=== PATIENT | female | born 1935 | race Caucasian/White ===

== ENCOUNTER 2016-12-10 19:32 | Inpatient (IN) | payer MEDICARE, MEDICAID ==
[~2016-12-10] VITALS: Ht 162.6 cm; Wt 85.1 kg
[~2016-12-10 19:32] MED LIST: ADVAIR 250/5028 PUFF IN; ALBUTEROL-1 PUFF/14. IN; ALLOPURINOL300 M1 PO; ALLOPURINOL300 MG PO; AMOXIL500 MG PO; ASPIRIN 81MG TA81 MG PO; CEFTIN500 MG PO; GABAPENTIN100 M1 PO; HYDROCORT 1% OI30 GM TP; IBUPROFEN200 MG PO; KEFLEX 500MG.500 MG PO; LASIX20 MG PO; LEVAQUIN250 MG PO; LISINOPRIL40 MG PO; LOPRESSOR 50 MG50 MG PO; LORATADINE 10MG10 M1 PO; MAG-OX 400400 MG PO; MAG-OX 400MG T400 MG PO; MAGNESIUM OXID400 M1 PO; METOPROLOL SUCC50 M1 PO; MIRALAX17 GM/PACK PO; MONTELUKAST SOD10 MG PO; MULTI VITAMINS1 TA1 PO; MULTIVITAMIN1 TA2 PO; NORVASC 5MG. TAB5 MG PO; OMEPRAZOLE D/R20 MG PO; ONDANSETRON H2 MG/ML IJ; OXYBUTYNIN CHLO10 MG PO; PLAVIX75 MG PO; PRAVACHOL 40MG40 MG PO; PRAVASTATIN 40M40 MG PO; PREDNISONE 20MG20 MG PO; PRILOSEC20 M1 PO; PROMETHAZINE HC25 M1 PO; PROVENTIL0.09 MG/AC IH; SENNA LAXATIVE8.6 MG PO; SERTRALINE 50MG50 MG PO; SINGULAIR10 MG PO; TESSALON PERLE100 M1 PO; VENTOLIN H0.09 MG/AC IH; ZOFRAN ODT4 MG PO; ZOFRAN ODT8 MG PO
[2016-12-10 19:55] VITALS: BP 127/52
[2016-12-10 20:36] LABS: LYMPH # 4.3 K/mm3 (0.7-4.5); LYMPH % 50.2 % (10-50.0)
[2016-12-10 20:45] LABS: HEMOGLOBIN 15.1 g/dL (12.2-16.2)
--- NOTE | 2016-12-10 20:45 | Emergency Room Report ---
History of Present Illness Time Seen by [id number] Presenting Problem in Triage Pt arrived:Walked Presenting Problem:C/O COUGH AND WHEEZING. BROWN SPUTUM. Onset of symptoms date/time:/ or onset unknown for:MEDICAL HX UNKNOWN Treatment Prior to Arrival: [employer]PER[employer] Provided by: Sepsis Risk Assessment: Temp: 98 B/P: 148/60 MAP: 77 Pulse: 60 Resp: 24 Recent fever? Y Clinical Suspician of Infection? Y Mental Status: 1 - Regular (Normal Baseline) Sepsis Risk:Severe Sepsis Risk Have you (or family members/close friends) recently traveled outside the [place]? N If Yes, where/when: Have you had exposure to infectious disease within the past month? N TB? Other? Specify: Comment The patient complains of wheezing in her chest for 24 hours. She feels short of breath. She has a cough producing yellow sputum. She says her forehead feels hot , but she has not taken her temperature. She denies chest pain or vomiting. She apparently has a diagnosis of chronic obstructive pulmonary disease. She says she has oxygen at home, but does not use it. She has an inhaler and last used it this morning. She has never been a smoker. ALLERGIES Coded Allergies: No Known Allergies (05/25/15) Home Medications Active Scripts Amlodipine Besylate (Norvasc) 5 MG PO DAILY #30 TAB Prov: 07/05/16 CEPHALEXIN (Keflex 500MG Capsule) 500 MG PO Q12H #14 CAP Prov: 07/05/16 Reported Medications Oxybutynin Chloride (Oxybutynin Chloride ER) 10 MG PO DAILY #30 TAB Sertraline Hcl (Sertraline 50MG) 50 MG PO DAILY #30 TAB Montelukast Sodium 10 MG PO QHS #30 TAB Furosemide (Lasix) 40 MG PO DAILY CEPHALEXIN (Keflex 500MG Capsule) 500 MG PO Q6HP PRN ANTIBIOTICS #40 CAPSULE Aspirin (Aspirin EC) 81 MG PO DAILY Sennosides (Senna) 8.6 MG PO DAILYP PRN CONSTIPATION MULTIVITAMIN (Daily Brigida) 1 TAB PO DAILY Gabapentin (Gabapentin 100MG) 100 MG PO QHS PRAVASTATIN SODIUM (Pravastatin Sodium) 40 MG PO QHS Lisinopril (Lisinopril 40MG) 40 MG PO DAILY OMEPRAZOLE MAGNESIUM (Prilosec 20MG) 20 MG PO DAILY Loratadine (Loratadine 10MG Tablet) 10 MG PO DAILY FLUTICASONE/SALMETEROL (Advair 250-50 Diskus) 1 PUFF IN BID Metoprolol Tartrate (Lopressor) 50 MG PO BID #60 Magnesium Oxide 400 MG PO DAILY #30 History Medical History General CAD? No Angina: No UT: No Hypertension? Yes Hyperlipidemia? No CHF? No DVT? No PE? No COPD? Yes Asthma? No Anemia? No GERD? No Gastric ulcers? No GI Bleed? No Hernia? No Thyroid Problems? No Hypothyroidism? No CVA? Yes Seizures? No Diabetes? No Insulin Dependent: No Insulin Pump: No Home FSBS? No Renal Insuffiency? No End Stage Renal Disease? No UTI? Yes Stones? No BPH? No GB Disease: No Nephritic Syndrome? No Asplenia? No Hepatitis? No Sickle Cell Disease? No Arthritis? No Migraines? No Cataracts? Yes Glaucoma? No MRSA? No HIV? No TB? No Anxiety? No Depression? No Cancer? Yes Site: NECK.GROIN AND CHEST More? No Immunization Hx DT/Tetanus Unknown Flu 2016-17FSN Pneumonia Received In Past Surgical Hx Previous Surgery?Y Hemorrhoid CYSTS FROM BREASTS Family History Family Hx Diabetes Yes CAD Yes Hypertension Yes Hyperlipidemia Yes Cancer Yes TB No Social History Smoking Hx Smoker: Never Smoker Tobacco: No Alcohol Alcohol: No Review of Systems All Other Systems Reviewed and Negative Constitutional see HPI Respiratory cough, shortness of breath, wheezing Cardiovascular denies chest pain Gastrointestinal denies abdominal pain, denies diarrhea, denies vomiting Physical Exam Vital Signs Vital Signs Date Time Temp Pulse Resp B/P Pulse O2 O2 Flow FiO2 Ox Delivery Rate 12/106 67 24 116/93 93 2 12/10 2100 98.0 64 24 137/57 92 2 12/11 2015 85 12/10 2015 60 24 148/60 95 2 12/10 1955 98.0 59 24 127/52 87 General Appearance normal appearance, WD/WN Eye Exam - bilateral eye normal exam, bilateral eye PERRL, bilateral eye EOMI Ear, Nose, Throat hearing grossly normal, normal ENT inspection Neck normal inspection, non-tender, supple, full range of motion Respiratory Status Yes: trachea midline, chest symmetrical, non productive cough. No: respiratory distress (tachypnea). Lung Sounds bilateral: rales (bases bilaterally), wheezing. 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 No Results/Orders Laboratory Tests 12/10/162029: Urine Color YELLOW, Urine Appearance CLEAR, Urine pH 6.5, Ur Specific [place] 1.015, Urine Protein TRACE H, Urine Ketones NEGATIVE, Urine Blood NEGATIVE, Urine Nitrate POSITIVE H, Urine Bilirubin NEGATIVE, Urine Urobilinogen 4.0, Ur Leukocyte Esterase NEGATIVE, Urine RBC OCC, Urine WBC 5-10, Ur Squamous Epith Cells 5-10, Urine Bacteria 4+, Hyaline Casts OCC, Urine Glucose NEGATIVE 12/10/162014: Lactic Acid 1.2 12/10/162014: Sodium 141, Potassium 3.5, Chloride 100, Carbon Dioxide 36 H, BUN 11, Creatinine 0.8, Estimated Creat Clear 76, Estimated GFR (MDRD) 69, Glucose 102, Calcium 9.9, Total Bilirubin 0.5, AST 33, ALT 29, Alkaline Phosphatase 123 H, Creatine Kinase 55, CK-MB (CK-2) Rel Index 1.8, CK and CKMB Interp 1.0, Troponin I < 0.02, Total Protein 7.1, Albumin 3.8, Globulin 3.3 H, Albumin/Globulin Ratio 1.2, WBC 8.6, RBC 5.19, Hgb 15.1, Hct 46.2, MCV 89.1, RDW 14.6, Plt Count 222, MPV 7.9, Gran % 42.8, Gran # 3.7, Total Counted 100, Lymphocytes % 50.2 H, Monocytes % 5.2, Eosinophils % 1.2, Basophils % 0.6, Neutrophils 42, Lymphocytes (Manual) 54 H, Lymphocytes # 4.3, Monocytes (Manual) 3, Monocytes # 0.5, Eosinophils # 0.1, Eosinophils # (Manual) 1, Basophils # 0.1, Platelet Estimate NORMAL, Hypochromasia 1+, Anisocytosis 1+, Acanthocytes (Spur) 1+, PUBS MCHC 32.8, MCH 29.2 Current Medication Orders Sig/Benji Start time Last Medication Dose Route Stop Time Status Admin Albuterol/Ipratropium 0 .STK-MED ONE 12/10 2209 DC INH Levofloxacin/Dextrose 150 ML .STK-MED ONE 12/10 2208 DC IV Methylprednisolone 0 .STK-MED ONE 12/10 2208 DC Sodium Succinate .ROUTE Albuterol/Ipratropium 3 ML ONCE ONE 12/10 2099 DC 12/10 INH 12/10 2100 220 Levofloxacin/Dextrose 150 ML ONCE ONE 12/10 2099 DCr 12/10 IV 12/10 2229 2210 Methylprednisolone 125 MG ONCE ONE 12/10 2099 DC 12/10 Sodium Succinate IV 12/10 2100 2211 Sodium Chloride 10 ML PRN PRN 12/10 2014 AC IV 12/11 2001 Orders Procedure Date/time Status RT Aerosol Treatment, Provide 12/11 2211 Active Decision to admit 12/11 2211 Active Decision to admit 12/10 2208 Active CULTURE, SPUTUM 12/10 2099 Active RT REQUEST DUONEB 12/10 2053 Active ELECTROCARDIOGRAM REQUEST 12/10 2045 Active CULTURE, URINE 12/10 2029 Active DIFFERENTIAL-WBC 12/10 2014 Complete CHEST-PORTABLE 12/10 2001 Active IV SALINE LOCK 12/10 2001 Active OXYGEN PER NURSE 12/10 2001 Active CULTURE, BLOOD 12/10 2001 Active URINALYSIS/COMPLETE 12/10 2001 Complete LACTIC ACID 12/10 2001 Complete CBC WITH AUTO DIFF 12/10 2001 Complete CARDIAC ENZYMES 12/10 2001 Complete CHEM 12 PROFILE 12/10 2001 Complete XRAY/CT/US XRAY/CT/US XRAY chest Comment X-ray interpreted by Mandeep Bryan M.D.: haziness RIGHT base, questionable airspace disease versus overlying soft tissue Progress - 10:15 PM: I have discussed the case with Dr. Acosta who agrees to admit the patient to the hospital. We discussed the patient's clinical information, including history, exam, laboratory and radiology results and ED course. Per hospital procedure, I will write temporary bridge inpatient orders on the patient. Specific orders requested by the admitting physician: Antibiotics, steroids, nebulizer treatments Departure Departure Disposition Still a Patient Clinical Impression Primary Impression: Chronic obstructive pulmonary disease with (acute) exacerbation Secondary Impressions: Acute bronchitis Qualifiers: Bronchitis organism: unspecified organism Qualified Code: J20.9 - Acute bronchitis, unspecified Hypoxia Condition STABLE Referrals MATTHIAS MOFFETT APRN (Family) ED Critical Care Critical Care No at 0150
[2016-12-10 20:52] LABS: URINE BILIRUBIN - DIPSTICK NEGATIVE (NEG); URINE BLOOD NEGATIVE (NEG)
[2016-12-10 21:10] LABS: BUN 11 mg/dL (7-18)
[2016-12-10 21:11] LABS: GFR (ESTIMATED) 69 ML/MIN (59-)
[2016-12-10 23:19] VITALS: BP 144/61
[2016-12-10 23:19] LABS: NEUTROPHILS 42 % (42-76)
[2016-12-10 23:43] VITALS: BP 144/61
[2016-12-11] MEDS ORDERED: ASPIRIN ADULT L81 M3 PO (00:46)
[2016-12-11] MEDS ORDERED: SENNA8.6 M1 PO (00:50)
[2016-12-11] MEDS ORDERED: DAILY VITE PO (00:52)
[2016-12-11 04:22] VITALS: BP 154/63
--- NOTE | 2016-12-11 07:08 | HISTORY AND PHYSICAL REPORT ---
Demographics: Admit date: 12/10/16 Chief complaint: Shortness of breath PRIMARY DIAGNOSIS: EXACERBATION- COPD, HYPOXIA, ACUTE BRONCHITIS Allergies: Coded Allergies: No Known Allergies (05/25/15) History of present illness: History of present illness: 81-year-old female with history of chronic obstructive pulmonary disease who reports a 2-7 day history of increasing shortness of breath with cough that produces brown sputum. Patient has underlying chronic obstructive pulmonary disease and takes Anoro. She is not oxygen dependent. She endorses subjective fevers and chills as well. Patient presented to the emergency department where she had mild hypoxia with room air sats in the mid to high 80s. Patient had wheezing and chest x-ray suspicious for early infiltrate. Patient was admitted for treatment of chronic obstructive pulmonary disease exacerbation and possible pneumonia. Past medical history: Family HX Family Hx Insignificant No Diabetes Yes CAD Yes Hypertension Yes Hyperlipidemia Yes Cancer Yes TB No Immunization HX DT/Tetanus Unknown Flu 2015-FSN Pneumonia Received In Past TB Test in last year No General CAD? No Angina: No DC: No Hypertension? Yes Hyperlipidemia? No CHF? No DVT? No PE? No COPD? Yes Asthma? No Anemia? No GERD? No Gastric ulcers? No GI Bleed? No Hernia? No Thyroid Problems? No Hypothyroidism? No CVA? Yes Seizures? No Diabetes? No Insulin Dependent: No Insulin Pump: No Home FSBS? No Renal Insuffiency? No UTI? Yes Stones? No BPH? No GB Disease: No Nephritic Syndrome? No Asplenia? No Hepatitis? No Sickle Cell Disease? No Arthritis? No Migraines? No Cataracts? Yes Glaucoma? No MRSA? No HIV? No TB? No Anxiety? No Depression? No Cancer? Yes Site: NECK.GROIN AND CHEST More? No Past Surgical HX Previous Surgery?Y Hemorrhoid CYSTS FROM BREASTS Current home meds: Active Scripts Amlodipine Besylate (Norvasc) 5 MG PO DAILY #30 TAB Prov: 07/05/16 CEPHALEXIN (Keflex 500MG Capsule) 500 MG PO Q12H #14 CAP Prov: 07/05/16 Reported Medications Oxybutynin Chloride (Oxybutynin Chloride ER) 10 MG PO DAILY #30 TAB Sertraline Hcl (Sertraline 50MG) 50 MG PO DAILY #30 TAB Montelukast Sodium 10 MG PO QHS #30 TAB Furosemide (Lasix) 40 MG PO DAILY CEPHALEXIN (Keflex 500MG Capsule) 500 MG PO Q6HP PRN ANTIBIOTICS #40 CAPSULE Aspirin (Aspirin EC) 81 MG PO DAILY Sennosides (Senna) 8.6 MG PO DAILYP PRN CONSTIPATION MULTIVITAMIN (Daily Brigida) 1 TAB PO DAILY Gabapentin (Gabapentin 100MG) 100 MG PO QHS PRAVASTATIN SODIUM (Pravastatin Sodium) 40 MG PO QHS Lisinopril (Lisinopril 40MG) 40 MG PO DAILY OMEPRAZOLE MAGNESIUM (Prilosec 20MG) 20 MG PO DAILY Loratadine (Loratadine 10MG Tablet) 10 MG PO DAILY FLUTICASONE/SALMETEROL (Advair 250-50 Diskus) 1 PUFF IN BID Metoprolol Tartrate (Lopressor) 50 MG PO BID #60 Magnesium Oxide 400 MG PO DAILY #30 Social Hx: Smoking HX Tobacco No Are you/the child exposed to second-hand smoke: No Alcohol Alcohol: No Hx of Drug Use Drug Use? No Review of systems: Constitutional see HPI. Respiratory see HPI. Cardiovascular no symptoms reported Gastrointestinal/Abdominal no symptoms reported Genitourinary no symptoms reported. Musculoskeletal no symptoms reported. Neurological Yes: no symptoms reported. Exam: Lab data for last 24 hours: Laboratory Tests 12/10/16 2030: Urine Color YELLOW, Urine Appearance CLEAR, Urine pH 6.5, Ur Specific [place] 1.015, Urine Protein TRACE H, Urine Ketones NEGATIVE, Urine Blood NEGATIVE, Urine Nitrate POSITIVE H, Urine Bilirubin NEGATIVE, Urine Urobilinogen 4.0, Ur Leukocyte Esterase NEGATIVE, Urine RBC OCC, Urine WBC 5-10, Ur Squamous Epith Cells 5-10, Urine Bacteria 4+, Hyaline Casts OCC, Urine Glucose NEGATIVE 12/10/162014: Lactic Acid 1.2 12/10/162014: Sodium 141, Potassium 3.5, Chloride 100, Carbon Dioxide 36 H, BUN 11, Creatinine 0.8, Estimated Creat Clear 76, Estimated GFR (MDRD) 69, Glucose 102, Calcium 9.9, Total Bilirubin 0.5, AST 33, ALT 29, Alkaline Phosphatase 123 H, Creatine Kinase 55, CK-MB (CK-2) Rel Index 1.8, CK and CKMB Interp 1.0, Troponin I < 0.02, Total Protein 7.1, Albumin 3.8, Globulin 3.3 H, Albumin/Globulin Ratio 1.2, WBC 8.6, RBC 5.19, Hgb 15.1, Hct 46.2, MCV 89.1, RDW 14.6, Plt Count 222, MPV 7.9, Gran % 42.8, Gran # 3.7, Total Counted 100, Lymphocytes % 50.2 H, Monocytes % 5.2, Eosinophils % 1.2, Basophils % 0.6, Neutrophils 42, Lymphocytes (Manual) 54 H, Lymphocytes # 4.3, Monocytes (Manual) 3, Monocytes # 0.5, Eosinophils # 0.1, Eosinophils # (Manual) 1, Basophils # 0.1, Platelet Estimate NORMAL, Hypochromasia 1+, Anisocytosis 1+, Acanthocytes (Spur) 1+, PUBS MCHC 32.8, MCH 29.2 Microbiology 12/10 2099 SPUTUM: Sputum Culture - ORD 12/10 2099 SPUTUM: Gram Stain - ORD 12/10 2029 URINE CC: Urine Culture - RECD 12/10 2014 BLOOD: Anaerobic Blood Culture - RECD 12/10 2014 BLOOD: Aerobic Blood Culture - RECD 12/10 2014 BLOOD: Anaerobic Blood Culture - RECD 12/10 2014 BLOOD: Aerobic Blood Culture - RECD Admission vital signs: 1ST Vital Signs Result Date Time Pulse Ox 87 12/10 1954 B/P 127/52 12/10 1954 Temp 98.0 12/10 1954 Pulse 59 12/10 1954 Resp 24 12/10 1954 O2 Flow Rate 2 12/10 2014 O2 Delivery OXYGEN 12/10 2319 Exam General appearance: normal appearance, alert, awake Eyes: normal exam, anicteric ENT: normal exam, mucous membranes moist Cardiovascular: normal exam Respiratory: no respiratory distress, on oxygen, wheezing (throughout) ABD: normal exam, non-distended, normal bowel sounds Extremities: normal exam Plan: Problem List 1. COPD with acute exacerbation Plan: Patient has been admitted and placed on Solu-Medrol 60 mg every 8 hours and duo nebs. Patient does not have her home medications Anoro. I have encouraged patient to get out of bed today and sit in the chair. She continues to have oxygen requirement with O2 sat of 87 percent on room air last night. Continue patient's home medicines. at 0708
--- NOTE | 2016-12-11 07:30 | PHARMACY CLINIC NOTE ---
Patient Demographics Patient Demographics Admission date: 12/10/16 Date: 12/11/16 Time: 0730 Allergies Coded Allergies: No Known Allergies (05/25/15) HEIGHT- FT: 5 IN: 4.00 K.078 VTE General Information Labs: Laboratory Tests 12/10 2014 Hematology Hgb (12.2 - 16.2 g/dL) 15.1 Hct (37.0 - 47.0 %) 46.2 Plt Count (142 - 424 K/mm3) 222 Disclaimer The following section includes nursing documentation that has been pulled in for pharmacy review. Patient's VTE score: 3 Patient's VTE Risk: LOW RISK Clinical trial participant? No VTE prophylaxis [id number] VTE prophylaxis ordered? Yes Type of prophylaxis/treatment: LOLITA at 0730
--- NOTE | 2016-12-11 07:50 | RADIOLOGY REPORT PS360 ---
CHEST-PORTABLE COMPARISON: Portable upright chest 07/03/2016 HISTORY: Coughing and wheezing TECHNIQUE: Portable upright chest FINDINGS: Lung durbin are well expanded and appear clear of infiltrate. There is mild cardio megaly with no evidence of failure. Costophrenic angles are clear. IMPRESSION: Mild cardio megaly, no acute chest pathology noted
[2016-12-11 07:55] VITALS: BP 132/53
[2016-12-11 09:11] VITALS: BP 132/53
[2016-12-11 16:17] VITALS: BP 135/57
[2016-12-11 19:22] VITALS: BP 148/53
[2016-12-11 21:20] VITALS: BP 148/53
[2016-12-12 04:28] VITALS: BP 158/64
--- NOTE | 2016-12-12 06:56 | ACUTE CARE PROGRESS NOTE (QUA) ---
Progress Notes Subjective Date 12/12/16 Time 0655 Note Patient feels like there has been some improvement in her breathing. Her urine culture is back and is positive for Klebsiella pneumonia. Chest x-ray has been interpreted as no infiltrate. She is awake and alert. Patient has improved aeration but continues to have expiratory wheezes. Heart has regular rate and rhythm. Abdomen is soft. Patient is improving in regards to her chronic obstructive pulmonary disease exacerbation. She will get out of bed to chair more today. Objective Findings Last VS-Temp:97.5 B/P:158/64 Pulse:68 Resp:20 SaO2:97 OXYGEN Last weight lbs:187 oz:9 K.078 Method:Bed Scales Assessment/Plan Problem List 1. COPD with acute exacerbation Patient condition Improving Plan: continue current care This inpt stay is expected to cross 2 MNs from start of care Yes at 0656
[2016-12-12 08:00] VITALS: BP 153/62
[2016-12-12 09:00] VITALS: BP 153/62
[2016-12-12 16:17] VITALS: BP 150/66
[2016-12-12 19:12] VITALS: BP 151/72
[2016-12-12 20:55] VITALS: BP 151/72
[2016-12-13 03:38] VITALS: BP 157/74
--- NOTE | 2016-12-13 06:52 | ACUTE CARE PROGRESS NOTE (QUA) ---
Progress Notes Subjective Date 12/13/16 Time 0649 Note Patient reports feeling better with improvement in her shortness of breath. She admits she is not back to baseline. She is resting comfortably. She awakens easily. She is oriented 3. Lungs have faint wheezes that clear with repetitive deep breathing. Heart has regular rate and rhythm. Patient is improving from her chronic obstructive pulmonary disease exacerbation and is off supplemental oxygen. She will be discharged home. Patient will be discharged on antibiotics for her urinary tract infection due to Klebsiella Objective Findings Last VS-Temp:97.4 B/P:157/74 Pulse:67 Resp:20 SaO2:93 ROOM AIR Last weight lbs:187 oz:9 K.078 Method:Bed Scales Assessment/Plan Problem List 1. COPD with acute exacerbation 2. Urinary tract infection 3. Klebsiella pneumonia Patient condition Improving Plan: initiate discharge plan This inpt stay is expected to cross 2 MNs from start of care Yes
--- NOTE | 2016-12-13 06:55 | Discharge Summary ---
Demographics Admit date: 12/10/16 Discharge date: 12/13/16 Discharge diagnoses Problem List 1. COPD with acute exacerbation 2. Urinary tract infection 3. Klebsiella pneumonia History of present illness History of present illness 81-year-old female with history of chronic obstructive pulmonary disease who reports a 2-7 day history of increasing shortness of breath with cough that produces brown sputum. Patient has underlying chronic obstructive pulmonary disease and takes Anoro. She is not oxygen dependent. She endorses subjective fevers and chills as well. Patient presented to the emergency department where she had mild hypoxia with room air sats in the mid to high 80s. Patient had wheezing and chest x-ray suspicious for early infiltrate. Patient was admitted for treatment of chronic obstructive pulmonary disease exacerbation and possible pneumonia. Patient was admitted and placed on Solu-Medrol 60 mg every 8 hours, DuoNeb nebs, Levaquin. Chest x-ray was officially interpreted as no infiltrate. Patient required supplemental oxygen for the first 48 hours of hospitalization but was able to be weaned and on the day of discharge her O2 sats were 94 percent on room air. Lung exam improved during hospitalization from diffuse expiratory wheezes to faint end expiratory wheezes that cleared with deep breathing. Patient will be discharged on steroids and will resume use of her home inhalers. Patient had a urinary tract infection on admission and culture grew Klebsiella pneumonia. Patient be discharged home on ciprofloxacin to treat her Klebsiella pneumonia infection. Medications Medications: Discharge meds are as noted. Follow up Follow up in office in: 4 DAYS with: MATTHIAS MOFFETT APRN at 0610
[2016-12-13] MEDS ORDERED: VENTOLIN H0.09 MG/Ac IH (06:56)
[2016-12-13] MEDS ORDERED: CIPRO 250MG TA250 MG PO (06:57)
[2016-12-13 08:01] VITALS: BP 159/61
[2016-12-13 12:37] VITALS: BP 159/61
--- OUTSIDE RECORDS SUMMARY | 2016-12-13 18:02 | External Medical Summary Rpt ---
Author Author , JESSICA LOPEZ Address Unknown Phone [email or web address] Care Team Providers Care Cycle Consultant Name Role Phone NO REBEKAH, NO REBEKAH Unavailable Unavailable AHMED ADN, AHMED ADN Unavailable Unavailable AHMED ADN, AHMED ADN Unavailable Unavailable ILYA LES, ILYA Unavailable Unavailable LES ATKINS COL, ATKINS Unavailable Unavailable COL ATKINS COL, ATKINS Unavailable Unavailable COL BESSON, BESSON Unavailable Unavailable BESSON ROLO, BESSON Unavailable Unavailable ROLO BESSON ROLO, BESSON Unavailable Unavailable ROLO BESSON, MARY A, Unavailable Unavailable BESSON, MARY A [facility] Unavailable Unavailable IMAGING L, [facility] IMAGING L MONIQUE, MONIQUE Unavailable Unavailable MONIQUE ALL, MONIQUE ALL Unavailable Unavailable [facility] Unavailable [facility], [facility] PHYSICIAN Unavailable Unavailable PRACTICE L, [facility] RICCI PHI, RICCI Unavailable Unavailable PHI RICCI PHI, RICCI Unavailable Unavailable PHI RENNER-MIGUE WALT, Unavailable Unavailable [facility]EN[facility]MIG[facility] WALT C GEOVANNI STEVENS MD Unavailable Unavailable [facility], C GEOVANNI STEVENS MD PSC [facility], Unavailable Unavailable [facility], Unavailable Unavailable [facility] Unavailable Unavailable COMPANY, [facility], Unavailable Unavailable [facility] & Unavailable Unavailable DUBILIER, [facility] DEVIN BLACK, BELTRAN Unavailable Unavailable WAYNE VIKI VERNONE Unavailable Unavailable BETH CAMPOS, BELTRAN Unavailable Unavailable MARIAA SALES, Unavailable Unavailable MARIAA BELTRAN [facility], Unavailable Unavailable [facility] Unavailable Unavailable [facility], [facility] Unavailable Unavailable LAB, [facility] MENDOSA FAMILIA, MENDOSA FAMILIA Unavailable Unavailable ISABELA PAT, ISABELA PAT Unavailable Unavailable DENI BRADLEY, Unavailable Unavailable DENI BRADLEY DENI, ROBERTO CARLOS, Unavailable Unavailable DENI, ROBERTO CARLOS STACY II THO, STACY II Unavailable Unavailable [facility] Unavailable Unavailable [facility] Unavailable Unavailable [facility], [facility] RANDA HEN, RANDA Unavailable Unavailable HEN DEEPALI RONN, Unavailable Unavailable DEEPALI RONN DEEPALI RONN, Unavailable Unavailable DEEPALI RONN GOLD SET, GOLD SET Unavailable Unavailable FRYMAN, FRYMAN Unavailable Unavailable HAGENSCHNEIDER CLAYTON, Unavailable Unavailable HAGENSCHNEIDER CLAYTON HAGENSCHNEIDER, Unavailable Unavailable SAMIR K, DARIO, SAMIR K [facility] Unavailable Unavailable INC, [facility] Unavailable [facility]available HOSPITAL P, [facility] CLIFTON ANNIE, CLIFTON Unavailable Unavailable ANNIE CLIFTON ANNIE, CLIFTON Unavailable Unavailable ANNIE ETIENNE, AYANA S, Unavailable Unavailable ETIENNE, AYANA S GYPSY, GYPSY CORRIGAN, Unavailable Unavailable DORIAN GIMENEZ, Unavailable Unavailable DORIAN RAHMAN [facility], Unavailable Unavailable [facility] YOUSIF DODD Unavailable Unavailable BETINA, BETINA Unavailable Unavailable BETINA EULOGIO, BETINA Unavailable Unavailable [facility] Unavailable Unavailable CLINIC, [facility] Unavailable Unavailable IMAGING [facility], [facility] YG CRY, YG Unavailable Unavailable [facility] Unavailable Un[facility], [facility] Unavailable Unavailable [facility], [facility] Unavailable Unavailable [facility], [facility] FED, [facility] FED Unavailable Unavailable [facility], [facility] Unavailable Unavailable ETHEL JR DWI, ETHEL Unavailable Unavailable JR DWI [facility] Unavailable Unavailable INTERNAL MED, [facility] VENKAT GRAY Unavailable Unavailable FLAQUITA AMADO, Unavailable Unavailable FLAQUITA ROBLEDO LUKINS BRADLEY, LUKINS Unavailable Unavailable BRADLEY LUKINS BRADLEY, LUKINS Unavailable Unavailable BRADLEY [facility] Unavailable Unavailable ASSOCIAT, [facility] DARYN CEBALLOS, Unavailable Unavailable DARYN CEBALLOS JR, WILLIAM Unavailable Unavailable MENDEZ Boucher JR, WILLIAM F MERHAR GAR, MERHAR Unavailable Unavailable GAR MERHAR GAR, MERHAR Unavailable Unavailable G[facility] [place] Un[facility] Un[facility], [facility], [facility] Unavailable Unavailable [facility] Unavailable Unavailable [facility], [facility], Unavailable Unavailable [facility] Unavailable Unavailable HEALTH, [facility] Unavailable Unavailable URGENT TREAT, [facility] & Unavailable Unavailable HOME HE, [facility] Unavailable Unavailable [facility], [facility] ELISEO TIRADO, Unavailable Unavailable ELISEO MENDOSA MD Unavailable Unavailable CONSULTING SRV, FAMILIA MENDOSA MD CONSULTING SRV [facility], Unavailable Unavailable PLL[facility], [facility] Unavailable Unavailable LAB, [facility] Unavailable Unavailable LAB, [facility]Y [facility]Y LAB PENDLETON, DEISY, PENDLETON, Unavailable Unavailable DEISY TAMIE ISABEL, TAMIE Unavailable Unavailable ISABEL HILDA GÓMEZ, Unavailable Unavailable [facility] Unavailable Unavailable [facility] Unavailable Un[facility] Unavailable [facility]available [facility], Unavailable Unavailable [facility] MARIAA OLIVA JR, Unavailable Unavailable MARIAA OLIVA JR [facility] Unavailable Unavailable HOSPITALS, [facility], Unavailable Unavailable [facility] Unavailable Unavailable AGENCY, [facility] Un[facility] Unavailable [facility] [place], [facility] ABDALLA, MAGALIE MAT Unavailable Unavailable Purpose Continuity of Care Document - 05-27-2007 through 2016 Problems Code Diagnosis DOS Provider Status J449 CHRONIC 09-02-2016 [facility] OBSTRUCTIVE HOME PULMONARY MEDICAL DISEASE UNS EQUIPME I10 ESSENTIAL 07-12-2016 [facility]YS[facility] HYPERTENSIO GROUP N J441 CHRONIC 07-12-2016 [facility] OBSTRUCTIVE PHYSICIANS PULMONARY GROUP DZ W/EXACERBAT ION R062 WHEEZING 07-12-2016 [facility] E876 HYPOKALEMIA 07-05-2016 [facility] I509 HEART 07-05-2016 [facility] FAILURE PHYSICIANS UNSPECIFIED GROUP J189 PNEUMONIA 07-05-2016 [facility] UNSPECIFIED PHYSICIANS ORGANISM GROUP E785 HYPERLIPIDE 07-04-2016 [facility] CECILIA PHYSICIANS UNSPECIFIED GROUP I5031 ACUTE 07-03-2016 [facility] FAILURE R05 COUGH 07-03-2016 [facility] R0602 SHORTNESS 07-03-2016 [place] [facility] R918 OTHER 07-03-2016 [place] NONSPECIFIC MEDICAL ABNORMAL IMAGING ASS FINDING OF LUNG FIELD Z8249 FAMILY HX 07-03-2016 [facility] ISCHEMIC PHYSICIANS HRT DZ OTH GROUP DZ CIRC SYSTEM Z8673 PERSONAL HX 07-03-2016 [facility] CEREB INC INFARCT NO RESID DEFICIT Z8709 PERSONAL 07-03-2016 [facility] OT PHYSICIANS, DISEASES PLLC RESPIRATORY SYSTEM C8510 UNSPECIFIED 06-20-2016 [facility] UNSPECIFIED SITE D479 NEOPLASM 06-20-2016 [facility] L[facility]HO[facility] HP FOUNDATION & REL TISSUE UNS V94808 LYMPHOCYTOS 06-20-2016 [facility]TOMATIC [facility] I57600 EPIPHORA 04-11-2016 [facility] DUE TO COUNTY EXCESS URGENT LACRIMATION TREAT LT LACR GLAND J208 ACUTE 04-11-2016 COUNT INCLUDES THE [facility] BRONCHITIS [facility] DUE TO URGENT OTHER SPEC TREAT ORGANISMS L84 CORNS AND 03-25-2016 COUNT INCLUDES THE [facility] CALLOSITIES COUNTY URGENT TREAT Q845 ENLARGED 03-25-2016 COUNT INCLUDES THE [facility] AND [facility] HYPERTROPHI URGENT C NAILS TREAT J168 PNEUMONIA 03-11-2016 [facility] DUE TO COUNTY OTHER SPEC URGENT INFECTIOUS TREAT ORGANISMS C16377 CELLULITIS 03-11-2016 COUNT INCLUDES THE [facility] OF LEFT [facility] LOWER LIMB URGENT TREAT M7989 OTHER 03-11-2016 COUNT INCLUDES THE [facility] SPECIFIED [facility] SOFT TISSUE URGENT DISORDERS TREAT N3946 MIXED 03-11-2016 COUNT INCLUDES THE [facility] INCONTINENC [facility] E URGENT TREAT R112 NAUSEA WITH 03-11-2016 COUNT INCLUDES THE [facility] VOMITING [facility] UNSPECIFIED URGENT TREAT R5081 FEVER 03-11-2016 COUNT INCLUDES THE [facility] PRESENTING COUNTY W/COND URGENT CLASSIFIED TREAT ELSEWHERE H6501 ACUTE 02-02-2016 COUNT INCLUDES THE [facility] SEROUS [facility] OTITIS URGENT MEDIA RIGHT TREAT EAR J301 ALLERGIC 02-02-2016 COUNT INCLUDES THE [facility] RHINITIS [facility] DUE TO URGENT POLLEN TREAT [id number] ABRASION 02-02-2016 COUNT INCLUDES THE [facility] LEFT LOWER [facility] LEG INITIAL URGENT ENCOUNTER TREAT C8588 OTH TYPES 12-14-2015 [facility] NODES MX SITES R42 DIZZINESS 07-06-2015 FAMILIA MENDOSA AND MD [facility] CONSULTING SRV E878 OTHER D/O 07-05-2015 [facility] AND FLUID BALANCE NEC H903 SENSORINEUR 06-28-2015 [facility] LOSS PRACTICE L BILATERAL C8300 SMALL CELL 06-15-2015 [facility] UNSPECIFIED SITE E780 PURE 05-07-2015 [facility] HYPERCHOLES [facility] TEROLEMIA [facility]OSPITAL 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 [facility] 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 Z7902 FPC 05-07-2015 [facility] CURR USE [facility] ANTITHROMBO HOSPITAL TICS/ANTIPL ATELETS Z7982 FPC 05-07-2015 [facility] CURRENT USE [facility] B45184 OTHER LONG 05-07-2015 [facility] DRUG THERAPY Z809 FAMILY 05-07-2015 [facility] HISTORY OF [facility] MALIGNANT HOSPITAL NEOPLASM UNSPECIFIED R531 WEAKNESS 04-29-2015 [facility] R5381 OTHER 04-29-2015 [facility] R5383 OTHER 04-29-2015 [facility] J209 ACUTE 04-23-2015 [facility] UNSPECIFIED HOSPITAL P J440 COPD WITH 04-23-2015 [facility] P RESPIRATORY INFECTION R079 CHEST PAIN 04-23-2015 [place] [facility] 30911 CHRONIC 12-02-2014 [facility] LYMPHO[facility] HEALTH LEUKEMIA AGENCY W/O ACHIEVED REMISSION 55327 HTN CKD UNS 12-02-2014 [facility] W/CKD HEALTH STAGE I AGENCY THRU STAGE IV/UNS 92695 UNSPECIFIED 12-02-2014 [facility] VENOUS HEALTH INSUFFICIEN AGENCY CY 496 CHRONIC 12-02-2014 [facility] AIRWAY HEALTH OBSTRUCTION AGENCY NEC 5859 CHRONIC 12-02-2014 [facility] KIDNEY HEALTH DISEASE AGENCY UNSPECIFIED 88321 UNSPECIFIED 12-02-2014 [facility] URINARY HEALTH INCONTINENC AGENCY E 481 PNEUMOCOCCA 09-15-2014 [facility] Velazquez PNEUMONIA [facility] URGENT TREAT 56715 FEVER 09-15-2014 [facility] URGENT TREAT 45912 OTHER VOICE 09-15-2014 [facility] RESONANCE URGENT DISORDERS TREAT 7862 COUGH 09-15-2014 [facility] URGENT TREAT 2724 OTHER AND 08-27-2014 [facility] UNSPECIFIED [place] [facility] HYPERLIPIDE CECILIA 4011 ESSENTIAL 08-27-2014 [facility] HYPERTENSIO [place] N, BENIGN HOLDINGS 7823 EDEMA 08-27-2014 [facility] [place] [facility] 83884 SHORTNESS 06-29-2014 [place] [facility] 29806 CHEST PAIN 06-29-2014 [place] UNSPECIFIED [facility]ICAL IMAGING ASS V1261 PERSONAL 06-29-2014 [place] HISTORY MEDICAL PNEUMONIA IMAGING ASS RECURRENT 6829 CELLULITIS 05-19-2014 [facility] AND ABSCESS [place] OF HOLDINGS UNSPECIFIED SITE 5589 OTH&UNSPEC 04-26-2014 [facility] NONINFECTIO [place] US HOLDINGS GASTROENTER ITIS&COLITI S 82214 OTH MALIG 04-05-2014 [facility] UNS SITE INC XTRANOD&SUSANNA ID ORGN 4019 UNSPECIFIED 04-05-2014 [facility] ESSENTIAL [facility] HYPERTENSIO INC N 486 PNEUMONIA, 04-05-2014 [facility] ORGANISM PHYSICIANS UNSPECIFIED GROUP 35211 OBSTRUCTIVE 04-05-2014 [facility] CHRONIC PHYSICIANS BRONCHITIS GROUP WITH EXACERBATIO N 68111 OTHER 04-05-2014 [place] DISEASES OF MEDICAL LUNG NOT IMAGING ASS ELSEWHERE CLASSIFIED V5869 LONG-TERM 04-05-2014 [facility] (CURRENT) [facility] USE OF INC OTHER MEDICATIONS 7804 DIZZINESS 03-12-2014 [facility] AND [facility] GIDDINESS INC V1090 PERSONAL 03-12-2014 [facility] HISTORY [facility] UNSPECIFIED INC MALIGNANT NEOPLASM 4660 ACUTE 03-06-2014 [facility] BRONCHITIS [facility] INC 2749 GOUT, 02-22-2014 [facility] UNSPECIFIED PHYSICIANS GROUP 4149 UNSPECIFIED 02-22-2014 [facility] CHRONIC PHYSICIANS ISCHEMIC GROUP HEART DISEASE 4779 ALLERGIC 02-22-2014 [facility] RHINITIS PHYSICIANS CAUSE GROUP UNSPECIFIED 17033 ESOPHAGEAL 02-22-2014 [facility] REFLUX PHYSICIANS GROUP 50980 WHEEZING 02-22-2014 [facility] PHYSICIANS GROUP V0481 NEED 02-22-2014 [facility] PROPHYLACTI PHYSICIANS C GROUP VACCINATION &INOCULATIO N FLU 1101 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 [facility] OSIS OF NAIL 4439 UNSPECIFIED 01-05-2014 [facility] PERIPHERAL VASCULAR DISEASE 7038 OTHER 01-05-2014 [facility] SPECIFIED DISEASE OF NAIL 7295 PAIN IN 01-05-2014 [facility] SOFT TISSUES OF LIMB 62765 OTHER 11-25-2013 [facility] TISSUES 20559 DIAB W/O 11-10-2013 NURSES MENTION REGISTRY COMP TYPE HOME II/UNS TYPE HLTHTCA UNCNTRL 24826 HYPOXEMIA 10-06-2013 [facility] V5863 LONG-TERM 10-06-2013 [facility] T/ANTITHROM BOTIC V5866 LONG-TERM 10-06-2013 [facility] OF COMM[facility]ITY [facility] 0088 INTESTINAL 09-04-2013 [facility], INFECTION [facility] DUE TO [facility] OTHER HOS ORGANISM NEC 67916 COR 09-04-2013 [facility], ATHEROSLERO [facility] INTERPRETER UNSPEC [place] [facility] TYPE VESSEL HOS CHEFORNAK/SANDY T 4293 CARDIOMEGAL 09-04-2013 [facility], Y [facility] [place] [facility] 92942 DIVERTICULO 09-04-2013 [facility], SIS OF [facility]ICAL INTERPRE[facility] COLON [facility] [facility] 5939 UNSPECIFIED 09-04-2013 [facility], DISORDER [facility]ISH MEDICAL INTERPRETER OF KIDNEY [place] [facility] AND URETER HOS V103 PERSONAL 09-04-2013 [facility], HISTORY OF [facility]ICAL INTERPRETER MALIGNANT [place] [facility] NEOPLASM OF HOS BREAST V1079 PERSONAL HX 09-04-2013 [facility], OTH [facility]ISH MEDICAL INTERPRETER LYMPHATIC&H [facility] [facility] EMATOPOIETI HOS C NEOPLASM 7020 ACTINIC 07-15-2013 [facility] KERATOSIS 03772 OTHER 07-15-2013 [facility] SEBORRHEIC KERATOSIS V5883 ENCOUNTER 06-16-2013 [facility], FOR [facility] MEDICAL INTERPRETER THERAPEUTIC [place] [facility] DRUG [facility]OS MONITORING 7873 FLATULENCE 06-09-2013 [facility], ERUCTATION SPANISH MEDICAL INTERPRETER AND GAS [facility] [facility] PAIN HOS V1083 PERSONAL 06-09-2013 [facility], HISTORY SP[facility]ISH MEDICAL INTERPRETER OTHER [place] [facility] MALIGNANT HOS NEOPLASM SKIN V4589 OTHER 06-09-2013 [facility], POSTSURGICA [facility]ISH MEDICAL INTERPRETER L STATUS [place] [facility] OTHER HOS 07403 NODULAR 05-27-2013 [facility] RONN LYMPH NODES MULTIPLE SITES 4510 PHLEBITIS&T 03-03-2013 [facility] HROMBOPHLEB SUP VESSELS LOWER EXTREM 4548 VARICOSE 03-03-2013 [facility] VEINS LOWER EXTREMITIES W/OTH COMPS 4371 OTH 09-03-2012 [facility] GENERALIZED ISCHEMIC CEREBROVASC ULAR DISEASE 88666 DISORDER OF 09-03-2012 [facility] BR[facility] BONE AND CARTILAGE UNSPECIFIED 9100 FCE 09-03-2012 [facility] NO HOSPITAL EYE ABRAS/FRIC BURN W/O INF 9596 INJURY 09-03-2012 MER[facility]AR GAR OTHER AND UNSPECIFIED HIP AND THIGH 9597 INJURY 09-03-2012 [facility] G[facility] OTHER&UNSPE CIFIED KNEE LEG ANKLE&FOOT E8889 UNSPECIFIED 09-03-2012 [facility] G[facility] FALL V1060 PERSONAL 09-03-2012 [facility] HISTORY OF HOSPITAL UNSPECIFIED LEUKEMIA V1229 PERSONAL HX 09-03-2012 [facility] ENDOCRN METABOLIC IMMUNITY D/O V5861 LONG-TERM 09-03-2012 [facility] (CURRENT) USE OF ANTICOAGULA NTS V714 OBSERVATION 09-03-2012 [facility] PR[facility] FOLLOWING OTHER ACCIDENT 035 ERYSIPELAS 08-21-2012 [facility], [facility] [place] [facility] 17791 LEUKOCYTOSI 08-21-2012 [facility], S SPANISH MEDICAL INTERPRETER UNSPECIFIED [place] [facility] 77280 CALCU 08-21-2012 [facility] GALLBLADD W/O MENTION CHOLECYST/O BST 57583 UNSPECIFIED 08-21-2012 [facility] RESPIRATORY ABNORMALITY 7892 SPLENOMEGAL 08-21-2012 [facility] Y 2411 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 [facility] MULTINODULA R GOITER 2462 CYST OF 08-04-2012 [facility] THYROID 7964 OTHER 08-04-2012 [facility], ABNORMAL SP[facility]ISH MEDICAL INTERPRETER CLINICAL [place] [facility] FINDING HOS 20817 UNS 07-22-2012 [facility] LEUKEMIA W/O ACHIEVED REMISSION 4871 INFLUENZA 07-22-2012 [place] WITH OTHER HOSPITAL RESPIRATORY MANIFESTATI ONS 5119 UNSPECIFIED 07-22-2012 [facility] PLEURAL EFFUSION 5180 PULMONARY 07-22-2012 [facility] COLLAPSE V1254 PERSONAL HX 07-22-2012 [facility] W/O RESIDUAL DEFICITS 2763 ALKALOSIS 07-21-2012 [facility] [place] [facility] 09378 DEHYDRATION 07-21-2012 [facility], [facility] MEDICAL INTERPRE[facility] [facility] 4580 ORTHOSTATIC 07-21-2012 [facility], SPANISH MEDICAL INTERPRETER HYPOTENSION [place] [facility] 95892 OTHER 07-21-2012 [facility], MALAISE AND SPANISH MEDICAL INTERPRETER FATIGUE [facility] 2768 HYPOPOTASSE 07-19-2012 [facility], CECILIA SP[facility]ISH MEDICAL INTERPRETER [place] [facility] 4239 UNSPECIFIED 07-19-2012 [facility] DISEASE OF PERICARDIUM 7856 ENLARGEMENT 07-19-2012 [facility] OF LYMPH NODES 2130 BENIGN 06-26-2012 [facility], NEOPLASM OF [facility] BONES OF [place] SKULL AND HOS FACE 3319 UNSPECIFIED 06-26-2012 DEVIN CAMPOS CEREBRAL DEGENERATIO N 74383 PAIN IN 06-26-2012 [facility], JOINT, SPANISH MEDICAL INTERPRETER LOWER LEG [facility] 7802 SYNCOPE AND 05-23-2012 [facility], COLLAPSE [facility] [place] [facility] 57888 NAUSEA 05-23-2012 [facility], ALONE [facility] [place] [facility] 43709 ABDOMINAL 05-23-2012 [facility], PAIN, LEFT SPANISH MEDICAL INTERPRETER LOWER [place] [facility] QUADRANT HOS 7847 EPISTAXIS 05-13-2012 [facility], [facility] MEDICAL INTERPRE[facility] [place] [facility] 6929 CONTACT 05-12-2012 [facility], DERMATITIS& SPANISH MEDICAL INTERPRETER OTHER [place] [facility] ECZEMA DUE HOS UNSPEC CAUSE 4279 UNSPECIFIED 04-22-2012 [facility] CARDIAC DYSRHYTHMIA 58477 PAINFUL 04-22-2012 [facility] RESPIRATION 58859 OTH-UNS MAL 03-02-2012 [facility] LYMPHOID-HI [facility] TISS-UNS-EX TRANODAL 2870 ALLERGIC 03-02-2012 COUNT INCLUDES THE [facility] PURPURA [facility] 6989 UNSPECIFIED 03-02-2012 COUNT INCLUDES THE [facility] PRURITIC [facility] DISORDER [facility] 96674 GOUTY 01-16-2012 [facility], ARTHROPATHY [facility]ISH MEDICAL INTERPRETER [place] [facility] UNSPECIFIED HOS 77645 UNSPECIFIED 01-16-2012 [facility], SPANISH MEDICAL INTERPRETER ARTHROPATHY [facility] [facility] SITE HOS UNSPECIFIED 63213 TACHYPNEA 01-16-2012 [facility], [facility] [place] [facility] 12108 OSTEOARTHRO 12-17-2011 [facility], S UNSPEC SPANISH MEDICAL INTERPRETER WHETHER [place] GEN/LOC HOS UNSPEC SITE 4619 ACUTE 11-04-2011 [facility] SINUSITIS, HEALTH UNSPECIFIED CLINIC 51008 ACUTE 11-04-2011 [facility] LARYNGITIS, [facility] WITHOUT CLINIC MENTION OF OBSTRUCTIO 47193 DYSPHONIA 11-04-2011 [facility] HEALTH CLINIC 3829 UNSPECIFIED 10-10-2011 [facility] OTITIS HEALTH MEDIA CLINIC 66763 NONSPECIFIC 10-10-2011 [facility] ABNORMAL [facility] AUDITORY CLINIC FUNCTION STUDIES 4556 UNSPEC 09-17-2011 [facility] HEMORRHOIDS HEALTH WITHOUT CLINIC M[place]ION COMPLICATIO N 68466 CHRONIC 09-17-2011 [facility] VENOUS [facility] HYPERTENSIO CLINIC N WITHOUT COMPS 5693 HEMORRHAGE 09-17-2011 [facility] OF [facility] HEALTH AND ANUS CLINIC 6980 PRURITUS 09-17-2011 [facility] ANI HEALTH CLINIC 85977 UNSPECIFIED 08-23-2011 [facility] ARTHROPATHY MULTIPLE SITES 08001 UNSPECIFIED 07-22-2011 [facility] LYMPHOID [facility] LEUKEMIA IN CLINIC RELAPSE 7821 RASH AND 07-22-2011 [facility] OTHER HEALTH NONSPECIFIC CLINIC SKIN ERUPTION 2722 MIXED 06-04-2011 COUNT INCLUDES THE [facility] HYPERLIPIDE [facility] 22254 UNSPECIFIED 06-04-2011 [facility] CONSTIPATIFORMERLY [facility] 81681 PAIN IN 06-04-2011 [facility] FOOT HEALTH 10143 CALCANEAL 04-29-2011 [facility] 33720 LYMPHOCYTOS 04-16-2011 [facility] SYMPTOMATIC 4571 OTHER 04-10-2011 [facility] NONINFECTIO US LYMPHEDEMA 01971 SLEEP 12-20-2010 [facility] 93053 GEN 10-25-2010 [facility] INVOLVING MULTIPLE SITES 11268 INSOMNIA 10-25-2010 [facility] UNSPECIFIED HEALTH CLINIC 99903 PAIN IN [facility] 9299 CRUSHING [facility]-21-[facility] UNSPECIFIED ASSOCIAT SITE 9592 INJURY 09-21-2010[facility] OTHER&UNSPE RADIOLOGY CIFIED ASSOCIAT SHOULDER&UP PER ARM 9593 INJURY 09-21-2010[facility] OTHER&UNSPE RADIOLOGY CIFIED ASSOCIAT ELBOW FOREARM&WRI ST 76227 OCCL&STENOS 08-02-[facility] MX&BILAT RADIOLOGY PRECERBRL ASSOCIAT ART W/O INFARCT 2859 UNSPECIFIED 07-31-2010 [facility] DUBILIER 11098 LEUKEMOID 07-31-2010 [facility] REACTION JARED & DUBILIER 2865 HEMORRHAGIC 07-29-2010 [facility] INTRINSIC CIRC ANTICOAG AB/INHIB 13603 UNSPECIFIED 07-29-2010 [facility] ARTERY OCCLUSION W/INFARCT 490 BRONCHITIS 07-29-2010 [facility] NOT [facility]OSP[facility] SPECIFIED ACUTE OR CHRONIC 5110 P[facility]URISY [facility]-29[facility] MENTION ASSOCIAT EFFUS/[place] [address] SCLEROSING 07-29-2010 [facility] S 29366 OTH 07-29-2010[facility] ABNORMAL [facility] TUTOR ASSOCIAT FUNCTION STUDY V570 CARE 07-18-2010 [facility] INVOL[facility]PITAL BREATHING EXERCISES 2181 INTRAMURAL 06-07-2010 [facility] [place] 2362 NEOPLASM OF 05-21-2010 [facility] [place] V7231 ROUTINE 05-21-2010 [facility]AM[facility] [place] V762 SCREENING 05-21-2010 [facility]OLOGY & FOR CYTOLOGY [facility] NEOPLASM OF THE CERVIX 5738 OTHER 05-08-2010 [place] SPECIFIED RADIOLOGY DISORDERS ASSOCIAT OF LIVER 5759 UNSPECIFIED 05-08-2010 [place] DISORDER RADIOLOGY OF ASSOCIAT GALLBLADDER 5990 URINARY 05-08-2010 [facility] INFECTION SITE NOT SPECIFIED 6219 UNSPECIFIED 05-08-2010 [place] [facility] 7242 LUMBAGO 05-08-2010 [facility] 7936 NONSPEC ABN 05-08-2010 [facility] ABDOMINAL AREA 1736 OT MAL 03-13-2010 PATHOLOGY & NEOPLASM CYTOLOGY SKIN UPPER LAB LIMB INCL SHOULDER 1737 [facility] 03-13-2010 [facility] NEOPLASM HAYDEEAD SKIN [facility] LIMB INCLUDING HIP 2382 NEOPLASM OF 03-06-2010 [facility] UNCERTAIN [facility] SKIN 72894 UNSPECIFIED 03-06-2010 [facility] STEVENS [facility]OS[facility] S 0413 KLEBSIELLA 09-20-2009 [facility] INFECTION 2892 NONSPECIFIC 09-20-2009 [facility] LYMPHADENIT IS 5920 CALCULUS OF 09-20-2009 [place] [facility] PSC V1251 PERSONAL 09-20-2009 [facility] H[facility]ORY, HOSPITAL VENOUS THROMBOSIS AND EMBOLISM 67388 ACUT LINNEA 08-18-2009 [place] EMBO&THROMB [facility] DEEP VES [facility] PROX LOWR PSC EXTREM 4549 ASYMPTOMATI 08-18-2009 [facility] VEINS 6826 CELLULITIS 08-18-2009 [facility] OF LEG EXCEPT FOOT 63562 ABDOMINAL 08-14-2009 PATHOLOGY & PAIN, CYTOLOGY UNSPECIFIED LAB SITE 42819 ABDOMINAL 08-14-2009 [place] [facility], [facility] GENERALIZED FOUNDATIO 2163 BENIGN 08-01-2009 DERMATOPATH NEOPLASM OLOGY SKIN ALLINACE OF OTHER&UNSPE C PARTS FACE V7612 OTHER 07-19-2009 [place] [facility] 0091 COLITIS 07-12-2009 [facility] ENTERIT&[facility]AS [facility]LEY TROENTERIT INTERNAL INF ORIGIN MED 61487 ABDOMINAL 07-12-2009 [facility] PAIN, LEFT VALLEY UPPER INTERNAL QUADRANT MED 7894 ABDOMINAL 07-12-2009 [facility] RIGIDITY VALLEY INTERNAL MED 7063 SEBORRHEA 03-27-2009 [facility] INTERNAL MED 7011 ACQUIRED 03-06-2009 [facility] KERATODERMA [place] INTERNAL MED 07932 REFLUX 12-02-2008 [facility] ESOPHAGITIS [place] INTERNAL MED 72835 OTHER 10-11-2008 [facility] CHRONIC [place] PAIN INTERNAL MED 26062 OSTEOARTHRO 10-11-2008 [facility] S INVLV MX VALLEY SITES BUT INTERNAL NOT SPEC MED GEN 06193 SPINAL 10-11-2008 [facility] 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 MED 7231 CERVICALGIA 09-27-2008 ROBERTO CARLOS CHEEMA 7820 DISTURBANCE 09-21-2008 [facility] OF SKIN [place] SENSATION INTERNAL MED 40731 BLEPHARITIS 07-28-2008 RAHMAN BRETT A UNSPECIFIED 24735 OBESITY, 04-17-2008 [facility]PEC[facility] 4928 OTHER 04-17-2008 [place] EMPHYSEMA [facility] PSC 16636 URINARY 04-17-2008 [facility] 7068 OTHER 03-09-2008 [facility] SPECIFIED [facility] DISEASE OF INTERNAL SEBACEOUS MED GLANDS 1104 DERMATOPHYT 03-02-2008 [place] [facility] OF SERV FOOT FOUNDATIO 1701 MALIGNANT 03-02-2008 [facility] NEOPLASM OF HOSPITAL MANDIBLE 7062 SEBACEOUS 03-02-2008 [facility]ST [facility] 8471 THORACIC 02-15-2008 [facility] SPRAIN AND VALLEY STRAIN INTERNAL MED 6256 FEMALE 09-30-2007 [place]Z[facility] PLATA, STR[place]IN[place] E [address] URGE 09-30-2007 [facility] INCONTINENC MARIAA Jesus E 4659 ACUTE URIS 08-14-2007 [facility] OF VALLEY UNSPECIFIED INTERNAL SITE MED 4778 ALLERGIC 08-12-2007 [facility] RHINITIS [place] DUE TO INTERNAL OTHER MED ALLERGEN 78635 HYPERTONICI 07-13-2007 [facility] TY OF [place] BLADDER INTERNAL MED 5952 OTHER 07-01-2007 [facility] [place] CHRONIC MARIAA Jesus CYSTITIS E86.0 DEHYDRATION I10 ESSENTIAL (PRIMARY) HYPERTENSIO N J18.1 LOBAR PNEUMONIA, UNSPECIFIED ORGANISM J18.9 PNEUMONIA, UNSPECIFIED ORGANISM J20.9 ACUTE BRONCHITIS, UNSPECIFIED J40 BRONCHITIS, NOT SPECIFIED ACUTE OR CHRONIC J44.1 CHRONIC OBSTRUCTIVE PULMONARY DISEASE W (ACUTE) EXACERBATIO N J44.9 CHRONIC OBSTRUCTIVE PULMONARY DISEASE, UNSPECIFIED J45.909 UNSPECIFIED ASTHMA, UNCOMPLICAT ED K52.9 NONINFECTIV E GASTROENTER ITIS AND COLITIS, UNSPECIFIED R09.02 HYPOXEMIA R42 DIZZINESS AND GIDDINESS Z87.09 PERSONAL HISTORY OF OTHER DISEASES OF THE RESPIRATORY SYSTEM Allergies, Adverse Reactions, Alerts Clinical Alert Notifications Alert Member has >/= 3 hosp admit & >/= 1 ED visit in 365 days Medications Na ND Rx Da Fi Fi Am Da Di Ph RX Ph St me C No te ll ll ou ys ag ar # ys at rm s nt no ma ic us Or Da si cy ia de te s n re d MA 60 06 30 30 00 CA Ac GN 25 -2 -2 .0 00 RL ti ES 80 6- 8- 00 00 IS ve IU 17 20 20 77 LE M 10 17 17 [address] ID UG E S 40 0 MG TA BL ET 00 06 30 30 00 CA Ac PI 60 -2 -2 .0 00 RL ti RI 30 6- 8- 00 00 IS ve N 02 20 20 77 LE EC 63 17 [address] 81 UG S MG TA BL ET MA 60 05 30 30 00 CA Ac GN 25 -2 -2 .0 00 RL ti ES 80 2- 3- 00 00 IS ve IU 17 20 20 77 LE M 10 17 17 [address] ID UG E S 40 0 MG TA BL ET 00 05 06 30 30 00 CA Ac PI 60 -0 -0 .0 00 RL ti RI 30 9- 9- 00 00 IS ve N 02 20 20 77 LE EC 63 17 [address] 81 UG S MG TA BL ET MA 60 04 30 30 00 CA Ac GN 25 -2 -2 .0 00 RL ti ES 80 4- 6- 00 00 IS ve IU 17 20 20 77 LE M 10 17 17 [address] ID UG E S 40 0 MG TA BL ET 00 08 14 30 30 00 CA Ac PI 60 -0 -1 .0 00 RL ti RI 30 7- 2- 00 00 IS ve N 02 20 20 77 LE EC 63 17 [address] 81 UG S MG TA BL ET 00 03 30 30 00 CA Ac PI 60 -0 -0 .0 00 RL ti RI 30 3- 7- 00 00 IS ve N 02 20 20 77 LE EC 63 17 [address] 81 UG S MG TA BL ET MA 60 03 30 30 00 CA Ac GN 25 -0 -0 .0 00 RL ti ES 80 6- 7- 00 00 IS ve IU 17 20 20 77 LE M 10 17 17 [address] ID UG E S 40 0 MG TA BL ET MA 60 01 03 30 30 00 CA Ac GN 25 -3 -0 .0 00 RL ti ES 80 0- 3- 00 00 IS ve IU 17 20 20 76 LE M 10 17 17 [address] ID UG E S 40 0 MG TA BL ET MA 60 01 02 30 30 00 CA Ac GN 25 -0 -0 .0 00 RL ti ES 80 3- 3- 00 00 IS ve IU 17 20 20 76 LE M 10 17 17 [address] ID UG E S 40 0 MG TA BL ET MA 60 12 01 30 30 00 CA Ac GN 25 -0 -0 .0 00 RL ti ES 80 6- 9- 00 00 IS ve IU 17 20 20 76 LE M 10 16 17 [address] ID UG E S 40 0 MG TA BL ET MA 51 10 06 5 30 30 CA 74 HU Ac GN 99 -3 -1 0. RL 68 NT ti ES 10 1- 4- 00 IS 97 ER ve IU 08 20 20 0 LE M 13 [address] CROCKETT ID UG Y E S C 40 0 MG TA BL ET 00 03 10 5 30 30 CA 67 HU Ac PI 60 -2 -2 .0 RL 94 NT ti RI 30 4- 6- 00 IS 35 ER ve N 02 20 20 LE EC 63 [address] CROCKETT 81 UG Y C MG CO MP TA AN BL Y ET DI 00 08 10 3 30 30 CA 68 AH Ac PH 60 -1 -2 .0 RL 46 ME ti EN 33 0- 6- 00 IS 60 D ve HY [address] 93 11 [address] Falcon IN UG E 25 CO MP MG AN Y CA PS UL E 00 08 10 3 60 30 CA 68 AH Ac 60 -3 -2 .0 RL 55 ME ti 30 1- 6- 00 IS 96 D ve 14 20 20 LE AD 52 [address] Falcon UG CO MP AN Y 00 09 10 1 30 30 CA 68 AH Ac 18 -1 -2 .0 RL 60 ME ti 21 4- 6- 00 IS 91 D ve 09 20 20 LE AD 30 [address] Falcon UG CO MP AN Y DI 00 08 09 3 30 30 CA 68 AH Ac PH 60 -1 -2 .0 RL 46 ME ti EN 33 0- 8- 00 IS 60 D ve HY [address] 93 11 [address] Falcon IN UG E 25 CO MP MG AN Y CA PS UL E 00 08 09 3 60 30 CA 68 AH Ac 60 -3 -2 .0 RL 55 ME ti 30 1- 8- 00 IS 96 D ve 14 20 20 LE AD 52 [address] Terrie LY CO MP AN Y 00 03 09 5 30 30 CA 67 HU Ac PI 60 -2 -2 .0 RL 94 NT ti RI 30 4- 8- 00 IS 35 ER ve N 02 20 20 LE EC 63 [address] CROCKETT 81 UG Y C MG CO MP TA AN BL Y ET 00 09 09 1 30 30 CA 68 AH Ac 18 -1 -1 .0 RL 60 ME ti 21 4- 4- 00 IS 91 D ve 09 20 20 LE AD 30 [address] Terrie LY CO MP AN Y 00 08 08 3 60 30 CA 68 AH Ac 60 -3 -3 .0 RL 55 ME ti 30 1- 1- 00 IS 96 D ve 14 20 20 LE AD 52 [address] Terrie LY CO MP AN Y 00 03 08 5 30 30 CA 67 HU Ac PI 60 -2 -2 .0 RL 94 NT ti RI 30 4- 4- 00 IS 35 ER ve N 02 20 20 LE EC 63 [address] CROCKETT 81 UG Y C MG CO MP TA AN BL Y ET DI 00 08 08 3 30 30 CA 68 AH Ac PH 60 -1 -1 .0 RL 46 ME ti EN 33 0- 0- 00 IS 60 D ve HY [address] 93 [address] Falcon IN UG E 25 CO MP MG AN Y CA PS UL E DO 45 06 08 1 60 30 CA 68 AH Ac CU 80 -1 -0 .0 RL 23 ME ti SA 20 5- 3- 00 IS 98 D ve TE 48 20 20 LE AD 67 [address] Terrie ENGLE UM CO 10 MP 0 AN MG Y SO FT GE L 00 03 07 5 30 30 CA 67 HU Ac PI 60 -2 -2 .0 RL 94 NT ti RI 30 4- 0- 00 IS 35 ER ve N 02 20 20 LE EC 63 [address] CROCKETT 81 UG Y C MG CO MP TA AN BL Y ET DI 00 06 07 1 30 30 CA 68 AH Ac PH 60 -1 -1 .0 RL 23 ME ti EN 33 5 3 IS 99 D ve HY 33 [address] 93 11 [address] Falcon IN UG E 25 CO MP MG AN Y CA PS UL E DO 45 06 06 1 60 30 CA 68 AH Ac CU 80 -1 -1 .0 RL 23 ME ti SA 20 IS 98 D ve TE 48 20 20 LE AD 67 11 [address] Falcon DI UG UM CO 10 MP 0 AN MG Y SO FT GE L DI 00 06 06 1 30 30 CA 68 AH Ac PH 60 -1 -1 .0 RL 23 ME ti EN 33 IS 99 D ve HY 33 [address] 93 11 [address] Falcon IN UG E 25 CO MP MG AN Y CA PS UL E 00 03 06 5 30 30 CA 67 HU Ac PI 60 -2 -1 .0 RL 94 NT ti RI 30 IS 35 ER ve N 02 20 20 LE EC 63 11 11 NA 2 NC 81 UG Y C MG CO MP TA AN BL Y ET CT 00 03 03 0 12 4 CA 67 HU Ac OM 60 -2 -2 0. RL 94 NT ti ET 31 IS 34 ER ve GOLDBERG 58 20 20 0 LE ZI 65 11 11 NA NE 4 NC -D UG Y M C SY CO RU MP P AN Y 00 03 03 5 30 30 CA 67 HU Ac PI 60 -2 -2 .0 RL 94 NT ti RI 30 4 4- IS 35 ER ve N 02 20 20 LE EC 63 [address] CROCKETT 81 UG Y C MG CO MP TA AN BL Y ET CL 00 03 03 0 28 14 CA 67 BE Ac ON 09 1 .0 RL 90 SS ti AZ 30 IS 79 ON ve EP 83 20 20 LE AM [address] EP 0. UG HE 5 N MG CO A MP TA AN BL Y ET 00 03 03 0 12 5 CA 67 BE Ac 47 -1 -1 0. RL 90 SS ti 21 6 6- 00 IS 80 ON ve 62 20 20 0 LE [address] EP UG HE N CO A MP AN Y CT 00 03 03 0 12 4 CA 67 HU Ac OM 60 -0 -0 0. RL 88 NT ti ET 31 IS 14 ER ve GOLDBERG 58 20 20 0 LE ZI 65 [address] BON Brewer UG Y M C SY CO RU MP P AN Y SM 49 10 10 0 24 6 CA 67 BE Ac 34 -2 -2 0. RL 41 SS ti TU 80 9- 9- 00 IS 51 ON ve SS 01 20 20 0 LE IN [address] MERCEDES DM UG HE N SY CO A RU MP P AN Y 66 12 12 00 12 4 CA 65 CATRACHITO Ac 99 -0 -1 0. RL 06 SE ti 20 8 8- 00 IS 82 ve 22 20 20 0 LE T. [address] SHARPE UG RE NZ IN O C MD [place] Immunization Name Date Rout CVX Reac Dose Comm Prov Is Faci e tion ent ider Refu lity Give sed n IIV3 12-2 140 BOUR No BOUR 8-20 [place] VACC 15 COMM COMM UNIT UNIT PRES Y Y [facility] H[facility]P HOSP TIVE ITAL ITAL FREE 0.5 ML DOSA GE IM USE IIV3 11-0 141 ALONZO No LICK 5-20 ON, ING VACC 08 STEP VALL INE HEN EY SPLI A INTE T RNAL VIRU MED S 0.5 ML DOSA GE IM USE Results Labs Lab Lab Date Result Refere Interp Status Commen Order Detail nces retati t Range on Urinalysis dipstick W Reflex Microscopic panel in Urine (12-10-2016 20:30) Bacteri 4+ O complet a 017 ed [Presen 20:30 ce] in Urine sedimen t by Light microsc opy Hyaline OCC NONE complet casts 017 ed [Presen 20:30 ce] in Urine sedimen t by Light microsc opy Erythro OCC 0 complet cytes 017 ed [Presen 20:30 ce] in Urine sedimen t by Light microsc opy Epithel 5-10 0#/hp complet ial 017 f - ed cells.s 20:30 5#/hp quamous f [Presen ce] in Urine sedimen t by Microsc opy high power field Leukocy 5-10 O complet jeison 017 wbc/hpf ed [#/volu 20:30 me] in Urine Urinalysis dipstick W Reflex Microscopic panel in Urine (12-10-2016 20:30) Appeara CLEAR CLEAR complet nce of 017 ed Urine 20:30 Bilirub NEGATIV NEG complet in 017 E ed [Presen 20:30 ce] in Urine by Test strip Erythro NEGATIV NEG complet cytes 017 E ed [Presen 20:30 ce] in Urine Color YELLOW YELLOW complet of 017 ed Urine 20:30 Ketones NEGATIV NEG complet 017 E ed [Presen 20:30 ce] in Urine by Automat ed test strip Mucus NEGATIV NEG complet [Presen 017 E ed ce] in 20:30 Urine sedimen t by Light microsc opy Nitrite POSITIV NEG Abnorma complet 017 E l ed [Presen 20:30 ce] in Urine by Test strip Urobili 4.0 NEG complet nogen 017 ed [Presen 20:30 ce] in Urine by Test strip Differential panel, method unspecified - (12-10-2016 20:15) Acantho 1+ complet cytes 017 ed [Presen 20:15 ce] in Blood by Light microsc opy Anisocy 1+ complet tosis 017 ed [Presen 20:15 ce] in Blood Hypochr 1+ complet omia 017 ed [Presen 20:15 ce] in Blood LYMPH 54 % 10% - High complet 017 50% ed 20:15 Platele NORMAL complet ts 017 ed [Presen 20:15 ce] in Blood by Light microsc opy Procedures Procedure DOS Code Location Performer Comment O2 CONC 1 E1390 [place] 7 HOME HOME 85%/>02 MEDICAL MEDICAL CONC AT EQUIPME EQUIPME PRSC FLW RATE PRTBLE E0431 [place] GASEOUS 7 HOME HOME O2 SYS MEDICAL MEDICAL RENT; EQUIPME EQUIPME FLWMTR HUMIDFR&M ASK PRTBLE E0431 [place] GASEOUS 7 HOME HOME O2 SYS MEDICAL MEDICAL RENT; EQUIPME EQUIPME FLWMTR HUMIDFR&M ASK O2 CONC 1 E1390 [place] 7 HOME HOME 85%/>02 MEDICAL MEDICAL CONC AT EQUIPME EQUIPME PRSC FLW RATE O2 CONC 1 E1390 [place] 7 HOME HOME 85%/>02 MEDICAL MEDICAL CONC AT EQUIPME EQUIPME PRSC FLW RATE SBSQ 53961 [place] [address] PHYSICIAN CARE/DAY S GROUP 15 MINUTES PRTBLE E0431 [place] GASE[place] 7 HOME HOME O2 SYS MEDICAL MEDICAL RENT; EQUIPME EQUIPME FLWMTR HUMIDFR&M ASK SBSQ 15115 [place] [address] PHYSICIAN CARE/DAY S GROUP 25 MINUTES INITIAL 31022 [place] [address] PHYSICIAN CARE/DAY S GROUP 70 MINUTES RADIOLOGI [address] [place] [address] MEDICAL EXAMINATI IMAGING ON CHEST ASS SINGLE VIEW FRONTAL ECG 03158 [facility] ROUTINE 7 [facility] W/LEAST P 12 LDS I&R ONLY COMPREHEN 85471 [facility] SIVE 7 [facility] METABOLIC E E PANEL HOSPITALS HOSPITALS COLLECTIO 57988 [facility] N VENOUS 7 HEALTHCAR HEALTHCAR BLOOD E E VENIPUNCT [facility] G0463 [facility] OUTPATIEN 7 HEALTHCAR HEALTHCAR T CLIN E E VISIT HOSPITALS HOSPITALS ASSESS & MGMT PT BLOOD 32933 [facility] COUNT 7 HEALTHCAR HEALTHCAR COMPLETE E E AUTO&AUTO [facility] G0463 [facility] OUTPATI 6 Y Y T CLIN HOSPITAL HOSPITAL VISIT ASSESS & MGMT PT BLOOD 43051 [facility] COUNT 6 Y Y COMPLETE HOSPITAL HOSPITAL AUTO&AUTO [facility]HEN 12783 [facility] Y Y METABOLIC HOSPITAL HOSPITAL PANEL COLLECTIO 75931 [facility] N VENOUS 6 Y Y BLOOD HOSPITAL HOSPITAL VENIPUNCT URE DUPLEX 94397 [facility] MENDOSA MENDOSA FAMILIA SCAN 6 MD EXTRACRAN CONSULTIN IAL ART G SRV COMPL BI STUDY DUPLEX 25843 [place] SCAN 6 [facility]PITAL HOSPITAL IAL ART COMPL BI STUDY COMPRE 57868 [place] GOLD SET AUDIOMETR 6 PHYSICIAN Y PRACTICE THRESHOLD L EVAL SP RECOGNIJ TYMPANOME 08407 JENNY GOLD SET TRY 6 PHYSICIAN PRACTICE L RADIOLOGI 62271 [place] DENI C EXAM 6 [facility] [place] CHEST 2 IMAGING VIEWS ASS FRONTAL&L ATERAL RADIOLOGI 13661 [place] MONIQUE ALL C EXAM 6 MEDICAL CHEST 2 IMAGING VIEWS ASS FRONTAL&L ATERAL INJECTION J16[address] [facility]APARI [facility] N SODIUM 10 MG INJECTION J2270 [facility] MORPHINE [address] [place] [address] UP TO 10 MG IIV3 VACC [address] ADELINA FREE 0.5 ML DOSAGE IM USE INJECTION J[address] ON HCL PER 1 MG ADMINISTR G0008 [facility] ATION OF [address] [place] [address] VIRUS VACCINE NONCOVERE A9270 [facility] D ITEM OR [address] [place] [address] HOSPITAL AUTOMATED COLLECTIO 68834 [facility] N VENOUS [address] [place] [address] VENIPUNCT URE BASIC 52200 [facility] METABOLIC [address] [place] [address] CALCIUM TOTAL BLOOD [address] AUTO&AUTO DIFRNTL WBC COLLECTIO 55687 [facility] N VENOUS [address] [place] [address] [place] [address] [facility] BLOOD/URI [address] [place] [address] [place] [address] [facility] THYROID [address] [place] [address] NG HORMONE TSH URNLS DIP [address] STICK/TAB HOSPITAL HOSPITAL LET REAGENT AUTO MICROSCOP Y NATRIURET 52495 BOURBHENRI OVIEDOON IC [address] [place] [address] [place] [address] [facility]RI ALVARADO TROPONIN 5 [facility] HOSPITAL G0378 [facility] ALVARADO OBSERVATI [address] [facility] HOSPITAL SERVICE PER HOUR COMPREHEN 38629 JENNY ALVARADO SIVE 5 [facility] [address] JENNY ALVARADO HEAD/BRAI 5 [facility] W/O HOSPITAL HOSPITAL CONTRAST MATERIAL SEDIMENTA 37329 [facility] ALVARADO TION RATE 5 [facility] NON-AUTOM ATED C-REACTIV 49373 [facility] E PROTEIN 5 [facility] NONCOVERE A9270 [facility] ITEM OR 5 [facility] ECG [address] [place] [facility] ROUTINE 5 [facility] HOSPITAL W/LEAST 12 LDS TRCG ONLY W/O I&[place] [address] JENNY ALVARADO HEAD/BRAI 5 [facility] W/O HOSPITAL HOSPITAL CONTRAST MATERIAL CT THORAX 92774 [facility] [place] MAGALIE MAT W/O 5 RADIOLOGY CONTRAST MATERIAL RADIOLOGI 78281 YUMIKO CALDERON C EXAM [address] [facility] HOSP CHEST 2 INC INC VIEWS FRONTAL&L ATERAL ECG 02816 YUMIKO DAVENPORT JR ROUTINE [address] [facility] W/LEAST P 12 LDS I&R ONLY RADIOLOGI 61409 YUMIKO CALDERON C EXAM [address] [facility] HOSP CHEST 2 INC INC VIEWS FRONTAL&L ATERAL DISPBL T4535 [facility] LINER/ISABELLE 5 HOME HOME ELD/GUARD HEALTH HEALTH /PAD/UNDG AGENCY AGENCY RMNT INCONT EA INJECTION J0696 [facility] [address] [place] [address] URGENT URGENT NE SODIUM TREAT TREAT PER 250 MG LIPID 46049 [facility] PANEL 5 [facility] 25 33977 [facility] HYDROXY 5 [facility] INCLUDES HOLDINGS HOLDINGS FRACTIONS IF PERFORMED CYANOCOBA 89451 [facility] AMBAR 5 [facility] VITAMIN HOLDINGS HOLDINGS B-12 [place] [address] LAB [facility] MAGNESIUM 5 [facility] [place] [address] [facility] FOLIC 5 [facility] ACID HOLDINGS HOLDINGS SERUM GENERAL 34607 LAB JUANI LAB JUANI HEALTH 5 [facility] PANEL HOLDINGS HOLDINGS RADEX 08996 [place] DENI RIBS 5 [facility] [place] UNILATERA IMAGING L 2 VIEWS ASS RADIOLOGI 25764 [place] DENI C EXAM 5 [facility] CHEST 2 IMAGING VIEWS ASS FRONTAL&L ATERAL DISPBL T4535 [facility] LINER/ISABELLE 5 HOME HOME ELD/GUARD HEALTH HEALTH /PAD/UNDG AGENCY AGENCY RMNT INCONT EA CUL BACT 82007 [facility] XCPT 5 [facility] URINE HOLDINGS HOLDINGS BLOOD/STO OL AEROBIC ISOL BASIC 01706 LAB JUANI LAB [facility] METABOLIC 4 [facility] [place]EL [place] [address] YUMIKO CALDERON INFUSION 4 [facility] THERAPY/P INC INC ROPHYLAXI S /DX 1ST TO 1 HR THERAPEUT 31364 YUMIKO CALDERON IC 4 [facility] INJECTION INC INC IV [facility] [address] [facility] DISCHARGE 4 PHYSICIAN PHYSICIAN DAY S GROUP S GROUP MANAGEMEN T 30 MIN/< RADIOLOGI 59030 [place] DENI C EXAM 4 [facility] [place] CHEST 2 IMAGING VIEWS ASS FRONTAL&L ATERAL ECG 37818 YUMIKO DAVENPORT JR ROUTINE 4 [facility] W/LEAST P 12 LDS I&R ONLY PRESSURIZ 68436 YUMIKO CALDERON ED/NONPRE 4 [facility] SSURIZED INC INC INHALATIO N TREATMENT RADIOLOGI 48016 YUMIKO CALDERON C EXAM 4 [facility] CHEST 2 INC INC VIEWS FRONTAL&L ATERAL ECG 12461 YUMIKO CALDERON ROUTINE 4 [facility] ECG INC INC W/LEAST 12 LDS TRCG ONLY W/O I&[place] [address] YUMIKO CALDERON HEAD/BRAI 4 [facility] N W/O INC INC CONTRAST MATERIAL RADIOLOGI 09760 YUMIKO CALDERON C [facility] HOSP EXAMINATI INC INC ON CHEST SINGLE VIEW FRONTAL ECG 25171 YUMIKO CALDERON ROUTINE [address] [facility] H[facility] ECG INC INC W/LEAST 12 LDS TRCG ONLY W/O I&[place] [address] YUMIKO CALDERON INFUSION [address] [facility]OSP THERAPY/P INC INC ROPHYLAXI S /DX 1ST TO 1 [place] [address] YUMIKO CALDERON INFUSION [address] [facility] HOSP THER INC INC PROPH ADDL SEQUENTIA L TO 1 HR DEBRIDEME 92581 LAUSE FED LAUSE FED NT NAIL 4 ANY METHOD 6/> HOSPITAL G0463 [facility] 4 Y Y T [facility] HOSPITAL VISIT ASSESS & MGMT PT DISPBL T4535 NURSES NURSES LINER/ISAEBLLE 4 REGISTRY REGISTRY ELD/GUARD HOME HOME /PAD/UNDG HLTHTCA HLTHTCA RMNT INCONT EA DISPBL T4535 NURSES NURSES LINER/ISABELLE 4 REGISTRY REGISTRY ELD/GUARD HOME HOME /PAD/UNDG HLTHTCA HLTHTCA RMNT INCONT EA NONCSIERRA TUCSONE A9270 [facility] 4 [facility] NONCOVERE A9270 [facility] D ITEM OR 4 [facility] ECG 16296 JENNY OVIEDOON ROUTINE 4 [facility] W/LEAST 12 LDS TRCG ONLY W/O I&R RADIOLOGI 11499 [facility] [place] C EXAM [address] HOSPITAL VIEWS FRONTAL&L ATERAL RADIOLOGI 41782 [employer], C EXAM 4 [employer]PRETER SPANISH MEDICAL INTERPRETER CHEST 2 PEPE PEPE VIEWS CO HOS CO HOS FRONTAL&L ATERAL RADEX 72939 [employer], ABDOMEN 4 [employer]ISH [employer]ICAL INTERPRETER SPANISH MEDICAL INTERPRETER COMPL PEPE CANTU W/DCBTS&/ [place] [address] [employer], [employer], ABDOMEN & 4 [employer]ICAL INTERPRETER SPANISH MEDICAL INTERPRETER PELVIS PEPE CANTU W/[place] [address] [employer], INFUSION 4 SP[employer]ISH MEDICAL INTERPRETER SPANISH MEDICAL INTERPRETER HYDRATION [facility]PE C[facility]U INITIAL CO HOS CO HOS 31 MIN-1 HOUR DISPBL T4535 NURSES NURSES LINER/ISABELLE 4 REGISTRY REGISTRY ELD/GUARD HOME HOME /PAD/UNDG HLTHTCA HLTHTCA RMNT INCONT EA DISPBL T4535 NURSES NURSES LINER/ISABELLE 4 REGISTRY REGISTRY ELD/GUARD & HOME HE & HOME HE /PAD/UNDG RMNT INCONT EA DESTRUCTI 80055 MUSIC HOWARD MUSIC HOWARD ON 4 PREMALIGN ANT LESION 15/> DISPBL T4535 NURSES NURSES [facility]ER/[facility] 4 REGISTRY REGISTRY ELD/GUARD & HOME HE & HOME HE /PAD/UNDG RM[place]CONT [place] ECG 59386 [facility] ROUTINE 4 ECG W/LEAST 12 LDS I&R ONLY ECG 78832 [employer] [facility], ROUTINE 4 SP[employer]ISH MEDICAL INTERPRETER SPANISH MEDICAL INTERPRETER ECG PEPE CANTU W/LEAST CO HOS CO HOS 12 LDS TRCG ONLY W/O I&R DISPBL T4535 NURSES NURSES [facility]ER/[facility] 4 REGISTRY REGISTRY ELD/GUARD & HOME HE & HOME HE /[place] [address] [employer], [employer], INFUSION 4 SPANISH MEDICAL INTERPRETER SPANISH MEDICAL INTERPRETER THERAPY/P PEPE CANTU ROPHYLAXI CO HOS CO HOS S /DX 1ST TO 1 HR THER 58159 [employer], PROPH/DX 4 SPANISH MEDICAL INTERPRETER SPANISH MEDICAL INTERPRETER NJX IV PEPE CANTU PUSH CO HOS CO HOS SINGLE/1S T SBST/[place] [address] [employer], INFUSION 4 SPANISH MEDICAL INTERPRETER SPANISH MEDICAL INTERPRETER HYDRATION PEPE CANTU INITIAL CO HOS CO HOS 31 MIN-1 HOUR INJECTION J2405 [employer], 4 SPANISH MEDICAL INTERPRETER SPANISH MEDICAL INTERPRETER ONDANSETR PEPE CANTU ON HCL CO HOS CO HOS PER 1 MG DISPBL T4535 NURSES NURSES LINER/[facility] 4 REGISTRY REGISTRY ELD/GUARD & HOME HE & HOME HE /PAD/UNDG RMNT INCONT [facility] G0463 [facility] OUTPATI 4 Y Y T [facility] VISIT ASSESS & MGMT PT DEBRIDEME 74665 LAUSE FED LAUSE FED NT NAIL 3 ANY METHOD 6/> DUP-SCAN 27175 ATKINS ATKINS XTR VEINS 3 COL COL COMPLETE BILATERAL STUDY DISPBL T4535 NURSES NURSES LINER/[facility] 3 REGISTRY REGISTRY ELD/GUARD & HOME HE & HOME HE /PAD/UNDG RMNT INCONT EA DEBRIDEME 07253 LAUSE FED LAUSE FED NT NAIL 3 ANY METHOD 6/> DISPBL T4535 NURSES NURSES LINER/ISABELLE 3 REGISTRY REGISTRY ELD/GUARD & HOME HE & HOME HE /PAD/UNDG RMNT INCONT EA DUP-SCAN 46708 ATKINS ATKINS XTR VEINS 3 COL COL UNILATERA L/LIMITED STUDY STAB 21874 ATKINS ATKINS PHLEBT 3 COL COL VARICOSE VEINS 1 XTR > 20 INCS ENDOVEN 48428 ATKINS ATKINS ABLTJ 3 COL COL INCMPTNT VEIN XTR LASER 1ST VEIN DISPBL T4535 NURSES NURSES LINER/ISABELLE 3 REGISTRY REGISTRY ELD/GUARD & HOME HE & HOME HE /PAD/UNDG RMNT INCONT EA DUP-SCAN 32128 ATKINS ATKINS XTR VEINS 3 COL COL UNILATERA L/LIMITED STUDY STAB 11719 ATKINS ATKINS PHLEBT 3 COL COL VARICOSE VEINS 1 XTR 10-20 STAB INCS ENDOVEN 79792 ATKINS ATKINS ABLTJ 3 COL COL INCMPTNT VEIN XTR LASER 1ST VEIN BASIC 28869 [facility] METABOLIC 3 Y Y PANEL [facility] CALCIUM TOTAL COLLECTIO 26932 [facility] N VENOUS 3 Y Y BLOOD [facility] VENIPUNCT URE BLOOD 80488 [facility] COUNT 3 Y [place] [facility] [address] LUKINS LUKINS HEAD/BRAI 3 BRADLEY BRADLEY N W/O CONTRAST MATERIAL RADIOLOGI 26786 MERHAR MERHAR C 3 GAR GAR EXAMINATI ON KNEE 3 VIEWS RADIOLOGI 69855 [facility] 3 Y Y EXAMINATI [facility] ON FEMUR 2 VIEWS RADIOLOGI 78083 KHADIJAH LUCIO C 3 GAR GAR EXAMINATI ON TIBIA & FIBULA 2 VIEWS ECG 54216 AHMED ADN AHMED ADN ROUTINE 3 ECG W/LEAST 12 LDS I&R ONLY RADIOLOGI 69514 ETIENNE CLIFTON C EXAM 3 ANNIE ANNIE CHEST 2 VIEWS FRONTAL&[place] [address] [facility] [employer], [facility], ABDOMEN & 3 SPANISH MEDICAL INTERPRETER SPANISH MEDICAL INTERPRETER PELVIS PEPE PEPE W/O CO HOS CO HOS CONTRST 1/> BODY RE ECG 16850 [place] [employer], [facility], ROUTINE 3 SPANISH MEDICAL INTERPRETER SPANISH MEDICAL INTERPRETER ECG PEPE PEPE W/LEAST CO HOS CO HOS 12 LDS TRCG ONLY W/O I&R INJECTION J2405 [facility] [employer], [employer], 3 SPANISH MEDICAL INTERPRETER SPANISH MEDICAL INTERPRETER ONDANSETR PEPE CANTU ON HCL CO HOS CO HOS PER 1 MG LOCM Q9967 [place] [employer], [employer], [phone] 3 SPANISH MEDICAL INTERPRETER SPANISH MEDICAL INTERPRETER MG/ML [facility] IODINE CO [place] [address] [place] [employer], [employer], INFUSION 3 SPANISH MEDICAL INTERPRETER SPANISH MEDICAL INTERPRETER THERAPY/P [facility] ROPHYLAXI CO HOS CO HOS S /DX 1ST TO 1 HR THER 83065 [place] [employer], PROPH/DX 3 SPANISH MEDICAL INTERPRETER SPANISH MEDICAL INTERPRETER NJX IV PEPE [facility] PUSH CO HOS CO HOS SINGLE/1S T SBST/[place] [address] [place] [employer], [employer], INFUSION 3 SPANISH MEDICAL INTERPRETER SPANISH MEDICAL INTERPRETER HYDRATION [facility] INITIAL CO HOS CO HOS 31 MIN-1 HOUR US SOFT 28623 ETIENNE CLIFTON TISSUE 3 ANNIE ANNIE HEAD & NECK REAL TIME IMGE DOCM BASIC 06274 [facility] METABOLIC 3 Y Y PANEL [facility] CALCIUM TOTAL PHYSICAL 69995 [facility] THERAPY 3 Y [facility] Y Y ON HOSPITAL [place] [address] [facility] 1/> AREAS 3 Y Y EA 15 HOSPITAL HOSPITAL MIN GAIT TRAINJ W/STAIR BLOOD 56160 [facility] COUNT 3 Y Y COMPLETE [facility] AUTOMATED NONCOVERE A9270 [facility] D ITEM OR 3 Y Y [facility]ICE [facility] HOSPITAL INJECTION J1956 [facility] 3 Y Y LEVOFLOXA [facility] KRISTIN 250 MG INJECTION J1644 [facility] HEPARIN 3 Y Y SODIUM [facility] PER 1000 UNITS PRESSURIZ 48149 [facility] ED/NONPRE 3 Y Y SSURIZED [facility] INHALATIO N TREATMENT PRESSURIZ 90542 [facility] ED/NONPRE 3 Y Y SSURIZED [facility] INHALATIO N TREATMENT RADIOLOGI 91023 [facility] Prince EXAM 3 PHI PHI CHEST 2 VIEWS FRONTAL&L ATERAL INJECTION J1644 [facility] HEPARIN 3 Y Y SODIUM [facility] PER 1000 UNITS CULTURE 54320 [facility] BACTERIAL 3 Y Y BLOOD [facility] AEROBIC W/ID ISOLATES INJECTION J1956 [facility] 3 Y Y LEVOFLOXA [facility] KRISTIN 250 MG ECG 25701 [facility] ROUTINE 3 Y Y ECG [facility] W/LEAST 12 LDS TRCG ONLY W/O I&R INFUSION J7030 [facility] NORMAL 3 Y Y SALINE [facility] SOLUTION 1000 CC NONCOVERE A9270 [facility] D ITEM OR 3 Y Y SERVICE [facility] COMPREHEN 81036 [facility] SIVE 3 Y Y METABOLIC [facility] PANEL BLOOD 81762 [facility] COUNT 3 Y Y COMPLETE [facility] AUTO&AUTO DIFRNTL WBC THER 36577 [facility], [facility], PROPH/DX 3 SPANISH MEDICAL INTERPRETER SPANISH MEDICAL INTERPRETER NJX IV PEPE C[facility]U PUSH CO HOS CO HOS SINGLE/1S T SBST/DRUG INSJ TEMP 55843 [facility], NDWELLG 3 SPANISH MEDICAL INTERPRETER SPANISH MEDICAL INTERPRETER BLADDER [facility] [place] [address] [facility], INFUSION 3 SPANISH MEDICAL INTERPRETER SPANISH MEDICAL INTERPRETER HYDRATION PEPE PEPE EACH [place] [address] [facility], INFUSION 3 SPANISH MEDICAL INTERPRETER SPANISH MEDICAL INTERPRETER HYDRATION PEPE CANTU INITIAL CO HOS CO HOS 31 MIN-1 [place] [address] [facility], INFUSION 3 SPANISH MEDICAL INTERPRETER SPANISH MEDICAL INTERPRETER THERAPY/P PEPE MORAS ROPHYLAXI CO HOS CO HOS S /DX 1ST TO 1 HR RADIOLOGI 41293 [facility], [facility], C 3 SPANISH MEDICAL INTERPRETER SPANISH MEDICAL INTERPRETER EXAMINATI PEPE MORAS ON CHEST CO HOS CO HOS SINGLE VIEW FRONTAL ECG 39184 [facility], ROUTINE 3 SPANISH MEDICAL INTERPRETER SPANISH MEDICAL INTERPRETER ECG PEPE PEPE W/LEAST CO HOS CO HOS 12 LDS TRCG ONLY W/O I&R INJECTION J2405 [facility], 3 SPANISH MEDICAL INTERPRETER SPANISH MEDICAL INTERPRETER ONDANSETR PEPE PEPE ON HCL CO HOS CO HOS PER 1 MG ARTERIAL 49191 [facility], [employer], PUNCTURE 3 SPANISH MEDICAL INTERPRETER SPANISH MEDICAL INTERPRETER WITHDRAWA PEPE PEPE L BLOOD CO HOS CO HOS DX ECG 49973 AHMED ADN AHMED ADN ROUTINE 3 ECG W/LEAST 12 LDS I&R ONLY INJECTION J0456 [facility], [facility], 3 SPANISH MEDICAL INTERPRETER SPANISH MEDICAL INTERPRETER AZITHROMY PEPE PEPE KRISTIN 500 CO HOS CO HOS MG PRESSURIZ 86664 [facility], [facility], ED/NONPRE 3 SPANISH MEDICAL INTERPRETER SPANISH MEDICAL INTERPRETER SSURIZED PEPE VILLARREALOLAS INHALATIO CO HOS CO HOS N TREATMENT INJECTION J0696 [facility], 3 SPANISH MEDICAL INTERPRETER SPANISH MEDICAL INTERPRETER CEFTRIAXO PEPE PEPE NE SODIUM CO HOS CO HOS PER 250 MG NONINVASI 15771 [facility], [facility], VE 3 SPANISH MEDICAL INTERPRETER SPANISH MEDICAL INTERPRETER EAR/PULSE PEPE PEPE OXIMETRY CO HOS CO HOS MULTIPLE DETER ARTERIAL 48769 [facility], [employer], PUNCTURE 3 SPANISH MEDICAL INTERPRETER SPANISH MEDICAL INTERPRETER WITHDRAWA PEPE [place] [address] [facility], [facility], ANGIOGRAP 3 SPANISH MEDICAL INTERPRETER SPANISH MEDICAL INTERPRETER HY CHEST PEPE PEPE W/CONTRAS CO HOS CO HOS T/NONCONT RAST CT THORAX 30742 ETIENNE CLIFTON 3 ANNIE ANNIE W/CONTRAS T MATERIAL LOCM Q9967 [facility], [facility], [phone] 3 SPANISH MEDICAL INTERPRETER SPANISH MEDICAL INTERPRETER MG/ML PEPE PEPE IODINE CO [place] [address] [facility], [employer], INFUSION 3 SPANISH MEDICAL INTERPRETER SPANISH MEDICAL INTERPRETER THERAPY/P PEPE PEPE ROPHYLAXI CO HOS CO HOS S /DX 1ST TO 1 HR HOSPITAL G0378 [facility], [facility], OBSERVATI 3 SPANISH MEDICAL INTERPRETER SPANISH MEDICAL INTERPRETER ON PEPE PEPE SERVICE CO HOS CO HOS PER HOUR RADIOLOGI 70526 DEVIN BELTRAN C EXAM 3 [facility] CHEST 2 VIEWS FRONTAL&L ATERAL DEBRIDEME 61155 LAUSE FED LAUSE FED NT NAIL 3 ANY METHOD 6/> [place] [address] DEVIN [facility]TRAN HEAD/BRAI 3 [facility] N W/O CONTRAST MATERIAL RADIOLOGI 01035 [facility], [facility], C 3 SPANISH MEDICAL INTERPRETER SPANISH MEDICAL INTERPRETER EXAMINATI PEPE PEPE ON KNEE 3 CO HOS CO HOS VIEWS RADIOLOGI 19876 DEVIN BELTRAN C EXAM 3 [facility] KNEE COMPLETE 4/MORE VIEWS DISPBL T4535 NURSES NURSES LINER/ISABELLE 3 REGISTRY REGISTRY ELD/GUARD & HOME HE & HOME HE /PAD/UNDG RMNT INCONT EA DISPBL T4535 NURSES NURSES LINER/ISABELLE 3 REGISTRY REGISTRY ELD/GUARD & HOME HE & HOME HE /PAD/UNDG RMNT INCONT EA INJECTION J1885 [facility], [facility], 3 SPANISH MEDICAL INTERPRETER SPANISH MEDICAL INTERPRETER KETOROLAC PEPE PEPE CO HOS CO HOS TROMETHAM INE PER 15 MG RADIOLOGI 39415 JUICE BOSE C EXAM 3 EIDER CLAYTON REJI CLAYTON CHEST 2 VIEWS FRONTAL&L ATERAL PRESSURIZ 75925 [place] [employer], [facility], ED/NONPRE 3 SPANISH MEDICAL INTERPRETER SPANISH MEDICAL INTERPRETER SSURIZED PEPE PEPE INHALATIO [place] [address] [facility], [facility], WALL 3 SPANISH MEDICAL INTERPRETER SPANISH MEDICAL INTERPRETER FACILITAT PEPE PEPE E LNG CO HOS CO HOS FUNCJ 1 DEMO&/JONNY L NONINVASI 99395 [facility], [facility], VE 3 SPANISH MEDICAL INTERPRETER SPANISH MEDICAL INTERPRETER EAR/PULSE PEPE CANTU OXIMETRY CO HOS CO HOS MULTIPLE DETER INITIAL 43837 ANGELO FONG OBSERVATI 3 ON CARE/DAY 30 [place] [address] [facility], [facility], INFUSION 3 SPANISH MEDICAL INTERPRETER SPANISH MEDICAL INTERPRETER THERAPY/P PEPEHien CANTU ROPHYLAXI CO HOS CO HOS S /DX 1ST TO 1 HR DIRECT G0379 [facility], [facility], ADMISSION 3 SPANISH MEDICAL INTERPRETER SPANISH MEDICAL INTERPRETER PATIENT [facility] CO HOS CO HOS [facility] G0378 [facility], [facility], OBSERVATI 3 SPANISH MEDICAL INTERPRETER SPANISH MEDICAL INTERPRETER ON [facility] CO HOS CO HOS PER HOUR RADIOLOGI 75636 JUICE BOSE C EXAM 3 EIDER CLAYTON E[facility]ER CLAYTON CHEST 2 VIEWS FRONTAL&L ATERAL DISPBL T4535 NURSES NURSES LINER/ISABELLE 2 REGISTRY REGISTRY ELD/GUARD & HOME HE & HOME HE /PAD/UNDG RMNT INCONT EA ECG 24968 ANGELO FONG ROUTINE 2 ECG W/LEAST 12 LDS TRCG ONLY W/O I&R DISPBL T4535 NURSES NURSES LINER/ISABELLE 2 REGISTRY REGISTRY ELD/GUARD & HOME HE & HOME HE /PAD/UNDG RMNT INCONT EA DUP-SCAN 54097 NO REBEKAH NO REBEKAH XTR VEINS 2 COMPLETE BILATERAL STUDY DISPBL T4535 NURSES NURSES LINER/ISABELLE 2 REGISTRY REGISTRY ELD/GUARD & HOME HE & HOME HE /PAD/UNDG RMNT INCONT EA DISPBL T4535 NURSES NURSES LINER/ISABELLE 2 REGISTRY REGISTRY ELD/GUARD & HOME HE & HOME HE /[place] [address] [place] [employer], [employer], INFUSION 2 SPANISH MEDICAL INTERPRETER SPANISH MEDICAL INTERPRETER THERAPY/P PEPE CANTU ROPHYLAXI CO HOS CO HOS S /DX 1ST TO 1 HR BASIC 62435 [employer], [employer], METABOLIC 2 SPANISH MEDICAL INTERPRETER SPANISH MEDICAL INTERPRETER PANEL PEPE CANTU CALCIUM CO HOS CO HOS TOTAL BLOOD 48592 [facility], [employer], COUNT 2 SPANISH MEDICAL INTERPRETER SPANISH MEDICAL INTERPRETER COMPLETE PEPE MORAS AUTO&AUTO CO HOS CO HOS DIFRNTL WBC NATRIURET 38338 [facility], [employer], IC 2 SPANISH MEDICAL INTERPRETER SPANISH MEDICAL INTERPRETER PEPTIDE PEPE PEPE CO HOS CO HOS URNLS DIP 90881 [facility], [facility], 2 SPANISH MEDICAL INTERPRETER SPANISH MEDICAL INTERPRETER STICK/TAB PEPE CANTU LET RGNT CO HOS CO HOS AUTO W/O MICROSCOP Y ECG 82959 [facility], [employer], ROUTINE 2 SPANISH MEDICAL INTERPRETER SPANISH MEDICAL INTERPRETER ECG PEPE MORAS W/LEAST CO HOS CO HOS 12 LDS TRCG ONLY W/O I&R FIBRIN 06988 [facility], [employer], DGRADJ 2 SPANISH MEDICAL INTERPRETER SPANISH MEDICAL INTERPRETER PRODUCTS PEPE CANTU D-DIMER CO HOS CO HOS QUANTITAT ADELINA RADIOLOGI 71187 [facility] C EXAM 2 EIDER CLAYTON CHEST 2 RADIOLOGY VIEWS ASSOCIAT FRONTAL&L ATERAL RADIOLOGI 64759 [facility] C EXAM 2 BETH CHEST 2 RADIOLOGY VIEWS ASSOCIAT FRONTAL&[place] [address] [facility], [employer], INFUSION 2 SPANISH MEDICAL INTERPRETER SPANISH MEDICAL INTERPRETER HYDRATION PEPE CANTU EACH [place] [address] [facility], [employer], INFUSION 2 SPANISH MEDICAL INTERPRETER SPANISH MEDICAL INTERPRETER HYDRATION PEPE PEPE INITIAL CO HOS CO HOS 31 MIN-1 HOUR THER 94192 [facility], [employer], PROPH/DX 2 SPANISH MEDICAL INTERPRETER SPANISH MEDICAL INTERPRETER NJX IV PEPE MORAS PUSH CO HOS CO HOS SINGLE/1S T SBST/[place] [address] [facility], [employer], INFUSION 2 SPANISH MEDICAL INTERPRETER SPANISH MEDICAL INTERPRETER THERAPY/P PEPE PEPE ROPHYLAXI CO HOS CO HOS S /DX 1ST TO 1 [place] [address] [facility] [address] IMAGING IMAGING ATTENUATI L L ON SKULL BASE MID-THIGH COMPREHEN 06029 [employer], [employer], SIVE 2 SPANISH MEDICAL INTERPRETER SPANISH MEDICAL INTERPRETER METABOLIC PEPE PEPE PANEL CO HOS CO HOS PROTHROMB 06588 [employer], [employer], IN TIME 2 SPANISH MEDICAL INTERPRETER SPANISH MEDICAL INTERPRETER PEPE PEPE CO HOS CO HOS SEDIMENTA 25699 [employer], [employer], TION RATE 2 SPANISH MEDICAL INTERPRETER SPANISH MEDICAL INTERPRETER RBC PEPE PEPE NON-AUTOM CO HOS CO HOS ATED BLOOD 31978 [employer], [employer], COUNT 2 SPANISH MEDICAL INTERPRETER SPANISH MEDICAL INTERPRETER COMPLETE PEPE PEPE AUTO&AUTO CO HOS CO HOS DIFRNTL WBC NATRIURET 75132 [employer], [employer], IC 2 SPANISH MEDICAL INTERPRETER SPANISH MEDICAL INTERPRETER PEPTIDE PEPE PEPE CO HOS CO HOS BLOOD 77389 [employer], [employer], COUNT 2 SPANISH MEDICAL INTERPRETER SPANISH MEDICAL INTERPRETER SMEAR PEPE PEPE MCRSCP CO HOS CO HOS W/MNL DIFRNTL WBC COUNT RADIOLOGI 87880 [employer], [employer], C EXAM 2 SPANISH MEDICAL INTERPRETER SPANISH MEDICAL INTERPRETER CHEST 2 PEPE PEPE VIEWS CO HOS CO HOS FRONTAL&L ATERAL DUP-SCAN 02156 [place] [facility] XTR VEINS 2 [facility] UNILATERA ASS L/LIMITED STUDY DISPBL T4535 NURSES NURSES LINER/ISABELLE 2 REGISTRY REGISTRY ELD/GUARD & HOME HE & HOME HE /PAD/UNDG RMNT INCONT EA DISPBL T4535 NURSES NURSES LINER/ISABELLE 2 REGISTRY REGISTRY ELD/GUARD & HOME HE & HOME HE /PAD/UNDG RMNT INCONT EA BONE 37916 [facility] [place] [address] [facility] [address] [facility] IMAGING ATTENUATI L L [place] [address] [facility] SURG 1 [facility] PATHOLOGY [facility] PSC GROSS&PHI ROSCOPIC EXAM DECALCIFI 72968 [facility] CATION 1 [facility] PROCEDURE [facility] PSC COMPREHEN 60487 [facility] SIVE 1 [facility] METABOLIC PANEL RADEX 09460 [facility] ANKLE 1 [facility] COMPLETE MINIMUM 3 VIEWS COLLECTIO 12940 [facility] N VENOUS 1 [facility] [place] [address] [facility] BLOOD/URI 1 [facility] C ACID LACTATE 57792 [facility] DEHYDROGE 1 [facility] NASE LDH BLOOD 70144 [facility] COUNT 1 [facility] COMPLETE AUTO&AUTO DIFRNTL WBC COLLECTIO 48408 [facility] N VENOUS 1 [facility] BLOOD VENIPUNCT URE FLOW 22158 [facility] CYTOMETRY 1 [facility] CELL SURF MARKER TECHL ONLY 1ST CHRMSM 78370 [facility] COUNT 1 [facility] 15-20 CLL 2KARYOTYP BANDING CHRMSM 92238 [facility] ANALYSIS 1 [facility] ADDL KARYOTYP EACH STUDY FLOW 95179 [facility] CYTOMETRY 1 [facility] CELL SURF MARKER TECHL ONLY EA FLOW 78065 [facility] CYTOMETRY 1 [facility] INTERPRET ATION 16/> MARKERS DISPBL T4535 NURSES NURSES LINER/ISABELLE 1 REGISTRY REGISTRY ELD/GUARD & HOME HE & HOME HE /PAD/UNDG RMNT INCONT EA DISPBL T4535 NURSES NURSES LINER/ISABELLE 1 REGISTRY REGISTRY ELD/GUARD & HOME HE & HOME HE /PAD/UNDG RMNT INCONT EA DESTRUCTI 38517 [facility] ANGELO ADN ON 1 [facility] LESION 1ST RADEX 96563 [facility] FOREARM 2 1 ANNIE VIEWS RADIOLOGY ASSOCIAT RADEX 32174 [facility] ELBOW 1 ANNIE COMPLETE RADIOLOGY MINIMUM 3 ASSOCIAT VIEWS RADIOLOGI 53685 [facility] C 1 ANNIE EXAMINATI RADIOLOGY ON TIBIA ASSOCIAT & FIBULA 2 VIEWS DUPLEX 07230 [facility] SCAN 1 [facility] EXTRACRAN RADIOLOGY IAL ART ASSOCIAT COMPL BI STUDY BLOOD 88374 [facility] PAT SMEAR 1 JARED & PERIPHERA DUBILIER L INTERP PHYS W/WRIT REPORT RADEX 47180 [place] [facility] ABDOMEN 1 [facility] COMPL RADIOLOGY W/DCBTS&/ [place] [address] [facility] HEAD/BRAI 1 [facility] N W/O RADIOLOGY CONTRAST ASSOCIAT MATERIAL ECG 97803 [facility]U ROUTINE 1 CO CO ECG [facility] W/LEAST 12 LDS TRCG ONLY W/O I&R DEMO&/JONNY 89483 [facility] L OF PT 1 CO CO UTILIZ [facility] AERSL GEN/NEB/I NHLR/IP ANTIBODY 16120 [facility] INFLUENZA 1 CO CO VIRUS [facility] BASIC 42867 [facility] METABOLIC 1 CO CO PANEL [facility] CALCIUM TOTAL COLLECTIO 84958 PEPE Falcon VENOUS 1 CO CO BLOOD [facility] VENIPUNCT URE BLOOD 41403 [facility] COUNT 1 CO CO SMEAR [facility] MCRSCP W/MNL DIFRNTL WBC COUNT RADIOLOGI 44160 [facility] C EXAM 1 CO CO CHEST 2 [facility] VIEWS FRONTAL&L ATERAL PRESSURIZ 98042 [facility] ED/NONPRE 1 CO CO SSURIZED [facility] [address] COMBINED COMBINED THYROID 1 PHYSICIAN PHYSICIAN STIMULATI S LA S LA NG HORMONE TSH BLOOD 64815 COMBINED COMBINED COUNT 1 PHYSICIAN PHYSICIAN COMPLETE S LA S LA AUTO&AUTO DIFRNTL WBC LIPID 21926 COMBINED COMBINED PANEL 1 PHYSICIAN PHYSICIAN S LA S LA PROTHROMB 51071 COMBINED COMBINED IN TIME 1 PHYSICIAN PHYSICIAN S LA S LA COMPREHEN 57121 COMBINED COMBINED SIVE 1 PHYSICIAN PHYSICIAN METABOLIC S LA S LA PANEL RADEX 61044 [facility] RIBS UNI 1 CO CO W/POSTERO HOSPITAL HOSPITAL ANT CH MINIMUM 3 VIEWS RADEX 87277 [place] [facility] RIBS 1 [facility] UNILATERA RADIOLOGY L 2 VIEWS ASSOCIAT RADIOLOGI 62388 [place] DEVIN C EXAM 1 [facility] CHEST 2 RADIOLOGY VIEWS ASSOCI[place] FRONTAL&[place] [address] [facility] TRANSVAGI [facility] [place] SCRE[facility] Q0091 KAELA BELTRAN PAP [facility] SMEAR; [facility] [place] PREP &C ONVEY TO LAB CERV/VAGI G0101 KAELA BELTRAN NAL 1 [facility] S[facility]; [place] PELV&CLIN BREAST EXAM SCR G0145 PATHOLOGY PATHOLOGY CYTOPATH 1 & & CERV/VAG CYTOLOGY CYTOLOGY SCR LAB LAB AUTO&MNL RSCR PHYS RADIOLOGI 55070 [facility] C EXAM 1 ANNIE CHEST 2 RADIOLOGY VIEWS ASSOCIAT FRONTAL&[place] [address] [facility] ABDOMEN 0 CO CO W/O HOSPITAL HOSPITAL CONTRAST MATERIAL CULTURE 81598 [facility] BACTERIAL 0 CO CO HOSPITAL HOSPITAL QUANTTATI VE COLONY COUNT URINE CT PELVIS 37802 [facility] W/O 0 CO CO CONTRAST [place] [address] PATHOLOGY PATHOLOGY SURG 0 & & PATHOLOGY CYTOLOGY CYTOLOGY LAB LAB GROSS&PHI ROSCOPIC EXAM EXCISION 51103 C GEOVANNI STEVENS MAL 0 HILDA CALLAWAY MD PSC TRUNK/ARM /LEG 2.1-3.0 CM COMPREHEN 81543 COMBINED COMBINED SIVE 0 PHYSICIAN PHYSICIAN METABOLIC S LA S LA PANEL LIPID 97437 COMBINED COMBINED PANEL 0 PHYSICIAN PHYSICIAN S LA S LA COLLECTIO 56446 COMBINED COMBINED N VENOUS 0 PHYSICIAN PHYSICIAN BLOOD S LA S LA VENIPUNCT URE BLOOD 23299 COMBINED COMBINED COUNT 0 PHYSICIAN PHYSICIAN COMPLETE S LA S LA AUTO&[place] [address] COMBINED COMBINED THYROID 0 PHYSICIAN PHYSICIAN ST[place]ULATI [place] [address] [place] BEL[place], ABDOMEN 0 MARIAA C W/O RADIOLOGY CONTRAST MATERIAL ASSOCIATE S PSC CT PELVIS 11464 [place], W/O 0 MARIAA C CONTRAST RADIOLOGY MATERIAL ASSOCIATE S PSC COMPREHEN 33152 COMBINED COMBINED SIVE 0 PHYSICIAN PHYSICIAN METABOLIC S LAB S LAB PANEL LIPID 08949 COMBINED COMBINED PANEL 0 PHYSICIAN PHYSICIAN S LAB S LAB BLOOD 98419 COMBINED COMBINED COUNT 0 PHYSICIAN PHYSICIAN COMPLETE S LAB S LAB AUTO&AUTO DIFRNTL WBC DUP-SCAN 07437 [place] JUICE XTR VEINS 0 EIDER, COMPLETE RADIOLOGY SAMIR K BILATERAL [place] [address] PATHOLOGY PATHOLOGY SURG 0 & & PATHOLOGY CYTOLOGY CYTOLOGY LAB LAB GROSS&[place] [address] YUMIKO CALDERON INFUSION 0 [facility] THERAPY/P INC INC ROPHYLAXI S /DX 1ST TO 1 HR COLONOSCO 11417 [place], PY 0 MEDICAL DEISY W/BIOPSY SERV SINGLE/[place] [address] DERMATOPA DERMATOPA SURG 0 THOLOGY THOLOGY PATHOLOGY ALLINACE ALLINACE OF OF GROSS&PHI ROSCOPIC EXAM SCREENING 13233 YUMIKO KINGON 0 [facility] MAMMOGRAP INC INC HY BILATERAL COMPUTER- 46612 ANJELJD [facility] CHEEMA 0 MEDICAL ROBERTO CARLOS DETECTION IMAGING ASSOCIATE SCREENING S MAMMOGRAP HY CULTURE 21565 PEPE CANTU BACTERIAL 0 [facility] QUANTTATI VE COLONY COUNT URINE LIPOPROTE 68759 PEPE CANTU IN DIRECT [address] [place] [address] MEASUREME NT LDL CHOLESTER OL COMPREHEN 58519 PEPE CANTU SIVE 0 [facility] PANEL LIPID 53560 PEPE CANTU PANEL 0 [facility] COMPREHEN 28475 PEPE CANTU SIVE 9 [facility] PANEL LIPID 54782 PEPE CANTU PANEL 9 [facility] URNLS DIP 06753 [place] GARR[place], 9 LOIDA HERNANDEZ A STICK/TAB INTERNAL LET RGNT MED NON-AUTO W/O MICRSCP BLOOD 89113 PEPE PEPE COUNT 9 [facility] AUTO&AUTO DIFRNTL WBC COLLECTIO 82751 [place] N VENOUS 9 [facility] A BLOOD INTERNAL VENIPUNCT MED URE PHYS G0179 [place] MCKEMIE RE-CERT 9 LOIDA PLATA, MCR-COVR INTERNAL DARYN [facility] MED SRVC RE-CERT PRD 3D 94050 DENI CHEEMA, RENDERING 9 ROBERTO CARLOS ROBERTO CARLOS W/INTERP & [place] 23891 DENI CHEEMA, SPINAL 9 ROBERTO CARLOS ROBERTO CARLOS CANAL CERVICAL W/O CONTRAST MATRL ECG 89179 [place] BESSON, ROUTINE 9 [facility] A ECG INTERNAL W/LEAST MED 12 LDS W/I&R PHYS G0179 [place] MCKEMIE RE-CERT 9 [facility], [facility]-COVR INTERNAL DARYN F [facility] SRVC RE-CERT PRD OPHTH 63225 JOSIAH RAHMAN, MEDICAL 9 DORIAN A DORIAN A XM&EVAL COMPRHNSV ESTAB PT 1/> DESTRUCTI 29528 [place] BESNIXON, ON 9 [facility] A PREMALIGN INTERNAL ANT MED LESION 1ST DEMO&/JONNY 19772 PEPE CANTU L OF PT 8 CO CO UTILIZ [facility] AERSL GEN/NEB/I NHLR/IP BLOOD 51190 PEPE CANTU COUNT 8 CO CO SMEAR [facility] MCRSCP W/MNL DIFRNTL WBC COUNT BLOOD 06065 PEPE ROSALES 8 CO CO COMPLETE [facility] AUTO&AUTO DIFRNTL WBC COLLECTIO 65199 PEPE Falcon VENOUS 8 CO CO BLOOD [facility] VENIPUNCT URE RADIOLOGI 44148 Niki MARIEE EXAM 8 AYANA S CHEST 2 RADIOLOGY VIEWS FRONTAL&L ASSOCIATE ATERAL S PSC PRESSURIZ 59459 PEPE CANTU ED/NONPRE 8 CO CO SSURIZED [facility] INHALATIO N TREATMENT IIV3 19728 [place] B[place], VACCINE 8 [place] [facility] A SPLIT INTERNAL VIRUS 0.5 MED ML DOSAGE IM USE ADMINISTR G0008 [place] BESS[place], ATION OF 8 [facility] A INFLUENZA INTERNAL VIRUS MED VACCINE [facility] 02469 [place] GYPSY, DISCHARGE 8 [facility] DAY INTERNAL MANAGEMEN MED T 30 MIN/< SBSQ 21150 [place] GYPSY, [facility] 8 [facility] CARE/DAY INTERNAL 25 MED MINUTES SBSQ 41046 [facility] 8 [facility] Kavya CARE/DAY INTERNAL 25 MED MINUTES RADEX ABD 77842 VIOLETA MARIEE 8 AYANA [place] AQT ABD RADIOLOGY W/S/E/D VIEWS 1 ASSOCIATE VIEW CH S PSC INITIAL [address], CARE/DAY INTERNAL DARYN Citlaly 50 MED MINUTES RADIOLOGI 38987 Niki MARIEE EXAM 8 AYANA Stanford CHEST 2 RADIOLOGY VIEWS FRONTAL&L ASSOCIATE ATERAL S PSC PHYS CERT [id number] [facility] MCR-COVR 8 [facility] INTERNAL SRVC PER MED CERT PRD INJECTION [id number] [facility] 8 [facility], TRIAMCINO INTERNAL DARYN Boucher LONE MED ACETONIDE NOS 10 MG IM ADM 35761 [facility] PRQ ID 8 [facility], SUBQ/IM INTERNAL DARYN Boucher NJXS 1 MED VACCINE COMPREHEN 88065 [facility] CANTU SIVE 8 CO [place] METABOLIC [facility] PANEL THER 95483 [facility] CANTU PROPH/DX 8 [facility] SUBQ/IM COLLECTIO 44205 [facility] CANTU N VENOUS 8 [facility] BLOOD [facility] VENIPUNCT URE BLOOD 33469 [facility] CANTU COUNT 8 [facility] SMEAR [facility] MCRSCP W/MNL DIFRNTL WBC COUNT BLOOD 09798 [facility] CANTU COUNT 8 CO [place] COMPLETE [facility] AUTO&AUTO DIFRNTL WBC RADIOLOGI 70799 [facility] Prince EXAM 8 [facility] CHEST [address] [place] [address] VIEWS FRONTAL&L ATERAL Encounters Encounter Start End Date Code Location Performer Type Date OFFICE 41370 [facility] FRYMMARLINE OUTPATIEN 7 7 PHYSICIAN T VISIT S GROUP 15 MINUTES EMERGENCY 98443 ERIC DODD DEPT 7 7 PHYSICIAN VISIT S, [facility] HIGH SEVERITY& THREAT [facility] YUMIKO - 7 7 [facility] INPATIENT INC OFFICE 51444 [facility] 7 7 MEDICAL T VISIT SERV 15 FOUNDATIO MINUTES HOSPITAL - 7 7 [facility] OFFICE 57304 [facility] 6 6 [facility] T VISIT URGENT 25 TREAT MINUTES OFFICE 69153 [facility] 6 6 [facility] T VISIT URGENT 15 TREAT MINUTES OFFICE 79531 [facility] 6 6 [facility] T VISIT URGENT 25 TREAT MINUTES OFFICE 48737 [facility] 6 6 [facility] T VISIT URGENT 25 TREAT MINUTES OFFICE 32615 AM[facility]IA [facility] 6 6 MEDICAL N RONN T VISIT SERV 15 FOUNDATIO MINUTES HOSPITAL UNIVERSIT - 6 6 [facility] 6 [facility] OFFICE 68422 [facility] 6 6 PHYSICIAN LES T NEW 30 PRACTICE MINUTES L OFFICE 22330 AMALIA [facility] 6 6 MEDICAL N RONN T VISIT SERV 10 FOUNDATIO MINUTES N OFFICE 69231 [facility] 6 6 [facility] T VISIT URGENT 25 TREAT MINUTES HOSPITAL YUMIKO - 6 6 [facility] INPATIENT [facility]PITAL [place] - 5 5 [facility] EMERGENCY 92988 [facility] DEPT 5 5 ROHIT THO VISIT EMERGENCY HIGH PHYSI SEVERITY& THREAT [facility] BOCASION - 5 5 [facility] 75922 [facility] 5 5 [facility] T VISIT HIGH/URGE NT SEVERITY EMERGENCY 88161 [facility] DEPT 5 5 ROHIT THO VISIT EMERGENCY HIGH PHYSI SEVERITY& THREAT [facility] YUMIKO - 5 5 [facility] - 5 5 [facility] OUTPATIEN [facility] HOME [facility], 5 5 HOME INPATIENT HEALTH AGENCY HOME [facility], 5 5 HOME INPATIENT HEALTH AGENCY OFFICE 00914 [facility] 5 [facility] VISIT 15 MINUTES [facility]OSP[facility] YUMIKO - 4 4 [facility] 4 4 [facility] INPATIENT [facility] YUMIKO - 4 4 [facility] OUT[facility]IEN [facility] YUMIKO [facility] 4 4 [facility] OUTPATIEN [facility] OFFICE 00993 [facility] 4 4 PHYSICIAN T NEW 45 S GROUP [facility] UNIVERSIT - 4 4 [facility] HOME NURSES HEALTH, 4 4 REGISTRY INPATIENT HOME [facility] N[facility]SES HEALTH, 4 4 REGISTRY INPATIENT HOME [facility] [place] - 4 4 [facility] CRITICAL [facility], ACCESS 4 4 [facility] [place] [facility] EMERGENCY 75825 [facility], 4 4 [facility] VISIT CO HOS HIGH/URGE NT SEVERITY HOME NURSES HEALTH, 4 4 REGISTRY INPATIENT HOME HLTHTCA HOME NURSES HEALTH, 4 4 REGISTRY INPATIENT & HOME HE HOME NURSES HEALTH, 4 4 REGISTRY INPATIENT & HOME HE CRITICAL [facility], ACCESS 4 4 [facility] [place] [facility] CRITICAL [facility] ACCESS 4 4 [facility] [facility] EMERGENCY 42296 [facility], 4 4 [facility] DEPARTMEN [facility] T VISIT CO HOS HIGH/URGE NT SEVERITY HOME NURSES HEALTH, 4 4 REGISTRY INPATIENT & HOME HE HOSPITAL UNIVERSIT - 4 4 [facility] T OFFICE 63305 FLEISCHMA FLEISCHMA OUTPATIEN 4 4 N RONN N RONN T VISIT 15 MINUTES HOME NURSES HEALTH, 3 3 REGISTRY INPATIENT & HOME HE HOME NURSES HEALTH, 3 3 REGISTRY OUTPATIEN & HOME HE T HOME NURSES HEALTH, 3 3 REGISTRY OUTPATIEN & HOME HE T OFFICE 01166 FLEISCHMA FLEISCHMA OUTPATIEN 3 3 N RONN N RONN T NEW 45 MINUTES HOSPITAL UNIVERSIT - 3 3 [facility]ENC[facility] 11353 [facility], 3 3 [facility] DEPARTMEN [facility] T VISIT CO HOS HIGH/URGE NT SEVERITY CRITICAL [facility], ACCESS 3 3 [facility] [place] [facility] EMERGENCY 03802 VENKAT ROBLEDO 3 3 ANGELICA DOMINGUEZ DEPARTMEN T VISIT MODERATE SEVERITY CRITICAL [facility], ACCESS 3 3 [facility] [place] [facility]PITAL UNIVERSIT - 3 3 Y [facility] T EMERGENCY 14281 [facility], 3 3 [facility] DEPARTMEN [place] T VISIT CO HOS HIGH/URGE NT SEVERITY CRITICAL [facility], ACCESS 3 3 [facility] [place] [facility] EMERGENCY 93441 [facility], DEPT 3 3 [facility] VISIT [place] HIGH CO HOS SEVERITY& THREAT FUNCJ CRITICAL [facility], ACCESS 3 3 [facility] [place] [facility] CRITICAL [facility], ACCESS 3 3 [facility] [place] [facility] HOME NURSES HEALTH, 3 3 REGISTRY OUTPATIEN & HOME HE T EMERGENCY 44547 [facility], 3 3 [facility] DEPARTMEN [facility] T VISIT CO HOS LOW/MODER SEVERITY EMERGENCY 92771 RANDA RANDA 3 3 HEN HEN DEPARTMEN T VISIT MODERATE SEVERITY CRITICAL [facility], ACCESS 3 3 [facility] [facility], - 3 3 [facility] INPATIENT [facility] [facility] CRITICAL [facility], ACCESS 3 3 [facility] [place] [facility] EMERGENCY 48747 [employer], 3 3 [facility] DEPARTMEN [place] T VISIT CO HOS HIGH/URGE NT SEVERITY HOME NURSES HEALTH, 2 2 REGISTRY OUTPATIEN & HOME HE T HOME NURSES HEALTH, 2 2 REGISTRY OUTPATIEN & HOME HE T OFFICE 75598 NO REBEKAH NO REBEKAH OUTPATIEN 2 2 T NEW 45 MINUTES CLINIC, [place] [facility] 2 2 [facility] HEALTH OFFICE 82338 [facility] OUTPATIEN 2 2 [facility] T VISIT RURAL 15 HEALTH MINUTES HOME NURSES HEALTH, 2 2 REGISTRY OUTPATIEN & HOME HE T HOME NURSES HEALTH, 2 2 REGISTRY OUTPATIEN & HOME HE T CRITICAL [facility], ACCESS 2 2 [facility] [place] [facility] EMERGENCY 83464 [employer], 2 2 [facility] DEPARTMEN [facility] T VISIT CO HOS HIGH/URGE NT SEVERITY OFFICE 42306 AHMED ADN FARHADMED ADN OUTPATIEN 2 2 T VISIT 15 MINUTES HOSPITAL [employer] [facility], - 2 2 [facility]OS OFF[facility] 38933 AHMED ADN AHMED ADN OUTPATIEN 2 2 T VISIT 15 MINUTES OFFICE 95554 LAUSE FED LAUSE FED OUTPATIEN 2 2 T NEW 20 MINUTES OFFICE 93167 AHMED ADN AHMED ADN OUTPATIEN 2 2 T VISIT 25 MINUTES CLINIC, [facility] RURAL 2 2 [facility] OFFICE 76115 [facility] OUTPATIEN 2 2 RURAL T VISIT HEALTH 25 CLINIC MINUTES CRITICAL [employer], ACCESS 2 2 [facility] CL[facility], [facility] RURAL 2 2 [facility] OFFICE 04380 [facility] OUTPATIEN 2 2 RURAL T VISIT HEALTH 25 CLINIC MINUTES HOSPITAL YUMIKO - 2 2 [facility] OUTPATIEN INC T OFFICE 32902 [facility]PATIEN 2 2 [facility] T VISIT HEALTH 25 CLINIC MINUTES CLINIC, [facility] R[facility] 2 2 [facility] HOME [facility] 2 2 REGISTRY OUTPATIEN & HOME T OFFICE 01615 FARHADMED AJIT AHMED ADN OUTPATIEN 2 2 T VISIT 15 MINUTES OFFICE 07829 [place] OUTPATIEN 2 2 COUNTY T VISIT [facility]URAL 25 HEALTH MINUTES CLINIC, COUNT INCLUDES THE [facility] RURAL 2 2 [facility] [place] [address] 1 [facility] [place] [address] [facility] T OFFICE 17484 [facility] 1 1 [facility] T VISIT RURAL 15 HEALTH MINUTES CLINIC, [place] [facility] 1 1 [facility] HEALTH ANCHOR NURSES HEALTH, 1 1 REGISTRY OUTPATIEN & HOME HE T HOME NURSES HEALTH, 1 1 REGISTRY OUTPATIEN & HOME HE T OFFICE 33228 [facility] OUTPATIEN 1 1 RURAL T VISIT HEALTH 15 CLINIC MINUTES CLINIC, [facility] 1 1 [facility], [facility] RURAL 1 1 [facility] OFFICE 01190 [facility] OUTPATIEN 1 1 [facility]URAL T VISIT HEALTH 15 CLINIC MINUTES OFFICE 61519 [facility] AHMED ADN OUTPATIEN 1 1 RURAL T VISIT HEALTH 25 CLINIC MINUTES CRITICAL [place] ACCESS 1 1 [facility] EMERGENCY 58936 [facility] WILLETT DEPT 1 1 [facility] VISIT HOSPITAL HIGH SEVERITY& THREAT [facility] - 1 1 [facility] CRITICAL [place] ACCESS 1 1 [facility] EMERGENCY 40361 [facility] 1 1 [facility] T VISIT LIMITED/M INOR PROB CRITICAL [place] ACCESS 1 1 [facility] OFFICE 42294 [facility] 1 1 [facility] T VISIT CLINIC OF 15 [facility] 1 1 [facility] CRITICAL [facility] ACCESS 0 0 [facility]PITAL OFFICE 82350 Niki STEVENS OUTPATIEN 0 0 HILDA Gay MD [facility] - 0 0 [facility] CRITICAL [facility] ACCESS 0 0 [facility]OSPITAL OFFICE 94781 [facility] SAGEPATIEN 0 0 CO T VISIT 5 HOSPITAL MINUTES CRITICAL [facility] ACCESS 0 0 [facility] YUMIKO - 0 0 [facility] 0 [facility] OUTPATIEN [facility] T OFFICE 81699 [facility] OUTPATIEN 0 0 [facility] R[facility]O T VISIT INTERNAL 15 MED MINUTES CRITICAL [place] ACCESS 0 0 [facility] CRITICAL [facility] ACCESS 0 0 [facility] OFFICE 02535 [facility] OUTPATIEN 0 0 [facility] R[facility] T VISIT INTERNAL 25 MED MINUTES OFFICE 12327 [facility], OUTPATIEN 9 9 [facility] MARY A T VISIT INTERNAL 15 MED MINUTES OFFICE 70030 [facility], OUTPATIEN 9 9 [facility] T VISIT INTERNAL 15 MED MINUTES CRITICAL [place] ACCESS 9 9 [facility] OFFICE 96339 [facility], OUTPATIEN 9 9 [facility] A T VISIT INTERNAL 25 MED MINUTES OFFICE 73743 [facility], OUTPATIEN 9 9 [facility] T VISIT INTERNAL 15 MED MINUTES OFFICE 68736 [facility], OUTPATIEN 9 9 [facility] T VISIT INTERNAL 25 MED MINUTES EMERGENCY 24297 [place], 8 8 [facility] T VISIT MODERATE SEVERITY EMERGENCY 15763 [facility] 8 8 [facility] T VISIT LOW/MODER SEVERITY CRITICAL [place] ARORA 8 8 [facility] OFFICE 00094 [facility], OUTPATIEN 8 8 [facility] AMRY A T VISIT INTERNAL 15 MED MINUTES OFFICE 06678 [facility], OUTPATIEN 8 8 LOIDA HERNANDEZ A T VISIT INTERNAL 10 MED MINUTES OFFICE 69497 [facility]ARR[facility], OUTPATIEN 8 8 [place] MARY A T VISIT INTERNAL 15 MED MINUTES CRITICAL [facility] 8 8 [facility] OFF[facility] 11586 ERIN WILLSON 8 8 MEDICAL DARYN ION SERV E NEW/ESTAB FOUNDATIO PATIENT 40 MIN OFFICE 23424 [facility] 8 [facility] T VISIT 5 HOSPITAL MINUTES OFFICE 81016 [facility] OUTPATIEN 8 8 [place] M[facility] A T VISIT INTERNAL 15 MED MINUTES HOSPITAL [place] [address] 8 [facility] OFFICE 16021 HAZEL EUGENE 8 8 MARIAA PLATA JR, JOHN T VISIT P P 15 MINUTES OFFICE 30045 NEGRITA EUGENE 8 8 Cameron MARISCAL JR VISIT INTERNAL DARYN F 15 MED MINUTES CRITICAL [place] [address] 8 [facility] EMERGENCY 57683 [place] [address] 8 [facility] T VISIT LIMITED/M INOR PROB OFFICE 33805 DERREKKING GARRISON SAGEPATIEN 8 8 [place] MARY A T VISIT INTERNAL 15 MED MINUTES OFFICE 81850 HAZEL EUGENE 8 8 MARIAA PLATA JR, JOHN T VISIT P P 10 MINUTES OFFICE 46696 NEGRITA EUGENE 8 8 Cameron MARISCAL JR VISIT INTERNAL DARYN F 25 MED MINUTES OFFICE 52006 HAZEL EUGENE 8 8 MARIAA PLATA JR, JOHN T VISIT P P 15 MINUTES
--- OUTSIDE RECORDS SUMMARY | 2016-12-13 18:02 | External Medical Summary Rpt ---
Author Author , JESSICA LOPEZ Address Unknown Phone [email or web address] Care Team Providers Care Senior Electronics Design Engineer Name Role Phone NO REBEKAH, NO REBEKAH Unavailable Unavailable AHMED ADN, AHMED ADN Unavailable Unavailable AHMED ADN, AHMED ADN Unavailable Unavailable ILYA LES, ILYA Unavailable Unavailable LES ATKINS COL, ATKINS Unavailable Unavailable COL ATKINS COL, ATKINS Unavailable Unavailable COL BESSON, BESSON Unavailable Unavailable BESSON ROLO, BESSON Unavailable Unavailable ROLO BESSON ROLO, BESSON Unavailable Unavailable ROLO BESSON, MARY A, Unavailable Unavailable BESSON, MARY A [facility] Unavailable Unavailable IMAGING L, [facility] MONIQUE, MONIQUE Unavailable Unavailable MONIQUE ALL, MONIQUE ALL Unavailable Unavailable [facility] Unavailable [facility], [facility] PHYSICIAN Unavailable Unavailable PRACTICE L, [facility] RICCI PHI, RICCI Unavailable [...] Unavailable Unavailable MARIAA SALES, Unavailable Unavailable MARIAA EBLTRAN [facility], Unavailable Unavailable [facility] [place] [...] RONN, Unavailable Unavailable DEEPALI RONN GOLD SET, OGLD SET Unavailable Unavailable FRYMAN, FRYMAN Unavailable Unavailable HAGENSCHNEIDER CLAYTON, Unavailable Unavailable HAGENSCHNEIDER CLAYTON HAGENSCHNEIDER, Unavailable Unavailable SAMIR K, DARIO, SAMIR K [facility] Unavailable Unavailable INC, [facility] Unavailable Unavailable HOSPITAL P, [facility] CL[place] ANNIE, CLIFTON Unavailable Unavailable ANNIE CLIFTON ANNIE, CLIFTON Unavailable Unavailable ANNIE ETIENNE, AYANA S, Unavailable Unavailable ETIENNE, AYANA S GYPSY, GYPSY CORRIGAN, Unavailable Unavailable DORIAN GIMENEZ, Unavailable Unavailable DORIAN RAHMAN [facility], Unavailable Unavailable [facility] YOUSIF DODD Unavailable Unavailable BETINA, BETINA Unavailable Unavailable BETINA EULOGIO, BETINA Unavailable Unavailable [facility] Unavailable Unavailable CLINIC, [facility] Unavailable [facility]available IMAGING [facility], [facility] YG CRY, YG Unavailable [...] [facility] Unavailable Unavailable INTER[facility] MED, [facility] VENKAT GRAY Unavailable Unavailable FLAQUITA AMADO, Unavailable Unavailable FLAQUITA ROBLEDO LUKINS BRADLEY, LUKINS Unavailable Unavailable BRADLEY LUKINS BRADLEY, LUKINS Unavailable Unavailable BRADLEY [facility] Unavailable Unavailable ASSOCIAT, [facility] DARYN CEBALLOS, Unavailable Unavailable DARYN CEBALLOS JR, WILLIAM Unavailable Unavailable MENDEZ Boucher JR, WILLIAM F MERHAR GAR, MERHAR Unavailable Unavailable GAR MERHAR GAR, MERHAR Unavailable Unavailable [facility], [facility], [facility] Unavailable Unavailable [facility] Unavailable Unavailable [facility], [facility], Unavailable Unavailable [facility] Unavailable Unavailable HEALTH, [facility] Unavailable Unavailable U[facility] TREAT, [facility] NURS[facility] REGISTRY & Unavailable Unavailable [...] Unavailable EQUIP[facility], [facility], Unavailable Unavailable [facility] MARIAA OLIVA JR, Unavailable Unavailable MARIAA OLIVA JR [facility] Unavailable Unavailable HOSPITALS, [facility], Unavailable Unavailable [facility] Unavailable [facility]available AGENCY, [facility] Un[facility] Unavailable [facility] [place], [facility] ABDALLA, MAGALIE MAT Unavailable Unavailable Purpose Continuity of Care Document - 05-27-2007 through 2016 Problems Code Diagnosis DOS Provider Status J449 CHRONIC 09-02-2016 [facility] OBSTRUCTIVE HOME PULMONARY MEDICAL DISEASE UNS EQUIPME I10 ESSENTIAL 07-12-2016 [facility] PRIMARY PHYSICIANS HYPERTENSIO GROUP N J441 CHRONIC 07-12-2016 [facility] OBSTRUCTIVE PHYSICIANS PULMONARY GROUP DZ W/EXACERBAT ION R062 WHEEZING 07-12-2016 [facility] E876 HYPOKALEMIA 07-05-2016 [facility] I509 HEART 07-05-2016 [facility] FAILURE PHYSICIANS UNSPECIFIED GROUP J189 PNEUMONIA 07-05-2016 [facility] UNSPECIFIED PHYSICIANS ORGANISM GROUP E785 HYPERLIPIDE 07-04-2016 [facility] CECILIA PHYSICIANS UNSPECIFIED GROUP I5031 ACUTE 07-03-2016 [facility] HE[facility] FAILURE R05 COUGH 07-03-2016 [facility] R0602 SHORTNESS 07-03-2016 [place] [facility] R918 OTHER 07-03-2016 [place] NONSPECIFIC MEDICAL ABNORMAL IMAGING ASS FINDING OF LUNG FIELD Z8249 FAMILY HX 07-03-2016 [facility] ISCHEMIC PHYSICIANS HRT DZ OTH GROUP DZ CIRC SYSTEM Z8673 PERSONAL HX 07-03-2016 [facility] CEREB INC INFARCT NO RESID DEFICIT Z8709 PERSONAL 07-03-2016 [facility]ICIANS, DISEASES PLLC RESPIRATORY SYSTEM C8510 UNSPECIFIED 06-20-2016 [facility] UNSPECIFIED SITE D479 NEOPLASM 06-20-2016 [place] [facility]MP[facility] HP FOUNDATION & REL TISSUE UNS [id number] LYMPHOCYTOS 06-20-2016 [place] [facility] SYMPTOMATIC FOUNDATION H38566 EPIPHORA 04-11-2016 [facility] DUE TO COUNTY EXCESS URGENT LACRIMATION TREAT LT LACR GLAND J208 ACUTE 04-11-2016 [facility] BRONCHITIS [facility] DUE TO URGENT OTHER SPEC TREAT ORGANISMS L84 CORNS AND 03-25-2016 [facility] CALLOSITIES COUNTY URGENT TREAT Q845 ENLARGED 03-25-2016 [facility] AND [facility] HYPERTROPHI URGENT C NAILS TREAT J168 PNEUMONIA 03-11-2016 [facility] DUE TO COUNTY OTHER SPEC URGENT INFECTIOUS TREAT ORGANISMS Z55328 CELLULITIS 03-11-2016 [facility] OF LEFT [facility] LOWER LIMB URGENT TREAT M7989 OTHER 03-11-2016 [facility] SPECIFIED [facility] SOFT TISSUE URGENT DISORDERS TREAT N3946 MIXED 03-11-2016 [facility] INCONTINENC [facility] E URGENT TREAT R112 NAUSEA WITH 03-11-2016 [facility] VOMITING [facility] UNSPECIFIED URGENT TREAT R5081 FEVER 03-11-2016 [facility] PRESENTING COUNTY W/COND URGENT CLASSIFIED TREAT ELSEWHERE H6501 ACUTE 02-02-2016 [facility] SEROUS [facility] OTITIS URGENT MEDIA RIGHT TREAT EAR J301 ALLERGIC 02-02-2016 [facility] RHINITIS [facility] DUE TO URGENT POLLEN TREAT [id number] ABRASION 02-02-2016 [facility] LEFT LOWER [facility] LEG INITIAL URGENT ENCOUNTER TREAT C8588 OTH TYPES 12-14-2015 [facility] L[facility]MP[facility]OMA NODES MX SITES R42 DIZZINESS 07-06-2015 [facility] MENDOSA AND MD [facility] CONSULTING SRV E878 OTHER D/O 07-05-2015 [facility] AND FLUID BALANCE NEC H903 SENSORINEUR 06-28-2015 [facility] LOSS PRACTICE L BILATERAL C8300 SMALL CELL 06-15-2015 [place] [facility] UNSPECIFIED SITE E780 PURE 05-07-2015 [facility] HYPERCHOLES [facility] I2510 ASHD NISQUALLY 05-07-2015 [facility] CORONARY [facility] ANGINA PECTORIS Z7902 USP 05-07-2015 [facility] CURR USE [facility] TICS/ANTIPL ATELETS Z7982 USP 05-07-2015 [facility] CURRENT USE [facility] OF [facility] E90113 OTHER LONG 05-07-2015 [facility] CURRENT HOSPITAL DRUG THERAPY Z809 FAMILY 05-07-2015 [facility] HISTORY OF [facility] NEOP[facility]M UNSPECIFIED R531 WEAKNESS 04-29-2015 [facility] [place] [facility] R5381 OTHER 04-29-2015 [facility] R5383 OTHER 04-29-2015 [facility] J209 ACUTE 04-23-2015 [facility] UNSPECIFIED HOSPITAL P J440 COPD WITH 04-23-2015 [facility] P RESPIRATORY INFECTION R079 CHEST PAIN 04-23-2015 [place] [facility] 27485 CHRONIC 12-02-2014 [facility] LYMPHOID HEALTH LEUKEMIA AGENCY W/O ACHIEVED REMISSION 26870 HTN CKD UNS 12-02-2014 [facility] W/CKD HEALTH STAGE I AGENCY THRU STAGE IV/UNS 42872 UNSPECIFIED 12-02-2014 [facility] VENOUS HEALTH INSUFFICIEN AGENCY CY 496 CHRONIC 12-02-2014 [facility] AIRWAY HEALTH OBSTRUCTION AGENCY NEC 5859 CHRONIC 12-02-2014 [facility] KIDNEY HEALTH DISEASE AGENCY UNSPECIFIED 68080 UNSPECIFIED 12-02-2014 [facility] URINARY HEALTH INCONTINENC AGENCY E 481 PNEUMOCOCCA 09-15-2014 [facility] Velazquez PNEUMONIA [facility] URGENT TREAT 73641 FEVER 09-15-2014 [facility] URGENT TREAT 22783 OTHER VOICE 09-15-2014 [facility] RESONANCE URGENT DISORDERS TREAT 7862 COUGH 09-15-2014 [facility] 2724 OTHER AND 08-27-2014 [facility] UNSPECIFIED [facility] HYPERLIPIDE CECILIA 4011 ESSENTIAL 08-27-2014 [facility] HYPERTENSIO [place] N, BENIGN HOLD[facility] 7823 EDEMA 08-27-2014 [facility] 69706 SHORTNESS 06-29-2014 [place] [facility] 86972 CHEST PAIN 06-29-2014 [place] [facility]PEC[facility]IED [facility] IM[facility] ASS V1261 PERSONAL 06-29-2014 [place] HISTORY MEDICAL PNEUMONIA IMAGING ASS RECURRENT 6829 CELLULITIS 05-19-2014 [facility] AND ABSCESS [place] OF [facility]INGS UNSPECIFIED SITE 5589 OTH&UNSPEC 04-26-2014 [facility] NONINFECTIO [facility] [facility] GASTROENTER ITIS&COLITI S 48533 OTH MALIG 04-05-2014 [facility] UNS SITE INC XTRANOD&SUSANNA ID ORGN 4019 UNSPECIFIED 04-05-2014 [facility] ESSENTIAL [facility] HYPERTENSIO INC N 486 PNEUMONIA, 04-05-2014 [facility] ORGANISM PHYSICIANS UNSPECIFIED GROUP 95907 OBSTRUCTIVE 04-05-2014 [facility] CHRONIC PHYSICIANS BRONCHITIS GROUP WITH EXACERBATIO N 49201 OTHER 04-05-2014 [place] DISEASES OF MEDICAL LUNG NOT IMAGING ASS ELSEWHERE CLASSIFIED V5869 LONG-TERM 04-05-2014 [facility] (CURRENT) [facility] USE OF INC OTHER MEDICATIONS 7804 DIZZINESS 03-12-2014 [facility] GIDDINESS INC V1090 PERSONAL 03-12-2014 [facility] HISTORY [facility] UNSPECIFIED INC MALIGNANT NEOPLASM 4660 ACUTE 03-06-2014 [facility] BRONCHITIS [facility] INC 2749 GOUT, 02-22-2014 [facility] UNSPECIFIED PHYSICIANS GROUP 4149 UNSPECIFIED 02-22-2014 [facility] CHRONIC PHYSICIANS ISCHEMIC GROUP HEART DISEASE 4779 ALLERGIC 02-22-2014 [facility] RHINITIS PHYSICIANS CAUSE GROUP UNSPECIFIED 80952 ESOPHAGEAL 02-22-2014 [facility] REFLUX PHYSICIANS GROUP 14344 WHEEZING 02-22-2014 [facility] PHYSICIANS GROUP V0481 NEED 02-22-2014 [facility] PROPHYLACTI PHYSICIANS C GROUP VACCINATION &INOCULATIO N FLU 1101 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 [facility] OSIS OF NAIL 4439 UNSPECIFIED 01-05-2014 [facility] PERIPHERAL VASCULAR DISEASE 7038 OTHER 01-05-2014 [facility] SPECIFIED DISEASE OF NAIL 7295 PAIN IN 01-05-2014 [facility] SOFT TISSUES OF LIMB 34389 OTHER 11-25-2013 [facility] TISSUES 28029 DIAB W/O 11-10-2013 NURSES MENTION REGISTRY COMP TYPE HOME II/UNS TYPE HLTHTCA UNCNTRL 06415 HYPOXEMIA 10-06-2013 [facility] V5863 LONG-TERM 10-06-2013 [facility] T/ANTITHROM BOTIC V5866 LONG-TERM 10-06-2013 [facility] USE OF COMMUNITY [facility] 0088 INTESTINAL 09-04-2013 [facility], INFECTION SPARE PERSON DUE TO [facility] OTHER HOS ORGANISM NEC 19137 COR 09-04-2013 [facility], ATHEROSLERO SPARE PERSON UNSPEC [facility] TYPE VESSEL HOS NISQUALLY/SANDY T 4293 CARDIOMEGAL 09-04-2013 [facility], Y [facility] [place] [facility] 12298 DIVERTICULO 09-04-2013 [facility], SIS OF SPARE PERSON COLON [facility] 5939 UNSPECIFIED 09-04-2013 [facility], DISORDER SPARE PERSON OF KIDNEY [facility] AND URETER HOS V103 PERSONAL 09-04-2013 [facility], HISTORY OF SPARE PERSON MALIGNANT [facility] NEOPLASM OF HOS BREAST V1079 PERSONAL HX 09-04-2013 [facility], OTH SPARE PERSON LYMPHATIC&H [facility] EMATOPOIETI HOS C NEOPLASM 7020 ACTINIC 07-15-2013 [facility] KERATOSIS 33805 OTHER 07-15-2013 [facility] SEBORRHEIC KERATOSIS V5883 ENCOUNTER 06-16-2013 [facility], FOR SPARE PERSON THERAPEUTIC [facility] DRUG HOS MONITORING 7873 FLATULENCE 06-09-2013 [facility], ERUCTATION SPARE PERSON AND GAS [facility] PAIN HOS V1083 PERSONAL 06-09-2013 [facility], HISTORY SPARE PERSON OTHER [facility] MALIGNANT HOS NEOPLASM SKIN V4589 OTHER 06-09-2013 [facility], POSTSURGICA SPARE PERSON L STATUS [facility] OTHER HOS 86829 NODULAR 05-27-2013 [facility] RONN LYMPH NODES MULTIPLE SITES 4510 PHLEBITIS&T 03-03-2013 [facility] HROMBOPHLEB SUP VESSELS LOWER EXTREM 4548 VARICOSE 03-03-2013 [facility] VEINS LOWER EXTREMITIES W/OTH COMPS 4371 OTH 09-03-2012 LUK[facility] BRADLEY GENERALIZED ISCHEMIC CEREBROVASC ULAR DISEASE 19707 DISORDER OF 09-03-2012 LUKINS BRADLEY BONE AND CARTILAGE UNSPECIFIED 9100 FCE 09-03-2012 [facility] NCK&SCLP NO HOSPITAL EYE ABRAS/FRIC BURN W/O INF 9596 INJURY 09-03-2012 MERHAR GAR OTHER AND UNSPECIFIED HIP AND THIGH 9597 INJURY 09-03-2012 [facility] GAR OTHER&UNSPE CIFIED KNEE LEG ANKLE&FOOT E8889 UNSPECIFIED 09-03-2012 [facility] GAR FALL V1060 PERSONAL 09-03-2012 [facility] HISTORY OF HOSPITAL UNSPECIFIED LEUKEMIA V1229 PERSONAL HX 09-03-2012 [facility] ENDOCRN METABOLIC IMMUNITY D/O V5861 LONG-TERM 09-03-2012 [facility] PR[facility] (CURRENT) USE OF ANTICOAGULA NTS V714 OBSERVATION 09-03-2012 [facility] PR[facility] FOLLOWING OTHER ACCIDENT 035 ERYSIPELAS 08-21-2012 [facility] [place] [facility] 51278 LEUKOCYTOSI 08-21-2012 [facility], S SPARE PERSON UNSPECIFIED [facility] 48595 CALCU 08-21-2012 [facility] GALLBLADD W/O MENTION CHOLECYST/O BST 86198 UNSPECIFIED 08-21-2012 [facility] RESPIRATORY ABNORMALITY 7892 SPLENOMEGAL 08-21-2012 [facility] Y 2411 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 [facility] MULTINODULA R GOITER 2462 CYST OF 08-04-2012 [facility] THYROID 7964 OTHER 08-04-2012 [facility], ABNORMAL SPARE PERSON CLINICAL [facility] [facility] FINDING HOS 11747 UNS 07-22-2012 [facility] LEUKEMIA W/O ACHIEVED REMISSION 4871 INFLUENZA 07-22-2012 [facility] WITH OTHER HOSPITAL RESPIRATORY MANIFESTATI ONS 5119 UNSPECIFIED 07-22-2012 [facility] PLEURAL EFFUSION 5180 PULMONARY 07-22-2012 [facility] COLLAPSE V1254 PERSONAL HX 07-22-2012 [facility] W/O RESIDUAL DEFICITS 2763 ALKALOSIS 07-21-2012 [facility] [place] [place] [facility] 35050 DEHYDRATION 07-21-2012 [facility] SP[facility]ERSON [place] [facility] 4580 ORTHOSTATIC 07-21-2012 [facility], SPARE PERSON HYPOTENSION [facility] 45697 OTHER 07-21-2012 [facility], MALAISE AND SPARE PERSON FATIGUE [facility] 2768 HYPOPOTASSE 07-19-2012 [facility], CECILIA SPARE PERSON [facility] 4239 UNSPECIFIED 07-19-2012 [facility] DISEASE OF PERICARDIUM 7856 ENLARGEMENT 07-19-2012 [facility] OF LYMPH NODES 2130 BENIGN 06-26-2012 [facility], NEOPLASM OF [facility] BONES OF [place] [facility] SKULL AND HOS FACE 3319 UNSPECIFIED 06-26-2012 DEV[facility] CAMPOS CEREBRAL DEGENERATIO N 63300 PAIN IN 06-26-2012 [facility], JOINT, SPARE PERSON LOWER LEG [facility] 7802 SYNCOPE AND 05-23-2012 [facility] COLLAPSE [facility] [place] [facility] 93494 NAUSEA 05-23-2012 [facility] ALONE [facility] [place] [facility] 55932 ABDOMINAL 05-23-2012 [facility], PAIN, LEFT SPARE PERSON LOWER [place] [facility] QUADRANT HOS 7847 EPISTAXIS 05-13-2012 [facility] 6929 CONTACT 05-12-2012 [facility], DERMATITIS& SPARE PERSON OTHER [facility] ECZEMA DUE HOS UNSPEC CAUSE 4279 UNSPECIFIED 04-22-2012 [facility] CARDIAC DYSRHYTHMIA 34285 PAINFUL 04-22-2012 [facility] RESPIRATION 42041 OTH-UNS MAL 03-02-2012 [facility] TISS-UNS-EX TRANODAL 2870 ALLERGIC 03-02-2012 [facility] PURPURA [facility] 6989 UNSPECIFIED 03-02-2012 [facility] PRURITIC [facility] DISORDER [facility] 63254 GOUTY 01-16-2012 [facility], ARTHROPATHY SPARE PERSON [place] [facility] UNSPECIFIED HOS 89281 UNSPECIFIED 01-16-2012 [facility], SPARE PERSON ARTHROPATHY [facility] SITE HOS UNSPECIFIED 04451 TACHYPNEA 01-16-2012 [facility] [facility] 81150 OSTEOARTHRO 12-17-2011 [facility], S UNSPEC SPARE PERSON WHETHER [facility] [facility] GEN/LOC HOS UNSPEC SITE 4619 ACUTE 11-04-2011 [facility] SINUSITIS, HEALTH UNSPECIFIED CLINIC 25890 ACUTE 11-04-2011 [facility] LARYNGITIS, [facility] WITHOUT CLINIC MENTION OF OBSTRUCTIO 78772 DYSPHONIA 11-04-2011 [facility] HEALTH CLINIC 3829 UNSPECIFIED 10-10-2011 [facility] OTITIS HEALTH MEDIA CLINIC 08024 NONSPECIFIC 10-10-2011 [facility] ABNORMAL [facility] AUDITORY CLINIC FUNCTION STUDIES 4556 UNSPEC 09-17-2011 [facility] HEMORRHOIDS HEALTH WITHOUT CLINIC MENTION COMPLICATIO N 48997 CHRONIC 09-17-2011 [facility] VENOUS [facility] HYPERTENSIO CLINIC N WITHOUT COMPS 5693 HEMORRHAGE 09-17-2011 [facility] OF [facility] HEALTH AND ANUS CLINIC 6980 PRURITUS 09-17-2011 [facility] ANI HEALTH CLINIC 00278 UNSPECIFIED 08-23-2011 [facility] ARTHROPATHY MULTIPLE SITES 85928 UNSPECIFIED 07-22-2011 [facility] LYMPHOID [facility] LEUKEMIA IN CLINIC RELAPSE 7821 RASH AND 07-22-2011 [facility] OTHER HEALTH NONSPECIFIC CLINIC SKIN ERUPTION 2722 MIXED 06-04-2011 [facility] HYPERLIPIDE [facility] 09879 UNSPECIFIED 06-04-2011 [facility] 35127 PAIN IN 06-04-2011 [facility] FOOT HEALTH 86211 CALCANEAL 04-29-2011 [facility] 28692 LYMPHOCYTOS 04-16-2011 [facility] SYMPTOMATIC 4571 OTHER 04-10-2011 [facility] NONINFECTIO US LYMPHEDEMA 24927 SLEEP 12-20-2010 [facility] RELATED [facility] 93913 GEN 10-25-2010 [facility] OSTEOARTHRO HEALTH SIS CLINIC INVOLVING MULTIPLE SITES 38995 INSOMNIA 10-25-2010 [facility] UNSPECIFIED HEALTH CLINIC 90450 PAIN IN 09-21-[facility] UPPER ARM ASSOCIAT 9299 CRUSHING 09-21-[facility] INJURY OF [facility]IOLOGY UNSPECIFIED ASSOCIAT SITE 9592 INJURY 09-21-2010[facility] OTHER&UNSPE RADIOLOGY CIFIED ASSOCIAT SHOULDER&UP PER ARM 9593 INJURY 09-21-2010[facility] OTHER&UNSPE RADIOLOGY CIFIED ASSOCIAT ELBOW FOREARM&WRI ST 01870 OCCL&STENOS 08-02-2010[facility] MX&BILAT RADIOLOGY PRECERBRL ASSOCIAT ART W/O INFARCT 2859 UNSPECIFIED 07-31-2010 [facility] ANEMIA JARED & DUBILIER 44111 LEUKEMOID 07-31-2010 [facility] REACTION JARED & DUBILIER 2865 HEMORRHAGIC 07-29-2010 [facility] RD[facility]/O HOSPITAL INTRINSIC CIRC ANTICOAG AB/INHIB 89743 UNSPECIFIED 07-29-2010 [facility] ARTERY OCCLUSION W/INFARCT 490 BRONCHITIS 07-29-2010 [facility] NOT HOSPITAL SPECIFIED ACUTE OR CHRONIC 5110 PLEURISY 07-29-[facility] WITHOUT RADIOLOGY MENTION ASSOCIAT EFFUS/[place] [address] SCLEROSING 07-29-2010 [facility] S 40389 OTH 07-29-[facility] ABNORMAL 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 FUNCTION STUDY V570 CARE 07-18-2010 [facility] INVOLVING HOSPITAL BREATHING EXERCISES 2181 INTRAMURAL 06-07-2010 [facility] [place] 2362 NEOPLASM OF 05-21-2010 [facility] [place] V7231 ROUTINE 05-21-2010 [facility]AM[facility] [place] V762 SCREENING 05-21-2010 PATHOLOGY & FOR CYTOLOGY MALIGNANT LAB NEOPLASM OF THE CERVIX 5738 OTHER 05-08-2010 [place] SPECIFIED RADIOLOGY DISORDERS ASSOCIAT OF LIVER 5759 UNSPECIFIED 05-08-2010 [place] DISORDER RADIOLOGY OF ASSOCIAT GALLBLADDER 5990 URINARY 05-08-2010 [facility] INFECTION SITE NOT SPECIFIED 6219 UNSPECIFIED 05-08-2010 [place] DISORDER RADIOLOGY OF UTERUS ASSOCIAT 7242 LUMBAGO 05-08-2010 [facility] 7936 NONSPEC ABN 05-08-2010 [facility] ABDOMINAL AREA 1736 OT MAL 03-13-2010 PATHOLOGY & NEOPLASM CYTOLOGY SKIN UPPER LAB LIMB INCL SHOULDER 1737 [facility] 03-13-2010 C GEOVANNI NEOPLASM [place] SKIN LOWER [facility] LIMB INCLUDING HIP 2382 NEOPLASM OF 03-06-2010 C [facility] UNCERTAIN [facility] SKIN 86649 UNSPECIFIED 03-06-2010 C GEOVANNI STEVENS OSTEOPOROSI [facility] S 0413 KLEBSIELLA 09-20-2009 [facility] [place] [facility] INFECTION 2892 NONSPECIFIC 09-20-2009 [facility] LYMPHADENIT IS 5920 CALCULUS OF 09-20-2009 [place] [facility] PSC V1251 PERSONAL 09-20-2009 [facility] HISTORY, HOSPITAL VENOUS THROMBOSIS AND EMBOLISM 82448 ACUT LINNEA 08-18-2009 [place] EMBO&THROMB [facility]IOLOG[facility] DEEP VES [facility]OCIATES PROX LOWR PSC EXTREM 4549 ASYMPTOMATI 08-18-2009 [facility] [place] [facility] VEINS 6826 CELLULITIS 08-18-2009 [facility] [place] [facility] EXCEPT FOOT 12455 ABDOMINAL 08-14-2009 PATHOLOGY & PAIN, CYTOLOGY UNSPECIFIED LAB SITE 23207 ABDOMINAL 08-14-2009 [place] [facility], [facility] GENERALIZED FOUNDATIO 2163 BENIGN 08-01-2009 DERMAT[facility]ATH NEOPLASM OLOGY SKIN ALLINACE OF OTHER&UNSPE C PARTS FACE V7612 OTHER 07-19-2009 [place] [facility] 0091 COLITIS 07-12-2009 [facility]IT&[facility] TROENTERIT INTERNAL INF ORIGIN MED 29260 ABDOMINAL 07-12-2009 [facility] PAIN, LEFT VALLEY UPPER INTERNAL QUADRANT MED 7894 ABDOMINAL 07-12-2009 [facility] RIGIDITY VAL[facility] INTERNAL MED 7063 SEBORRHEA 03-27-2009 [facility] INTERNAL MED 7011 ACQUIRED 03-06-2009 [facility] KERATODERMA [facility] INTERNAL MED 34727 REFLUX 12-02-2008 [facility] ESOPHAGITIS [facility] INTERNAL MED 46152 OTHER 10-11-2008 [facility] CHRONIC [facility] PAIN INTERNAL MED 92042 OSTEOARTHRO 10-11-2008 [facility] S INVLV MX VALLEY SITES BUT INTERNAL NOT SPEC MED GEN 26964 SPINAL 10-11-2008 [facility] 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 MED 7231 CERVICALGIA 09-27-2008 ROBERTO CARLOS CHEEMA 7820 DISTURBANCE 09-21-2008 [facility] OF SKIN [facility] SENSATION INTERNAL MED 84284 BLEPHARITIS 07-28-2008 RAHMAN BRETT A UNSPECIFIED 79324 OBESITY, 04-17-2008 [facility] UNSPECIFIED HOSPITAL 4928 OTHER 04-17-2008 [place] [facility] 45875 URINARY 04-17-2008 [facility] 7068 OTHER 03-09-2008 [facility] DISEASE OF INTERNAL SEBACEOUS MED GLANDS 1104 DERMATOPHYT 03-02-2008 [place] [facility] SERV FOOT FOUNDATIO 1701 MALIGNANT 03-02-2008 [facility] NEOPLASM OF HOSPITAL MANDIBLE 7062 SEBACEOUS 03-02-2008 [facility] 8471 THORACIC 02-15-2008 [facility] STRAIN INTERNAL MED 6256 FEMALE 09-30-2007 [facility] PL[place], STRESS [place]INENC E [address] URGE 09-30-2007 [facility] INCONTINENC MARIAA Jesus E 4659 ACUTE URIS 08-14-2007 [facility] OF [facility] UNSPECIFIED INTERNAL SITE MED 4778 ALLERGIC 08-12-2007 [facility] RHINITIS ASHCAMP DUE TO INTERNAL OTHER MED ALLERGEN 09498 HYPERTONICI 07-13-2007 [facility] TY OF ASHCAMP BLADDER INTERNAL MED 5952 OTHER 07-01-2007 [facility] [...] CO MP TA AN BL Y ET [place] 00 03 03 0 12 4 CA [...] HE N CO A MP AN Y [place] 00 03 03 0 12 4 CA [...] AT EQUIPME EQUIPME PRSC FLW RATE SBSQ 73113 [place] [address] PHYSICIAN CARE/DAY S GROUP 15 MINUTES PRTBLE E0431 [place] GASEOUS 7 HOME HOME O2 SYS MEDICAL MEDICAL RENT; EQUIPME EQUIPME FLWMTR HUMIDFR&M ASK SBSQ 34309 [place] [address] PHYSICIAN CARE/DAY S GROUP 25 MINUTES INITIAL 11554 [place] [address] PHYSICIAN CARE/DAY S GROUP 70 MINUTES RADIOLOGI 72155 [place] [address] MEDICAL EXAMINATI IMAGING ON CHEST ASS SINGLE VIEW FRONTAL ECG [address]352 [facility] ROUTINE 7 [facility] W/LEAST P 12 LDS I&R ONLY COMPREHEN 33650 [facility] SIVE 7 [facility] METABOLIC E E PANEL [facility]OS[facility] COLLECTIO 79867 [facility] N VENOUS 7 [facility]ALTHCAR HEALTHCAR BLOOD E E VENIPUNCT [facility] G0463 [facility] OUTPATIEN 7 HEALTHCAR HEALTHCAR T CLIN E E VISIT HOSPITALS HOSPITALS ASSESS & MGMT PT BLOOD 07064 [facility] COUNT 7 HEALTHCAR HEALTHCAR COMPLETE E E AUTO&AUTO [facility] G0463 [facility] OUTPATI 6 Y Y T CLIN [facility]OSPITAL HOSPITAL VISIT ASSESS & MGMT PT BLOOD 79104 [facility] COUNT 6 Y Y COMPLETE HOSPITAL HOSPITAL AUTO&AUTO [facility] WBC COMPREHEN 14162 [facility] Y Y [facility] HOSPITAL PANEL COLLECTIO 76151 [facility] N VENOUS 6 Y Y BLOOD HOSPITAL HOSPITAL VENIPUNCT URE DUPLEX 37114 FAMILIA MENDOSA MENDOSA FAMILIA SCAN 6 MD EXTRACRAN CONSULTIN IAL ART G SRV COMPL BI STUDY DUPLEX 26865 [place] SCAN 6 [facility] IAL ART COMPL BI STUDY COMPRE 54795 [place] GOLD SET AUDIOMETR 6 PHYSICIAN Y PRACTICE THRESHOLD L EVAL SP RECOGNIJ TYMPANOME 88955 JENNY GOLD SET TRY 6 PHYSICIAN PRACTICE L RADIOLOGI 12968 [place] DENI C EXAM 6 [facility] CHEST 2 IMAGING VIEWS ASS FRONTAL&L ATERAL RADIOLOGI 06224 [place] MONIQUE ALL C EXAM 6 MEDICAL CHEST 2 IMAGING VIEWS ASS FRONTAL&L ATERAL INJECTION J1650 [address] ENOXAPARI [facility] HOSPITAL N SODIUM 10 MG INJECTION J2270 [facility] MORPHINE [address] [place] [address] UP TO 10 MG IIV3 VACC [address] ADELINA FREE 0.5 ML DOSAGE IM USE INJECTION J[address] ON HCL PER 1 MG ADMINISTR G0008 [facility] ATION OF [address] [place] [address] VIRUS VACCINE NONCOVERE A9270 [facility] D ITEM OR [address] [place] [address] B[address] [facility] AUTOMATED COLLECTIO 92638 [facility] N VENOUS [address] [place] [address] VENIPUNCT URE BASIC 00238 [facility] METABOLIC [address] [place] [address] CALCIUM TOTAL BLOOD [address] AUTO&AUTO DIFRNTL WBC COLLECTIO 63155 [facility] N VENOUS [address] [place] [address] [place] [address] [facility] BLOOD/URI [address] [place] [address] [place] [address] [facility] THYROID [address] [place] [address] NG HORMONE TSH URNLS DIP [address] STICK[facility]ITAL HOSPITAL LET REAGENT AUTO MICROSCOP Y NATRIURET 06582 BOURBHENRI OVIEDOON IC [address] [place] [address] [place] [address] [facility] TROPONIN 5 [facility] G0378 [facility] OBSERVATI 5 [facility] HOSPITAL SERVICE PER HOUR COMPREHEN 92711 JENYN ALVARADO SIVE 5 [facility] [place] [address] JENNY ALVARADO HEAD/BRAI 5 [facility] HOSPITAL CONTRAST MATERIAL SEDIMENTA 87672 [facility] TION RATE 5 [facility] NON-AUTOM ATED C-REACTIV 35444 [facility] E PROTEIN 5 [facility] NONCOVERE A9270 [facility] OR 5 [facility] ECG 71158 [facility] ROUTINE 5 [facility] W/LEAST 12 LDS TRCG ONLY W/O I&[place] [address] JENNY ALVARADO HEAD/BRAI 5 [facility] HOSPITAL CONTRAST MATERIAL CT THORAX 05990 [facility] [place] MAGALIE MAT W/O 5 RADIOLOGY CONTRAST MATERIAL RADIOLOGI 84274 YUMIKO CALDERON C EXAM 5 [facility] HOSP CHEST 2 INC INC VIEWS FRONTAL&L ATERAL ECG 52402 YUMIKO DAVENPORT JR ROUTINE 5 [facility] W/LEAST P 12 LDS I&R ONLY RADIOLOGI 77377 YUMIKO CALDERON C EXAM 5 [facility] HOSP CHEST 2 INC INC VIEWS FRONTAL&L ATERAL DISPBL T4535 [facility] LINER/ISABELLE 5 HOME HOME ELD/GUARD HEALTH HEALTH /PAD/UNDG AGENCY AGENCY RMNT INCONT EA INJECTION J0696 [facility] CANTU [address] [place] [address] URGENT URGENT NE SODIUM TREAT TREAT PER 250 MG LIPID 97017 [facility] PANEL 5 [facility] HOLDINGS 25 71919 [facility] HYDROXY 5 [facility] INCLUDES HOLDINGS HOLDINGS FRACTIONS IF PERFORMED CYANOCOBA 65497 [facility] AMBAR 5 [facility] VITAMIN HOLDINGS HOLDINGS B-[address] [place] [address] [facility] MAGNESIUM 5 [facility] [place] [address] [facility] FOLIC [facility] ACID HOLDINGS HOLDINGS SERUM GENERAL 56524 LAB J[facility]ANI LAB JUANI HEALTH [facility] PANEL HOLDINGS HOLDINGS RADEX 52438 [place] DENI RIBS 5 [facility] UNILATERA IMAGING L 2 VIEWS ASS RADIOLOGI 35233 [place] DENI C EXAM 5 [facility] CHEST 2 IMAGING VIEWS ASS FRONTAL&L ATERAL DISPBL T4535 [facility] LINER/ISABELLE 5 HOME HOME ELD/GUARD HEALTH HEALTH /PAD/UNDG AGENCY AGENCY RMNT INCONT EA CUL BACT 31298 [facility] J[facility] XCPT 5 [facility] URINE HOLDINGS HOLDINGS BLOOD/STO OL AEROBIC ISOL BASIC 61494 LAB J[facility] METABOLIC [address] [facility] PANEL [place] [address] YUMIKO CALDERON INFUSION 4 [facility] THERAPY/P INC INC ROPHYLAXI S /DX 1ST TO 1 HR THERAPEUT 36326 YUMIKO CALDERON IC 4 [facility] INJECTION INC INC IV [facility] [address] [facility] DISCHARGE 4 PHYSICIAN PHYSICIAN DAY S GROUP S GROUP MANAGEMEN T 30 MIN/< RADIOLOGI 11847 [place] DENI C EXAM 4 [facility] CHEST 2 IMAGING VIEWS ASS FRONTAL&L ATERAL ECG 43971 YUMIKO DAVENPORT JR ROUTINE 4 [facility] W/LEAST P 12 LDS I&R ONLY PRESSURIZ 57599 YUMIKO CALDERON ED/NONPRE 4 [facility] SSURIZED INC INC INHALATIO N TREATMENT RADIOLOGI 88288 YUMIKO CALDERON C EXAM 4 [facility] CHEST 2 INC INC VIEWS FRONTAL&L ATERAL ECG 99042 YUMIKO CALDERON ROUTINE 4 [facility] ECG INC INC W/LEAST 12 LDS TRCG ONLY W/O I&[place] [address] YUMIKO CALDERON HEAD/BRAI 4 [facility] N W/O INC INC CONTRAST MATERIAL RADIOLOGI 29865 YUMIKO CALDERON C 4 [facility] HOSP EXAMINATI INC INC ON CHEST SINGLE VIEW FRONTAL ECG 55423 YUMIKO CALDERON ROUTINE 4 [facility] HOSP ECG INC INC W/LEAST 12 LDS TRCG ONLY W/O I&[place] [address] YUMIKO CALDERON INFUSION 4 [facility] HOSP THERAPY/P INC INC ROPHYLAXI S /DX 1ST TO 1 [place] [address] YUMIKO CALDERON INFUSION 4 [facility] HOSP THER INC INC PROPH ADDL SEQUENTIA L TO 1 HR DEBRIDEME 10246 LAUSE FED LAUSE FED NT NAIL 4 ANY METHOD 6/> H[facility] G0463 [facility] 4 Y Y T [facility] VISIT ASSESS & MGMT PT DISPBL T4535 NURSES NURSES LINER/ISABELLE 4 REGISTRY REGISTRY ELD/GUARD HOME HOME /PAD/UNDG HLTHTCA HLTHTCA RMNT INCONT EA DISPBL T4535 NURSES NURSES LINER/ISABELLE 4 REGISTRY REGISTRY ELD/GUARD HOME HOME /PAD/UNDG HLTHTCA HLTHTCA RMNT INCONT EA [facility] A9270 [facility] OR 4 [facility] NONCOVERE A9270 [facility] ITEM OR 4 [facility] ECG 99475 JENNY OVIEDOON ROUTINE 4 [facility] HOSPITAL W/LEAST 12 LDS TRCG ONLY W/O I&R RADIOLOGI 02039 [facility] C EXAM [address] HOSPITAL VIEWS FRONTAL&L ATERAL RADIOLOGI 51695 [facility], [facility], C EXAM 4 SPARE PERSON SPARE PERSON CHEST 2 PEPE PEPE VIEWS CO HOS CO HOS FRONTAL&L ATERAL RADEX 32252 [facility], [facility], ABDOMEN 4 SPARE PERSON SPARE PERSON COMPL PEPE CANTU W/DCBTS&/ [place] [address] [facility], [facility], ABDOMEN & 4 SPARE PERSON SPARE PERSON PELVIS [facility] W/[place] [address] [facility] [employer] [facility], INFUSION 4 SPARE PERSON SPARE PERSON HYDRATION PEPE CANTU INITIAL CO HOS CO HOS 31 MIN-1 HOUR DISPBL T4535 NURSES NURSES LINER/ISABELLE 4 REGISTRY REGISTRY ELD/GUARD HOME HOME /PAD/UNDG HLTHTCA HLTHTCA RMNT INCONT EA DISPBL T4535 NURSES NURSES LINER/ISABELLE 4 REGISTRY REGISTRY ELD/GUARD & HOME HE & HOME HE /PAD/UNDG RMNT INCONT EA DESTRUCTI 96294 MUSIC HOWARD MUSIC HOWARD ON 4 PREMALIGN ANT LESION 15/> DISPBL T4535 NURSES NURSES LINER/[facility] 4 REGISTRY REGISTRY ELD/GUARD & HOME HE & HOME HE /PAD/UNDG RMNT INCONT EA ECG 61945 [facility]IA ROUTINE 4 ECG W/LEAST 12 LDS I&R ONLY ECG 70401 [facility] [employer] [facility], ROUTINE 4 SPARE PERSON SPARE PERSON ECG PEPE CANTU W/LEAST CO HOS CO HOS 12 LDS TRCG ONLY W/O I&R DISPBL T4535 NURSES NURSES LINER/[facility] 4 REGISTRY REGISTRY ELD/GUARD & HOME HE & HOME HE /[place] [address] [facility] [place] [facility], [facility], INFUSION 4 SPARE PERSON SPARE PERSON THERAPY/P [facility]PE [facility] ROPHYLAXI CO HOS CO HOS S /DX 1ST TO 1 HR THER 20397 [facility] [employer] [facility], PROPH/DX 4 SPARE PERSON SPARE PERSON NJX IV PEPE [facility]ANT[facility] PUSH CO HOS CO HOS SINGLE/1S T SBST/[place] [address] [facility] [employer] [facility], INFUSION 4 SPARE PERSON SPARE PERSON HYDRATION PEPE CANTU INITIAL CO HOS CO HOS 31 MIN-1 HOUR INJECTION J2405 [facility] [employer] [facility] [place] [facility], 4 SPARE PERSON SPARE PERSON ONDANSETR PEPE CANTU ON HCL CO HOS CO HOS PER 1 MG DISPBL T4535 NURSES NURSES LINER/[facility] 4 REGISTRY REGISTRY ELD/GUARD & HOME HE & HOME HE /PAD/UNDG RMNT INCONT [facility] G0463 [facility] OUTPATI 4 Y Y T [facility] VISIT ASSESS & MGMT PT DEBRIDEME 54802 LAUSE FED LAUSE FED NT NAIL 3 ANY METHOD 6/> DUP-SCAN 51690 ATKINS ATKINS XTR VEINS 3 COL COL COMPLETE BILATERAL STUDY DISPBL T4535 NURSES NURSES LINER/ISABELLE 3 REGISTRY REGISTRY ELD/GUARD & HOME HE & HOME HE /PAD/UNDG RMNT INCONT EA DEBRIDEME 49019 LAUSE FED LAUSE FED NT NAIL 3 ANY METHOD 6/> DISPBL T4535 NURSES NURSES LINER/ISABELLE 3 REGISTRY REGISTRY ELD/GUARD & HOME HE & HOME HE /PAD/UNDG RMNT INCONT EA DUP-SCAN 81220 ATKINS ATKINS XTR VEINS 3 COL COL UNILATERA L/LIMITED STUDY STAB 93401 ATKINS ATKINS PHLEBT 3 COL COL VARICOSE VEINS 1 XTR > 20 INCS ENDOVEN 44193 ATKINS ATKINS ABLTJ 3 COL COL INCMPTNT VEIN XTR LASER 1ST VEIN DISPBL T4535 NURSES NURSES LINER/ISABELLE 3 REGISTRY REGISTRY ELD/GUARD & HOME HE & HOME HE /PAD/UNDG RMNT INCONT EA DUP-SCAN 05380 ATKINS ATKINS XTR VEINS 3 COL COL UNILATERA L/LIMITED STUDY STAB 08032 ATKINS ATKINS PHLEBT 3 COL COL VARICOSE VEINS 1 XTR 10-20 STAB INCS ENDOVEN 32154 ATKINS ATKINS ABLTJ 3 COL COL INCMPTNT VEIN XTR LASER 1ST VEIN BASIC 72041 [facility] METABOLIC 3 Y Y PANEL [facility] CALCIUM TOTAL COLLECTIO 97349 [facility] N VENOUS 3 Y Y BLOOD [facility] VENIPUNCT URE BLOOD 97071 [facility] COUNT 3 Y Y [facility] [place] [address] L[facility] L[facility] HEAD/BRAI 3 [facility] N W/O CONTRAST MATERIAL RADIOLOGI 92087 MERHAR MERHAR C 3 GAR GAR EXAMINATI ON KNEE 3 VIEWS RADIOLOGI 45127 [facility] 3 Y Y EXAMINATI [facility] ON FEMUR 2 VIEWS RADIOLOGI 15261 KHADIJAH LUCIO C 3 GAR GAR EXAMINATI ON TIBIA & FIBULA 2 VIEWS ECG 20513 AHMED ADN AHMED ADN ROUTINE 3 ECG W/LEAST 12 LDS I&R ONLY RADIOLOGI 02146 ETIENNE [place] C EXAM 3 ANNIE ANNIE CHEST 2 VIEWS FRONTAL&[place] [address] [facility] [place] [facility], [facility], ABDOMEN & 3 SPARE PERSON SPARE PERSON PELVIS PEPE PEPE W/O CO HOS CO HOS CONTRST 1/> BODY RE ECG 87558 [facility] [place] [facility], [facility], ROUTINE 3 SPARE PERSON SPARE PERSON ECG PEPE PEPE W/LEAST CO HOS CO HOS 12 LDS TRCG ONLY W/O I&R INJECTION J2405 [facility] [place] [facility], [facility], 3 SPARE PERSON SPARE PERSON ONDANSETR [facility]PE CANTU ON HCL CO HOS CO HOS PER 1 MG LOCM Q9967 [facility] [place] [facility], [facility], [phone] 3 SPARE PERSON SPARE PERSON MG/ML [facility]PE CANTU IODINE CO [place] [address] [facility] [place] [facility], [facility], INFUSION 3 SPARE PERSON SPARE PERSON THERAPY/P PEPE CANTU ROPHYLAXI CO HOS CO HOS S /DX 1ST TO 1 HR THER 04597 [facility] [employer] [facility], PROPH/DX 3 SPARE PERSON SPARE PERSON NJX IV [facility]PE [facility]U PUSH CO HOS CO HOS SINGLE/1S T SBST/[place] [address] [facility] [place] [facility], [facility], INFUSION 3 SPARE PERSON SPARE PERSON HYDRATION PEPE CANTU INITIAL CO HOS CO HOS 31 MIN-1 HOUR US SOFT 55398 ETIENNE [place] TISSUE 3 ANNIE ANNIE HEAD & NECK REAL TIME IMGE DOCM BASIC 71263 [facility] METABOLIC 3 Y Y PANEL [facility] CALCIUM TOTAL PHYSICAL 55703 [facility] THERAPY 3 Y Y [facility] G0378 [facility] 3 Y Y ON HOSPITAL [place] [address] [facility] 1/> AREAS 3 Y Y EA 15 HOSPITAL HOSPITAL MIN GAIT TRAINJ W/STAIR BLOOD 62611 [facility] COUNT 3 Y Y COMPLETE [facility] AUTOMATED NONCOVERE A9270 [facility] D ITEM OR 3 Y Y [facility]PITAL INJECTION J1956 [facility] 3 Y Y LEVOFLOXA [facility] KRISTIN 250 MG INJECTION J1644 [facility] HEPARIN 3 Y Y SODIUM [facility] PER 1000 UNITS PRESSURIZ 36232 [facility] ED/NONPRE 3 Y Y SSURIZED [facility] INHALATIO N TREATMENT PRESSURIZ 88071 [facility] ED/NONPRE 3 Y Y SSURIZED [facility] INHALATIO N TREATMENT RADIOLOGI 60953 RADH[facility] Prince EXAM 3 PHI PHI CHEST 2 VIEWS FRONTAL&L ATERAL INJECTION J1644 [facility] HEPARIN 3 Y Y SODIUM [facility] PER 1000 UNITS CULTURE 49098 [facility] BACTERIAL 3 Y Y BLOOD [facility] AEROBIC W/ID ISOLATES INJECTION J1956 [facility] 3 Y Y LEVOFLOXA [facility] KRISTIN 250 MG ECG 77369 [facility] ROUTINE 3 Y Y ECG [facility] W/LEAST 12 LDS TRCG ONLY W/O I&R INFUSION J7030 [facility] NORMAL 3 Y Y SALINE [facility] SOLUTION 1000 CC NONCOVERE A9270 [facility] D ITEM OR 3 Y Y SERVICE [facility] HOSPITAL COMPREHEN 19554 [facility] SIVE 3 Y Y METABOLIC [facility] PANEL BLOOD 40265 [facility] COUNT 3 Y Y COMPLETE [facility] AUTO&AUTO DIFRNTL WBC THER 13720 [facility], PROPH/DX 3 SPARE PERSON SPARE PERSON NJX IV [facility]ANT[facility] PUSH CO HOS CO HOS SINGLE/1S T SBST/DRUG INSJ TEMP 58486 [facility], NDWELLG 3 SPARE PERSON SPARE PERSON BLADDER [facility] [place] [address] [facility], INFUSION 3 SPARE PERSON SPARE PERSON HYDRATION PEPE PEPE EACH [place] [address] [facility], INFUSION 3 SPARE PERSON SPARE PERSON HYDRATION PEPE CANTU INITIAL CO HOS CO HOS 31 MIN-1 [place] [address] [facility], INFUSION 3 SPARE PERSON SPARE PERSON THERAPY/P PEPE MORAS ROPHYLAXI CO HOS CO HOS S /DX 1ST TO 1 HR RADIOLOGI 34893 [facility] C 3 SPARE PERSON SPARE PERSON EXAMINATI PEPE MORAS ON CHEST CO HOS CO HOS SINGLE VIEW FRONTAL ECG 24796 [facility], ROUTINE 3 SPARE PERSON SPARE PERSON ECG PEPE PEPE W/LEAST CO HOS CO HOS 12 LDS TRCG ONLY W/O I&R INJECTION J2405 [facility], 3 SPARE PERSON SPARE PERSON ONDANSETR PEPE PEPE ON HCL CO HOS CO HOS PER 1 MG ARTERIAL 83462 [facility], [facility], PUNCTURE 3 SPARE PERSON SPARE PERSON WITHDRAWA PEPE PEPE L BLOOD CO HOS CO HOS DX ECG 07025 AHMED ADN AHMED ADN ROUTINE 3 ECG W/LEAST 12 LDS I&R ONLY INJECTION J0456 [facility], 3 SPARE PERSON SPARE PERSON AZITHROMY PEPE PEPE KRISTIN 500 CO HOS CO HOS MG PRESSURIZ 36385 [facility], ED/NONPRE 3 SPARE PERSON SPARE PERSON SSURIZED PEPE VILLARREALOLAS INHALATIO CO HOS CO HOS N TREATMENT INJECTION J0696 [facility], 3 SPARE PERSON SPARE PERSON CEFTRIAXO PEPE PEPE NE SODIUM CO HOS CO HOS PER 250 MG NONINVASI 50123 [facility], VE 3 SPARE PERSON SPARE PERSON EAR/PULSE PEPE PEPE OXIMETRY CO HOS CO HOS MULTIPLE DETER ARTERIAL 03961 [facility], [facility], PUNCTURE 3 SPARE PERSON SPARE PERSON WITHDRAWA PEPE [place] [address] [facility], [facility], ANGIOGRAP 3 SPARE PERSON SPARE PERSON HY CHEST PEPE PEPE W/CONTRAS CO HOS CO HOS T/NONCONT RAST CT THORAX 14631 ETIENNE [place] 3 ANNIE ANNIE W/CONTRAS T MATERIAL LOCM Q9967 [facility], [phone] 3 SPARE PERSON SPARE PERSON MG/ML PEPE PEPE IODINE [place] [address] [facility], [facility], INFUSION 3 SPARE PERSON SPARE PERSON THERAPY/P PEPE PEPE ROPHYLAXI CO HOS CO HOS S /DX 1ST TO 1 HR HOSPITAL G0378 [facility], OBSERVATI 3 SPARE PERSON SPARE PERSON ON PEPE PEPE SERVICE CO HOS CO HOS PER HOUR RADIOLOGI 85691 DEVIN BELTRAN C EXAM 3 [facility] CHEST 2 VIEWS FRONTAL&L ATERAL DEBRIDEME 23344 LAUSE FED LAUSE FED NT NAIL 3 ANY METHOD 6/> [place] [address] [facility] BEL[facility] HEAD/BRAI 3 [facility] N W/O CONTRAST MATERIAL RADIOLOGI 44748 [facility], C 3 SPARE PERSON SPARE PERSON EXAMINATI PEPE PEPE ON KNEE 3 CO HOS CO HOS VIEWS RADIOLOGI 86112 DEVIN BELTRAN C EXAM 3 [facility] KNEE COMPLETE 4/MORE VIEWS DISPBL T4535 NURSES NURSES LINER/ISABELLE 3 REGISTRY REGISTRY ELD/GUARD & HOME HE & HOME HE /PAD/UNDG RMNT INCONT EA DISPBL T4535 NURSES NURSES LINER/ISABELLE 3 REGISTRY REGISTRY ELD/GUARD & HOME HE & HOME HE /PAD/UNDG RMNT INCONT EA INJECTION [id number] [facility], 3 SPARE PERSON SPARE PERSON KETOROLAC PEPE PEPE CO HOS CO HOS TROMETHAM INE PER 15 MG RADIOLOGI 15845 JUICE BOSE C EXAM 3 EIDER CLAYTON REJI CLAYTON CHEST 2 VIEWS FRONTAL&L ATERAL PRESSURIZ 35433 [facility] [place] [facility], [facility], ED/NONPRE 3 SPARE PERSON SPARE PERSON SSURIZED PEPE PEPE INHALATIO [place] [address] [facility], [facility], WALL 3 SPARE PERSON SPARE PERSON FACILITAT PEPE PEPE E LNG CO HOS CO HOS FUNCJ 1 DEMO&/JONNY L NONINVASI 75032 [facility], [facility], VE 3 SPARE PERSON SPARE PERSON EAR/PULSE PEPE CANTU OXIMETRY CO HOS CO HOS MULTIPLE DETER INITIAL 48003 ANGELO FONG OBSERVATI 3 ON CARE/DAY 30 [place] [address] [facility], [facility], INFUSION 3 SPARE PERSON SPARE PERSON THERAPY/P PEPEHien CANTU ROPHYLAXI CO HOS CO HOS S /DX 1ST TO 1 HR DIRECT [id number] [facility], [facility], ADMISSION 3 SPARE PERSON SPARE PERSON PATIENT [facility] CO HOS CO HOS [facility] [id number] [facility], [facility], OBSERVATI 3 SPARE PERSON SPARE PERSON ON [facility] CO HOS CO HOS PER HOUR RADIOLOGI 15023 JUICE BOSE C EXAM 3 EIDER CLAYTON EIDER CLAYTON CHEST 2 VIEWS FRONTAL&L ATERAL DISPBL T4535 NURSES NURSES LINER/ISABELLE 2 REGISTRY REGISTRY ELD/GUARD & HOME HE & HOME HE /PAD/UNDG RMNT INCONT [place] ECG [id number] ANGELO FONG ROUTINE 2 ECG W/LEAST 12 LDS TRCG ONLY W/O I&R DISPBL T4535 NURSES NURSES LINER/ISABELLE 2 REGISTRY REGISTRY ELD/GUARD & HOME HE & HOME HE /PAD/UNDG RMNT INCONT EA DUP-SCAN 02916 NO REBEKAH NO REBEKAH XTR VEINS 2 COMPLETE BILATERAL STUDY DISPBL T4535 NURSES NURSES LINER/ISABELLE 2 REGISTRY REGISTRY ELD/GUARD & HOME HE & HOME HE /PAD/UNDG RMNT INCONT EA DISPBL T4535 NURSES NURSES LINER/ISABELLE 2 REGISTRY REGISTRY ELD/GUARD & HOME HE & HOME HE /[place] [address] [facility] [place] [facility], [facility] INFUSION 2 SPARE PERSON SPARE PERSON THERAPY/P PEPE CANTU ROPHYLAXI CO HOS CO HOS S /DX 1ST TO 1 HR BASIC 44139 [facility], [facility], METABOLIC 2 SPARE PERSON SPARE PERSON PANEL PEPE CANTU CALCIUM CO HOS CO HOS TOTAL BLOOD 48465 [facility], [facility] COUNT 2 SPARE PERSON SPARE PERSON COMPLETE PEPE MORAS AUTO&AUTO CO HOS CO HOS DIFRNTL WBC NATRIURET 32165 [facility], [facility], IC 2 SPARE PERSON SPARE PERSON PEPTIDE PEPE PEPE CO [facility] CO HOS URNLS DIP 14458 [facility], [facility], 2 SPARE PERSON SPARE PERSON STICK/TAB PEPE CANTU LET RGNT CO HOS CO HOS AUTO W/O MICROSCOP Y ECG 08232 [facility], [facility], ROUTINE 2 SPARE PERSON SPARE PERSON ECG PEPE MORAS W/LEAST CO HOS CO HOS 12 LDS TRCG ONLY W/O I&R FIBRIN 47789 [facility], [facility] DGRADJ 2 SPARE PERSON SPARE PERSON PRODUCTS PEPE CANTU D-DIMER CO HOS CO HOS QUANTITAT ADELINA RADIOLOGI 11465 [facility] C EXAM 2 EIDER CLAYTON CHEST 2 RADIOLOGY VIEWS ASSOCIAT FRONTAL&L ATERAL RADIOLOGI 07579 [facility] C EXAM 2 BETH CHEST 2 RADIOLOGY VIEWS ASSOCIAT FRONTAL&[place] [address] [facility], [facility], INFUSION 2 SPARE PERSON SPARE PERSON HYDRATION [facility] CANT[facility] [place]ACH [place] [address] [facility], INFUSION 2 SPARE PERSON SPARE PERSON HYDRATION [facility] INITIAL CO HOS CO HOS 31 MIN-1 HOUR THER 16859 [facility], PROPH/DX 2 SPARE PERSON SPARE PERSON NJX IV [facility] MORAS PUSH [facility] HOS CO HOS SINGLE/1S T SBST/[place] [address] [facility], INFUSION 2 SPARE PERSON SPARE PERSON THERAPY/P [facility] ROPHYLAXI CO HOS CO HOS S /DX 1ST TO 1 [place] PET 37364 [facility] [address] IMAGING IMAGING ATTENUATI L L ON SKULL BASE MID-THIGH COMPREHEN 63576 [facility], [facility], SIVE 2 SPARE PERSON SPARE PERSON METABOLIC [facility] PANEL CO HOS CO HOS PROTHROMB 00824 [facility] [employer], IN TIME 2 SPARE PERSON SPARE PERSON [facility] CO HOS CO HOS SEDIMENTA 92787 [facility] [employer], TION RATE 2 SPARE PERSON SPARE PERSON RBC [facility] NON-AUTOM CO HOS CO HOS ATED BLOOD 13028 [employer], [employer], COUNT 2 SPARE PERSON SPARE PERSON COMPLETE [facility] AUTO&AUTO CO HOS CO HOS DIFRNTL WBC NATRIURET 74396 [facility] [employer], IC 2 SPARE PERSON SPARE PERSON PEPTIDE [facility] CO HOS CO HOS BLOOD 61331 [facility] [employer], COUNT 2 SPARE PERSON SPARE PERSON SMEAR [facility] MCRSCP CO HOS CO HOS W/MNL DIFRNTL WBC COUNT RADIOLOGI 76630 [facility], [employer], C EXAM 2 SPARE PERSON SPARE PERSON CHEST 2 [facility] VIEWS CO HOS CO HOS FRONTAL&L ATERAL DUP-SCAN 92467 [place] DEN[facility] XTR VEINS 2 [facility] UNILATERA ASS L/LIMITED STUDY DISPBL T4535 NURSES NURSES LINER/ISABELLE 2 REGISTRY REGISTRY ELD/GUARD & HOME HE & HOME HE /PAD/UNDG RMNT INCONT EA DISPBL T4535 NURSES NURSES LINER/ISABELLE 2 REGISTRY REGISTRY ELD/GUARD & HOME HE & HOME HE /PAD/UNDG RMNT INCONT EA BONE 64642 [facility] [place] CELESTINO [place] 29164 [facility] [address] IMAGING IMAGING ATTENUATI L L [place] B[place] [address] NEW [facility] SURG 1 [facility] PSC GROSS&PHI ROSCOPIC EXAM DECALCIFI 66349 [facility] CATION 1 [facility] PSC COMPREHEN 01562 [facility] SIVE 1 [facility] METABOLIC PANEL RADEX 11985 [facility] ANKLE 1 [facility] COMPLETE MINIMUM 3 VIEWS COLLECTIO 08521 [facility] N VENOUS 1 [facility] [place] [address] [facility] BLOOD/URI 1 [facility] C ACID LACTATE 31958 [facility] DEHYDROGE 1 [facility] NASE LDH BLOOD 65787 [facility] COUNT 1 [facility] COMPLETE AUTO&AUTO DIFRNTL WBC COLLECTIO 70365 [facility] N VENOUS 1 [facility] BLOOD VENIPUNCT URE FLOW 91096 [facility] CYTOMETRY 1 [facility] CELL SURF MARKER TECHL ONLY 1ST CHRMSM 12448 [facility] COUNT 1 [facility] 15-20 CLL 2KARYOTYP BANDING CHRMSM 09079 [facility] ANALYSIS 1 [facility] ADDL KARYOTYP EACH STUDY FLOW 61191 [facility] CYTOMETRY 1 [facility] CELL SURF MARKER TECHL ONLY EA FLOW 79582 [facility] CYTOMETRY 1 [facility] INTERPRET ATION 16/> MARKERS DISPBL T4535 NURSES NURSES LINER/ISABELLE 1 REGISTRY REGISTRY ELD/GUARD & HOME HE & HOME HE /PAD/UNDG RMNT INCONT EA DISPBL T4535 NURSES NURSES LINER/ISABELLE 1 REGISTRY REGISTRY ELD/GUARD & HOME HE & HOME HE /PAD/UNDG RMNT INCONT EA DESTRUCTI 92792 [facility] ADN ON 1 [facility] LESION 1ST RADEX 58055 [facility] FOREARM 2 1 ANNIE VIEWS RADIOLOGY ASSOCIAT RADEX 17211 [facility] ELBOW 1 ANNIE COMPLETE RADIOLOGY MINIMUM 3 ASSOCIAT VIEWS RADIOLOGI 62528 [facility] C 1 ANNIE EXAMINATI RADIOLOGY ON TIBIA ASSOCIAT & FIBULA 2 VIEWS DUPLEX 58360 [facility] SCAN 1 BETH EXTRACRAN RADIOLOGY IAL ART ASSOCIAT COMPL BI STUDY BLOOD 29781 [facility] ISABELA PAT SMEAR 1 JARED & PERIPHERA DUBILIER L INTERP PHYS W/WRIT REPORT RADEX 22497 [place] DEVIN ABDOMEN 1 BETH COMPL RADIOLOGY W/DCBTS&/ [place] [address] [facility] HEAD/BRAI 1 BETH N W/O RADIOLOGY CONTRAST ASSOCIAT MATERIAL ECG 03335 [facility] ROUTINE 1 CO CO ECG [facility] W/LEAST 12 LDS TRCG ONLY W/O I&R DEMO&/JONNY 69430 [facility] L OF PT 1 CO CO UTILIZ [facility] AERSL GEN/NEB/I NHLR/IP ANTIBODY 33695 [facility] INFLUENZA 1 CO CO VIRUS [facility] BASIC 67863 [facility] METABOLIC 1 CO CO PANEL [facility] CALCIUM TOTAL COLLECTIO 14842 [facility] Falcon VENOUS 1 CO CO BLOOD [facility] VENIPUNCT URE BLOOD 74131 [facility] COUNT 1 CO CO SMEAR [facility] MCRSCP W/MNL DIFRNTL WBC COUNT RADIOLOGI 57955 [facility] C EXAM 1 CO CO CHEST 2 [facility] VIEWS FRONTAL&L ATERAL PRESSURIZ 57830 [facility] ED/NONPRE 1 CO CO SSURIZED [facility] H[place] [address] COMBINED COMBINED THYROID 1 PHYSICIAN PHYSICIAN STIMULATI S LA S LA NG HORMONE TSH BLOOD 34476 COMBINED COMBINED COUNT 1 PHYSICIAN PHYSICIAN COMPLETE S LA S LA AUTO&AUTO DIFRNTL WBC LIPID 87586 COMBINED COMBINED PANEL 1 PHYSICIAN PHYSICIAN S LA S LA PROTHROMB 60682 COMBINED COMBINED IN TIME 1 PHYSICIAN PHYSICIAN S LA S LA COMPREHEN 66804 COMBINED COMBINED SIVE 1 PHYSICIAN PHYSICIAN METABOLIC S LA S LA PANEL RADEX 02824 [facility] RIBS UNI 1 CO CO W/[facility] HOSPITAL ANT CH MINIMUM 3 VIEWS RADEX 14622 [place] BEL[place] RIBS 1 BETH UNILATERA RADIOLOGY L 2 VIEWS ASSOCIAT RADIOLOGI 84954 [place] DEVIN C EXAM 1 BETH CHEST 2 RADIOLOGY VIEWS ASSOCIAT [place]ONTAL&[place] [address] WOMEN'S DEVIN TRANSVAGI 1 [facility] [place] SCREEN Q0091 KAELA BELTRAN PAP 1 [facility] SMEAR; [facility] [place] PREP &C ONVEY TO LAB CERV/VAGI G0101 KAELA BELTRAN NAL 1 [facility] S[facility]; [place] PELV&CLIN BREAST EXAM SCR G0145 PATHOLOGY PATHOLOGY CYTOPATH 1 & & CERV/VAG CYTOLOGY CYTOLOGY SCR LAB LAB AUTO&MNL RSCR PHYS RADIOLOGI 59336 [facility] EXAM 1 ANNIE CHEST 2 RADIOLOGY VIEWS ASSOCIAT FRONTAL&[place] [address] [facility] ABDOMEN 0 CO CO W/O HOSPITAL HOSPITAL CONTRAST MATERIAL CULTURE 77931 [facility] BACTERIAL 0 CO [facility] HOSPITAL HOSPITAL QUANTTATI VE COLONY COUNT URINE CT PELVIS 21445 [facility] W/O 0 CO CO [place] [address] PATHOLOGY PATHOLOGY SURG 0 & & PATHOLOGY CYTOLOGY CYTOLOGY LAB LAB GROSS&PHI ROSCOPIC EXAM EXCISION 25101 C GEOVANNI STEVENS MAL 0 HILDA CALLAWAY MD PSC TRUNK/ARM /LEG 2.1-3.0 CM COMPREHEN 51824 COMBINED COMBINED SIVE 0 PHYSICIAN PHYSICIAN METABOLIC S LA S LA PANEL LIPID 40402 COMBINED COMBINED PANEL 0 PHYSICIAN PHYSICIAN S LA S LA COLLECTIO 29141 COMBINED COMBINED N VENOUS 0 PHYSICIAN PHYSICIAN BLOOD S LA S LA VENIPUNCT URE BLOOD 13112 COMBINED COMBINED COUNT 0 PHYSICIAN PHYSICIAN COMPLETE S LA S LA AUTO&[place] [address] COMBINED COMBINED THYROID 0 PHYSICIAN PHYSICIAN [place]AT[place] [address] [place] BEL[place], ABDOMEN 0 MARIAA C W/O RADIOLOGY CONTRAST MATERIAL ASSOCIATE S PSC CT PELVIS 04902 [place] BELTRAN, W/O 0 MARIAA C CONTRAST RADIOLOGY MATERIAL ASSOCIATE S PSC COMPREHEN 50179 COMBINED COMBINED SIVE 0 PHYSICIAN PHYSICIAN METABOLIC S LAB S LAB PANEL LIPID 81423 COMBINED COMBINED PANEL 0 PHYSICIAN PHYSICIAN S LAB S LAB BLOOD 81576 COMBINED COMBINED COUNT 0 PHYSICIAN PHYSICIAN COMPLETE S LAB S LAB AUTO&AUTO DIFRNTL WBC DUP-SCAN 77579 [place] JUICE XTR VEINS 0 EIDER, COMPLETE RADIOLOGY SAMIR K BILATERAL [place] [address] PATHOLOGY PATHOLOGY SURG 0 & & PATHOLOGY CYTOLOGY CYTOLOGY LAB LAB GROSS&[place] 11589 YUMIKO CALDERON INFUSION 0 [facility] THERAPY/P INC INC ROPHYLAXI S /DX 1ST TO 1 HR COLONOSCO 36472 [place], PY 0 MEDICAL DEISY W/BIOPSY SERV SINGLE/[place] [address] DERMATOPA DERMATOPA SURG 0 THOLOGY THOLOGY PATHOLOGY ALLINACE ALLINACE OF OF GROSS&PHI ROSCOPIC EXAM SCREENING 31055 YUMIKO KINGON 0 [facility] MAMMOGRAP INC INC HY BILATERAL COMPUTER- 18224 [facility] CHEEMA 0 MEDICAL ROBERTO CARLOS DETECTION IMAGING ASSOCIATE SCREENING S MAMMOGRAP HY CULTURE 98389 [facility] BACTERIAL 0 [facility] QUANTTATI VE COLONY COUNT URINE LIPOPROTE 82873 [facility] IN DIRECT [address] [place] [address] MEASUREME NT LDL CHOLESTER OL COMPREHEN 51421 [facility] SIVE 0 [facility] PANEL LIPID 35841 [facility] PANEL 0 [facility] COMPREHEN 65203 [facility] SIVE 9 [facility] PANEL LIPID 83132 [facility] PANEL 9 [facility] URNLS DIP 13872 [place] GARRISON, 9 LOIDA HERNANDEZ A STICK/TAB INTERNAL LET RGNT MED NON-AUTO W/O MICRSCP BLOOD 25642 [facility] COUNT 9 [facility] AUTO&AUTO DIFRNTL WBC COLLECTIO 94519 [place] N VENOUS 9 [facility] A BLOOD INTERNAL VENIPUNCT MED URE PHYS G0179 [place] MCKEMIE RE-CERT 9 LOIDA PLATA, MCR-COVR INTERNAL DARYN [facility] MED SRVC RE-CERT PRD 3D 99567 DENI CHEEMA, RENDERING 9 ROBERTO CARLOS ROBERTO CARLOS W/INTERP & POSTPROCE [place] MRI 52677 DENI CHEEMA, SPINAL 9 ROBERTO CARLOS ROBERTO CARLOS CANAL CERVICAL W/O CONTRAST MATRL ECG 19441 [place] BESSON, ROUTINE 9 [facility] A ECG INTERNAL W/LEAST MED 12 LDS W/I&R PHYS G0179 [place] MCKEMIE RE-CERT 9 [facility]-COV[facility] INTERNAL DARYN F [facility] MED SRVC RE-CERT PRD OPHTH 18853 JOSIAH RAHMAN, MEDICAL 9 DORIAN A DORIAN A XM&EVAL COMPRHNSV ESTAB PT 1/> DESTRUCTI 35031 [place] BESNIXON, ON 9 [facility] A PREMALIGN INTERNAL ANT MED LESION 1ST DEMO&/JONNY 28125 [facility] L OF PT 8 CO CO UTILIZ [facility] AERSL GEN/NEB/I NHLR/IP BLOOD 42598 [facility] COUNT 8 CO CO SMEAR [facility] MCRSCP W/MNL DIFRNTL WBC COUNT BLOOD 35129 [facility] ROSALES 8 CO CO COMPLETE [facility] AUTO&AUTO DIFRNTL WBC COLLECTIO 13500 [facility] Falcon VENOUS 8 CO CO BLOOD [facility] VENIPUNCT URE RADIOLOGI 38478 Niki MARIEE EXAM 8 AYANA S CHEST 2 RADIOLOGY VIEWS FRONTAL&L ASSOCIATE ATERAL S PSC PRESSURIZ 55726 [facility] ED/NONPRE 8 CO CO SSURIZED [facility] INHALATIO N TREATMENT IIV3 45952 [place] BESSON, VACCINE 8 [place] MARY A SPLIT INTERNAL VIRUS 0.5 MED ML DOSAGE IM USE ADMINISTR G0008 [place] B[place], ATION OF 8 [facility] A INFLUENZA INTERNAL VIRUS MED VACCINE [facility] 79728 [place] GYPSY, DISCHARGE 8 [facility] DAY INTERNAL MANAGEMEN MED T 30 MIN/< SBSQ 66539 [place] GYPSY, [facility] 8 [facility] CARE/DAY INTERNAL 25 MED MINUTES SBSQ 84233 [facility] 8 [facility] Kavya CARE/DAY INTERNAL 25 MED MINUTES RADEX ABD 74199 VIOLETA MARIEE 8 AYANA Stanford AQT ABD RADIOLOGY W/S/E/D VIEWS 1 ASSOCIATE VIEW CH S PSC INITIAL [address], CARE/DAY INTERNAL DARYN Citllay 50 MED MINUTES RADIOLOGI 46705 Niki MARIEE EXAM 8 AYANA Stanofrd CHEST 2 RADIOLOGY VIEWS FRONTAL&L ASSOCIATE ATERAL S PSC PHYS CERT G0180 [place] GARRISON MCR-COVR 8 [facility] INTERNAL SRVC PER MED CERT PRD INJECTION J3301 [place] [facility] 8 [facility] INTERNAL DARYN Boucher LONE MED ACETONIDE NOS 10 MG IM ADM 40749 [facility] PR[facility] 8 [facility], SUBQ/IM INTERNAL DARYN Boucher NJXS 1 MED VACCINE COMPREHEN 55245 [facility] SIVE 8 [place] METABOLIC [facility] PANEL THER 44529 [facility] PROPH/DX 8 [facility] SUBQ/IM COLLECTIO 04494 [facility] N VENOUS 8 [facility] BLOOD [facility] VENIPUNCT URE BLOOD 25565 [facility] COUNT 8 [facility] SMEAR [facility] MCRSCP W/MNL DIFRNTL WBC COUNT BLOOD 75435 [facility] COUNT 8 [place] COMPLETE [facility] AUTO&AUTO DIFRNTL WBC RADIOLOGI 06548 [facility] Prince EXAM 8 [facility] CHEST [address] [place] [address] VIEWS FRONTAL&L ATERAL Encounters Encounter Start End Date Code Location Performer Type Date OFFICE 89372 [facility] FRYMMARLINE OUTPATIEN 7 7 PHYSICIAN T VISIT S GROUP 15 MINUTES EMERGENCY 85034 ERIC DODD DEPT 7 7 [facility] V[facility]& THREAT [facility] YUMIKO - 7 7 [facility] INPATIENT INC OFFICE 49213 [facility] 7 7 MEDICAL T VISIT SERV 15 FOUNDATIO MINUTES HOSPITAL - 7 7 [facility]OSPITALS OFFICE 99285 [facility] 6 6 [facility] T VISIT URGENT 25 TREAT MINUTES OFFICE 70172 [facility] 6 6 [facility] T VISIT URGENT 15 TREAT MINUTES OFFICE 52199 [facility] 6 6 [facility] T VISIT URGENT 25 TREAT MINUTES OFFICE 94935 [facility] 6 6 [facility] T VISIT URGENT 25 TREAT MINUTES OFFICE 86283 [facility]IA [facility] 6 6 MEDICAL N RONN T VISIT SERV 15 FOUNDATIO MINUTES HOSPITAL UNIVERSIT - 6 6 [facility] OFFICE 41918 [facility] 6 6 PHYSICIAN LES T NEW 30 PRACTICE MINUTES L OFFICE 89388 AMALIA [facility] 6 6 MEDICAL N RONN T VISIT SERV 10 FOUNDATIO MINUTES N OFFICE 48902 [facility] 6 6 [facility] T VISIT URGENT 25 TREAT MINUTES HOSPITAL YUMIKO - 6 6 [facility] INPATIENT [facility] [place] - 5 5 [facility] EMERGENCY 96331 [facility] DE[facility] 5 5 ROHIT THO VISIT EMERGENCY HIGH PHYSI SEVERITY& THREAT [facility] BOCASION - 5 5 [facility]GENCY 23963 [facility] T VISIT HIGH/URGE NT SEVERITY EMERGENCY 50231 [facility] DEPT 5 5 ROHIT THO VISIT EMERGENCY HIGH PHYSI SEVERITY& THREAT [facility] YUMIKO - 5 5 MEM [facility] OUTPATIEN [facility]PITAL YUMIKO - 5 5 [facility] OUTPATIEN [facility] HOME [facility], 5 5 HOME INPATIENT HEALTH AGENCY [facility], 5 5 HOME INPATIENT HEALTH AGENCY OFFICE 07635 [facility] 5 5 [facility]INIC [facility] VISIT 15 MINUTES HOSPITAL YUMIKO - 4 4 [facility] OUTPATIEN [facility] YUMIKO - 4 4 [facility] INPATIENT [facility] YUMIKO [facility] 4 4 [facility] OUTPATIEN [facility] YUMIKO - 4 4 [facility] OUTPATIEN [facility] OFFICE 54180 [facility] 4 4 PHYSICIAN T NEW 45 S GROUP [facility] UNIVERSIT - 4 4 [facility] HOME NURSES HEALTH, 4 4 REGISTRY INPATIENT HOME [facility] HOME NURSES HEALTH, 4 4 REGISTRY INPATIENT HOME [facility] [place] - 4 4 [facility] CRITICAL [facility], ACCESS 4 4 [facility] [place] [facility] EMERGENCY 24871 [facility], 4 4 [facility] VISIT CO HOS HIGH/URGE NT SEVERITY HOME NURSES HEALTH, 4 4 REGISTRY INPATIENT HOME HLTHTCA HOME NURSES HEALTH, 4 4 REGISTRY INPATIENT & HOME HE HOME NURSES HEALTH, 4 4 REGISTRY INPATIENT & HOME HE CRITICAL [facility], ACCESS 4 4 [facility] [place] [facility] CRITICAL [facility], ACCESS 4 4 [facility] EMERGENCY 19282 [facility], 4 4 [facility] DEPARTMEN [facility] T VISIT CO HOS HIGH/URGE NT SEVERITY HOME NURSES HEALTH, 4 4 REGISTRY INPATIENT & HOME HE [facility]OSPITAL UNIVERSIT - 4 4 [facility] OFF[facility] 41171 FLEISCHMA FLEISCHMA OUTPATIEN 4 4 N RONN N RONN T VISIT 15 MINUTES HOME NURSES HEALTH, 3 3 REGISTRY INPATIENT & HOME HE HOME NURSES HEALTH, 3 3 REGISTRY OUTPATIEN & HOME HE T HOME NURSES HEALTH, 3 3 REGISTRY OUTPATIEN & HOME HE T OFFICE 70239 FLEISCHMA FLEISCHMA OUTPATIEN 3 3 N RONN N RONN T NEW 45 MINUTES HOSPITAL UNIVERSIT - 3 3 Y [facility] T EMERGENCY 44905 [facility], 3 3 [facility] T VISIT CO HOS HIGH/URGE NT SEVERITY CRITICAL [facility], ACCESS 3 3 [facility] [place] [facility] HOS EMERGENCY 73169 VENKAT ROBLEDO 3 3 ANGELICA DOMINGUEZ DEPARTMEN T VISIT MODERATE SEVERITY CRITICAL [facility], ACCESS 3 3 [facility] [facility] HOSPITAL UNIVERSIT - 3 3 [facility] 38051 [facility], 3 3 [facility] DEPART[facility] T VISIT CO HOS HIGH/URGE NT SEVERITY CRITICAL [facility], ACCESS 3 3 [facility] [place] [facility]OS EMERGENCY 51788 [facility], DEPT 3 3 [facility] VISIT [facility] HIGH CO HOS SEVERITY& THREAT FUNCJ CRITICAL [facility], ACCESS 3 3 [facility] CRITICAL [facility], ACCESS 3 3 [facility] HOS HOME NURSES HEALTH, 3 3 REGISTRY OUTPATIEN & HOME HE T EMERGENCY 75239 [facility], 3 3 [facility] T VISIT CO HOS LOW/MODER SEVERITY EMERGENCY 88621 RANDA RANDA 3 3 HEN HEN DEPARTMEN T VISIT MODERATE SEVERITY CRITICAL [facility], ACCESS 3 3 [facility]ITAL [facility], - 3 3 [facility] INPATIENT [facility] CRITICAL [facility], ACCESS 3 3 [facility] EMERGENCY 40154 [facility], 3 3 [facility] DE[facility] T VISIT CO HOS HIGH/URGE NT SEVERITY HOME NURSES HEALTH, 2 2 REGISTRY OUTPATIEN & HOME HE T HOME NURSES HEALTH, 2 2 REGISTRY OUTPATIEN & HOME HE T OFFICE 11305 NO REBEKAH NO REBEKAH OUTPATIEN 2 2 T NEW 45 MINUTES CLINIC, [facility] 2 2 [facility] HEALTH OFFICE 92591 [facility] OUTPATIEN 2 2 [facility] T VISIT RURAL 15 HEALTH MINUTES HOME NURSES HEALTH, 2 2 REGISTRY OUTPATIEN & HOME HE T HOME NURSES HEALTH, 2 2 REGISTRY OUTPATIEN & HOME HE T CRITICAL [facility], ACCESS 2 2 [facility] EMERGENCY 22033 [employer], 2 2 [facility] T VISIT CO HOS HIGH/URGE NT SEVERITY OFFICE 42325 AHMED ADN FARHADMED ADN OUTPATIEN 2 2 T VISIT 15 MINUTES HOSPITAL [facility] - 2 2 [facility] OFF[facility] 19019 AHMED ADN AHMED ADN OUTPATIEN 2 2 T VISIT 15 MINUTES OFFICE 32115 [facility] FED [facility] FED OUTPATIEN 2 2 T NEW 20 MINUTES OFFICE 47212 AHMED ADN AHMED ADN OUTPATIEN 2 2 T VISIT 25 MINUTES CLINIC, [facility] 2 2 [facility] OFFICE 86257 [facility] 2 2 [facility] T VISIT HEALTH 25 CLINIC MINUTES CRIT[facility] ACCESS 2 2 [facility], [facility] 2 2 [facility] OFFICE 15221 [facility] 2 2 RURAL T VISIT HEALTH 25 CLINIC MINUTES HOSPITAL YUMIKO - 2 2 [facility] OUTPATIEN INC T OFFICE 12429 [facility] [place] 2 2 [place] T VISIT HEALTH 25 CLINIC MINUTES CLINIC, [facility] [place] 2 2 [facility] HOME [facility] [address], 2 2 REGISTRY OUTPATIEN & HOME T OFFICE 39148 FARHADMED AJIT AHMED ADN OUTPATIEN 2 2 T VISIT 15 MINUTES OFFICE 23575 [place] OUT[facility]IEN 2 2 [place] T VISIT RURAL 25 HEALTH MINUTES CLINIC, [facility] RURAL 2 2 [facility] [place] [address] 1 [facility] [place] [address] 1 [facility] T OFFICE 38123 [facility] 1 1 [facility] T VISIT RURAL 15 HEALTH MINUTES CLINIC, [place] RURAL 1 1 [facility]ALTH [place] NURSES HEALTH, 1 1 REGISTRY OUTPATIEN & HOME HE T HOME NURSES HEALTH, 1 1 REGISTRY OUTPATIEN & HOME HE T OFFICE 22604 [facility] [place] 1 1 [place] T [facility]ISIT HEALTH 15 CLINIC MINUTES CLINIC, [facility] [place] 1 1 [facility], [facility] [place] 1 1 [facility] OFFICE 13399 [facility] [place] 1 1 [place] T VISIT HEALTH 15 CLINIC MINUTES OFFICE 58504 [facility] AHMED ADN OUTPATIEN 1 1 [facility] T VISIT HEALTH 25 CLINIC MINUTES CRITICAL [place] ACCESS 1 1 [facility] EMERGENCY 59546 [facility] WILLETT DEPT 1 1 [facility] VISIT HOSPITAL HIGH SEVERITY& THREAT [facility] [place] - [facility] 1 [facility] [place] ACCESS 1 1 [facility] EMERGENCY 33856 [facility] 1 1 [facility] T [facility]ISIT LIMITED/M INOR PROB CRITICAL [place] ACCESS 1 1 [facility] OFFICE 89246 [facility] 1 [facility] 15 [facility] 1 1 [facility] 86577 Niki STEVENS OUTPATIEN 0 0 HILDA Gay MD [facility] 0 0 [facility] 40547 [facility] SAGEPATIEN 0 0 [place] T VISIT 5 HOSPITAL MINUTES CRITICAL [facility] ACCESS 0 0 [facility] YUM[facility] - 0 0 [facility]IEN [facility] YUMIKO - [address] [facility] T OFFICE 58216 [place] [facility] OUT[facility]IEN 0 0 [facility] T VISIT INTERNAL 15 MED MINUTES CRITICAL [facility] ACCESS 0 0 [facility] CR[facility]ICAL [place] [facility] 56820 [place] OUTPATIEN 0 0 [facility] T VISIT INTERNAL 25 MED MINUTES OFFICE 81389 [place] [facility], OUTPATIEN 9 9 [facility] T VISIT INTERNAL 15 MED MINUTES OFFICE 47569 [place] [facility] OUTPATIEN 9 9 [facility] T VISIT INTERNAL 15 MED MINUTES CRITICAL [facility] ACCESS 9 9 [facility] OFFICE 62379 [place], OUTPATIEN 9 9 [facility] T VISIT INTERNAL 25 MED MINUTES OFFICE 30301 [place], OUTPATIEN 9 9 [facility] T VISIT INTERNAL 15 MED MINUTES OFFICE 87599 [facility] [facility], OUTPATIEN 9 9 [facility] T VISIT INTERNAL 25 MED MINUTES EMERGENCY 72229 [facility] RO[place], 8 8 [facility] T VISIT MODERATE SEVERITY EMERGENCY 05245 [facility] 8 8 [facility] T VISIT LOW/MODER SEVERITY CRITICAL [facility] AR[place]A 8 8 [facility] OFFICE 90999 [place] [facility], OUTPATIEN 8 8 [facility] T VISIT INTERNAL 15 MED MINUTES OFFICE 35589 LICKING BESSON, OUTPATIEN 8 8 LOIDA HERNANDEZ A T VISIT INTERNAL 10 MED MINUTES OFFICE [id number] LICKING GARRISON, OUTPATIEN 8 8 A[place]CAMP MARY A T VISIT INTERNAL 15 MED MINUTES CRITICAL [facility] [id number] ERIN WILLSON 8 8 MEDICAL DARYN ION SERV E NEW/ESTAB [facility]OUNDAT[facility] PATIENT 40 MIN [facility]ICE [id number] [facility] [place] [facility]ES OFFICE 75904 [place] GARRISON OUTPATIEN 8 8 [facility] MARY A T VISIT INTERNAL 15 MED MINUTES [facility] [place] [id number] 8 [place] [facility] OFF[place] 84692 HAZEL EUGENE 8 8 MARIAA PLATA JR, JOHN T VISIT P P 15 MINUTES OFFICE 29047 NEGRITA EUGENE 8 8 Cameron MARISCAL JR VISIT INTERNAL DARYN F 15 MED MINUTES CRITICAL [place] [id number] 8 [facility] EMERGENCY [address]07 [place] [id number] 8 [place] T VISIT LIMITED/M INOR PROB OFFICE 20405 DERREKKING GARRISON SAGEPATIEN 8 8 [place] MARY A T VISIT INTERNAL 15 MED MINUTES OFFICE 53671 HAZEL EUGENE 8 8 MARIAA PLATA JR, JOHN T VISIT P P 10 MINUTES OFFICE 20328 NERGITA EUGENE 8 8 Cameron MARISCAL JR VISIT INTERNAL DARYN F 25 MED MINUTES OFFICE 67961 HAZEL EUGENE 8 8 MARIAA PLATA JR, JOHN T VISIT P P 15 MINUTES
--- OUTSIDE RECORDS SUMMARY | 2016-12-13 18:10 | External Medical Summary Rpt ---
Author Author , JESSICA Organization JESSICA Address Unknown Phone [email or web address] Care Team Providers Care Ip Technology Transactions Attorney Name Role Phone NO REBEKAH, NO REBEKAH Unavailable Unavailable AHMED ADN, AHMED ADN Unavailable Unavailable AHMED ADN, AHMED ADN Unavailable Unavailable ILYA LES, ILYA Unavailable Unavailable LES ATKINS COL, ATKINS Unavailable Unavailable COL ATKINS COL, ATKINS Unavailable Unavailable COL BESSON, BESSON Unavailable Unavailable BESSON ROLO, BESSON Unavailable Unavailable ROLO BESSON ROLO, BESSON Unavailable Unavailable ROLO BESSON, MARY A, Unavailable Unavailable BESSON, MARY A [facility] Unavailable Unavailable IMAGING L, [facility] MONIQUE, MONIQUE Unavailable Unavailable MONIQUE ALL, MONIQUE ALL Unavailable Unavailable [facility] Unavailable Unavailable HOSPITAL, [facility] Unavailable Unavailable PRACTICE L, [facility] RICCI PHI, RICCI Unavailable Unavailable PHI RICCI PHI, RICCI Unavailable Unavailable PHI RENNER-AGAPITOE WALT, Unavailable Unavailable RENNER-VISPadma WALT C GEOVANNI STEVENS MD Unavailable Unavailable [facility], C GEOVANNI STEVENS MD [facility], Unavailable Unavailable [facility], Unavailable Unavailable [facility] Unavailable Unavailable COMPANY, [facility], Unavailable Unavailable [facility] CHIPPS JARED & Unavailable Unavailable DUBILIER, [facility]UB[facility] DEVIN WAYNE, BELTRAN Unavailable Unavailable WAYNE DEVIN CAMPOS, BELTRAN Unavailable Unavailable BETH CAMPOS, BELTRAN Unavailable Unavailable [...] SET Unavailable Unavailable FRYMAN, FRYMAN Unavailable Unavailable HAYDER RHO, HAYDER Unavailable Unavailable RHO HAGENSCHNEIDER CLAYTON, Unavailable Unavailable HAGENSCHNEIDER CLAYTON CITLALICHNEIDER, Unavailable Unavailable SAMIR K, DARIO, SAMIR K [facility] Unavailable Unavailable INC, [facility] Unavailable Unavailable HOSPITAL P, [facility] [place] ANNIE, CLIFTON Unavailable Unavailable ANNIE CLIFTON ANNIE, CLIFTON Unavailable Unavailable ANNIE ETIENNE, AYANA S, Unavailable Unavailable CLIFTON, AYANA S GYPSY, GYPSY CORRIGAN, Unavailable Unavailable DORIAN GIMENEZ, Unavailable Unavailable DORIAN RAHMAN [facility], Unavailable Unavailable [facility] YOUSIF DODD Unavailable Unavailable BETINA, BETINA Unavailable Unavailable BETINA EULOGIO, BETINA Unavailable Unavailable NAN [facility] Unavailable Unavailable CLINIC, [facility] Unavailable Unavailable IMAGING ASS, [facility] YG CRY, YG Unavailable Unavailable [facility] Un[facility], [facility] [place] Unavailable Unavailable [facility], [facility] Unavailable Unavailable [facility], [facility] LAUSE FED, LAUSE FED Unavailable Unavailable LAUSE FED, [facility] FED Unavailable Unavailable ETHEL JR DWI, ETHEL Unavailable Unavailable JR DWI [facility] Unavailable Unavailable INTER[facility] MED, [facility] VENKAT GRAY Unavailable Unavailable FLAQUITA AMADO, Unavailable Unavailable FLAQUITA ROBLEDO LUKINS BRADLEY, LUKINS Unavailable Unavailable BRADLEY LUKINS BRADLEY, LUKINS Unavailable Unavailable BRADLEY [facility] Unavailable Unavailable ASSOCIAT, [facility] DARYN CEBALLOS, Unavailable Unavailable DARYN CEBALLOS JR, WILLIAM Unavailable Unavailable MENDEZ Boucher JR, WILLIAM F MERHAR GAR, MERHAR Unavailable Unavailable GAR MERHAR GAR, MERHAR Unavailable Unavailable [facility] Un[facility] Un[facility], [facility] MUSIC HWOARD, MUSIC HOWARD Unavailable Unavailable [facility] Unavailable Unavailable PSC, [facility], Unavailable Unavailable [facility] Unavailable Unavailable HEALTH, [facility] Unavailable Unavailable URGENT TREAT, [facility] NURSES REGISTRY & Unavailable Unavailable [...] Unavailable EQUIP[facility], [facility], Unavailable Unavailable [facility] MARIAA OLIVA JR, Unavailable Unavailable MARIAA OLIVA JR [facility] Unavailable Unavailable HOSPITALS, [facility], Unavailable Unavailable [facility] Unavailable Unavailable AGENCY, [facility] Un[facility] Unavailable [facility] [place], [facility] ABDALLA, MAGALIE MAT Unavailable Unavailable Purpose Continuity of Care Document - 05-27-2007 through 2016 Problems Code Diagnosis DOS Provider Status J449 CHRONIC 09-02-2016 [facility] OBSTRUCTIVE HOME PULMONARY MEDICAL DISEASE UNS EQUIPME I10 ESSENTIAL 07-12-2016 [facility] HYPERTENSIO GROUP N J441 CHRONIC 07-12-2016 [facility] OBSTRUCTIVE PHYSICIANS PULMONARY GROUP DZ W/EXACERBAT ION R062 WHEEZING 07-12-2016 [facility] E876 HYPOKALEMIA 07-05-2016 [facility] I509 HEART 07-05-2016 [facility] FAILURE PHYSICIANS UNSPECIFIED GROUP J189 PNEUMONIA 07-05-2016 [facility] UNSPECIFIED PHYSICIANS ORGANISM GROUP E785 HYPERLIPIDE 07-04-2016 [facility] CECILIA PHYSICIANS UNSPECIFIED GROUP I5031 ACUTE 07-03-2016 [facility] HEART FAILURE R05 COUGH 07-03-2016 [facility] R0602 SHORTNESS 07-03-2016 [place] [facility] R918 OTHER 07-03-2016 [place] NONSPECIFIC MEDICAL ABNORMAL IMAGING ASS FINDING OF LUNG FIELD Z8249 FAMILY HX 07-03-2016 [facility] ISCHEMIC PHYSICIANS HRT DZ OTH GROUP DZ CIRC SYSTEM Z8673 PERSONAL HX 07-03-2016 [facility] CEREB INC INFARCT NO RESID DEFICIT Z8709 PERSONAL 07-03-2016 [facility] PHYSICIANS, DISEASES PLLC RESPIRATORY SYSTEM C8510 UNSPECIFIED 06-20-2016 [facility] UNSPECIFIED SITE D479 NEOPLASM 06-20-2016 [facility] & REL TISSUE UNS B53368 LYMPHOCYTOS 06-20-2016 [employer] MEDICAL IS SERV SYMPTOMATIC FOUNDATION H24597 EPIPHORA 04-11-2016 [facility] DUE TO COUNTY EXCESS URGENT LACRIMATION TREAT LT LACR GLAND J208 ACUTE 04-11-2016 [facility] BRONCHITIS [facility]OSPITAL DUE TO URGENT OTHER SPEC TREAT ORGANISMS L84 CORNS AND 03-25-2016 [facility] CALLOSITIES [facility]ICAL ACCESS [facility]OSPITAL URGENT TREAT Q845 ENLARGED 03-25-2016 [facility] AND CRITICAL ACCESS HOSPITAL HYPERTROPHI URGENT C NAILS TREAT J168 PNEUMONIA 03-11-2016 [facility] DUE TO COUNTY OTHER SPEC URGENT INFECTIOUS TREAT ORGANISMS P62342 CELLULITIS 03-11-2016 [facility] OF LEFT CRITICAL ACCESS HOSPITAL LOWER LIMB URGENT TREAT M7989 OTHER 03-11-2016 [facility] SPECIFIED CRITICAL ACCESS HOSPITAL SOFT TISSUE URGENT DISORDERS TREAT N3946 MIXED 03-11-2016 [facility] INCONTINENC COUNTY E URGENT TREAT R112 NAUSEA WITH 03-11-2016 [facility] VOMITING CRITICAL ACCESS HOSPITAL UNSPECIFIED URGENT TREAT R5081 FEVER 03-11-2016 [facility] PRESENTING COUNTY W/COND URGENT CLASSIFIED TREAT ELSEWHERE H6501 ACUTE 02-02-2016 [facility] SEROUS CRITICAL ACCESS HOSPITAL OTITIS URGENT MEDIA RIGHT TREAT EAR J301 ALLERGIC 02-02-2016 [facility] RHINITIS CRITICAL ACCESS HOSPITAL DUE TO URGENT POLLEN TREAT Q42529B ABRASION 02-02-2016 [facility] LEFT LOWER CRITICAL ACCESS HOSPITAL LEG INITIAL URGENT ENCOUNTER TREAT C8588 OTH TYPES 12-14-2015 [facility] NODES MX SITES R42 DIZZINESS 07-06-2015 [facility] MENDOSA AND MD BATEMAN CONSULTING SRV E878 OTHER D/O 07-05-2015 [facility] FLUID BALANCE NEC H903 SENSORINEUR 06-28-2015 [facility] LOSS PRACTICE L BILATERAL C8300 SMALL CELL 06-15-2015 [facility] UNSPECIFIED SITE E780 PURE 05-07-2015 [facility] HYPERCHOLES [facility] 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 [facility] 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 ANGINA PECTORIS Z7902 TEST ENGINEER 05-07-2015 [facility] CURR USE [facility]OSP[facility] TICS/ANTIPL ATELETS Z7982 RETIREMENT 05-07-2015 [facility] CURRENT USE [facility] L16946 OTHER LONG 05-07-2015 [facility] CURRENT HOSPITAL DRUG THERAPY Z809 FAMILY 05-07-2015 [facility] HISTORY OF [facility]NT HOSPITAL NEOPLASM UNSPECIFIED R531 WEAKNESS 04-29-2015 [facility] [place] [facility] R5381 OTHER 04-29-2015 [facility] R5383 OTHER 04-29-2015 [facility]IGUE [facility] J209 ACUTE 04-23-2015 [facility] UNSPECIFIED HOSPITAL P J440 COPD WITH 04-23-2015 [facility] P RESPIRATORY INFECTION R079 CHEST PAIN 04-23-2015 [place] [facility]PEC[facility]IED [facility] IM[facility]ING ASS 86100 CHRONIC 12-02-2014 [facility] L[facility]MP[facility] LEUKEMIA AGENCY W/O ACHIEVED REMISSION 98602 HTN CKD UNS 12-02-2014 [facility] W/CKD HEALTH STAGE I AGENCY THRU STAGE IV/UNS 19969 UNSPECIFIED 12-02-2014 [facility] VENOUS HEALTH INSUFFICIEN AGENCY CY 496 CHRONIC 12-02-2014 [facility] AIRWAY HEALTH OBSTRUCTION AGENCY NEC 5859 CHRONIC 12-02-2014 [facility] KIDNEY HEALTH DISEASE AGENCY UNSPECIFIED 57435 UNSPECIFIED 12-02-2014 [facility] URINARY HEALTH INCONTINENC AGENCY E 481 PNEUMOCOCCA 09-15-2014 [facility] Velazquez PNEUMONIA [facility]OSPITAL URGENT TREAT 57295 FEVER 09-15-2014 [facility] URGENT TREAT 46704 OTHER VOICE 09-15-2014 [facility] RESONANCE URGENT DISORDERS TREAT 7862 COUGH 09-15-2014 [facility] URGENT TREAT 2724 OTHER AND 08-27-2014 [facility] UNSPECIFIED [place] [facility] HYPERLIPIDE CECILIA 4011 ESSENTIAL 08-27-2014 [facility] HYPERTENSIO [place] N, BENIGN HOLDINGS 7823 EDEMA 08-27-2014 [facility] [place] [facility] 34606 SHORTNESS 06-29-2014 [place] [facility] 52909 CHEST PAIN 06-29-2014 [place] UNSPECIFIED [facility]ICAL IMAGING ASS V1261 PERSONAL 06-29-2014 [place] HISTORY MEDICAL PNEUMONIA IMAGING ASS RECURRENT 6829 CELLULITIS 05-19-2014 [facility] AND ABSCESS [place] OF HOLDINGS UNSPECIFIED SITE 5589 OTH&UNSPEC 04-26-2014 [facility] NONINFECTIO [place] US HOLDINGS GASTROENTER ITIS&COLITI S 18461 OTH MALIG 04-05-2014 [facility] UNS SITE INC XTRANOD&SUSANNA ID ORGN 4019 UNSPECIFIED 04-05-2014 [facility] ESSENTIAL [facility] HYPERTENSIO INC N 486 PNEUMONIA, 04-05-2014 [facility] ORGANISM PHYSICIANS UNSPECIFIED GROUP 58932 OBSTRUCTIVE 04-05-2014 [facility] CHRONIC PHYSICIANS BRONCHITIS GROUP WITH EXACERBATIO N 01912 OTHER 04-05-2014 [place] DISEASES OF MEDICAL LUNG NOT IMAGING ASS ELSEWHERE CLASSIFIED V5869 LONG-TERM 04-05-2014 [facility] (CURRENT) [facility] USE OF INC OTHER MEDICATIONS 7804 DIZZINESS 03-12-2014 [facility] AND [facility] GIDDINESS INC V1090 PERSONAL 03-12-2014 [facility] HISTORY [facility] UNSPECIFIED INC MALIGNANT NEOPLASM 4660 ACUTE 03-06-2014 [facility] BRONCHITIS [facility] INC 2749 GOUT, 02-22-2014 [facility] UNSPECIFIED PHYSICIANS GROUP 4149 UNSPECIFIED 02-22-2014 [facility] CHRONIC PHYSICIANS ISCHEMIC GROUP HEART DISEASE 4779 ALLERGIC 02-22-2014 [facility] RHINITIS PHYSICIANS CAUSE GROUP UNSPECIFIED 18254 ESOPHAGEAL 02-22-2014 [facility] REFLUX PHYSICIANS GROUP 22638 WHEEZING 02-22-2014 [facility] PHYSICIANS GROUP V0481 NEED 02-22-2014 [facility] PROPHYLACTI PHYSICIANS C GROUP VACCINATION &INOCULATIO N FLU 1101 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 [facility] FED OSIS OF NAIL 4439 UNSPECIFIED 01-05-2014 [facility] PERIPHERAL VASCULAR DISEASE 7038 OTHER 01-05-2014 [facility] SPECIFIED DISEASE OF NAIL 7295 PAIN IN 01-05-2014 [facility] SOFT TISSUES OF LIMB 15096 OTHER 11-25-2013 [facility] AND HEMATOPOIET IC TISSUES 14946 DIAB W/O 11-10-2013 NURSES MENTION REGISTRY COMP TYPE HOME II/UNS TYPE HLTHTCA UNCNTRL 95741 HYPOXEMIA 10-06-2013 [facility] V5863 LONG-TERM 10-06-2013 [facility] T/ANTITHROM BOTIC V5866 LONG-TERM 10-06-2013 [facility] 0088 INTESTINAL 09-04-2013 [facility], INFECTION ENGRAVER LETTER DUE TO [facility] OTHER HOS ORGANISM NEC 58784 COR 09-04-2013 [facility], ATHEROSLERO ENGRAVER LETTER UNSPEC [facility] TYPE VESSEL HOS CREEK/SANDY T 4293 CARDIOMEGAL 09-04-2013 [facility], Y [facility]RA[facility] [place] [facility] 47384 DIVERTICULO 09-04-2013 [facility], SIS OF ENGRAVER LETTER COLON [facility] 5939 UNSPECIFIED 09-04-2013 [facility], DISORDER ENGRAVER LETTER OF KIDNEY [facility] AND URETER HOS V103 PERSONAL 09-04-2013 [facility], HISTORY OF ENGRAVER LETTER MALIGNANT [facility] NEOPLASM OF HOS BREAST V1079 PERSONAL HX 09-04-2013 [facility], OTH ENGRAVER LETTER LYMPHATIC&H [facility] EMATOPOIETI HOS C NEOPLASM 7020 ACTINIC 07-15-2013 [facility] KERATOSIS 86790 OTHER 07-15-2013 [facility] SEBORRHEIC KERATOSIS V5883 ENCOUNTER 06-16-2013 [facility], FOR ENGRAVER LETTER THERAPEUTIC [facility] DRUG HOS MONITORING 7873 FLATULENCE 06-09-2013 [facility], ERUCTATION ENGRAVER LETTER AND GAS [facility] PAIN HOS V1083 PERSONAL 06-09-2013 [facility], HISTORY ENGRAVER LETTER OTHER [facility] MALIGNANT HOS NEOPLASM SKIN V4589 OTHER 06-09-2013 [facility], POSTSURGICA ENGRAVER LETTER L STATUS [facility] OTHER HOS 76696 NODULAR 05-27-2013 [facility] RONN LYMPH NODES MULTIPLE SITES 4510 PHLEBITIS&T 03-03-2013 [facility] HROMBOPHLEB SUP VESSELS LOWER EXTREM 4548 VARICOSE 03-03-2013 [facility] VEINS LOWER EXTREMITIES W/OTH COMPS 4371 OTH 09-03-2012 [facility] BRADLEY GENERALIZED ISCHEMIC CEREBROVASC ULAR DISEASE 53060 DISORDER OF 09-03-2012 LUKINS BRADLEY BONE AND CARTILAGE UNSPECIFIED 9100 FCE 09-03-2012 [facility] NCK&SCLP NO HOSPITAL EYE ABRAS/FRIC BURN W/O INF 9596 INJURY 09-03-2012 MERHAR GAR OTHER AND UNSPECIFIED HIP AND THIGH 9597 INJURY 09-03-2012 [facility] GAR OTHER&UNSPE CIFIED KNEE LEG ANKLE&FOOT E8889 UNSPECIFIED 09-03-2012 MERHAR GAR FALL V1060 PERSONAL 09-03-2012 [facility] HISTORY OF HOSPITAL UNSPECIFIED LEUKEMIA V1229 PERSONAL HX 09-03-2012 [facility] ENDOCRN METABOLIC IMMUNITY D/O V5861 LONG-TERM 09-03-2012 [facility] PRICE (CURRENT) USE OF ANTICOAGULA NTS V714 OBSERVATION 09-03-2012 KHADIJAH RPICE FOLLOWING OTHER ACCIDENT 035 ERYSIPELAS 08-21-2012 [facility], ENGRAVER [facility] [place] [facility] 34080 LEUKOCYTOSI 08-21-2012 [facility], S ENGRAVER LETTER UNSPECIFIED [place] [facility] 41190 CALCU 08-21-2012 [facility] GALLBLADD W/O MENTION CHOLECYST/O BST 17135 UNSPECIFIED 08-21-2012 [facility] ADN RESPIRATORY ABNORMALITY 7892 SPLENOMEGAL 08-21-2012 [facility] Y 2411 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 [facility] MULTINODULA R GOITER 2462 CYST OF 08-04-2012 [facility] THYROID 7964 OTHER 08-04-2012 [facility] INC, ABNORMAL ENGRAVER LETTER CLINICAL [place] [facility] FINDING HOS 14139 UNS 07-22-2012 [facility] LEUKEMIA W/O ACHIEVED REMISSION 4871 INFLUENZA 07-22-2012 [facility] WITH OTHER HOSPITAL RESPIRATORY MANIFESTATI ONS 5119 UNSPECIFIED 07-22-2012 [facility] PLEURAL EFFUSION 5180 PULMONARY 07-22-2012 [facility] COLLAPSE V1254 PERSONAL HX 07-22-2012 [facility] W/O RESIDUAL DEFICITS 2763 ALKALOSIS 07-21-2012 [facility], ENGRAVER [facility] [place] [facility] 59875 DEHYDRATION 07-21-2012 [facility], ENGRAVER LETTER [place] [facility] 4580 ORTHOSTATIC 07-21-2012 [facility] INC, ENGRAVER LETTER HYPOTENSION [place] [facility] 26195 OTHER 07-21-2012 [facility] INC, MALAISE AND ENGRAVER LETTER FATIGUE [facility] 2768 HYPOPOTASSE 07-19-2012 [facility] INC, CECILIA ENGRAVER LETTER [place] [facility] 4239 UNSPECIFIED 07-19-2012 [facility] DISEASE OF PERICARDIUM 7856 ENLARGEMENT 07-19-2012 [facility] OF LYMPH NODES 2130 BENIGN 06-26-2012 [facility], NEOPLASM OF [facility] BONES OF [place] SKULL AND HOS FACE 3319 UNSPECIFIED 06-26-2012 DEVIN CAMPOS CEREBRAL DEGENERATIO N 27381 PAIN IN 06-26-2012 [facility] INC, JOINT, ENGRAVER LETTER LOWER LEG [facility] 7802 SYNCOPE AND 05-23-2012 [facility], COLLAPSE [facility] [place] [facility] 24075 NAUSEA 05-23-2012 [facility], ALONE [facility] [place] [facility] 37098 ABDOMINAL 05-23-2012 [facility] INC, PAIN, LEFT ENGRAVER LETTER LOWER [place] [facility] QUADRANT HOS 7847 EPISTAXIS 05-13-2012 [facility], ENGRAVER LETTER [place] [facility] 6929 CONTACT 05-12-2012 [facility] INC, DERMATITIS& ENGRAVER LETTER OTHER [place] [facility] ECZEMA DUE HOS UNSPEC CAUSE 4279 UNSPECIFIED 04-22-2012 [facility] CARDIAC DYSRHYTHMIA 77122 PAINFUL 04-22-2012 [facility] RESPIRATION 00938 OTH-UNS MAL 03-02-2012 [facility] TISS-UNS-EX TRANODAL 2870 ALLERGIC 03-02-2012 [facility] PURPURA [facility] 6989 UNSPECIFIED 03-02-2012 [facility] PRURITIC CRITICAL ACCESS HOSPITAL DISORDER [facility] 31510 GOUTY 01-16-2012 [facility] INC, ARTHROPATHY ENGRAVER LETTER [place] [facility] UNSPECIFIED HOS 45078 UNSPECIFIED 01-16-2012 [facility], ENGRAVER LETTER ARTHROPATHY [facility] [facility] SITE HOS UNSPECIFIED 75951 TACHYPNEA 01-16-2012 [facility], [facility] [place] [facility] 30197 OSTEOARTHRO 12-17-2011 [facility] INC, S UNSPEC ENGRAVER LETTER WHETHER [place] [facility] GEN/LOC HOS UNSPEC SITE 4619 ACUTE 11-04-2011 [facility] SINUSITIS, HEALTH UNSPECIFIED CLINIC 93690 ACUTE 11-04-2011 [facility] LARYNGITIS, [facility] WITHOUT CLINIC MENTION OF OBSTRUCTIO 52058 DYSPHONIA 11-04-2011 [facility] HEALTH CLINIC 3829 UNSPECIFIED 10-10-2011 [facility] OTITIS HEALTH MEDIA CLINIC 56361 NONSPECIFIC 10-10-2011 [facility] ABNORMAL [facility] AUDITORY CLINIC FUNCTION STUDIES 4556 UNSPEC 09-17-2011 [facility] HEMORRHOIDS HEALTH WITHOUT CLINIC MENTION COMPLICATIO N 92223 CHRONIC 09-17-2011 [facility] VENOUS [facility] HYPERTENSIO CLINIC N WITHOUT COMPS 5693 HEMORRHAGE 09-17-2011 [facility] AND ANUS CLINIC 6980 PRURITUS 09-17-2011 [facility] ANI HEALTH CLINIC 77147 UNSPECIFIED 08-23-2011 [facility] ARTHROPATHY MULTIPLE SITES 74777 UNSPECIFIED 07-22-2011 [facility] LYMPHOID [facility] LEUKEMIA IN CLINIC RELAPSE 7821 RASH AND 07-22-2011 [facility] OTHER HEALTH NONSPECIFIC CLINIC SKIN ERUPTION 2722 MIXED 06-04-2011 [facility] HYPERLIPIDE [facility] 66506 UNSPECIFIED 06-04-2011 [facility] 03289 PAIN IN 06-04-2011 [facility] FOOT HEALTH 47901 CALCANEAL 04-29-2011 [facility] 40380 LYMPHOCYTOS 04-16-2011 [facility] SYMPTOMATIC 4571 OTHER 04-10-2011 [facility] NONINFECTIO US LYMPHEDEMA 54022 SLEEP 12-20-2010 [facility] RELATED LEG [facility]ALTH [facility] CLIN[facility] 23232 GEN 10-25-2010 [facility] OSTEOARTHRO HEALTH SIS CLINIC INVOLVING MULTIPLE SITES 74726 INSOMNIA 10-25-2010 [facility] UNSPECIFIED HEALTH CLINIC 20912 PAIN IN 09-21-2010[facility] JOINT, RADIOLOGY UPPER ARM ASSOCIAT 9299 CRUSHING 09-21-2010[facility] INJURY OF RADIOLOGY UNSPECIFIED ASSOCIAT SITE 9592 INJURY 09-21-2010[facility] OTHER&UNSPE RADIOLOGY CIFIED ASSOCIAT SHOULDER&UP PER ARM 9593 INJURY 09-21-2010[facility] OTHER&UNSPE RADIOLOGY CIFIED ASSOCIAT ELBOW FOREARM&WRI ST 19285 OCCL&STENOS 08-02-2010[facility] MX&BILAT RADIOLOGY PRECERBRL ASSOCIAT ART W/O INFARCT 2859 UNSPECIFIED 07-31-2010 [facility] ANEMIA JARED & DUBILIER 69271 LEUKEMOID 07-31-2010 [facility] REACTION JARED & DUBILIER 2865 HEMORRHAGIC 07-29-2010 [facility] DR[facility] D/O HOSPITAL INTRINSIC CIRC ANTICOAG AB/INHIB 15247 UNSPECIFIED 07-29-2010 [facility] CEREBRAL [facility]OSPITAL ARTERY OCCLUSION W/INFARCT 490 BRONCHITIS 07-29-2010 [facility] DR[facility] NOT HOSPITAL SPECIFIED ACUTE OR CHRONIC 5110 PLEURISY 07-29-2010[facility] WITHOUT RADIOLOGY MENTION ASSOCIAT EFFUS/[place] [address] SCLEROSING 07-29-2010 [facility] S 32047 OTH 07-29-2010[facility] ABNORMAL RADIOLOGY BRAIN & COMPUTER NETWORK SPECIALIST ASSOCIAT FUNCTION STUDY V570 CARE 07-18-2010 [facility] INVOLVING HOSPITAL BREATHING EXERCISES 2181 INTRAMURAL 06-07-2010 [facility] [place] 2362 NEOPLASM OF 05-21-2010 [facility] [place] V7231 ROUTINE 05-21-2010 [facility] [place] V762 SCREENING 05-21-2010 PATHOLOGY & FOR CYTOLOGY MALIG[facility]NT LAB NEOPLASM OF THE CERVIX 5738 OTHER 05-08-2010 [place] SPECIFIED RADIOLOGY DISORDERS ASSOCIAT OF LIVER 5759 UNSPECIFIED 05-08-2010 [place] DISORDER RADIOLOGY OF ASSOCIAT GALLBLADDER 5990 URINARY 05-08-2010 [facility] INFECTION SITE NOT SPECIFIED 6219 UNSPECIFIED 05-08-2010 [place] DISORDER RADIOLOGY OF UTERUS ASSOCIAT 7242 LUMBAGO 05-08-2010 [facility] 7936 NONSPEC ABN 05-08-2010 [facility] ABDOMINAL AREA 1736 OT MALIG 03-13-2010 PATHOLOGY & NEOPLASM CYTOLOGY SKIN UPPER LAB LIMB INCL SHOULDER 1737 [facility] 03-13-2010 [facility] NEOPLASM [place] SKIN LOWER [facility] LIMB INCLUDING HIP 2382 NEOPLASM OF 03-06-2010 [facility] SKIN 44640 UNSPECIFIED 03-06-2010 [facility]STEOPOROSI [facility] S 0413 KLEBSIELLA 09-20-2009 [facility] IN[facility]CTION 2892 NONSPECIFIC 09-20-2009 [facility] LYMPHADENIT IS 5920 CALCULUS OF 09-20-2009 [facility] PSC V1251 PERSONAL 09-20-2009 [facility] HISTORY, HOSPITAL VENOUS THROMBOSIS AND EMBOLISM 32396 ACUT LINNEA 08-18-2009 [place] EMBO&THROMB [facility] DEEP VES [facility] PROX LOWR PSC EXTREM 4549 ASYMPTOMATI 08-18-2009 [facility] VEINS 6826 CELLULITIS 08-18-2009 [facility] EXCEPT FOOT 14030 ABDOMINAL 08-14-2009 PATHOLOGY & PAIN, CYTOLOGY UNSPECIFIED LAB SITE 32006 ABDOMINAL 08-14-2009 [place] [facility] GENERAL[facility]ED [facility] 2163 BENIGN 08-01-2009 DERMATOPATH NEOPLASM OLOGY SKIN ALLINACE OF OTHER&UNSPE C PARTS FACE V7612 OTHER 07-19-2009 [place] [facility] 0091 COLITIS 07-12-2009 [facility] TROENTERIT INTERNAL INF ORIGIN MED 88268 ABDOMINAL 07-12-2009 [facility] PAIN, LEFT VALLEY UPPER INTERNAL QUADRANT MED 7894 ABDOMINAL 03-03-2010 [facility] RIGIDITY VAL[facility] INTERNAL MED 7063 SEBORRHEA 03-27-2009 [facility] 7011 ACQUIRED 03-06-2009 [facility] KERATODERMA [facility] INTERNAL MED 25851 REFLUX 12-02-2008 [facility] ESOPHAGITIS [facility] INTERNAL MED 52590 OTHER 10-11-2008 [facility] CHRONIC [facility] PAIN INTERNAL MED 63528 OSTEOARTHRO 10-11-2008 [facility] S INVLV [place] SIT[facility] BUT INTERNAL NOT SPEC MED GEN 14578 SPINAL 10-11-2008 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 MED 7231 CERVICALGIA 09-27-2008 ROBERTO CARLOS CHEEMA 7820 DISTURBANCE 09-21-2008 [facility] OF [place] CISCO SENSATION INTERNAL MED 17254 BLEPHARITIS 07-28-2008 RAHMAN BRETT A UNSPECIFIED 01638 OBESITY, 04-17-2008 [facility] UNSPECIFIED HOSPITAL 4928 OTHER 04-17-2008 [facility] PSC 70316 URINARY 04-17-2008 [facility] 7068 OTHER 03-09-2008 [facility] DISEASE OF INTERNAL SEBACEOUS MED GLANDS 1104 DERMATOPHYT 03-02-2008 [facility] 1701 MALIGNANT 03-02-2008 [facility] NEOPLASM OF HOSPITAL MANDIBLE 7062 SEBACEOUS 03-02-2008 [facility] 8471 THORACIC 02-15-2008 [facility] STRAIN INTERNAL MED 6256 FEMALE 09-30-2007 HAZEL PLATA, STR[place] E [address] URGE 09-30-2007 HAZ[facility] PLATA, INCONTINENC MARIAA P E 4659 ACUTE URIS 08-14-2007 [facility] UNSPECIFIED INTERNAL SITE MED 4778 ALLERGIC 08-12-2007 [facility] RHINITIS CISCO DUE TO INTERNAL OTHER MED ALLERGEN 63755 HYPERTONICI 07-13-2007 [facility] TY OF [facility] BLADDER INTERNAL MED 5952 OTHER 07-01-2007 [facility] PLATA, CHRONIC MARIAA P CYSTITIS Medications Na ND Rx Da Fi Fi Am Da Di Ph RX Ph St me C No te ll ll ou ys ag ar # ys at rm s nt no ma ic us Or Da si cy ia de te s n re d MA 60 06 07 30 30 00 CA Ac GN 25 -2 -2 .0 00 RL ti ES 80 6- 8- 00 00 IS ve IU 17 20 20 77 LE M 10 17 [address] ID UG E S 40 0 MG TA BL ET 00 06 07 30 30 00 CA Ac PI 60 [...] 40 0 MG TA BL ET 00 09 14 30 30 00 CA Ac PI [...] 40 0 MG TA BL ET 00 04 10 08 30 00 CA Ac PI 60 -0 [...] 0 MG TA BL ET MA 60 05 14 30 30 00 CA Ac GN 25 -3 -0 .0 00 RL ti ES 80 0- 3- 00 00 IS ve IU 17 20 20 76 LE M 10 17 17 [address] ID UG E S 40 0 MG TA BL ET MA 60 05 13 30 30 00 CA Ac GN 25 -0 -0 .0 00 RL ti ES 80 3- 3- 00 00 IS ve IU 17 20 20 76 LE M 10 17 17 [address] ID UG E S 40 0 MG TA BL ET MA 60 12 30 30 00 CA Ac GN 25 [...] 13 [address] BON ZAPIEN UG Y E S C 40 0 [...] 93 11 [address] Terrie MÁRQUEZ UG E 25 CO MP MG AN [...] Falcon UG CO MP AN Y 00 03 09 [...] Falcon UG CO MP AN Y 00 08 08 3 60 30 CA 68 AH Ac 60 -3 -3 .0 RL 55 ME ti 30 1- 1- 00 IS 96 D ve 14 20 20 LE AD 52 [address] Falcon UG CO MP AN Y 00 03 08 [...] ve HY 33 20 20 LE AD 93 11 [address] Falcon IN E 25 CO MP MG AN Y CA PS UL E DO 45 06 08 1 60 30 CA 68 AH Ac CU 80 -1 -0 .0 RL 23 ME ti SA 20 5- 3- 00 IS 98 D ve TE 48 20 20 LE AD 67 [address] Terrie LEE [facility] CO 10 MP 0 AN MG Y [...] .0 RL 23 ME ti EN 33 5- 3- 00 IS 99 D ve HY 33 20 20 LE AD 93 11 [address] Falcon IN UG E 25 CO MP MG AN Y CA PS UL E DO 45 06 06 1 60 30 CA 68 AH Ac CU 80 -1 -1 .0 RL 23 ME ti SA 20 5- 5- 00 IS 98 D ve TE 48 20 20 LE AD 67 [address] Terrie LEE UM CO 10 MP 0 AN MG Y SO FT GE L DI 00 06 06 1 30 30 CA 68 AH Ac PH 60 -1 -1 .0 RL 23 ME ti EN 33 5- 5- 00 IS 99 D ve HY 33 20 20 LE AD 93 11 [address] Falcon IN E 25 CO MP MG AN Y CA PS UL E 00 03 06 5 30 30 CA 67 HU Ac PI 60 -2 -1 .0 RL 94 NT ti RI 30 4- 5- 00 IS 35 ER ve N 02 20 20 LE EC 63 [address] CROCKETT 81 UG Y C MG CO MP TA AN BL Y ET MO 00 03 03 0 12 4 CA 67 HU Ac OM 60 -2 -2 0. RL 94 NT ti ET 31 4 IS 34 ER ve GOLDBERG 58 20 20 0 LE ZI 65 [address] BON Brewer UG Y M C SY CO RU MP P AN Y 00 03 03 5 30 30 CA 67 HU Ac PI 60 -2 -2 .0 RL 94 NT ti RI 30 4 IS 35 ER ve N 02 20 20 LE EC 63 [address] CROCKETT 81 UG Y C MG CO MP TA AN BL Y ET CL 00 03 03 0 28 14 CA 67 BE Ac ON 09 .0 RL 90 SS ti AZ 30 6 IS 79 ON ve EP 83 20 20 LE AM [address] MERCEDES 0. UG HE 5 N MG CO A MP TA AN BL Y ET 00 03 03 0 12 5 CA 67 BE Ac 47 -1 -1 0. RL 90 SS ti 21 6 IS 80 ON ve 62 20 20 0 LE [address] MERCEDES UG HE N CO A MP AN Y MO 00 03 03 0 12 4 CA 67 HU Ac OM 60 -0 -0 0. RL 88 NT ti ET 31 IS 14 ER ve GOLDBERG 58 20 20 0 LE ZI 65 11 [address] BON LY Y M C SY CO RU MP P AN Y SM 49 10 10 0 24 6 CA 67 BE Ac 34 -2 -2 0. RL 41 SS ti TU 80 9- 00 IS 51 ON ve SS 01 20 20 0 LE IN [address] MERCEDES DM UG HE N SY CO A RU MP P AN Y 66 12 12 00 12 4 CA 65 CATRACHITO Ac 99 -0 -1 0. RL 06 SE ti 20 8- 8- 00 IS 82 ve 22 20 [...] S 0.5 ML DOSA GE IM USE Procedures Procedure DOS Code Location Performer Comment O2 CONC 1 E1390 [place] 7 HOME HOME 85%/>02 MEDICAL MEDICAL CONC AT EQUIPME EQUIPME PRSC FLW RATE PRTBLE E0431 [place] [facility] GASE[facility] 7 HOME HOME O2 SYS MEDICAL MEDICAL RENT; EQUIPME EQUIPME FLWMTR HUMIDFR&M ASK PRTBLE E0431 [place] GASEOUS 7 HOME HOME O2 SYS MEDICAL [...] RENT; EQUIPME EQUIPME FLWMTR HUMIDFR&M ASK SBSQ 09116 [place] [address] PHYSICIAN CARE/DAY S GROUP 15 MINUTES SBSQ 62324 [place] [address] PHYSICIAN CARE/DAY S GROUP 25 MINUTES ECG 90937 [facility] ROUTINE 7 [facility] W/LEAST P 12 LDS I&R ONLY RADIOLOGI 37722 MARICARMEN Prince 7 MEDICAL EXAMINATI IMAGING ON CHEST ASS SINGLE VIEW FRONTAL INITIAL [address]5914 [place] [address] PHYSICIAN CARE/DAY S GROUP 70 MINUTES HOSPITAL G0463 [facility]PAT[facility]EN [facility] E E VISIT [facility] ASSESS & MGMT PT COLLECTIO 37542 [facility] N VENOUS 7 [facility] BLOOD E E VENIPUNCT [facility] URE BLOOD 39220 [facility] COUNT 7 [facility] COMPLETE E E AUTO&AUTO [facility]IT[facility] DIFRNTL WBC COMPREHEN 92107 [facility] SIVE 7 [facility] METABOLIC E E PANEL [facility]OSPITALS HOSPITALS COMPREHEN 13105 [facility] 6 Y Y METABOLIC [facility] PANEL COLLECTIO 05849 [facility] N VENOUS 6 Y Y BLOOD [facility] VENIPUNCT [facility] G0463 [facility] OUTPATIEN 6 Y Y T CLIN HOSPITAL HOSPITAL VISIT ASSESS & MGMT PT BLOOD 20507 [facility] COUNT 6 Y Y COMPLETE [facility] AUTO&AUTO DIFRNTL WBC DUPLEX 34539 FAMILIA MENDOSA MENDOSA FAMILIA SCAN 6 MD EXTRACRAN CONSULTIN IAL ART G SRV COMPL BI STUDY DUPLEX 87637 [facility] SCAN 6 [facility] IAL ART COMPL BI STUDY COMPRE 71677 ZEVURBON GOLD SET AUDIOMETR 6 PHYSICIAN Y PRACTICE THRESHOLD L EVAL SP RECOGNIJ TYMPANOME 12097 [facility] GOLD SET TRY 6 PHYSICIAN PRACTICE L RADIOLOGI 55663 CONNECTICUT DENI C EXAM 6 [facility] CHEST 2 IMAGING VIEWS ASS FRONTAL&L ATERAL RADIOLOGI 55737 CONNECT[place]UT MONIQUE ALL C EXAM 6 MEDICAL CHEST 2 IMAGING VIEWS ASS FRONTAL&L ATERAL INJECTION J1650 JENNY ALVARADO [address] [place] [address] N SODIUM 10 MG INJECTION J2270 [facility] MORPHINE [address] [place] [address] UP TO 10 MG ADMINISTR G0008 [facility] ATION OF [address] [place] [address] VIRUS VACCINE IIV3 VACC 65685 [facility] IVELISSE[address] A[place] FREE 0.5 ML DOSAGE IM USE INJECTION J2405 [facility] [address] ON HCL PER 1 MG BASIC 14997 [facility] METABOLIC [address] [place] [address] CALCIUM TOTAL BLOOD 43656 JENNY ALVARADO COUNT 5 [facility] AUTOMATED COLLECTIO 48014 JENNY ALVARADO N VENOUS 5 [facility] VENIPUNCT URE NONCOVERE A9270 JENNY ALVARADO D ITEM OR 5 [facility] NONCOVERE A9270 JENNY ALVARADO D ITEM OR 5 [place] [place] [address] JENNY ALVARADO THYROID 5 [facility] [place] [address] JENNY ALVARADO BLOOD/URI 5 [facility] COLLECTIO 41381 JENNY ALVARADO N VENOUS 5 [facility] VENIPUNCT URE C-REACTIV 86203 JENNY ALVARADO E PROTEIN 5 [facility] URNLS DIP 36834 [facility] [address] [place] [address] [facility] HOSPITAL LET REAGENT AUTO MICROSCOP Y NATRIURET 43152 JENNY ALVARADO IC [address] [place] [address] [place] [address] [facility] TROPONIN 5 [facility] [place] [address] JENNY ALVARADO HEAD/BRAI [address] [place] [address] N W/O HOSPITAL HOSPITAL CONTRAST MATERIAL BLOOD 30886 JENNY ALVARADO COUNT 5 [facility] HOSPITAL AUTO&AUTO DIFRNTL WBC HOSPITAL G0378 [facility] OBSERVATI [address] [place] [address] ON HOSPITAL HOSPITAL SERVICE PER HOUR SEDIMENTA 44121 [facility] TION RATE 5 [facility] HOSP[facility] NON-AUTOM ATED COMPREHEN 49550 [facility] SIVE [address] [place] [address] METABOLIC [facility]OS[facility]ITAL HOSPITAL PANEL ECG 96413 [facility] ROUTINE [address] [place] [address] ECG HOSPITAL HOSPITAL W/LEAST 12 LDS TRCG ONLY W/O I&R CT THORAX 09744 [facility] [place] MAT W/O [address] [place] [address] [facility] [place] [facility] HEAD/BRAI 5 RADIOLOGY N W/O CONTRAST MATERIAL ECG 25148 YUMIKO [place] JR ROUTINE 5 [facility] W/LEAST P 12 LDS I&R ONLY RADIOLOGI 03637 YUMIKO YUMIKO C EXAM 5 MEM HOSP MEM HOSP CHEST 2 INC INC VIEWS FRONTAL&L ATERAL RADIOLOGI 67867 YUMIKO YUMIKO C EXAM 5 [facility] MEM HOSP CHEST 2 INC INC VIEWS FRONTAL&L ATERAL DISPBL T4535 [facility] LINER/ISABELLE 5 HOME HOME ELD/GUARD HEALTH HEALTH /PAD/UNDG AGENCY AGENCY RMNT INCONT EA INJECTION J0696 PEPE PEPE [address] [place] [address] URGENT URGENT NE SODIUM TREAT TREAT PER 250 MG 25 77641 [facility] HYDROXY 5 [place] INCLUDES HOLDINGS HOLDINGS FRACTIONS IF PERFORMED CYANOCOBA 16679 [facility] AMBAR 5 [place] VITAMIN HOLDINGS [place] B-[address] [place] [address] LAB [facility] MAGNESIUM 5 [place] [facility] HOLDINGS GENERAL 06123 [facility] J[facility] HEALTH 5 [facility] [place] PANEL [facility] HOLDINGS LIPID 95117 [facility] PANEL 5 [facility] [address] LAB J[facility] LAB J[facility] FOLIC 5 [facility] [place] ACID [facility] HOLDINGS SERUM RADEX 69329 [facility] DENI RIBS 5 [facility]ICAL [facility] UNILATERA IMAGING L 2 VIEWS ASS RADIOLOGI 19481 [facility] DENI C EXAM 5 [facility] CHEST 2 IMAGING VIEWS ASS FRONTAL&L ATERAL DISPBL T4535 [facility] LINER/ISABELLE 5 HOME HOME ELD/GUARD HEALTH HEALTH /PAD/UNDG AGENCY AGENCY RMNT INCONT EA CUL BACT 32662 LAB [facility] J[facility] XCPT 5 [place] URINE [facility]INGS HOLDINGS BLOOD/STO OL AEROBIC ISOL BASIC 85340 LAB J[facility] LAB JUANI METABOLIC 4 [facility] [place] [address] YUMIKO CALDERON INFUSION 4 [facility] THERAPY/P INC INC ROPHYLAXI S /DX 1ST TO 1 HR THERAPEUT 93641 YUMIKO CALDERON IC 4 [facility] INJECTION INC INC IV PUSH EACH [facility] 94059 [facility] DISCHARGE 4 PHYSICIAN PHYSICIAN DAY S GROUP S GROUP MANAGEMEN T 30 MIN/< RADIOLOGI 08410 MARICARMEN CHEEMA C EXAM 4 [facility] CHEST 2 IMAGING VIEWS ASS FRONTAL&L ATERAL ECG 86842 YUMIKO [place] JR ROUTINE 4 [facility] W/LEAST P 12 LDS I&R ONLY PRESSURIZ 17939 YUMIKO CALDERON ED/NONPRE 4 [facility] HOSP SSURIZED INC INC INHALATIO N TREATMENT RADIOLOGI 70336 YUMIKO CALDERON C EXAM 4 [facility] HOSP CHEST 2 INC INC VIEWS FRONTAL&[place] [address] YUMIKO CALDERON HEAD/BRAI 4 [facility] MEM HOSP N W/O INC INC CONTRAST MATERIAL ECG 42628 YUMIKO CALDERON ROUTINE 4 [facility] HOSP ECG INC INC W/LEAST 12 LDS TRCG ONLY W/O I&R ECG 72509 YUMIKO CALDERON ROUTINE 4 [facility] MEM HOSP ECG INC INC W/LEAST 12 LDS TRCG ONLY W/O I&R RADIOLOGI 62409 YUMIKO CALDERON C 4 [facility] HOSP EXAMINATI INC INC [place] [address] YUMIKO CALDERON INFUSION 4 [facility] HOSP THER INC INC PROPH ADDL SEQUENTIA L [place] [address] YUMIKO CALDERON INFUSION 4 [facility] HOSP THERAPY/P INC INC ROPHYLAXI S /DX 1ST TO 1 HR DEBRIDEME 47013 LAUSE FED LAUSE FED NT NAIL 4 ANY METHOD 6/> HOSPITAL G0463 [facility] 4 Y Y T CLIN HOSPITAL HOSPITAL VISIT ASSESS & MGMT PT DISPBL T4535 NURSES NURSES LINER/ISABELLE 4 REGISTRY REGISTRY ELD/GUARD HOME HOME /PAD/UNDG HLTHTCA HLTHTCA RMNT INCONT EA DISPBL T4535 NURSES NURSES LINER/ISABELLE 4 REGISTRY REGISTRY ELD/GUARD HOME HOME /PAD/UNDG HLTHTCA HLTHTCA RMNT INCONT EA NONCOVERE A9270 JENNY ALVARADO D ITEM OR 4 [facility] NONCOVERE A9270 [facility] D ITEM OR 4 [facility] RADIOLOGI 19604 HAYDER HAYDER C EXAM 4 RHO RHO CHEST 2 VIEWS FRONTAL&L ATERAL ECG 98221 JENNY ALVARADO ROUTINE 4 [facility] W/LEAST 12 LDS TRCG ONLY W/O I&R RADEX 97035 [employer], [employer], ABDOMEN 4 ENGRAVER LETTER ENGRAVER LETTER COMPL PEPE CANTU W/DCBTS&/ [place] [address] Anafore, ABDOMEN & 4 ENGRAVER LETTER ENGRAVER LETTER PELVIS PEPEHien CANTU W/O CO HOS CO HOS CONTRAST MATERIAL RADIOLOGI 26881 [employer], [employer], C EXAM 4 ENGRAVER LETTER ENGRAVER LETTER CHEST 2 PPEE PEPE VIEWS CO HOS CO HOS FRONTAL&[place] [address] [employer], [employer], INFUSION 4 ENGRAVER LETTER ENGRAVER LETTER HYDRATION PEPE PEPE INITIAL CO HOS CO HOS 31 MIN-1 HOUR DISPBL T4535 NURSES NURSES LINER/ISABELLE 4 REGISTRY REGISTRY ELD/GUARD HOME HOME /PAD/UNDG HLTHTCA HLTHTCA RMNT INCONT EA DISPBL T4535 NURSES NURSES LINER/ISABELLE 4 REGISTRY REGISTRY ELD/GUARD & HOME HE & HOME HE /PAD/UNDG RMNT INCONT EA DESTRUCTI 80443 MUSIC HOWARD MUSIC HOWARD ON 4 PREMALIGN ANT LESION 15/> DISPBL T4535 NURSES NURSES LINER/ISABELLE 4 REGISTRY REGISTRY ELD/GUARD & HOME HE & HOME HE /PAD/UNDG RMNT INCONT EA ECG 49601 MENDOSA FAMILIA MENDOSA FAMILIA ROUTINE 4 ECG W/LEAST 12 LDS I&R ONLY ECG 28454 [employer], ROUTINE 4 ENGRAVER LETTER ENGRAVER LETTER ECG PEPE CANTU W/LEAST CO HOS CO HOS 12 LDS TRCG ONLY W/O I&R DISPBL T4535 NURSES NURSES LINER/ISABELLE 4 REGISTRY REGISTRY ELD/GUARD & HOME HE & HOME HE /[place] [address] [facility] [employer], [facility] INC, INFUSION 4 ENGRAVER LETTER ENGRAVER LETTER HYDRATION PEPE CANTU INITIAL CO HOS CO HOS 31 MIN-1 HOUR INJECTION J2405 [facility] INC, 4 ENGRAVER LETTER ENGRAVER LETTER ONDANSETR PEEP CANTU ON HCL CO HOS CO HOS PER 1 [place] [address] [facility] INC, INFUSION 4 ENGRAVER LETTER ENGRAVER LETTER THERAPY/P PEPE CANTU ROPHYLAXI CO HOS CO HOS S /DX 1ST TO 1 HR THER 93993 [facility] [employer] [facility] INC, PROPH/DX 4 ENGRAVER LETTER ENGRAVER LETTER NJX IV PEPE CANTU PUSH CO HOS CO HOS SINGLE/1S T SBST/DRUG DISPBL T4535 NURSES NURSES LINER/[facility] 4 REGISTRY REGISTRY ELD/GUARD & HOME HE & HOME HE /PAD/UNDG RMNT INCONT [facility] G0463 [facility] 4 Y Y T [facility]OSPITAL VISIT ASSESS & MGMT PT DEBRIDEME 58805 LAUSE FED LAUSE FED NT NAIL 3 ANY METHOD 6/> DUP-SCAN 16249 ATKINS ATKINS XTR VEINS 3 COL COL COMPLETE BILATERAL STUDY DISPBL T4535 NURSES NURSES LINER/[facility] 3 REGISTRY REGISTRY ELD/GUARD & HOME HE & HOME HE /PAD/UNDG RMNT INCONT EA DEBRIDEME 14450 LAUSE FED LAUSE FED NT NAIL 3 ANY METHOD 6/> DISPBL T4535 NURSES NURSES LINER/[facility] 3 REGISTRY REGISTRY ELD/GUARD & HOME HE & HOME HE /PAD/UNDG RMNT INCONT EA DUP-SCAN 02745 ATKINS ATKINS XTR VEINS 3 COL COL UNILATERA L/LIMITED STUDY STAB 16376 ATKINS ATKINS PHLEBT 3 COL COL VARICOSE VEINS 1 XTR > 20 INCS ENDOVEN 37902 ATKINS ATKINS ABLTJ 3 COL COL INCMPTNT VEIN XTR LASER 1ST VEIN DISPBL T4535 NURSES NURSES LINER/ISABELLE 3 REGISTRY REGISTRY ELD/GUARD & HOME HE & HOME HE /PAD/UNDG RMNT INCONT EA DUP-SCAN 78835 ATKINS ATKINS XTR VEINS 3 COL COL UNILATERA L/LIMITED STUDY STAB 74373 ATKINS ATKINS PHLEBT 3 COL COL VARICOSE VEINS 1 XTR 10-20 STAB INCS ENDOVEN 97199 ATKINS ATKINS ABLTJ 3 COL COL INCMPTNT VEIN XTR LASER 1ST VEIN COLLECTIO 09580 [facility] VENOUS 3 Y Y BLOOD [facility] [place] [address] LUKINS LUKINS HEAD/BRAI 3 [facility] N W/O CONTRAST MATERIAL BLOOD 10131 [facility] COUNT 3 Y Y JOINT VENTURE [facility] AUTOMATED RADIOLOGI 24464 [facility] 3 [facility] 2 VIEWS RADIOLOGI 93595 [facility] C 3 GAR GAR EXAMINATI ON KNEE 3 VIEWS BASIC 08790 [facility] METABOLIC 3 Y Y [facility] CALCIUM TOTAL RADIOLOGI 61649 [facility] 3 GAR GAR EXAMINATI ON TIBIA & FIBULA 2 VIEWS ECG 36216 AHMED ADN AHMED ADN ROUTINE 3 ECG W/LEAST 12 LDS I&R ONLY RADIOLOGI 86690 [facility] [employer], [facility] INC, C EXAM 3 ENGRAVER LETTER ENGRAVER LETTER CHEST 2 PEPE PEPE VIEWS CO HOS CO HOS FRONTAL&[place] [address] [facility] [employer], [facility] INC, INFUSION 3 ENGRAVER LETTER ENGRAVER LETTER HYDRATION PEPE PEPE INITIAL CO HOS CO HOS 31 MIN-1 HOUR LOCM Q9967 [facility] [employer], [facility] INC, 300-399 3 ENGRAVER LETTER ENGRAVER LETTER MG/ML PEPE CANTU IODINE CO HOS CO HOS CONCENTRA TION PER ML INJECTION J2405 [facility] [employer], [facility] INC, 3 ENGRAVER LETTER ENGRAVER LETTER ONDANSETR PEPE CANTU ON HCL CO HOS CO HOS PER [address] [place] [address] [facility] [employer], [facility] INC, ABDOMEN & 3 ENGRAVER LETTER ENGRAVER LETTER PELVIS PEPE CANTU W/O CO HOS CO HOS CONTRST 1/> [place] [address] [facility] INC, [employer], INFUSION 3 ENGRAVER LETTER ENGRAVER LETTER THERAPY/P PEPE CANTU ROPHYLAXI CO HOS CO HOS S /DX 1ST TO 1 HR THER 53117 [employer], [employer], PROPH/DX 3 ENGRAVER LETTER ENGRAVER LETTER NJX IV PEPE CANTU PUSH CO HOS CO HOS SINGLE/1S T SBST/DRUG ECG 94324 [employer], [employer], ROUTINE 3 ENGRAVER LETTER ENGRAVER LETTER ECG PEPE PEPE W/LEAST CO HOS CO HOS 12 LDS TRCG ONLY W/O I&R US SOFT 80052 [facility] TISSUE 3 ANNIE ANNIE HEAD & NECK REAL TIME IMGE DOCM BASIC 60733 [facility] METABOLIC 3 Y Y PANEL HOSPITAL [place] [address] [facility] 1/> AREAS 3 Y Y EA 15 HOSPITAL HOSPITAL MIN GAIT TRAINJ W/STAIR PRESSURIZ 31704 [facility] ED/NONPRE 3 Y Y SSURIZED HOSPITAL HOSPITAL INHALATIO N TREATMENT BLOOD 99394 [facility] COUNT 3 Y Y COMPLETE HOSPITAL [facility] AUTOMATED HOSPITAL G0378 [facility] OBSERVATI 3 Y Y ON HOSPITAL HOSPITAL SERVICE PER HOUR NONCOVERE A9270 [facility] D ITEM OR 3 Y Y SERVICE [facility]PITAL HOSPITAL INJECTION J1956 [facility] 3 Y Y LEVOFLOXA [facility] KRISTIN 250 MG INJECTION J1644 [facility] HEPARIN 3 Y Y SODIUM HOSPITAL HOSPITAL PER 1000 UNITS PHYSICAL 27277 [facility] THERAPY 3 Y Y EVALUATIO [facility]OSPITAL N INJECTION J1956 [facility] 3 Y Y [facility]OSPITAL KRISTIN 250 MG INJECTION J1644 [facility] HEPARIN 3 Y Y SODIUM HOSPITAL HOSPITAL PER 1000 UNITS ECG 00070 [facility] ROUTINE 3 Y Y ECG HOSPITAL HOSPITAL W/LEAST 12 LDS TRCG ONLY W/O I&R NONCOVERE A9270 [facility] D ITEM OR 3 Y Y [facility]ICE [facility]PITAL [facility]OSPITAL BLOOD 21513 [facility] 3 Y Y COMPLETE HOS[facility] AUTO&AUTO DIFRNTL WBC CULTURE 68601 [facility] BACTERIAL 3 Y Y BLOOD [facility] AEROBIC W/ID ISOLATES PRESSURIZ 49209 [facility] ED/NONPRE 3 Y Y SSURIZED [facility] INHALATIO N TREATMENT COMPREHEN 65166 [facility] SIVE 3 Y Y METABOLIC [facility] PANEL RADIOLOGI 39063 RADAHMES RICCI C EXAM 3 PHI PHI CHEST 2 VIEWS FRONTAL&L ATERAL INFUSION J7030 [facility] NORMAL 3 Y Y SALINE [facility] SOLUTION [address] [place] [id number] [facility], [facility], INFUSION 3 ENGRAVER LETTER ENGRAVER LETTER THERAPY/P PEPE CANTU ROPHYLAXI CO HOS CO HOS S /DX 1ST TO 1 HR INJECTION [id number] [facility], [facility], 3 ENGRAVER LETTER ENGRAVER LETTER ONDANSETR PEPE CANTU ON HCL CO HOS CO HOS PER 1 MG ECG 87186 AHMED ADN AHMED ADN ROUTINE 3 ECG W/LEAST 12 LDS I&[place] [address] [facility], [facility], INFUSION 3 ENGRAVER LETTER ENGRAVER LETTER HYDRATION PEPE PEPE INITIAL [facility] CO HOS 31 MIN-1 [place] [address] [facility], [facility], INFUSION 3 ENGRAVER LETTER ENGRAVER LETTER HYDRATION PEPE PEPE EACH [facility] CO HOS ADDITIONA L HOUR ARTERIAL 67184 [facility], [facility], PUNCTURE 3 ENGRAVER LETTER ENGRAVER LETTER WITHDRAWA PEPE CANTU L BLOOD CO HOS CO HOS DX RADIOLOGI 36119 [facility], [facility], C 3 ENGRAVER LETTER ENGRAVER LETTER EXAMINATI PEPE CANTU ON CHEST CO HOS CO HOS SINGLE VIEW FRONTAL INSJ TEMP 03236 [facility], [facility], NDWELLG 3 ENGRAVER LETTER ENGRAVER LETTER BLADDER PEPE CANTU CATHETER CO HOS CO HOS SIMPLE ECG 92607 [facility], [facility], ROUTINE 3 ENGRAVER LETTER ENGRAVER LETTER ECG PEPE PEPE W/LEAST CO HOS CO HOS 12 LDS TRCG ONLY W/O I&R THER 09960 [facility], [facility], PROPH/DX 3 ENGRAVER LETTER ENGRAVER LETTER NJX IV PEPE PEPE PUSH CO HOS CO HOS SINGLE/1S T SBST/DRUG INJECTION J0456 [facility], [facility], 3 ENGRAVER LETTER ENGRAVER LETTER AZITHROMY PEPE CANTU KRISTIN 500 CO H[facility] CO HOS MG INJECTION J0696 [facility], [facility], 3 ENGRAVER LETTER ENGRAVER LETTER CEFTRIAXO PEPE CANTU NE SODIUM CO HOS CO HOS PER 250 MG PRESSURIZ 03813 [facility], [facility], ED/NONPRE 3 ENGRAVER LETTER ENGRAVER LETTER SSURIZED PEPE MORAS INHALATIO CO HOS CO HOS N TREATMENT NONINVASI 67704 [facility], [facility], VE 3 ENGRAVER LETTER ENGRAVER LETTER EAR/PULSE PEPE PEPE OXIMETRY [place] [address] [facility], [facility], INFUSION 3 ENGRAVER LETTER ENGRAVER LETTER THERAPY/P PEPE MORAS ROPHYLAXI CO HOS CO HOS S /DX 1ST TO 1 HR LOCM Q9967 [facility], [facility], [phone] 3 ENGRAVER LETTER ENGRAVER LETTER MG/ML PEPE CANTU IODINE CO HOS CO HOS CONCENTRA TION PER ML RADIOLOGI 28198 [facility], [facility], C EXAM 3 ENGRAVER LETTER ENGRAVER LETTER CHEST 2 PEPE PEPE VIEWS CO HOS CO HOS FRONTAL&L ATERAL CT THORAX 80108 ETIENNE CLIFTON 3 ANNIE ANNIE W/CONTRAS T MATERIAL ARTERIAL 90923 [facility], PUNCTURE 3 ENGRAVER LETTER ENGRAVER LETTER WITHDRAWA PEPE [place] [address] [facility], ANGIOGRAP 3 ENGRAVER LETTER ENGRAVER LETTER HY CHEST PEPE PEPE W/CONTRAS CO HOS CO HOS T/NONCONT [facility] G0378 [facility], OBSERVATI 3 ENGRAVER LETTER ENGRAVER LETTER ON PEPE PEPE SERVICE CO HOS CO HOS PER HOUR DEBRIDEME 62295 LAUSE FED LAUSE FED NT NAIL 3 ANY METHOD 6/> RADIOLOGI 98564 DEVIN BELTRAN C EXAM 3 BETH BETH KNEE COMPLETE 4/[place] [address] [facility], HEAD/BRAI 3 ENGRAVER LETTER ENGRAVER LETTER N W/O PEPE PEPE CONTRAST CO HOS CO HOS MATERIAL RADIOLOGI 33147 [facility], C 3 ENGRAVER LETTER ENGRAVER LETTER EXAMINATI PEPE CANTU ON KNEE 3 CO HOS CO HOS VIEWS DISPBL T4535 NURSES NURSES LINER/ISABELLE 3 REGISTRY REGISTRY ELD/GUARD & HOME HE & HOME HE /PAD/UNDG RMNT INCONT EA DISPBL T4535 NURSES NURSES LINER/ISABELLE 3 REGISTRY REGISTRY ELD/GUARD & HOME HE & HOME HE /PAD/UNDG RMNT INCONT EA INJECTION J1885 [facility], 3 ENGRAVER LETTER ENGRAVER LETTER KETOROLAC PEPE VILLARREALOLAS CO HOS CO HOS TROMETHAM INE PER 15 MG RADIOLOGI 13946 JUICE BOSE C EXAM 3 EIDER CLAYTON ARNOLD CHEST 2 VIEWS FRONTAL&L ATERAL PRESSURIZ 32130 [facility], ED/NONPRE 3 ENGRAVER LETTER ENGRAVER LETTER SSURIZED PEPE CANTU INHALATIO [place] [address] [facility], WALL 3 ENGRAVER LETTER ENGRAVER LETTER FACILITAT PEPE CANTU E LNG CO HOS CO HOS FUNCJ 1 DEMO&/JONNY L NONINVASI 02291 [facility], VE 3 ENGRAVER LETTER ENGRAVER LETTER EAR/PULSE PEPE CANTU OXIMETRY CO HOS CO HOS MULTIPLE DETER INITIAL 30083 AHMED ADN AHMED ADN OBSERVATI 3 ON CARE/DAY 30 [place] [address] [facility], INFUSION 3 ENGRAVER LETTER ENGRAVER LETTER THERAPY/P PEPE CANTU ROPHYLAXI CO HOS CO HOS S /DX 1ST TO 1 HR RADIOLOGI 65634 JUICE BOSE C EXAM 3 EIDER CLAYTON MENDOZA CLAYTON CHEST 2 VIEWS FRONTAL&L [facility] G0378 [facility], OBSERVATI 3 ENGRAVER LETTER ENGRAVER LETTER ON PEPE CANTU SERVICE CO HOS CO HOS PER HOUR DIRECT G0379 [facility], ADMISSION 3 ENGRAVER LETTER ENGRAVER LETTER PATIENT [facility] CO HOS OBSERV CARE DISPBL T4535 NURSES NURSES LINER/ISABELLE 2 REGISTRY REGISTRY ELD/GUARD & HOME HE & HOME HE /PAD/UNDG RMNT INCONT EA ECG 68698 AHMED ADN AHMED ADN ROUTINE 2 ECG W/LEAST 12 LDS TRCG ONLY W/O I&R DISPBL T4535 NURSES NURSES LINER/ISABELLE 2 REGISTRY REGISTRY ELD/GUARD & HOME HE & HOME HE /PAD/UNDG RMNT INCONT EA DUP-SCAN 01643 NO REBEKAH NO REBEKAH XTR VEINS 2 COMPLETE BILATERAL STUDY DISPBL T4535 NURSES NURSES LINER/ISABELLE 2 REGISTRY REGISTRY ELD/GUARD & HOME HE & HOME HE /PAD/UNDG RMNT INCONT EA DISPBL T4535 NURSES NURSES LINER/ISABELLE 2 REGISTRY REGISTRY ELD/GUARD & HOME HE & HOME HE /PAD/UNDG RMNT INCONT EA NATRIURET 43577 [facility] [employer], [facility], IC 2 ENGRAVER LETTER ENGRAVER LETTER PEPTIDE PEPE CANTU CO HOS CO HOS BLOOD 49136 [facility] [employer], [facility], COUNT 2 ENGRAVER LETTER ENGRAVER LETTER COMPLETE PEPE CANTU AUTO&AUTO CO HOS CO HOS DIFRNTL WBC URNLS DIP 80843 [facility] [employer], [facility], 2 ENGRAVER LETTER ENGRAVER LETTER STICK/TAB PEPE CANTU LET RGNT CO HOS CO HOS AUTO W/O MICROSCOP Y BASIC 59375 [facility] [employer], [facility], METABOLIC 2 ENGRAVER LETTER ENGRAVER LETTER PANEL PEPE CANT[place] [address] [facility] [employer], [facility], INFUSION 2 ENGRAVER LETTER ENGRAVER LETTER THERAPY/P PEPE CANTU ROPHYLAXI CO HOS CO HOS S /DX 1ST TO 1 HR RADIOLOGI 12492 [facility] [employer], [facility], C EXAM 2 ENGRAVER LETTER ENGRAVER LETTER CHEST 2 PEPE CANTU VIEWS CO HOS CO HOS FRONTAL&L ATERAL FIBRIN 59216 [facility] [employer], [facility], DGRADJ 2 ENGRAVER LETTER ENGRAVER LETTER PRODUCTS PEPE CANTU D-DIMER CO HOS CO HOS QUANTITAT ADELINA ECG 47563 [facility] [employer], [facility], ROUTINE 2 ENGRAVER LETTER ENGRAVER LETTER ECG PEPE CANTU W/LEAST CO HOS CO HOS 12 LDS TRCG ONLY W/O I&R THER 09227 [facility], [facility], PROPH/DX 2 ENGRAVER LETTER ENGRAVER LETTER NJX IV PEPE PEPE PUSH CO HOS CO HOS SINGLE/1S T SBST/[place] [address] [facility], INFUSION 2 ENGRAVER LETTER ENGRAVER LETTER HYDRATION PEPE PEPE EACH CO HOS CO HOS ADDITIONA L HOUR RADIOLOGI 48182 [facility] C EXAM 2 BETH CHEST 2 RADIOLOGY VIEWS ASSOCIAT FRONTAL&[place] [address] [facility], INFUSION 2 ENGRAVER LETTER ENGRAVER LETTER HYDRATION PEPE PEPE INITIAL CO HOS CO HOS 31 MIN-1 [place] [address] [facility], INFUSION 2 ENGRAVER LETTER ENGRAVER LETTER THERAPY/P PEPE PEPE ROPHYLAXI CO HOS CO HOS S /DX 1ST TO 1 [place] [address] [facility] [address] IMAGING IMAGING ATTENUATI L L ON SKULL BASE MID-THIGH COMPREHEN 69672 [facility], [facility], SIVE 2 ENGRAVER LETTER ENGRAVER LETTER METABOLIC PEPE PEPE PANEL CO HOS CO HOS RADIOLOGI 86422 [facility], C EXAM 2 ENGRAVER LETTER ENGRAVER LETTER CHEST 2 PEPE PEPE VIEWS CO HOS CO HOS FRONTAL&L ATERAL BLOOD 88154 [facility], COUNT 2 ENGRAVER LETTER ENGRAVER LETTER SMEAR PEPE MORAS MCRSCP CO HOS CO HOS W/MNL DIFRNTL WBC COUNT BLOOD 33339 [facility], [facility], COUNT 2 ENGRAVER LETTER ENGRAVER LETTER COMPLETE PEPE PEPE AUTO&AUTO CO HOS CO HOS DIFRNTL WBC NATRIURET 73511 [facility], [facility], IC 2 ENGRAVER LETTER ENGRAVER LETTER PEPTIDE PEPE PEPE CO HOS CO HOS PROTHROMB 77298 [facility], IN TIME 2 ENGRAVER LETTER ENGRAVER LETTER PEPE PEPE CO HOS CO HOS SEDIMENTA 67596 [facility], TION RATE 2 ENGRAVER LETTER ENGRAVER LETTER RBC PEPE PEPE NON-AUTOM CO HOS CO HOS ATED DUP-SCAN 91726 YUMIKO CALDERON XTR VEINS 2 [facility] INC UNILATERA L/LIMITED STUDY DISPBL T4535 NURSES NURSES LINER/ISABELLE 2 REGISTRY REGISTRY ELD/GUARD & HOME HE & HOME HE /PAD/UNDG RMNT INCONT EA DISPBL T4535 NURSES NURSES LINER/ISABELLE 2 REGISTRY REGISTRY ELD/GUARD & HOME HE & HOME HE /[place] [address] NEW NEW SURG 1 [facility] PATHOLOGY CLINIC CLINIC PSC PSC GROSS&PHI ROSCOPIC EXAM DECALCIFI 00328 NEW NEW CATION 1 [facility] PROCEDURE CLINIC CLINIC PSC PSC BONE 34240 [place] 1 [facility] [place]ST[place] [address] [facility] [address] IMAGING IMAGING ATTENUATI L L ON SKULL BASE MID-THIGH COMPREHEN 40929 [facility] SIVE 1 [facility] [address] [facility] BLOOD/URI 1 [facility] C ACID LACTATE 40624 [facility] DEHYDROGE 1 [facility] NASE LDH COLLECTIO 15039 [facility] N VENOUS 1 [facility] BLOOD VENIPUNCT URE BLOOD 60719 [facility] COUNT 1 [facility] COMPLETE AUTO&AUTO DIFRNTL WBC RADEX 76509 [facility] ANKLE 1 [facility] COMPLETE MINIMUM 3 VIEWS FLOW 44013 [facility] CYTOMETRY 1 [facility] CELL SURF MARKER TECHL ONLY 1ST CHRMSM 55017 [facility] COUNT 1 [facility] 15-20 CLL 2KARYOTYP BANDING CHRMSM 60117 [facility] ANALYSIS 1 [facility] ADDL KARYOTYP EACH STUDY COLLECTIO 96628 [facility] N VENOUS 1 [facility] BLOOD VENIPUNCT URE FLOW 76173 [facility] CYTOMETRY 1 [facility] CELL SURF MARKER TECHL ONLY EA FLOW 27774 [facility] CYTOMETRY 1 [facility] INTERPRET ATION 16/> MARKERS DISPBL T4535 NURSES NURSES LINER/ISABELLE 1 REGISTRY REGISTRY ELD/GUARD & HOME HE & HOME HE /PAD/UNDG RMNT INCONT EA DISPBL T4535 NURSES NURSES LINER/ISABELLE 1 REGISTRY REGISTRY ELD/GUARD & HOME HE & HOME HE /PAD/UNDG RMNT INCONT EA DESTRUCTI 28609 [facility] ON [address] [facility] CLINIC LESION 1ST RADIOLOGI 55073 PEPE CANTU C 1 CO CO EXAMINATI [facility] ON TIBIA & FIBULA 2 VIEWS RADEX 31170 PEPE CANTU ELBOW 1 CO CO COMPLETE [facility] MINIMUM 3 VIEWS RADEX 21125 PEPE CANTU FOREARM 2 1 CO CO VIEWS [facility] DUPLEX 28851 [facility] SCAN [facility] RADIOLOGY IAL ART ASSOCIAT COMPL BI STUDY BLOOD 71829 [facility] ISABELA PAT SMEAR 1 JARED & PERIPHERA DUBILIER L INTERP PHYS W/[place] [address] [facility] HEAD/BRAI 1 BETH N W/O RADIOLOGY CONTRAST ASSOCIAT MATERIAL RADEX 74956 [facility] ABDOMEN 1 BETH COMPL RADIOLOGY W/DCBTS&/ ASSOCIAT ERC VIEWS ECG 54900 PEPE CANTU ROUTINE 1 CO CO ECG [facility] W/LEAST 12 LDS TRCG ONLY W/O I&R DEMO&/JONNY 47513 PEPE Velazquez OF PT 1 CO CO UTILIZ [facility] AERSL GEN/NEB/I NHLR/IP ANTIBODY 84626 PEPE C[facility]U INFLUENZA 1 CO CO VIRUS [facility] BLOOD 08847 [facility]U COUNT 1 CO CO SMEAR [facility] MCRSCP W/MNL DIFRNTL WBC COUNT COLLECTIO 02900 PEPE Falcon VENOUS 1 CO CO BLOOD [facility] VENIPUNCT URE BASIC 77950 [facility]PE [facility]U METABOLIC 1 CO CO PANEL [facility] CALCIUM TOTAL PRESSURIZ 35945 [facility]U ED/NONPRE 1 CO CO SSURIZED [facility] INHALATIO N TREATMENT RADIOLOGI 73115 [facility] C EXAM 1 BETH CHEST 2 RADIOLOGY VIEWS ASSOCIAT FRONTAL&L ATERAL COMPREHEN 66043 COMBINED COMBINED SIVE 1 PHYSICIAN PHYSICIAN METABOLIC S LA S LA PANEL PROTHROMB 74987 COMBINED COMBINED IN TIME 1 PHYSICIAN PHYSICIAN S LA S LA LIPID 37873 COMBINED COMBINED PANEL 1 PHYSICIAN PHYSICIAN S LA S LA BLOOD 16768 COMBINED COMBINED COUNT 1 PHYSICIAN PHYSICIAN COMPLETE S LA S LA AUTO&[place] [address] COMBINED COMBINED THYROID 1 PHYSICIAN PHYSICIAN STIMULATI S LA S LA NG HORMONE TSH RADEX 17959 PEPE C[facility]U RIBS UNI 1 CO CO W/POSTERO [facility] ANT CH MINIMUM 3 VIEWS RADEX 95252 [place] [facility] RIBS 1 BETH UNILATERA RADIOLOGY L 2 VIEWS ASSOCIAT RADIOLOGI 64823 PEPE [facility]ANTU C EXAM 1 CO CO CHEST 2 [facility] HOSPITAL VIEWS FRONTAL&[place] [address] [facility] TRANSVAGI [facility] [place] CERV/VAGI G0101 [facility] NAL 1 [facility]CR; [place] PELV&CLIN BREAST EXAM SCR G0145 PATHOLOGY PATHOLOGY CYTOPATH 1 & & CERV/VAG CYTOLOGY CYTOLOGY SCR LAB LAB AUTO&MNL RSCR PHYS SCREEN Q0091 [facility] PAP 1 [facility] SMEAR; CLINIC OF [place] [place] PREP &C ONVEY TO LAB RADIOLOGI 04678 [employer] C EXAM 1 ANNIE CHEST 2 RADIOLOGY VIEWS ASSOCIAT FRONTAL&[place] [address] PEPE CANTU ABDOMEN 0 CO CO W/O HOSPITAL HOSPITAL CONTRAST MATERIAL CT PELVIS 16424 PEPE CANTU W/O 0 CO CO CONTRAST [facility] HOSPITAL MATERIAL CULTURE 48506 PEPE CANTU BACTERIAL [address] [facility] QUANTTATI [place] [address] PATHOLOGY PATHOLOGY SURG 0 & & PATHOLOGY CYTOLOGY CYTOLOGY LAB LAB GROSS&PHI ROSCOPIC EXAM EXCISION 06365 C GEOVANNI STEVENS MAL 0 HILDA CALLAWAY MD PSC TRUNK/ARM /LEG 2.1-3.0 CM BLOOD 54163 COMBINED COMBINED COUNT 0 PHYSICIAN PHYSICIAN COMPLETE S LA S LA AUTO&AUTO DIFRNTL WBC COLLECTIO 08271 COMBINED COMBINED N VENOUS 0 PHYSICIAN PHYSICIAN [place]LO[place] [address] COMBINED COMBINED THYROID 0 PHYSICIAN PHYSICIAN STIMULATI S LA S LA NG HORMONE TSH LIPID 66414 COMBINED COMBINED PANEL 0 PHYSICIAN PHYSICIAN S LA S LA COMPREHEN 82147 COMBINED COMBINED SIVE 0 PHYSICIAN PHYSICIAN METABOLIC S LA S LA PANEL CT PELVIS 62498 [place] [facility], W/O 0 [facility] C CONTRAST [place] [address] [place] [facility], ABDOMEN 0 MARIAA C W/O RADIOLOGY CONTRAST MATERIAL ASSOCIATE S PSC LIPID 51336 COMBINED COMBINED PANEL 0 PHYSICIAN PHYSICIAN S LAB S LAB BLOOD 00789 COMBINED COMBINED COUNT 0 PHYSICIAN PHYSICIAN COMPLETE S LAB S LAB AUTO&AUTO DIFRNTL WBC COMPREHEN 12639 COMBINED COMBINED SIVE 0 PHYSICIAN PHYSICIAN METABOLIC S LAB S LAB PANEL DUP-SCAN 16922 [facility]PE [facility]U XTR VEINS 0 [facility] [place] [address] YUMIKO CALDERON INFUSION 0 [facility] THERAPY/P INC INC ROPHYLAXI S /DX 1ST TO 1 [place] [address] PATHOLOGY PATHOLOGY SURG 0 & & PATHOLOGY CYTOLOGY CYTOLOGY LAB LAB GROSS&PHI ROSCOPIC EXAM COLONOSCO 54123 [place], PY 0 MEDICAL DEISY W/BIOPSY SERV SINGLE/[place] [address] DERMATOPA DERMATOPA SURG 0 THOLOGY THOLOGY PATHOLOGY ALLINACE [facility] OF OF GROSS&PHI ROSCOPIC EXAM SCREENING 38725 [place], 0 MEDICAL ROBERTO CARLOS MAMMOGRAP IMAGING HY ASSOCIATE BILATERAL S COMPUTER- 27146 [place], AIDED 0 MEDICAL ROBERTO CARLOS DETECTION IMAGING ASSOCIATE SCREENING S MAMMOGRAP HY CULTURE 22971 [facility]U BACTERIAL 0 [facility] QUANTTATI VE COLONY COUNT URINE LIPOPROTE 03338 [facility] IN DIRECT 0 [facility] MEASUREME NT LDL CHOLESTER OL LIPID 98108 [facility]U PANEL 0 [facility] COMPREHEN 67669 PE[facility]U SIVE 0 [facility] PANEL COMPREHEN 86882 PEPE PEPE SIVE 9 [facility] PANEL LIPID 37559 PEPE EPPE PANEL 9 [facility] BLOOD 35998 [facility]U COUNT 9 [facility] AUTO&AUTO DIFRNTL WBC URNLS DIP 94579 [place], 9 [facility] STICK/TAB INTERNAL LET RGNT MED NON-AUTO W/O MICRSCP COLLECTIO 47338 [place], N VENOUS 9 [facility] BLOOD INTERNAL VENIPUNCT MED URE PHYS G0179 [place] MCKEMIE RE-CERT 9 [facility], MCR-COVR INTERNAL [facility] MED SRVC RE-CERT PRD MRI 88215 DENIDENI DRAPER, SPINAL 9 ROBERTO CARLOS ROBERTO CARLOS CANAL CERVICAL W/O CONTRAST MATRL 3D 17717 DENI CHEEMA, RENDERING 9 ROBERTO CARLOS ROBERTO CARLOS W/INTERP & [place] ECG 20351 [place], ROUTINE 9 [facility] A ECG INTERNAL W/LEAST MED 12 LDS W/I&R PHYS G0179 [place] MCKEMIE RE-CERT 9 [facility], MCR-COVR INTERNAL [facility] MED SRVC RE-CERT PRD OPHTH 67418 JOSIAH RAHMAN, MEDICAL 9 DORIAN A DORIAN A XM&EVAL COMPRHNSV ESTAB PT 1/> DESTRUCTI 72229 [place] B[place], ON 9 [facility] A PREMALIGN INTERNAL ANT MED LESION 1ST RADIOLOGI 89233 [facility] C EXAM 8 [facility] CHEST 2 [facility] HOSPITAL VIEWS FRONTAL&L ATERAL PRESSURIZ 66847 [facility] ED/NONPRE 8 CO CO SSURIZED [facility] INHALATIO N TREATMENT BLOOD 74431 [facility] COUNT 8 CO CO SMEAR [facility] MCRSCP W/MNL DIFRNTL WBC COUNT BLOOD 82929 [facility] COUNT 8 CO CO COMPLETE [facility] AUTO&AUTO DIFRNTL WBC COLLECTIO 22572 PEPE Falcon VENOUS 8 CO CO BLOOD [facility] VENIPUNCT URE DEMO&/JONNY 25734 [facility]PE CANTU L OF PT 8 CO CO UTILIZ [facility] AERSL GEN/NEB/I NHLR/IP ADMINISTR G0008 [facility] GARRISON, ATION OF [address] [place] [address] INFLUENZA INTERNAL VIRUS MED VACCINE IIV3 01811 [facility], [address] SPLIT INTERNAL VIRUS 0.5 MED ML DOSAGE IM USE [facility] 15425 [facility], DISCHARGE [address] [place] [address] INTERNAL MANAGEMEN MED T 30 MIN/< SBSQ [address] CARE/DAY INTERNAL 25 MED MINUTES SBSQ [address] CARE/DAY INTERNAL 25 MED MINUTES RADIOLOGI 48862 Niki MARIEE EXAM 8 AYANA S CHEST 2 RADIOLOGY VIEWS FRONTAL&L ASSOCIATE ATERAL S PSC INITIAL [address] CARE/DAY INTERNAL DARYN F 50 MED MINUTES RADEX ABD 93133 JOHN PAUL [place], VIOLETA 8 AYANA S AQT ABD RADIOLOGY W/S/E/D VIEWS 1 ASSOCIATE VIEW CH S PSC PHYS CERT G0180 [facility] BRANDINIXON MCR-COVR 8 [facility] INTERNAL SRVC PER MED CERT PRD INJECTION J3301 [facility] 8 [facility], TRIAMCINO INTERNAL DARYN Boucher LONE MED ACETONIDE NOS 10 MG IM ADM 72393 [facility] PRQ ID 8 LOIDA , SUBQ/IM INTERNAL DARYN Boucher NJXS 1 MED VACCINE BLOOD 28981 [facility]U COUNT 8 CO CO COMPLETE [facility] AUTO&AUTO DIFRNTL WBC BLOOD 78689 PEPE PEPE COUNT 8 CO OH SMEAR [facility] MCRSCP W/MNL DIFRNTL WBC COUNT COLLECTIO 46946 PEPE Falcon VENOUS 8 CO OH BLOOD [facility] VENIPUNCT URE RADIOLOGI 84462 Niki MARIEE EXAM 8 AYANA S CHEST 2 RADIOLOGY VIEWS FRONTAL&L ASSOCIATE ATERAL S PSC COMPREHEN 35748 [facility]U SIVE 8 CO [facility] PANEL THER 23532 [facility] PROPH/DX 8 [facility] SUBQ/IM Encounters Encounter Start End Date Code Location Performer Type Date OFFICE [facility] OUTPATIEN 7 7 PHYSICIAN T VISIT S GROUP 15 MINUTES [facility] 7 7 [facility]PAT[facility] INC EMERGENCY [address] [facility] DEPT 7 7 PHYSICIAN VISIT S, PLLC HIGH SEVERITY& THREAT FUNCJ OFFICE 92325 AMALIA OUTPATIPEPE 7 7 MEDICAL T VISIT SERV 15 FOUNDATIO MINUTES [facility] - 7 7 HEALTHCAR OUTPATIEN E T HOSPITALS OFFICE 01200 [facility] OUTPATIEN 6 6 COUNTY T VISIT URGENT 25 TREAT MINUTES OFFICE 05335 [facility] T VISIT URGENT 15 TREAT MINUTES OFFICE 23321 [facility] [place] OUTPATIEN 6 6 COUNTY T VISIT URGENT 25 TREAT MINUTES OFFICE 14751 [facility] 6 COUNTY NAN T VISIT URGENT 25 TREAT MINUTES [facility]OSP[facility] - 6 6 [facility] T OFFICE 61657 AMALIA [place]UNK[place] OUTPATIEN 6 6 MEDICAL N RONN T VISIT SERV 15 FOUNDATIO MINUTES [facility] - 6 6 [facility] 8[facility] [place] [facility] 6 6 PHYSICIAN LES T NEW 30 PRACTICE MINUTES L OFFICE 00035 [facility] 6 6 MEDICAL N RONN T VISIT SERV 10 FOUNDATIO MINUTES N OFFICE 97991 [facility] OUTPATIEN 6 6 [facility] T VISIT URGENT 25 TREAT MINUTES HOSPITAL YUMIKO - 6 6 [facility]PATIENT [facility] [address] [place] DE[facility] 5 5 [facility] HIGH SEVERITY& THREAT [facility] BOCASION - 5 5 [facility] - 5 5 [facility] 64728 [facility] DEPT 5 5 [facility] TH VISIT EMERGENCY HIGH PHYSI SEVERITY& THREAT [facility] EMERGENCY 49152 IVELISSEON 5 5 [facility] VISIT HIGH/URGE NT SEVERITY HOSPITAL YUMIKO - 5 5 [facility] OUTPATIEN [facility] YUMIKO - 5 5 [facility] OUTPATIEN [facility] HOME COUNT INCLUDES [facility], 5 5 HOME INPATIENT HEALTH AGENCY HOME COUNT INCLUDES THE [facility], 5 5 HOME INPATIENT HEALTH AGENCY OFFICE 27598 ROSA ELENA LLANES [facility] 5 CLINIC RE[facility]ACED BY [facility] T VISIT 15 MINUTES HOSPITAL YUMIKO - 4 4 [facility]PATIEN [facility] - 4 4 [facility] INPATIENT [facility] YUMIKO [facility] 4 4 [facility] OUTPATIEN [facility] YUMIKO [facility] 4 4 [facility] OUTPATIEN [facility] OFFICE [id number] [facility] 4 4 PHYSICIAN T NEW 45 S GROUP MINUTES HOSPITAL UNIVERSIT - 4 4 [facility] T HOME NURSES HEALTH, 4 4 REGISTRY INPATIENT HOME [facility], 4 4 REGISTRY INPATIENT HOME [facility] [place] - [facility] 4 [facility] CR[facility]ICAL [facility], ACCESS 4 4 [facility] EM[facility] 85214 [facility], 4 4 [facility] [place] T VISIT CO HOS HIGH/URGE NT SEVERITY HOME NURSES HEALTH, 4 4 REGISTRY INPATIENT HOME [facility], 4 4 REGISTRY INPATIENT & HOME HE HOME NURSES HEALTH, 4 4 REGISTRY INPATIENT & HOME HE CRITICAL [facility], ACCESS 4 4 [facility] 49626 [facility], 4 4 [facility] [place] T VISIT CO HOS HIGH/URGE NT SEVERITY CRITICAL [facility], ACCESS 4 4 [facility] [place] [facility] HOME NURSES HEALTH, 4 4 REGISTRY INPATIENT & HOME [facility]OSPITAL UNIVERS[facility] - 4 4 [facility] T OFFICE 07795 FLEIS[facility]MA FLEISCHMA OUTPATIEN 4 4 N RONN N RONN T VISIT 15 MINUTES HOME NURSES HEALTH, 3 3 REGISTRY INPATIENT & HOME HE HOME NURSES HEALTH, 3 3 REGISTRY OUTPATIEN & HOME HE T HOME NURSES HEALTH, 3 3 REGISTRY OUTPATIEN & HOME HE T OFFICE 25740 FLEISCHMA FLEISCHMA OUTPATIEN 3 3 N RONN N RONN T NEW 45 MINUTES HOSPITAL UNIVERSIT - 3 3 Y OUTPATI HOSPITAL T EMERGENCY 43720 VENKAT ROBLEDO 3 3 ANGELICAHien DOMINGUEZ DEPARTMEN T VISIT MODERATE SEVERITY EMERGENCY 83795 [facility], 3 3 [facility] [place] T VISIT CO HOS HIGH/URGE NT SEVERITY CRITICAL [facility], ACCESS 3 3 [facility] [place] [facility], ACCESS 3 3 [facility] [place] [facility] UNIVERSIT - 3 3 [facility] 35904 [facility], 3 3 [facility] [place] T VISIT CO HOS HIGH/URGE NT SEVERITY CRITICAL [facility], ACCESS 3 3 [facility] [place] [facility] EM[facility]GENC[facility] 88048 [facility], DEPT 3 3 [facility] [place] [facility] HOS SEVERITY& THREAT FUNCJ CRITICAL [facility], ACCESS 3 3 [facility] [place] [facility], ACCESS 3 3 [facility] [place] [facility] HOME NURSES HEALTH, 3 3 REGISTRY OUTPATIEN & HOME HE T EMERGENCY 82596 [facility], 3 3 [facility] [place] T VISIT CO HOS LOW/MODER SEVERITY EMERGENCY 58528 RANDA TOLENTINO 3 3 HEN HEN DEPARTMEN T VISIT MODERATE SEVERITY CRITICAL [facility], ACCESS 3 3 [facility] [place] [facility], - 3 3 [facility] [place] [facility] CR[facility]ICAL [facility], ACCESS 3 3 [facility] [place] [facility] EM[facility] 14078 [facility], 3 3 [facility] [place] T VISIT CO HOS HIGH/URGE NT SEVERITY HOME NURSES HEALTH, 2 2 REGISTRY OUTPATIEN & HOME HE T HOME NURSES HEALTH, 2 2 REGISTRY OUTPATIEN & HOME HE T OFFICE 73795 NO REBEKAH NO REBEKAH OUTPATIEN 2 2 T NEW 45 MINUTES CLINIC, [place] [facility] 2 2 [facility] HE[facility] OFFICE 83171 [place] OUT[facility] 2 2 [facility] T VISIT [facility]URAL 15 HEALTH MINUTES HOME NURSES HEALTH, 2 2 REGISTRY OUTPATIEN & HOME HE T HOME NURSES HEALTH, 2 2 REGISTRY OUTPATIEN & HOME HE T EMERGENCY 44949 [facility] [facility], 2 2 ENGRAVER LETTER DEPARTMEN [facility] T VISIT CO HOS HIGH/URGE NT SEVERITY CRITICAL [facility], ACCESS 2 2 [facility] OFFICE 57890 AHMED ADN AHMED ADN OUTPATIEN 2 2 T VISIT 15 MINUTES HOSPITAL [facility], - 2 2 ENGRAVER LETTER OUTPATIEN [facility] HOS OFFICE 28748 AHMED ADN AHMED ADN OUTPATIEN 2 2 T VISIT 15 MINUTES OFFICE 00265 [facility] FED OUTPATIEN 2 2 T NEW 20 MINUTES OFFICE 28343 [facility] 2 2 [facility] T VISIT HEALTH 25 CLINIC MINUTES CLINIC, [facility] 2 2 [facility] CL[facility]IC OFFICE 08128 [facility]PATI[facility] 2 2 [facility] T VISIT HEALTH 25 CLINIC MINUTES CRITICAL [facility] ACCESS 2 2 ENGRA[facility] LETTER [facility] CL[facility], [facility] 2 2 [facility] CLINIC OFFICE 64811 [facility]PATI[facility] 2 2 [facility] T VISIT HEALTH 25 CLINIC MINUTES HOSPITAL [facility] - 2 2 [facility] 2 2 [facility] OFFICE 73557 [facility]PATIEN 2 2 RURAL T VISIT HEALTH 25 CLINIC MINUTES HOME NURSES HEALTH, 2 2 REGISTRY OUTPATIEN & HOME HE T OFFICE 47243 ANGELO FONG OUTPATIEN 2 2 T VISIT 15 MINUTES OFFICE 22683 [facility] 2 2 [facility] T VISIT [facility]URAL 25 HEALTH MINUTES CLINIC, [facility] 2 2 [facility] 1 [facility] 1 [facility] 1 1 [facility]01 [facility] HOSP[facility] T VISIT [facility]URAL 15 HEALTH MINUTES HOME NURSES HEALTH, 1 1 REGISTRY OUTPATIEN & HOME HE T HOME NURSES HEALTH, 1 1 REGISTRY OUTPATIEN & HOME HE T OFFICE 14603 [facility] 1 [facility] T VISIT HEALTH 15 CLINIC MINUTES CLINIC, [facility] 1 1 [facility] CL[facility], [facility] 1 1 [facility] CLINIC OFFICE 78784 [facility] OUTPATIEN 1 1 [facility] T VISIT HEALTH 15 CLINIC MINUTES OFFICE 19376 [facility] ANGELO FONG OUTPATIEN 1 1 RURAL T VISIT HEALTH 25 CLINIC MINUTES CRITICAL [facility] ACCESS 1 1 [facility] EMERGENCY 73758 [facility] WILLETT DEPT 1 1 [facility]OSP[facility] HIGH SEVERITY& [facility] - 1 1 [facility] 1 [facility] 94877 [facility] 1 1 [facility] T VISIT LIMITED/M INOR PROB CRITICAL [facility] ACCESS 1 1 [facility] OFFICE 36127 [facility] 1 1 [facility] VISIT CLIN[facility] OF [address] [place] [address] [facility] - 1 1 [facility] CR[facility]ICAL [facility] ACCESS 0 0 [facility] OFFICE 45334 Niki STEVENS OUTPATIEN 0 0 HILDA Gay MD [facility] - 0 0 [facility] ACCESS 0 0 [facility] CRITICAL [facility] ACCESS 0 0 [facility] OFFICE 52587 [facility] OUTPATIEN 0 0 CO T VISIT [address] [place] [id number] YUM[facility]KO - 0 0 [facility] OUTPATIEN [facility]PITAL YUMIKO - 0 0 [facility] OUTPATIEN [facility] OFFICE 67619 [facility] OUTPATIEN 0 0 [facility] T VISIT INTERNAL 15 MED MINUTES CRITICAL [facility] ACCESS 0 0 [facility] CRITICAL [facility] ACC[facility] 0 [facility] 44841 [facility] OUTPATIEN 0 0 [facility] T VISIT INTERNAL 25 MED MINUTES OFFICE 41646 [facility], OUTPATIEN 9 9 [facility] T VISIT INTERNAL 15 MED MINUTES OFFICE 33134 [facility], OUTPATIEN 9 9 [facility] T VISIT INTERNAL 15 MED MINUTES OFFICE 73894 [facility], OUTPATIEN 9 9 LOIDA MARY A T VISIT INTERNAL 25 MED MINUTES CRITICAL [facility] 9 9 [facility] 34712 [facility], OUTPATIEN 9 9 LO[facility] MARY A T VISIT INTERNAL 15 MED MINUTES OFFICE 75552 [facility], OUTPATIEN 9 9 CISCO MARY A T VISIT INTERNAL 25 MED MINUTES EMERGENCY 14689 [facility] 8 8 [facility] T VISIT LOW/MODER SEVERITY CRITICAL [facility]A 8 8 [facility] EM[facility] 11731 [facility] ROBLEDO, 8 8 [facility] T VISIT MODERATE SEVERITY OFFICE 87467 [facility], OUTPATIEN 8 8 CISCO MARY A T VISIT INTERNAL 15 MED MINUTES OFFICE 33874 [facility], OUTPATIEN 8 8 CISCO MARY A T VISIT INTERNAL 10 MED MINUTES OFFICE 13917 DERREKKING BESNIXON OUTPATIEN 8 8 CISCO MARY A T VISIT INTERNAL 15 MED MINUTES OFFICE 20501 ERIN WILLSON 8 8 MEDICAL DARYN DAVID SERV E NEW/ESTAB FOUNDAT[facility] PATIENT 40 MIN OFFICE 81400 [facility] EUGENE 8 8 CO T VISIT 5 HOSPITAL MINUTES CRITICAL [facility] 8 8 [facility] 29199 [facility] [place] OUTPATIEN 8 8 CISCO MARY A T VISIT INTERNAL 15 MED MINUTES [facility]OSPITAL [facility] - 8 8 [facility] OFF[facility] 54887 HAZEL HAZEL OUTRAJANI 8 8 MARIAA PLATA JR, JOHN T VISIT P P 15 MINUTES OFFICE 32889 [facility] ANGELESKEMIPadma UEGENE 8 8 Cameron MARISCAL JR VISIT INTERNAL DARYN F 15 MED MINUTES EMERGENCY 79781 [facility] 8 8 [facility] T VISIT LIMITED/M INOR PROB CRITICAL [facility] ACCESS 8 8 [facility] OFFICE 78576 VALORIE VILLALTA 8 8 LOIDA Barnes VISIT INTERNAL 15 MED MINUTES OFFICE 49034 HAZEL EUGENE 8 8 MARIAA PLATA JR, JOHN T VISIT P P 10 MINUTES OFFICE 43940 NEGRITA EUGENE 8 8 Cameron MARISCAL JR VISIT INTERNAL DARYN F 25 MED MINUTES OFFICE 20167 HAZEL EUGENE 8 8 MARIAA PLATA JR, JOHN T VISIT P P 15 MINUTES
--- OUTSIDE RECORDS SUMMARY | 2016-12-13 18:10 | External Medical Summary Rpt ---
Author Author , JESSICA Organization JESSICA Address Unknown Phone [email or web address] Care Team Providers Care Gifts Officer Name Role Phone NO REBEKAH, NO REBEKAH Unavailable Unavailable AHMED ADN, AHMED ADN Unavailable Unavailable AHMED ADN, AHMED ADN Unavailable Unavailable ILYA LES, ILYA Unavailable Unavailable LES ATKINS COL, ATKINS Unavailable Unavailable COL ATKINS COL, ATKINS Unavailable Unavailable COL BESSON, BESSON Unavailable Unavailable BESSON ROLO, BESSON Unavailable Unavailable ROLO BESSON ROLO, BESSON Unavailable Unavailable ROLO BESSON, MARY A, Unavailable Unavailable BESSON, MARY A [facility] Unavailable Unavailable IMAGING L, [facility] MONIQUE, MONIQUE Unavailable Unavailable MONIQUE ALL, MONIQUE ALL Unavailable Unavailable [facility] Unavailable Unavailable [facility], [facility] Unavailable Unavailable PRACTICE L, [facility] RICCI PHI, RICCI Unavailable [...] Unavailable Unavailable SAMIR K, DARIO, SAMIR K [facility] Unavailable Unavailable INC, [facility] Unavailable Unavailable HOSPITAL P, [facility] [place] ANNIE, CLIFTON Unavailable Unavailable ANNIE CLIFTON ANNIE, CLIFTON Unavailable Unavailable ANNIE ETIENNE, AYANA S, Unavailable Unavailable CLIFTON, AYANA S GYPSY, GYPSY CORRIGAN, Unavailable Unavailable DORIAN GIMENEZ, Unavailable Unavailable DORIAN RAHMAN [facility], Unavailable Unavailable [facility] YOUSIF DODD Unavailable Unavailable BETINA, BETINA Unavailable Unavailable BETINA EULOGIO, BETINA Unavailable Unavailable NAN [facility] Unavailable Unavailable CLINIC, [facility] Unavailable Unavailable IMAGING [facility], [facility] YG CRY, YG Unavailable Unavailable [facility] Un[facility], [facility] [place] Unavailable Unavailable [facility], [facility] Unavailable Unavailable [facility], [facility] LAUSE FED, LAUSE FED Unavailable Unavailable LAUSE FED, [facility] FED Unavailable Unavailable ETHEL JR DWI, ETHEL Unavailable Unavailable JR DWI [facility] Unavailable Unavailable INTER[facility] MED, [facility] VENKAT GRAY Unavailable Unavailable FLAQUITA AMADO, Unavailable Unavailable FLAQUITA ROBLEDO LUKINS BRADLEY, LUKINS Unavailable Unavailable BRADLEY LUKINS BRADLEY, LUKINS Unavailable Unavailable BRADLEY [facility] Unavailable Unavailable ASS[facility]AT, [facility] DARYN CEBALLOS, Unavailable Unavailable DARYN CEBALLOS JR, WILLIAM Unavailable Unavailable MENDEZ Boucher JR, WILLIAM F MERHAR GAR, MERHAR Unavailable Unavailable GAR MERHAR GAR, MERHAR Unavailable Unavailable [facility] [place] Un[facility] Un[facility], [facility]IC HOWARD, MUSIC HOWARD Unavailable Unavailable [facility] Unavailable Unavailable [facility], [facility], Unavailable Unavailable [facility] Unavailable Unavailable HEALTH, [facility] Unavailable Unavailable URGENT TREAT, [facility] NURSES REGISTRY & Unavailable [...] Unavailable EQUIPME, [facility], Unavailable Unavailable [facility] MARIAA OLIVA JR, Unavailable Unavailable MARIAA OLIVA JR [facility] Unavailable Unavailable HOSPITALS, [facility], Unavailable Unavailable [facility] Unavailable Unavailable AGENCY, [facility] Un[facility] Unavailable [facility] [place], [facility] ABDALLA, MAGALIE MAT Unavailable Unavailable Purpose Continuity of Care Document - 05-27-2007 through 2016 Problems Code Diagnosis DOS Provider Status J449 CHRONIC 09-02-[address] [facility] OBSTRUCTIVE HOME PULMONARY MEDICAL DISEASE UNS EQUIPME I10 ESSENTIAL 07-12-2016 [facility] PRIMARY PHYSICIANS HYPERTENSIO GROUP N J441 CHRONIC 07-12-2016 [facility] OBSTRUCTIVE PHYSICIANS PULMONARY GROUP DZ W/EXACERBAT ION R062 WHEEZING 07-12-2016 [facility] E876 HYPOKALEMIA 07-05-2016 [facility] I509 HEART 07-05-2016 [facility] FAILURE PHYSICIANS UNSPECIFIED GROUP J189 PNEUMONIA 07-05-2016 [facility] UNSPECIFIED PHYSICIANS ORGANISM GROUP E785 HYPERLIPIDE 07-04-2016 [facility] CECILIA PHYSICIANS UNSPECIFIED GROUP I5031 ACUTE 07-03-2016 [facility] HEART FAILURE R05 COUGH 07-03-2016 [facility] IM[facility] ASS R0602 SHORTNESS 07-03-2016 [facility] R918 OTHER 07-03-2016 [facility] NONSPECIFIC MEDICAL ABNORMAL IMAGING ASS FINDING OF LUNG FIELD Z8249 FAMILY HX 07-03-2016 [facility] ISCHEMIC PHYSICIANS HRT DZ OTH GROUP DZ CIRC SYSTEM Z8673 PERSONAL HX 07-03-2016 [facility] CEREB INC INFARCT NO RESID DEFICIT Z8709 PERSONAL 07-03-2016 [facility] OT PHYSICIANS, DISEASES PLLC RESPIRATORY SYSTEM C8510 UNSPECIFIED 06-20-2016 [facility] UNSPECIFIED SITE D479 NEOPLASM 06-20-2016 [facility] FOUNDATION & REL TISSUE UNS L30884 LYMPHOCYTOS 06-20-2016 [facility] MEDICAL IS SERV SYMPTOMATIC FOUNDATION H61554 EPIPHORA 04-11-2016 [facility] DUE TO COUNTY EXCESS URGENT LACRIMATION TREAT LT LACR GLAND J208 ACUTE 04-11-2016 [facility] BRONCHITIS [facility] DUE TO URGENT OTHER SPEC TREAT ORGANISMS L84 CORNS AND 03-25-2016 [facility] CALLOSITIES [facility] URGENT TREAT Q845 ENLARGED 03-25-2016 [facility] AND [facility] HYPERTROPHI URGENT C NAILS TREAT J168 PNEUMONIA 03-11-2016 [facility] DUE TO COUNTY OTHER SPEC URGENT INFECTIOUS TREAT ORGANISMS T65569 CELLULITIS 03-11-2016 [facility] OF LEFT [facility] LOWER LIMB URGENT TREAT M7989 OTHER 03-11-2016 [facility] SPECIFIED [facility] SOFT TISSUE URGENT DISORDERS TREAT N3946 MIXED 03-11-2016 [facility] INCONTINENC COUNTY E URGENT TREAT R112 NAUSEA WITH 03-11-2016 [facility] VOMITING [facility] UNSPECIFIED URGENT TREAT R5081 FEVER 03-11-2016 [facility] PRESENTING COUNTY W/COND URGENT CLASSIFIED TREAT ELSEWHERE H6501 ACUTE 02-02-2016 [facility] SEROUS [facility] OTITIS URGENT MEDIA RIGHT TREAT EAR J301 ALLERGIC 02-02-2016 [facility] RHINITIS [facility] DUE TO URGENT POLLEN TREAT N38225P ABRASION 02-02-2016 [facility] LEFT LOWER [facility] LEG INITIAL URGENT ENCOUNTER TREAT C8588 OTH TYPES 12-14-2015 [facility] NODES MX SITES R42 DIZZINESS 07-06-2015 [facility] MENDOSA AND MD [facility] CONSULTING SRV E878 OTHER D/O 07-05-2015 [facility] NEC H903 SENSORINEUR 06-28-2015 [facility] PHYSICIAN LOSS PRACTICE L BILATERAL C8300 SMALL CELL 06-15-2015 [facility] UNSPECIFIED SITE E780 PURE 05-07-2015 [facility] HYPERCHOLES [facility] I2510 [facility] [place] 05-07-2015 [facility] 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 HOSPITAL ANGINA PECTORIS Z7902 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 [facility] CURR USE [facility] ANTITHROMBO HOSPITAL TICS/ANTIPL ATELETS Z7982 ASSISTED 05-07-2015 [facility] CURRENT USE [facility] E56498 OTHER LONG 05-07-2015 [facility] CURRENT HOSPITAL DRUG THERAPY Z809 FAMILY 05-07-2015 [facility] HISTORY OF [facility] MALIGNANT HOSPITAL NEOPLASM UNSPECIFIED R531 WEAKNESS 04-29-2015 [facility] [place] [facility] R5381 OTHER 04-29-2015 [facility] MALAISE [facility] R5383 OTHER 04-29-2015 [facility] FATIGUE [facility] J209 ACUTE 04-23-2015 [facility] UNSPECIFIED HOSPITAL P J440 COPD WITH 04-23-2015 [facility] P RESPIRATORY INFECTION R079 CHEST PAIN 04-23-2015 [place] [facility] 12550 CHRONIC 12-02-2014 [facility] LEUKEMIA AGENCY W/O ACHIEVED REMISSION 39024 HTN CKD UNS 12-02-2014 [facility] W/CKD HEALTH STAGE I AGENCY THRU STAGE IV/UNS 66710 UNSPECIFIED 12-02-2014 [facility] VENOUS HEALTH INSUFFICIEN AGENCY CY 496 CHRONIC 12-02-2014 [facility] AIRWAY HEALTH OBSTRUCTION AGENCY NEC 5859 CHRONIC 12-02-2014 [facility] KIDNEY HEALTH DISEASE AGENCY UNSPECIFIED 73175 UNSPECIFIED 12-02-2014 [facility] URINARY HEALTH INCONTINENC AGENCY E 481 PNEUMOCOCCA 09-15-2014 [facility] Velazquez PNEUMONIA [facility] URGENT TREAT 02885 FEVER 09-15-2014 [facility] URGENT TREAT 18545 OTHER VOICE 09-15-2014 [facility] RESONANCE URGENT DISORDERS TREAT 7862 COUGH 09-15-2014 [facility] URGENT TREAT 2724 OTHER AND 08-27-2014 [facility] UNSPECIFIED [place] [facility] HYPERLIPIDE CECILIA 4011 ESSENTIAL 08-27-2014 [facility] HYPERTENSIO [place] N, BENIGN HOLDINGS 7823 EDEMA 08-27-2014 [facility] [place] [facility] 23144 SHORTNESS 06-29-2014 [place] [facility] 92769 CHEST PAIN 06-29-2014 [facility] UNSPECIFIED [facility]ICAL IMAGING ASS V1261 PERSONAL 06-29-2014 [facility] HISTORY MEDICAL PNEUMONIA IMAGING ASS RECURRENT 6829 CELLULITIS 05-19-2014 [facility] AND ABSCESS [place] OF HOLDINGS UNSPECIFIED SITE 5589 OTH&UNSPEC 04-26-2014 [facility] NONINFECTIO [place] US HOLDINGS GASTROENTER ITIS&COLITI S 00978 OTH MALIG 04-05-2014 [facility] UNS SITE INC XTRANOD&SUSANNA ID ORGN 4019 UNSPECIFIED 04-05-2014 [facility] ESSENTIAL [facility] HYPERTENSIO INC N 486 PNEUMONIA, 04-05-2014 [facility] ORGANISM PHYSICIANS UNSPECIFIED GROUP 59500 OBSTRUCTIVE 04-05-2014 [facility] CHRONIC PHYSICIANS BRONCHITIS GROUP WITH EXACERBATIO N 67477 OTHER 04-05-2014 [facility] DISEASES OF MEDICAL LUNG NOT IMAGING ASS ELSEWHERE CLASSIFIED V5869 LONG-TERM 04-05-2014 [facility] (CURRENT) [facility] USE OF INC OTHER MEDICATIONS 7804 DIZZINESS 03-12-2014 [facility] AND [facility] GIDDINESS INC V1090 PERSONAL 03-12-2014 [facility] HISTORY [facility] UNSPECIFIED INC MALIGNANT NEOPLASM 4660 ACUTE 03-06-2014 [facility] BRONCHITIS [facility] INC 2749 GOUT, 02-22-2014 [facility] UNSPECIFIED PHYSICIANS GROUP 4149 UNSPECIFIED 02-22-2014 [facility] CHRONIC PHYSICIANS ISCHEMIC GROUP HEART DISEASE 4779 ALLERGIC 02-22-2014 [facility] RHINITIS PHYSICIANS CAUSE GROUP UNSPECIFIED 95529 ESOPHAGEAL 02-22-2014 [facility] REFLUX PHYSICIANS GROUP 45475 WHEEZING 02-22-2014 [facility] PHYSICIANS GROUP V0481 NEED 02-22-2014 [facility] PROPHYLACTI PHYSICIANS C GROUP VACCINATION &INOCULATIO N FLU 1101 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 [facility] OSIS OF NAIL 4439 UNSPECIFIED 01-05-2014 [facility] PERIPHERAL VASCULAR DISEASE 7038 OTHER 01-05-2014 [facility] SPECIFIED DISEASE OF NAIL 7295 PAIN IN 01-05-2014 [facility] SOFT TISSUES OF LIMB 86724 OTHER 11-25-2013 [facility] AND HEMATOPOIET IC TISSUES 39383 DIAB W/O 11-10-2013 NURSES MENTION REGISTRY COMP TYPE HOME II/UNS TYPE HLTHTCA UNCNTRL 10479 HYPOXEMIA 10-06-2013 [facility] V5863 LONG-TERM 10-06-2013 [facility] USE OF [facility] T/ANTITHROM BOTIC V5866 LONG-TERM 10-06-2013 [facility] 0088 INTESTINAL 09-04-2013 [facility], INFECTION HOSPITALITY MANAGER DUE TO [place] [facility] OTHER HOS ORGANISM NEC 37831 COR 09-04-2013 [facility], ATHEROSLERO HOSPITALITY MANAGER UNSPEC [place] [facility] TYPE VESSEL HOS [place] T 4293 CARDIOMEGAL 09-04-2013 [facility], Y HOSPITALITY MANAGER [place] [facility] 78853 DIVERTICULO 09-04-2013 [facility], SIS OF HOSPITALITY MANAGER COLON [place] [facility] 5939 UNSPECIFIED 09-04-2013 [facility], DISORDER HOSPITALITY MANAGER OF KIDNEY [place] [facility] AND URETER HOS V103 PERSONAL 09-04-2013 [facility], HISTORY OF HOSPITALITY MANAGER MALIGNANT [place] [facility] NEOPLASM OF HOS BREAST V1079 PERSONAL HX 09-04-2013 [facility], OTH HOSPITALITY MANAGER LYMPHATIC&H [facility] [facility] EMATOPOIETI HOS C NEOPLASM 7020 ACTINIC 07-15-2013 [facility] KERATOSIS 82291 OTHER 07-15-2013 [facility] SEBORRHEIC KERATOSIS V5883 ENCOUNTER 06-16-2013 [facility], FOR HOSPITALITY MANAGER THERAPEUTIC [place] [facility] DRUG HOS MONITORING 7873 FLATULENCE 06-09-2013 [facility], ERUCTATION HOSPITALITY MANAGER AND GAS [place] [facility] PAIN HOS V1083 PERSONAL 06-09-2013 [facility], HISTORY HOSPITALITY MANAGER OTHER [place] [facility] MALIGNANT HOS NEOPLASM SKIN V4589 OTHER 06-09-2013 [facility], POSTSURGICA HOSPITALITY MANAGER L STATUS [facility] [facility] OTHER HOS 60418 NODULAR 05-27-2013 [facility] RONN LYMPH NODES MULTIPLE SITES 4510 PHLEBITIS&T 03-03-2013 [facility] HROMBOPHLEB SUP VESSELS LOWER EXTREM 4548 VARICOSE 03-03-2013 [facility] VEINS LOWER EXTREMITIES W/OTH COMPS 4371 OTH 09-03-2012 LUKINS BRADLEY GENERALIZED ISCHEMIC CEREBROVASC ULAR DISEASE 16652 DISORDER OF 09-03-2012 LUKINS BRADLEY BONE AND CARTILAGE UNSPECIFIED 9100 FCE 09-03-2012 [facility] NCK&SCLP NO HOSPITAL EYE ABRAS/FRIC BURN W/O INF 9596 INJURY 09-03-2012 [facility] GAR OTHER AND UNSPECIFIED HIP AND THIGH 9597 INJURY 09-03-2012 [facility] G[facility] OTHER&UNSPE CIFIED KNEE LEG ANKLE&FOOT E8889 UNSPECIFIED 09-03-2012 [facility] G[facility] FALL V1060 PERSONAL 09-03-2012 [facility] HISTORY OF HOSPITAL UNSPECIFIED LEUKEMIA V1229 PERSONAL HX 09-03-2012 [facility] ENDOCRN METABOLIC IMMUNITY D/O V5861 LONG-TERM 09-03-2012 [facility] PR[facility] (CURRENT) USE OF ANTICOAGULA NTS V714 OBSERVATION 09-03-2012 [facility]AH PRICE FOLLOWING OTHER ACCIDENT 035 ERYSIPELAS 08-21-2012 [facility] HOSPITALITY [facility] [place] [facility] 37270 LEUKOCYTOSI 08-21-2012 [facility], S HOSPITALITY MANAGER UNSPECIFIED [place] [facility] 96990 CALCU 08-21-2012 [facility] GALLBLADD W/O MENTION CHOLECYST/O BST 98514 UNSPECIFIED 08-21-2012 [facility] AD[facility] RESPIRATORY ABNORMALITY 7892 SPLENOMEGAL 08-21-2012 [facility] Y 2411 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 [facility] MULTINODULA R GOITER 2462 CYST OF 08-04-2012 [facility] THYROID 7964 OTHER 08-04-2012 [facility], ABNORMAL HOSPITALITY MANAGER CLINICAL [place] [facility] FINDING HOS 74696 UNS 07-22-2012 [facility] LEUKEMIA W/O ACHIEVED REMISSION 4871 INFLUENZA 07-22-2012 [facility] WITH OTHER HOSPITAL RESPIRATORY MANIFESTATI ONS 5119 UNSPECIFIED 07-22-2012 [facility] PLEURAL EFFUSION 5180 PULMONARY 07-22-2012 [facility] COLLAPSE V1254 PERSONAL HX 07-22-2012 [facility] W/O RESIDUAL DEFICITS 2763 ALKALOSIS 07-21-2012 [facility], HOSPITALITY MANAGER [place] [facility] 95956 DEHYDRATION 07-21-2012 [facility], HOSPITALITY MANAGER [place] [facility] 4580 ORTHOSTATIC 07-21-2012 [facility], HOSPITALITY MANAGER HYPOTENSION [place] [facility] 81147 OTHER 07-21-2012 [facility], MALAISE AND HOSPITALITY MANAGER FATIGUE [facility] 2768 HYPOPOTASSE 07-19-2012 [facility], CECILIA HOSPITALITY MANAGER [place] [facility] 4239 UNSPECIFIED 07-19-2012 [facility] DISEASE OF PERICARDIUM 7856 ENLARGEMENT 07-19-2012 [facility] OF LYMPH NODES 2130 BENIGN 06-26-2012 [facility], NEOPLASM OF [facility] BONES OF [place] [facility] SKULL AND HOS FACE 3319 UNSPECIFIED 06-26-2012 DEVIN CAMPOS CEREBRAL DEGENERATIO N 75533 PAIN IN 06-26-2012 [facility], JOINT, HOSPITALITY MANAGER LOWER LEG [place] [facility] 7802 SYNCOPE AND 05-23-2012 [facility], COLLAPSE HOSPITALITY MANAGER [place] [facility] 96021 NAUSEA 05-23-2012 [facility], ALONE HOSPITALITY MANAGER [place] [facility] 71557 ABDOMINAL 05-23-2012 [facility], PAIN, LEFT HOSPITALITY MANAGER LOWER [place] [facility] QUADRANT HOS 7847 EPISTAXIS 05-13-2012 [facility], HOSPITALITY MANAGER [place] [facility] 6929 CONTACT 05-12-2012 [facility], DERMATITIS& HOSPITALITY MANAGER OTHER [place] [facility] ECZEMA DUE HOS UNSPEC CAUSE 4279 UNSPECIFIED 04-22-2012 [facility] CARDIAC DYSRHYTHMIA 52565 PAINFUL 04-22-2012 [facility] RESPIRATION 49140 OTH-UNS MAL 03-02-2012 [facility] TISS-UNS-EX TRANODAL 2870 ALLERGIC 03-02-2012 [facility] 6989 UNSPECIFIED 03-02-2012 [facility] PRURITIC [facility] DISORDER [facility] 24289 GOUTY 01-16-2012 [facility], ARTHROPATHY HOSPITALITY MANAGER [place] UNSPECIFIED HOS 33901 UNSPECIFIED 01-16-2012 [facility], HOSPITALITY MANAGER ARTHROPATHY [facility] SITE HOS UNSPECIFIED 48366 TACHYPNEA 01-16-2012 [facility], HOSPITALITY MANAGER [place] [facility] 09594 OSTEOARTHRO 12-17-2011 [facility], S UNSPEC HOSPITALITY MANAGER WHETHER [place] [facility] GEN/LOC HOS UNSPEC SITE 4619 ACUTE 11-04-2011 [facility] SINUS[facility]IS, HEALTH UNSPECIFIED CLINIC 59551 ACUTE 11-04-2011 [facility] LARYNGITIS, [facility] WITHOUT CLINIC MENTION OF OBSTRUCTIO 99531 DYSPHONIA 11-04-2011 [facility] HEALTH CLINIC 3829 UNSPECIFIED 10-10-2011 [facility] OTITIS HEALTH MEDIA CLINIC 00886 NONSPECIFIC 10-10-2011 [facility] ABNORMAL [facility] AUDITORY CLINIC FUNCTION STUDIES 4556 UNSPEC 09-17-2011 [facility] HEMORRHOIDS HEALTH WITHOUT CLINIC MENTION COMPLICATIO N 83693 CHRONIC 09-17-2011 [facility] VENOUS [facility] HYPERTENSIO CLINIC N WITHOUT COMPS 5693 HEMORRHAGE 09-17-2011 [facility] AND ANUS CLINIC 6980 PRURITUS 09-17-2011 [facility] ANI HEALTH CLINIC 15322 UNSPECIFIED 08-23-2011 [facility] ARTHROPATHY MULTIPLE SITES 42137 UNSPECIFIED 07-22-2011 [facility] LYMPHOID [facility] LEUKEMIA IN CLINIC RELAPSE 7821 RASH AND 07-22-2011 [facility] OTHER HEALTH NONSPECIFIC CLINIC SKIN ERUPTION 2722 MIXED 06-04-2011 [facility] HYPERLIPIDE [facility] 47619 UNSPECIFIED 06-04-2011 [facility] 42323 PAIN IN 06-04-2011 [facility] ANKLE AND [facility] 34568 CALCANEAL 04-29-2011 [facility] 78701 LYMPHOCYTOS 04-16-2011 [facility] SYMPTOMATIC 4571 OTHER 04-10-2011 [facility] NONINFECTIO US LYMPHEDEMA 23429 SLEEP 12-20-2010 [facility] RELATED [facility] 00674 GEN 10-25-2010 [facility] OSTEOARTHRO HEALTH SIS CLINIC INVOLVING MULTIPLE SITES 72123 INSOMNIA 10-25-2010 [facility] UNSPECIFIED HEALTH CLINIC 02011 PAIN IN 09-21-[facility], RADIOLOGY UPPER ARM ASSOCIAT 9299 CRUSHING 09-21-[facility] INJURY OF RADIOLOGY UNSPECIFIED ASSOCIAT SITE 9592 INJURY 09-21-[facility] OTHER&UNSPE RADIOLOGY CIFIED ASSOCIAT SHOULDER&UP PER ARM 9593 INJURY 09-21-2010[facility] OTHER&UNSPE RADIOLOGY CIFIED ASSOCIAT ELBOW FOREARM&WRI ST 29691 OCCL&STENOS 08-02-[facility] MX&BILAT RADIOLOGY PRECERBRL ASSOCIAT ART W/O INFARCT 2859 UNSPECIFIED 07-31-2010 [facility] ANEMIA JARED & DUBILIER 78283 LEUKEMOID 07-31-2010 [facility] REACTION JARED & DUBILIER 2865 HEMORRHAGIC 07-29-2010 [facility] DR[facility] D/O HOSPITAL INTRINSIC CIRC ANTICOAG AB/INHIB 59002 UNSPECIFIED 07-29-2010 [facility] ARTERY OCCLUSION W/INFARCT 490 BRONCHITIS 07-29-2010 [facility] NOT HOSPITAL SPECIFIED ACUTE OR CHRONIC 5110 PLEURISY 07-29-[facility] WITHOUT RADIOLOGY MENTION ASSOCIAT EFFUS/[place] [address] SCLEROSING 07-29-2010 [facility] DR[facility] S 67855 OTH 07-29-[facility] ABNORMAL RADIOLOGY BRAIN & HR CONSULTANT ASSOCIAT FUNCTION STUDY V570 CARE 07-18-2010 [facility] INVOLVING HOSPITAL BREATHING EXERCISES 2181 INTRAMURAL 06-07-2010 [facility] [place] 2362 NEOPLASM OF 05-21-2010 [facility] OF [place] [place] V7231 ROUTINE 05-21-2010 [facility] GYNECOLOGIC [facility] CLINIC OF EXAMINATION [place] V762 SCREENING 05-21-2010 PATHOLOGY & FOR CYTOLOGY MALIGNANT LAB NEOPLASM OF THE CERVIX 5738 OTHER 05-08-2010 [facility] SPECIFIED RADIOLOGY DISORDERS ASSOCIAT OF LIVER 5759 UNSPECIFIED 05-08-2010 [facility] DISORDER [facility]IOLOG[facility] OF ASSOCIAT GALLBLADDER 5990 URINARY 05-08-2010 [facility] INFECTION SITE NOT SPECIFIED 6219 UNSPECIFIED 05-08-2010 [facility] DISORDER [facility]IOLOG[facility] OF UTERUS ASSOCIAT 7242 LUMBAGO 05-08-2010 [facility] 7936 NONSPEC ABN 05-08-2010 [facility]BDOMINAL AREA 1736 OT MALIG 03-13-2010 PATHOLOGY & NEOPLASM CYTOLOGY SKIN UPPER LAB LIMB INCL SHOULDER 1737 [facility]-2010 C [facility] NEOPLASM [place] SKIN LOWER [facility] LIMB INCLUDING HIP 2382 NEOPLASM OF 03-06-2010 [facility] SKIN 76949 UNSPECIFIED 03-06-2010 [facility] STEVENS OSTEOPOROSI [facility] S 0413 KLEBSIELLA 09-20-2009 [facility] INFECTION 2892 NONSPECIFIC 09-20-2009 [facility] LYMPHADENIT IS 5920 CALCULUS OF 09-20-2009 [facility] PSC V1251 PERSONAL 09-20-2009 [facility] HISTORY, HOSPITAL VENOUS THROMBOSIS AND EMBOLISM 69105 ACUT LINNEA 08-18-2009 [facility] EMBO&THROMB [facility] DEEP VES [facility] PROX LOWR PSC EXTREM 4549 ASYMPTOMATI 08-18-2009 [facility] VEINS 6826 CELLULITIS 08-18-2009 [facility] OF LEG EXCEPT FOOT 81198 ABDOMINAL 08-14-2009 PATHOLOGY & PAIN, CYTOLOGY UNSPECIFIED LAB SITE 25021 ABDOMINAL 08-14-2009 [facility] 2163 BENIGN 08-01-2009 DERMATOPATH NEOPLASM OLOGY SKIN ALLINACE OF OTHER&UNSPE C PARTS FACE V7612 OTHER 07-19-2009 [facility] 0091 COLITIS 07-12-2009 [facility]&GAS [facility] TROENTERIT INTERNAL INF ORIGIN MED 89387 ABDOMINAL 07-12-2009 [facility] PAIN, LEFT VALLEY UPPER INTERNAL QUADRANT MED 7894 ABDOMINAL 03-03-2010 [facility] RIGIDITY [facility] INTERNAL MED 7063 SEBORRHEA 03-27-2009 [facility] INTERNAL MED 7011 ACQUIRED 03-06-2009 [facility] KERATODERMA [place] INTERNAL MED 18482 REFLUX 12-02-2008 [facility] ESOPHAGITIS [place] INTERNAL MED 23104 OTHER 10-11-2008 [facility] CHRONIC [place] PAIN INTERNAL MED 47560 OSTEOARTHRO 10-11-2008 [facility] S INVLV MX VAL[facility] SITES BUT INTERNAL NOT SPEC MED GEN 63012 SPINAL 10-11-2008 [facility] 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 MED 7231 CERVICALGIA 09-27-2008 ROBERTO CARLOS CHEEMA 7820 DISTURBANCE 09-21-2008 [facility] OF SKIN [place] SENSATION INTERNAL MED 88003 BLEPHARITIS 07-28-2008 RAHMAN BRETT A UNSPECIFIED 20115 OBESITY, 04-17-2008 [facility] UNSPECIFIED HOSPITAL 4928 OTHER 04-17-2008 [facility] PSC 72230 URINARY 04-17-2008 [facility] 7068 OTHER 03-09-2008 [facility] SPECIFIED [facility] DISEASE OF INTERNAL SEBACEOUS MED [place] 1104 DERMATOPHYT 03-02-2008 [facility] FOOT [facility] 1701 MALIGNANT 03-02-2008 [facility] NEOPLASM OF HOSPITAL MANDIBLE 7062 SEBACEOUS 03-02-2008 [facility] 8471 THORACIC 02-15-2008 [facility] STRAIN INTERNAL MED 6256 FEMALE 09-30-2007 HAZEL PLATA, STRESS [place]IN[place] E [address] URGE 09-30-2007 HAZEL PLATA, INCONTINENC MARIAA P E 4659 ACUTE URIS 08-14-2007 [facility] [place] UNSPECIFIED INTERNAL SITE MED 4778 ALLERGIC 08-12-2007 [facility] RHINITIS [place] DUE TO INTERNAL OTHER MED ALLERGEN 05154 HYPERTONICI 07-13-2007 [facility] TY [facility] [place] BLADDER [...] [address] Terrie [facility] CO 10 MP 0 AN MG [...] CO MP TA AN BL Y ET [place] 00 03 03 0 12 4 CA [...] HE N CO A MP AN Y [place] 00 03 03 0 12 4 CA [...] EQUIPME PRSC FLW RATE PRTBLE E0431 LOS CONRTERASRELL GASEOUS 7 HOME HOME O2 SYS MEDICAL [...] RENT; EQUIPME EQUIPME FLWMTR HUMIDFR&M ASK SBSQ 33221 [place] [address] PHYSICIAN CARE/DAY S GROUP 15 MINUTES SBSQ 66058 [place] [address] PHYSICIAN CARE/DAY S GROUP 25 MINUTES ECG 86249 YUMIKO [facility] ROUTINE 7 [facility] W/LEAST P 12 LDS I&R ONLY RADIOLOGI 44444 MARICARMEN Prince 7 MEDICAL EXAMINATI IMAGING ON CHEST ASS [place] FRONTAL INITIAL 30927 [place] [address] PHYSICIAN CARE/DAY S GROUP 70 MINUTES HOSPITAL G0463 [facility] OUTPATIEN 7 [facility] T CLIN E E VISIT [facility] ASSESS & MGMT PT COLLECTIO 39759 [facility] N VENOUS 7 [facility] BLOOD E E VENIPUNCT [facility] URE BLOOD 19934 [facility] COUNT 7 [facility] COMPLETE E E AUTO&AUTO [facility] DIFRNTL WBC COMPREHEN 59436 [facility] SIVE 7 [facility] METABOLIC E E PANEL [facility] COMPREHEN 34315 [facility] 6 Y Y METABOLIC [facility] PANEL COLLECTIO 62557 [facility] N VENOUS 6 Y Y BLOOD [facility] VENIPUNCT [facility] HOSPITAL G0463 [facility] OUTPATIEN 6 Y Y T CLIN HOSPITAL HOSPITAL VISIT ASSESS & MGMT PT BLOOD 91838 [facility] COUNT 6 Y Y COMPLETE [facility] AUTO&AUTO DIFRNTL WBC DUPLEX 68508 FAMILIA MENDOSA MENDOSA FAMILIA SCAN 6 MD EXTRACRAN CONSULTIN IAL ART G SRV COMPL BI STUDY DUPLEX 42728 [place] SCAN 6 [facility] IAL ART COMPL BI STUDY COMPRE 79952 [facility]EV[facility] GOLD SET AUDIOMETR 6 PHYSICIAN Y PRACTICE THRESHOLD L EVAL SP RECOGNIJ TYMPANOME 38562 [place] GOLD SET TRY 6 PHYSICIAN PRACTICE L RADIOLOGI 54695 [facility] DENI C EXAM 6 [facility] CHEST 2 IMAGING VIEWS ASS FRONTAL&L ATERAL RADIOLOGI 92176 [facility] MONIQUE ALL C EXAM 6 MEDICAL CHEST 2 IMAGING VIEWS ASS FRONTAL&L ATERAL INJECTION J1650 JENNY ALVARADO [address] [place] [address] N SODIUM 10 MG INJECTION J2270 [facility] MORPHINE [address] [place] [address] UP TO 10 MG ADMINISTR G0008 [facility] ATION OF [address] [place] [address] VIRUS VACCINE IIV3 VACC 86756 [facility] IV[address]SE[address] [place] FREE 0.5 ML DOSAGE IM USE INJECTION J2405 [facility] [address] ON HCL PER 1 MG BASIC 62088 [facility] METABOLIC [address] [place] [address] CALCIUM TOTAL BLOOD 24540 JENNY ALVARADO COUNT [address] [facility] AUTOMATED COLLECTIO 84438 JENNY ALVARADO N VENOUS 5 [facility] VENIPUNCT URE NONCOVERE A9270 JENNY ALVARADO D ITEM OR 5 [facility] NONCOVERE A9270 JENNY ALVARADO D ITEM OR 5 [facility] [place] [address] JENNY ALVARADO THYROID 5 [facility] [place] [address] JENNY ALVARADO BLOOD/URI 5 [facility] COLLECTIO 34255 JENNY ALVARADO N VENOUS 5 [facility] VENIPUNCT URE C-REACTIV 50789 JENNY ALVARADO E PROTEIN 5 [facility] URNLS DIP 23291 [facility] [address] [place] [address] [facility] HOSPITAL LET REAGENT AUTO MICROSCOP Y NATRIURET 77602 JENNY ALVARADO IC [address] [place] [address] [place] [address] [facility] TROPONIN 5 [facility] [place] [address] JENNY ALVARADO HEAD/BRAI [address] [place] [address] N W/O HOSPITAL HOSPITAL CONTRAST MATERIAL BLOOD 14019 JENNY ALVARADO COUNT [address] [facility] AUTO&AUTO DIFRNTL WBC HOSPITAL G0378 [facility] OBSERVATI [address] [place] [address] ON HOSPITAL HOSPITAL SERVICE PER HOUR SEDIMENTA 84118 [facility] TION RATE 5 [facility]OSP[facility] NON-AUTOM ATED COMPREHEN 01535 [facility] SIVE [address] [place] [address] [facility] HOSPITAL PANEL ECG 45042 [facility] ROUTINE [address] [place] [address] ECG HOSPITAL HOSPITAL W/LEAST 12 LDS TRCG ONLY W/O I&R CT THORAX 07513 [facility] [place] MAT W/O [address] [place] [address] [facility] [place] MAT HEAD/BRAI 5 RADIOLOGY N W/O CONTRAST MATERIAL ECG 44578 YUMIKO DAVENPORT JR ROUTINE 5 [facility] W/LEAST P 12 LDS I&R ONLY RADIOLOGI 65291 YUMIKO YUMIKO C EXAM 5 [facility] CHEST 2 INC INC VIEWS FRONTAL&L ATERAL RADIOLOGI 68240 YUMIKO YUMIKO C EXAM 5 [facility] CHEST 2 INC INC VIEWS FRONTAL&L ATERAL DISPBL T4535 [facility] LINER/ISABELLE 5 HOME HOME ELD/GUARD HEALTH HEALTH /PAD/UNDG AGENCY AGENCY RMNT INCONT EA INJECTION J0696 PEPE PEPE [address] [place] [address] URGENT URGENT NE SODIUM TREAT TREAT PER 250 MG 25 62833 [facility] HYDROXY 5 [facility] INCLUDES HOLDINGS HOLDINGS FRACTIONS IF PERFORMED CYANOCOBA 79009 [facility] AMBAR 5 [facility] VITAMIN HOLDINGS [place] B-[address] [place] [address] LAB [facility] MAGNESIUM 5 [facility] [place] HOLDINGS GENERAL 43392 LAB [facility] J[facility] HEALTH 5 [facility] PANEL [facility] HOLDINGS LIPID 01186 [facility] PANEL 5 [facility] [place] [address] LAB J[facility]ANI LAB J[facility] FOLIC 5 [facility] ACID [facility] HOLDINGS SERUM RADEX 48554 [facility] DENI RIBS 5 [facility] UNILATERA IMAGING L 2 VIEWS ASS RADIOLOGI 70411 [facility] DENI C EXAM 5 [facility] CHEST 2 IMAGING VIEWS ASS FRONTAL&L ATERAL DISPBL T4535 [facility] LINER/ISABELLE 5 HOME HOME ELD/GUARD HEALTH HEALTH /PAD/UNDG AGENCY AGENCY RMNT INCONT EA CUL BACT 56645 LAB [facility] XCPT 5 [facility] URINE [facility]INGS HOLDINGS BLOOD/STO OL AEROBIC ISOL BASIC 99603 LAB [facility] METABOLIC 4 [facility] PANEL [place] [address] YUMIKO CALDERON INFUSION 4 [facility] THERAPY/P INC INC ROPHYLAXI S /DX 1ST TO 1 HR THERAPEUT 11671 YUMIKO CAL[facility]ON IC 4 [facility] INJECTION INC INC IV PUSH EACH [facility] [address] [facility] DISCHARGE 4 PHYSICIAN PHYSICIAN DAY S GROUP S GROUP MANAGEMEN T 30 MIN/< RADIOLOGI 06870 MARICARMEN CHEEMA C EXAM 4 [facility] CHEST 2 IMAGING VIEWS ASS FRONTAL&L ATERAL ECG 17010 YUMIKO DAVENPORT JR ROUTINE 4 [facility] W/LEAST P 12 LDS I&R ONLY PRESSURIZ 25291 YUMIKO CALDERON ED/NONPRE 4 [facility] HOSP SSURIZED INC INC INHALATIO N TREATMENT RADIOLOGI 37617 YUMIKO CALDERON C EXAM 4 [facility] HOSP CHEST 2 INC INC VIEWS FRONTAL&[place] [address] YUMIKO CALDERON HEAD/BRAI 4 [facility]OS[facility] N W/O INC INC CONTRAST MATERIAL ECG 81439 YUMIKO CALDERON ROUTINE 4 [facility] HOS[facility] ECG INC INC W/LEAST 12 LDS TRCG ONLY W/O I&R ECG 30088 YUMIKO CALDERON ROUTINE 4 [facility] MEM HOSP ECG INC INC W/LEAST 12 LDS TRCG ONLY W/O I&R RADIOLOGI 99660 YUMIKO CALDERON C 4 [facility]OSP EXAMINATI INC [place] [address] YUMIKO CALDERON INFUSION 4 [facility] THER INC INC PROPH ADDL [place] [address] YUMIKO CALDERON INFUSION 4 [facility] HOSP THERAPY/P INC INC ROPHYLAXI S /DX 1ST TO 1 HR DEBRIDEME 35869 LAUSE FED LAUSE FED NT NAIL 4 ANY METHOD 6/> HOSPITAL G0463 [facility] 4 Y Y T CLIN HOSPITAL HOSPITAL VISIT ASSESS & MGMT PT DISPBL T4535 NURSES NURSES LINER/ISABELLE 4 REGISTRY REGISTRY ELD/GUARD HOME HOME /PAD/UNDG HLTHTCA HLTHTCA RMNT INCONT EA DISPBL T4535 NURSES NURSES LINER/ISABELLE 4 REGISTRY REGISTRY ELD/GUARD HOME HOME /PAD/UNDG HLTHTCA HLTHTCA RMNT INCONT EA NONCOVERE A9270 JENNY ALVARADO D ITEM OR 4 [facility]PITAL NONCOVERE A9270 [facility] D ITEM OR 4 [facility] RADIOLOGI 23664 HAYDER HAYDER C EXAM 4 RHO RHO CHEST 2 VIEWS FRONTAL&L ATERAL ECG 11674 JENNY ALVARADO ROUTINE [address] [facility] W/LEAST 12 LDS TRCG ONLY W/O I&R RADEX 58038 [employer], [employer], ABDOMEN 4 HOSPITALITY MANAGER HOSPITALITY MANAGER COMPL PEPE CANTU W/DCBTS&/ [place] [address] [employer], ABDOMEN & 4 HOSPITALITY MANAGER HOSPITALITY MANAGER PELVIS PEPEHien CANTU W/O CO HOS CO HOS CONTRAST MATERIAL RADIOLOGI 23340 [employer], [employer], C EXAM 4 HOSPITALITY MANAGER HOSPITALITY MANAGER CHEST 2 PEPE PEPE VIEWS CO HOS CO HOS FRONTAL&[place] [address] [employer], [employer], INFUSION 4 HOSPITALITY MANAGER HOSPITALITY MANAGER HYDRATION PEPE PEPE INITIAL CO HOS CO HOS 31 MIN-1 HOUR DISPBL T4535 NURSES NURSES LINER/ISABELLE 4 REGISTRY REGISTRY ELD/GUARD HOME HOME /PAD/UNDG HLTHTCA HLTHTCA RMNT INCONT EA DISPBL T4535 NURSES NURSES LINER/ISABELLE 4 REGISTRY REGISTRY ELD/GUARD & HOME HE & HOME HE /PAD/UNDG RMNT INCONT EA DESTRUCTI 56207 MUSIC HOWARD MUSIC HOWARD ON 4 PREMALIGN ANT LESION 15/> DISPBL T4535 NURSES NURSES LINER/ISABELLE 4 REGISTRY REGISTRY ELD/GUARD & HOME HE & HOME HE /PAD/UNDG RMNT INCONT EA ECG 47074 MENDOSA FAMILIA MENDOSA FAMILIA ROUTINE 4 ECG W/LEAST 12 LDS I&R ONLY ECG 61822 [employer], ROUTINE 4 HOSPITALITY MANAGER HOSPITALITY MANAGER ECG PEPE CANTU W/LEAST CO HOS CO HOS 12 LDS TRCG ONLY W/O I&R DISPBL T4535 NURSES NURSES LINER/ISABELLE 4 REGISTRY REGISTRY ELD/GUARD & HOME HE & HOME HE /[place] [address] [facility] [email or web address], [facility], INFUSION 4 HOSPITALITY MANAGER HOSPITALITY MANAGER HYDRATION PEPE CANTU INITIAL CO HOS CO HOS 31 MIN-1 HOUR INJECTION J2405 [facility], 4 HOSPITALITY MANAGER HOSPITALITY MANAGER ONDANSETR PEPE CANTU ON HCL CO HOS CO HOS PER 1 [place] [address] [facility], INFUSION 4 HOSPITALITY MANAGER HOSPITALITY MANAGER THERAPY/P PEPE CANTU ROPHYLAXI CO HOS CO HOS S /DX 1ST TO 1 HR THER 81250 [facility] [employer] [facility], PROPH/DX 4 HOSPITALITY MANAGER HOSPITALITY MANAGER NJX IV PEPE CANTU PUSH CO HOS CO HOS SINGLE/1S T SBST/DRUG DISPBL T4535 N[facility]SES [facility]ES [facility] REGISTRY REGISTRY ELD/GUARD & HOME HE & HOME HE /PAD/UNDG RMNT INCONT [place] [employer] G0463 [facility] 4 Y Y T [facility] VISIT ASSESS & MGMT PT DEBRIDEME 43572 LAUSE FED LAUSE FED NT NAIL 3 ANY METHOD 6/> DUP-SCAN 83474 ATKINS ATKINS XTR VEINS 3 COL COL COMPLETE BILATERAL STUDY DISPBL T4535 N[facility]ES [facility] 3 REGISTRY REGISTRY ELD/GUARD & HOME HE & HOME HE /PAD/UNDG RMNT INCONT EA DEBRIDEME 55344 LAUSE FED LAUSE FED NT NAIL 3 ANY METHOD 6/> DISPBL T4535 [facility] 3 REGISTRY REGISTRY ELD/GUARD & HOME HE & HOME HE /PAD/UNDG RMNT INCONT EA DUP-SCAN 36408 ATKINS ATKINS XTR VEINS 3 COL COL UNILATERA L/LIMITED STUDY STAB 72159 ATKINS ATKINS PHLEBT 3 COL COL VARICOSE VEINS 1 XTR > 20 INCS ENDOVEN 24569 ATKINS ATKINS ABLTJ 3 COL COL INCMPTNT VEIN XTR LASER 1ST VEIN DISPBL T4535 NURSES NURSES LINER/ISABELLE 3 REGISTRY REGISTRY ELD/GUARD & HOME HE & HOME HE /PAD/UNDG RMNT INCONT EA DUP-SCAN 20541 ATKINS ATKINS XTR VEINS 3 COL COL UNILATERA L/LIMITED STUDY STAB 67470 ATKINS ATKINS PHLEBT 3 COL COL VARICOSE VEINS 1 XTR 10-20 STAB INCS ENDOVEN 38503 ATKINS ATKINS ABLTJ 3 COL COL INCMPTNT VEIN XTR LASER 1ST VEIN COLLECTIO 41589 [facility] VENOUS 3 Y Y BLOOD [facility] [place] [address] LUKINS LUKINS HEAD/BRAI 3 [facility] N W/O CONTRAST MATERIAL BLOOD 88719 [facility] COUNT 3 Y Y [facility] AUTOMATED RADIOLOGI 17964 [facility] 3 Y Y [facility] ON FEMUR 2 VIEWS RADIOLOGI 27679 [facility] C 3 GAR GAR EXAMINATI ON KNEE 3 VIEWS BASIC 18896 [facility] METABOLIC 3 Y Y [facility] CALCIUM TOTAL RADIOLOGI 16331 [facility] MERPSYCHIATRIC 3 GAR GAR EXAMINATI ON TIBIA & FIBULA 2 VIEWS ECG 51333 AHMED ADN AHMED ADN ROUTINE 3 ECG W/LEAST 12 LDS I&R ONLY RADIOLOGI 20142 [facility] [email or web address], [facility], C EXAM 3 HOSPITALITY MANAGER HOSPITALITY MANAGER CHEST 2 PEPE PEPE VIEWS CO HOS CO HOS FRONTAL&[place] [address] [facility] [email or web address], [facility], INFUSION 3 HOSPITALITY MANAGER HOSPITALITY MANAGER HYDRATION PEPE PEPE INITIAL CO HOS CO HOS 31 MIN-1 HOUR LOCM Q9967 [facility] [email or web address], [facility], 300-399 3 HOSPITALITY MANAGER HOSPITALITY MANAGER MG/ML PEPE CANTU IODINE CO HOS CO HOS CONCENTRA TION PER ML INJECTION J2405 [facility] [email or web address], [facility], 3 HOSPITALITY MANAGER HOSPITALITY MANAGER ONDANSETR PEPE CANTU ON HCL CO H[place] CO HOS PER [address] [place] [address] [facility] [email or web address], [facility], ABDOMEN & 3 HOSPITALITY MANAGER HOSPITALITY MANAGER PELVIS PEPE CANTU W/O CO HOS CO HOS CONTRST 1/> [place] [address] [facility], [employer], INFUSION 3 HOSPITALITY MANAGER HOSPITALITY MANAGER THERAPY/P PEPE CANTU ROPHYLAXI CO HOS CO HOS S /DX 1ST TO 1 HR THER 86247 [employer], PROPH/DX 3 HOSPITALITY MANAGER HOSPITALITY MANAGER NJX IV PEPE CANTU PUSH CO HOS CO HOS SINGLE/1S T SBST/DRUG ECG 94149 [employer], [employer], ROUTINE 3 HOSPITALITY MANAGER HOSPITALITY MANAGER ECG PEPE PEPE W/LEAST CO HOS CO HOS 12 LDS TRCG ONLY W/O I&R US SOFT 88884 [facility] TISSUE 3 ANNIE ANNIE HEAD & NECK REAL TIME IMGE DOCM BASIC 76557 [facility] METABOLIC 3 Y Y PANEL HOSPITAL [place] [address] [facility] 1/> AREAS 3 Y Y EA 15 HOSPITAL HOSPITAL MIN GAIT TRAINJ W/STAIR PRESSURIZ 75674 [facility] ED/NONPRE 3 Y Y SSURIZED HOSPITAL HOSPITAL INHALATIO N TREATMENT BLOOD 95015 [facility] COUNT 3 Y Y COMPLETE HOSPITAL [facility] AUTOMATED HOSPITAL G0378 [facility] OBSERVATI 3 Y Y ON HOSPITAL HOSPITAL SERVICE PER HOUR NONCOVERE A9270 [facility] D ITEM OR 3 Y Y SERVICE HOSPITAL HOSPITAL INJECTION J1956 [facility] 3 Y Y LEVOFLOXA [facility] KRISTIN 250 MG INJECTION J1644 [facility] HEPARIN 3 Y Y SODIUM [facility]ITAL HOSPITAL PER 1000 UNITS PHYSICAL 12494 [facility] THERAPY 3 Y Y EVALUATIO [facility] H[facility]PITAL N INJECTION J1956 [facility] 3 Y [facility] KRISTIN 250 MG INJECTION J1644 [facility] HEPARIN 3 Y Y [facility] H[facility]PITAL PER 1000 UNITS ECG 35154 [facility] ROUTINE 3 Y Y ECG HOSPITAL HOSPITAL W/LEAST 12 LDS TRCG ONLY W/O I&R NONCOVERE A9270 [facility] D ITEM OR 3 Y Y SERVICE [facility]PITAL HOSPITAL BLOOD 69604 [facility] 3 Y Y COMPLETE HOSPITAL [facility] AUTO&AUTO DIFRNTL WBC CULTURE 32750 [facility] BACTERIAL 3 Y Y BLOOD [facility] AEROBIC W/ID ISOLATES PRESSURIZ 77907 [facility] ED/NONPRE 3 Y Y SSURIZED [facility] INHALATIO N TREATMENT COMPREHEN 90369 [facility] SIVE 3 Y Y METABOLIC [facility] PANEL RADIOLOGI 12611 [facility] RICCI C EXAM 3 PHI PHI CHEST 2 VIEWS FRONTAL&L ATERAL INFUSION J7030 [facility] NORMAL 3 Y Y SALINE [facility] SOLUTION [address] [place] [address] [facility], [facility], INFUSION 3 HOSPITALITY MANAGER HOSPITALITY MANAGER THERAPY/P PEPE CANTU ROPHYLAXI CO HOS CO HOS S /DX 1ST TO 1 HR INJECTION J2405 [facility], [facility], 3 HOSPITALITY MANAGER HOSPITALITY MANAGER ONDANSETR PEPE CANTU ON HCL CO HOS CO HOS PER 1 MG ECG 09412 AHMED ADN AHMED ADN ROUTINE 3 ECG W/LEAST 12 LDS I&[place] [address] [facility], [facility], INFUSION 3 HOSPITALITY MANAGER HOSPITALITY MANAGER HYDRATION PEPE PEPE INITIAL CO HOS CO HOS 31 MIN-1 [place] [address] [facility], INFUSION 3 HOSPITALITY MANAGER HOSPITALITY MANAGER HYDRATION PEPE PEPE EACH CO HOS CO HOS ADDITIONA L HOUR ARTERIAL 19901 [facility], PUNCTURE 3 HOSPITALITY MANAGER HOSPITALITY MANAGER WITHDRAWA PEPE CANTU L BLOOD CO HOS CO HOS DX RADIOLOGI 55883 [facility], [facility], C 3 HOSPITALITY MANAGER HOSPITALITY MANAGER EXAMINATI PEPE CANTU ON CHEST CO HOS CO HOS SINGLE VIEW FRONTAL INSJ TEMP 19746 [facility], [facility], NDWELLG 3 HOSPITALITY MANAGER HOSPITALITY MANAGER BLADDER PEPE CANTU CATHETER CO HOS CO HOS SIMPLE ECG 85987 [facility], [facility], ROUTINE 3 HOSPITALITY MANAGER HOSPITALITY MANAGER ECG PEPE PEPE W/LEAST CO HOS CO HOS 12 LDS TRCG ONLY W/O I&R THER 12759 [facility], [facility], PROPH/DX 3 HOSPITALITY MANAGER HOSPITALITY MANAGER NJX IV PEPE PEPE PUSH CO HOS CO HOS SINGLE/1S T SBST/DRUG INJECTION J0456 [facility], [facility], 3 HOSPITALITY MANAGER HOSPITALITY MANAGER AZITHROMY PEPE CANTU KRISTIN 500 CO HOS CO HOS MG INJECTION J0696 [facility], [facility], 3 HOSPITALITY MANAGER HOSPITALITY MANAGER CEFTRIAXO PEPE CANTU NE SODIUM CO HOS CO HOS PER 250 MG PRESSURIZ 38882 [facility], [facility], ED/NONPRE 3 HOSPITALITY MANAGER HOSPITALITY MANAGER SSURIZED PEPE MORAS INHALATIO CO HOS CO HOS N TREATMENT NONINVASI 19585 [facility], [facility], VE 3 HOSPITALITY MANAGER HOSPITALITY MANAGER EAR/PULSE PEPE PEPE OXIMETRY [place] [address] [facility], INFUSION 3 HOSPITALITY MANAGER HOSPITALITY MANAGER THERAPY/P PEPE MORAS ROPHYLAXI CO HOS CO HOS S /DX 1ST TO 1 HR LOCM Q9967 [facility], [phone] 3 HOSPITALITY MANAGER HOSPITALITY MANAGER MG/ML PEPE CANTU IODINE CO HOS CO HOS CONCENTRA TION PER ML RADIOLOGI 14769 [facility], [facility], C EXAM 3 HOSPITALITY MANAGER HOSPITALITY MANAGER CHEST 2 PEPE PEPE VIEWS CO HOS CO HOS FRONTAL&L ATERAL CT THORAX 38554 ETI[place]NE [place] 3 ANNIE ANNIE W/CONTRAS T MATERIAL ARTERIAL 85520 [facility], [facility], PUNCTURE 3 HOSPITALITY MANAGER HOSPITALITY MANAGER WITHDRAWA PEPE [place] [address] [facility], [facility], ANGIOGRAP 3 HOSPITALITY MANAGER HOSPITALITY MANAGER HY CHEST PEPE PEPE W/CONTRAS CO HOS CO HOS T/NONCONT [facility] G0378 [facility], [facility], OBSERVATI 3 HOSPITALITY MANAGER HOSPITALITY MANAGER ON PEPE PEPE SERVICE CO HOS CO HOS PER HOUR DEBRIDEME 66535 LAUSE FED LAUSE FED NT NAIL 3 ANY METHOD 6/> RADIOLOGI 86318 DEVIN BELTRAN C EXAM 3 BETH BETH KNEE COMPLETE 4/[place] [address] [facility], [facility], HEAD/BRAI 3 HOSPITALITY MANAGER HOSPITALITY MANAGER N W/O PEPE PEPE CONTRAST CO HOS CO HOS MATERIAL RADIOLOGI 84088 [facility], [facility], C 3 HOSPITALITY MANAGER HOSPITALITY MANAGER EXAMINATI PEPE CANTU ON KNEE 3 CO HOS CO HOS VIEWS DISPBL T4535 NURSES NURSES LINER/ISABELLE 3 REGISTRY REGISTRY ELD/GUARD & HOME HE & HOME HE /PAD/UNDG RMNT INCONT EA DISPBL T4535 NURSES NURSES LINER/ISABELLE 3 REGISTRY REGISTRY ELD/GUARD & HOME HE & HOME HE /PAD/UNDG RMNT INCONT EA INJECTION J1885 [facility], [facility], 3 HOSPITALITY MANAGER HOSPITALITY MANAGER KETOROLAC PEPE VILLARREALOLAS CO HOS CO HOS TROMETHAM INE PER 15 MG RADIOLOGI 04129 JUICE BOSE C EXAM 3 EIDER CLAYTON ARNOLD CHEST 2 VIEWS FRONTAL&L ATERAL PRESSURIZ 23577 [facility], [facility], ED/NONPRE 3 HOSPITALITY MANAGER HOSPITALITY MANAGER SSURIZED PEPE CANTU INHALATIO [place] [address] [facility], [facility], WALL 3 HOSPITALITY MANAGER HOSPITALITY MANAGER FACILITAT PEPE CANTU E LNG CO HOS CO HOS FUNCJ 1 DEMO&/JONNY L NONINVASI 20204 [facility], [facility], VE 3 HOSPITALITY MANAGER HOSPITALITY MANAGER EAR/PULSE PEPE CANTU OXIMETRY CO HOS CO HOS MULTIPLE DETER INITIAL 95257 AHMED ADN AHMED ADN OBSERVATI 3 ON CARE/DAY 30 [place] [address] [facility], [facility], INFUSION 3 HOSPITALITY MANAGER HOSPITALITY MANAGER THERAPY/P PEPE CANTU ROPHYLAXI CO HOS CO HOS S /DX 1ST TO 1 HR RADIOLOGI 47210 JUICE BOSE C EXAM 3 EIDER CLAYTON MENDOZA CLAYTON CHEST 2 VIEWS FRONTAL&L [facility] G0378 [facility], [facility], OBSERVATI 3 HOSPITALITY MANAGER HOSPITALITY MANAGER ON PEPE CANTU SERVICE CO HOS CO HOS PER HOUR DIRECT G0379 [facility], [facility], ADMISSION 3 HOSPITALITY MANAGER HOSPITALITY MANAGER PATIENT [facility] CO HOS OBSERV CARE DISPBL T4535 NURSES NURSES LINER/ISABELLE 2 REGISTRY REGISTRY ELD/GUARD & HOME HE & HOME HE /PAD/UNDG RMNT INCONT EA ECG 52036 AHMED ADN AHMED ADN ROUTINE 2 ECG W/LEAST 12 LDS TRCG ONLY W/O I&R DISPBL T4535 NURSES NURSES LINER/ISABELLE 2 REGISTRY REGISTRY ELD/GUARD & HOME HE & HOME HE /PAD/UNDG RMNT INCONT EA DUP-SCAN 14929 NO REBEKAH NO REBEKAH XTR VEINS 2 COMPLETE BILATERAL STUDY DISPBL T4535 NURSES NURSES LINER/ISABELLE 2 REGISTRY REGISTRY ELD/GUARD & HOME HE & HOME HE /PAD/UNDG RMNT INCONT EA DISPBL T4535 NURSES NURSES LINER/ISABELLE 2 REGISTRY REGISTRY ELD/GUARD & HOME HE & HOME HE /PAD/UNDG RMNT INCONT EA NATRIURET 34475 [facility] [email or web address], [facility], IC 2 HOSPITALITY MANAGER HOSPITALITY MANAGER PEPTIDE PEPE CANTU CO HOS CO HOS BLOOD 08866 [facility] [email or web address], [facility], COUNT 2 HOSPITALITY MANAGER HOSPITALITY MANAGER COMPLETE PEPE CANTU AUTO&AUTO CO HOS CO HOS DIFRNTL WBC URNLS DIP 69578 [facility] [email or web address], [facility], 2 HOSPITALITY MANAGER HOSPITALITY MANAGER STICK/TAB [facility] LET RGNT CO HOS CO HOS AUTO W/O MICROSCOP Y BASIC 61452 [facility] [email or web address], [facility], METABOLIC 2 HOSPITALITY MANAGER HOSPITALITY MANAGER PANEL [facility] [place] [address] [facility] [email or web address], [facility], INFUSION 2 HOSPITALITY MANAGER HOSPITALITY MANAGER THERAPY/P PEPE C[facility]U ROPHYLAXI CO HOS CO HOS S /DX 1ST TO 1 HR RADIOLOGI 41914 [facility] [email or web address], [facility] C EXAM 2 HOSPITALITY MANAGER HOSPITALITY MANAGER CHEST 2 [facility] VIEWS CO HOS CO HOS FRONTAL&L ATERAL FIBRIN 89687 [facility] [email or web address], [facility], DGRADJ 2 HOSPITALITY MANAGER HOSPITALITY MANAGER PRODUCTS [facility]PE CANTU D-DIMER CO HOS CO HOS QUANTITAT ADELINA ECG 53807 [facility] [email or web address], [facility] ROUTINE 2 HOSPITALITY MANAGER HOSPITALITY MANAGER ECG [facility] W/LEAST CO HOS CO HOS 12 LDS TRCG ONLY W/O I&R THER 30190 [facility], [facility], PROPH/DX 2 HOSPITALITY MANAGER HOSPITALITY MANAGER NJX IV PEPE PEPE PUSH CO HOS CO HOS SINGLE/1S T SBST/[place] [address] [facility], [facility], INFUSION 2 HOSPITALITY MANAGER HOSPITALITY MANAGER HYDRATION PEPE PEPE EACH CO HOS CO HOS ADDITIONA L HOUR RADIOLOGI 31341 [facility] C EXAM 2 BETH CHEST 2 RADIOLOGY VIEWS ASSOCIAT FRONTAL&[place] [address] [facility], [facility], INFUSION 2 HOSPITALITY MANAGER HOSPITALITY MANAGER HYDRATION PEPE PEPE INITIAL CO HOS CO HOS 31 MIN-1 [place] [address] [facility], [facility], INFUSION 2 HOSPITALITY MANAGER HOSPITALITY MANAGER THERAPY/P PEPE PEPE ROPHYLAXI CO HOS CO HOS S /DX 1ST TO 1 HR PET 47402 [facility] [address] IMAGING IMAGING ATTENUATI L L ON SKULL BASE MID-THIGH COMPREHEN 57913 [facility], [facility], SIVE 2 HOSPITALITY MANAGER HOSPITALITY MANAGER METABOLIC PEPE PEPE PANEL CO HOS CO HOS RADIOLOGI 38865 [facility], [facility], C EXAM 2 HOSPITALITY MANAGER HOSPITALITY MANAGER CHEST 2 PEPE PEPE VIEWS CO HOS CO HOS FRONTAL&L ATERAL BLOOD 43254 [facility], [facility], COUNT 2 HOSPITALITY MANAGER HOSPITALITY MANAGER SMEAR PEPE MORAS MCRSCP CO HOS CO HOS W/MNL DIFRNTL WBC COUNT BLOOD 80783 [facility], [facility], COUNT 2 HOSPITALITY MANAGER HOSPITALITY MANAGER COMPLETE PEPE PEPE AUTO&AUTO CO HOS CO HOS DIFRNTL WBC NATRIURET 72851 [facility], [facility], IC 2 HOSPITALITY MANAGER HOSPITALITY MANAGER PEPTIDE PEPE PEPE CO HOS CO HOS PROTHROMB 03773 [facility], [facility], IN TIME 2 HOSPITALITY MANAGER HOSPITALITY MANAGER PEPE PEPE CO HOS CO HOS SEDIMENTA 83987 [facility], [facility] TION RATE 2 HOSPITALITY MANAGER HOSPITALITY MANAGER RBC PEPE PEPE NON-AUTOM CO HOS CO HOS ATED DUP-SCAN 19546 YUMIKO CALDERON XTR VEINS 2 [facility] INC INC UNILATERA L/LIMITED STUDY DISPBL T4535 NURSES NURSES LINER/ISABELLE 2 REGISTRY REGISTRY ELD/GUARD & HOME HE & HOME HE /PAD/UNDG RMNT INCONT EA DISPBL T4535 NURSES NURSES LINER/ISABELLE 2 REGISTRY REGISTRY ELD/GUARD & HOME HE & HOME HE /[place] [address] NEW NEW SURG 1 [facility] PATHOLOGY CLINIC CLINIC PSC PSC GROSS&PHI ROSCOPIC EXAM DECALCIFI 68026 NEW NEW CATION 1 [facility] PROCEDURE CLINIC CLINIC PSC PSC BONE 27499 [place] [place] [facility] [place]LEST[place] [address] [facility] [address] IMAGING IMAGING ATTENUATI L L ON SKULL BASE MID-THIGH COMPREHEN 13530 [facility] SIVE 1 [facility] [place] [address] [facility] BLOOD/URI 1 [facility] C ACID LACTATE 24394 [facility] DEHYDROGE 1 [facility] NASE LDH COLLECTIO 05866 [facility] N VENOUS 1 [facility] BLOOD VENIPUNCT URE BLOOD 65122 [facility] COUNT 1 [facility] COMPLETE AUTO&AUTO DIFRNTL WBC RADEX 87591 [facility] ANKLE 1 [facility] COMPLETE MINIMUM 3 VIEWS FLOW 07038 [facility] CYTOMETRY 1 [facility] CELL SURF MARKER TECHL ONLY 1ST CHRMSM 58665 [facility] COUNT 1 [facility] 15-20 CLL 2KARYOTYP BANDING CHRMSM 66838 [facility] ANALYSIS 1 [facility] ADDL KARYOTYP EACH STUDY COLLECTIO 46906 [facility] N VENOUS 1 [facility] BLOOD VENIPUNCT URE FLOW 53572 [facility] CYTOMETRY 1 [facility] CELL SURF MARKER TECHL ONLY EA FLOW 47050 [facility] CYTOMETRY 1 [facility] INTERPRET ATION 16/> MARKERS DISPBL T4535 NURSES NURSES LINER/ISABELLE 1 REGISTRY REGISTRY ELD/GUARD & HOME HE & HOME HE /PAD/UNDG RMNT INCONT EA DISPBL T4535 NURSES NURSES LINER/ISABELLE 1 REGISTRY REGISTRY ELD/GUARD & HOME HE & HOME HE /PAD/UNDG RMNT INCONT EA DESTRUCTI 25564 [facility] ANGELO [place]ONG ON 1 [facility] LESION 1ST RADIOLOGI 79625 [facility] C 1 CO CO EXAMINATI [facility] ON TIBIA & FIBULA 2 VIEWS RADEX 38023 [facility] ELBOW 1 CO CO COMPLETE [facility] MINIMUM 3 VIEWS RADEX 90658 [facility] FOREARM 2 1 CO CO VIEWS [facility] DUPLEX 84402 [facility] SCAN [address] [facility] EXTRACRAN RADIOLOGY IAL ART ASSOCIAT COMPL BI STUDY BLOOD 00441 [facility] ISABELA PAT SMEAR 1 JARED & PERIPHERA DUBILIER L INTERP PHYS W/[place] [address] [facility] HEAD/BRAI 1 BETH N W/O RADIOLOGY CONTRAST ASSOCIAT MATERIAL RADEX 63319 [facility] ABDOMEN 1 BETH COMPL RADIOLOGY W/DCBTS&/ ASSOCIAT ERC VIEWS ECG 00989 [facility] ROUTINE 1 CO CO ECG [facility] W/LEAST 12 LDS TRCG ONLY W/O I&R DEMO&/JONNY 13544 PEPE Velazquez OF PT 1 CO CO UTILIZ [facility] AERSL GEN/NEB/I NHLR/IP ANTIBODY 30799 [facility] INFLUENZA 1 CO CO VIRUS [facility] BLOOD 24419 [facility] COUNT 1 CO CO SMEAR [facility] MCRSCP W/MNL DIFRNTL WBC COUNT COLLECTIO 84385 PEPE Falcon VENOUS 1 CO CO BLOOD [facility] VENIPUNCT URE BASIC 11836 [facility] METABOLIC 1 CO CO PANEL [facility] CALCIUM TOTAL PRESSURIZ 23736 [facility] ED/NONPRE 1 CO CO SSURIZED [facility] INHALATIO N TREATMENT RADIOLOGI 02545 [facility] C EXAM 1 BETH CHEST 2 RADIOLOGY VIEWS ASSOCIAT FRONTAL&L ATERAL COMPREHEN 27394 COMBINED COMBINED SIVE 1 PHYSICIAN PHYSICIAN METABOLIC S LA S LA PANEL PROTHROMB 87347 COMBINED COMBINED IN TIME 1 PHYSICIAN PHYSICIAN S LA S LA LIPID 51730 COMBINED COMBINED PANEL 1 PHYSICIAN PHYSICIAN S LA S [place] BLOOD 13713 COMBINED COMBINED COUNT 1 PHYSICIAN PHYSICIAN COMPLETE S LA S LA AUTO&[place] [address] COMBINED COMBINED THYROID 1 PHYSICIAN PHYSICIAN STIMULATI S LA S LA NG HORMONE TSH RADEX 47138 [facility] RIBS UNI 1 CO CO W/POSTERO [facility] ANT CH MINIMUM 3 VIEWS RADEX 32296 CORNELIUS BELTRAN RIBS 1 BETH UNILATERA RADIOLOGY L 2 VIEWS ASSOCIAT RADIOLOGI 78052 [facility] C EXAM 1 CO CO CHEST 2 [facility] HOSPITAL VIEWS FRONTAL&[place] [address] [facility] TRANSV[facility] [place] CERV/VAGI G0101 [facility] NAL 1 [facility]; [place] PELV&CLIN BREAST EXAM SCR G0145 PATHOLOGY PATHOLOGY CYTOPATH 1 & & CERV/VAG CYTOLOGY CYTOLOGY SCR LAB LAB AUTO&MNL RSCR PHYS SCREEN Q0091 [facility] PAP [facility] SMEAR; [facility] [place] PREP &C ONVEY TO LAB RADIOLOGI 43345 [facility] C EXAM 1 ANNIE CHEST 2 RADIOLOGY VIEWS ASSOCIAT FRONTAL&[place] [address] [facility] ABDOMEN 0 CO CO W/O HOSPITAL HOSPITAL CONTRAST MATERIAL CT PELVIS 84701 [facility] W/O 0 CO CO CONTRAST [facility] HOSPITAL MATERIAL CULTURE 99804 [facility] BACTERIAL 0 CO [facility] QUANTTATI [place] [address] PATHOLOGY PATHOLOGY SURG 0 & & PATHOLOGY CYTOLOGY CYTOLOGY LAB LAB GROSS&PHI ROSCOPIC EXAM EXCISION 88993 C GEOVANNI STEVENS MAL 0 HILDA CALLAWAY MD PSC TRUNK/ARM /LEG 2.1-3.0 CM BLOOD 62315 COMBINED COMBINED COUNT 0 PHYSICIAN PHYSICIAN COMPLETE S LA S LA AUTO&AUTO DIFRNTL WBC COLLECTIO 92715 COMBINED COMBINED N VENOUS 0 PHYSICIAN PHYSICIAN [place]LO[place] [address] COMBINED COMBINED THYROID 0 PHYSICIAN PHYSICIAN STIMULATI S LA S LA NG HORMONE TSH LIPID 93728 COMBINED COMBINED PANEL 0 PHYSICIAN PHYSICIAN S LA S LA COMPREHEN 73149 COMBINED COMBINED SIVE 0 PHYSICIAN PHYSICIAN METABOLIC S LA S LA PANEL CT PELVIS 29518 CORNELIUS BELTRAN, W/O 0 MARIAA C CONTRAST [place] [address] CORNELIUS BELTRAN, ABDOMEN 0 MARIAA C W/O RADIOLOGY CONTRAST MATERIAL ASSOCIATE S PSC LIPID 16822 COMBINED COMBINED PANEL 0 PHYSICIAN PHYSICIAN S LAB S LAB BLOOD 26236 COMBINED COMBINED COUNT 0 PHYSICIAN PHYSICIAN COMPLETE S LAB S LAB AUTO&AUTO DIFRNTL WBC COMPREHEN 82621 COMBINED COMBINED SIVE 0 PHYSICIAN PHYSICIAN METABOLIC S LAB S LAB PANEL DUP-SCAN 25612 [facility] XTR VEINS 0 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 AUTO&AUTO DIFRNTL WBC URNLS DIP 10956 [facility], 9 [facility] STICK/TAB INTERNAL LET RGNT MED NON-AUTO W/O MICRSCP COLLECTIO 62786 [facility], N VENOUS 9 [facility] BLOOD INTERNAL VENIPUNCT MED URE PHYS G0179 [facility] MCKEMIE RE-CERT 9 [facility], MCR-COVR INTERNAL [facility] MED SRVC RE-CERT PRD MRI 47256 DENIDENI DRAPER, SPINAL 9 ROBERTO CARLOS ROBERTO CARLOS CANAL CERVICAL W/O CONTRAST MATRL 3D 88070 DENI CHEEMA, RENDERING 9 ROBERTO CARLOS ROBERTO CARLOS W/INTERP & POSTPROC[place] ECG 91483 [facility], ROUTINE 9 [facility] ECG INTERNAL W/LEAST MED 12 LDS W/I&R PHYS G0179 [facility] MCKEMIE RE-CERT 9 [facility], MCR-COVR INTERNAL [facility] MED SRVC RE-CERT PRD OPHTH 24212 JOSIAH RAHMAN, MEDICAL 9 DORIAN A DORIAN A XM&EVAL COMPRHNSV ESTAB PT 1/> DESTRUCTI 38382 [facility], ON 9 [facility] PREMALIGN INTERNAL ANT MED LESION 1ST RADIOLOGI 02945 [facility] C EXAM 8 [facility] CHEST 2 [facility] VIEWS FRONTAL&L ATERAL PRESSURIZ 54984 [facility] ED/NONPRE 8 CO CO SSURIZED [facility] INHALATIO N TREATMENT BLOOD 67883 [facility] COUNT 8 CO CO SMEAR [facility] MCRSCP W/MNL DIFRNTL WBC COUNT BLOOD 86564 [facility] COUNT 8 CO CO COMPLETE [facility] AUTO&AUTO DIFRNTL WBC COLLECTIO 20136 [facility] Falcon VENOUS 8 CO CO BLOOD [facility] VENIPUNCT URE DEMO&/JONNY 29520 [facility] L OF PT 8 CO CO UTILIZ [facility] AERSL GEN/NEB/I NHLR/IP ADMINISTR G0008 [facility] GARRISON, ATION OF [address] [place] [address] INFLUENZA INTERNAL VIRUS MED VACCINE IIV3 19510 [facility], [address] SPLIT INTERNAL VIRUS 0.5 MED ML DOSAGE IM USE [facility] 98862 [facility] DE YOUNG, DISCHARGE [address] [place] [address] INTERNAL MANAGEMEN MED T 30 MIN/< SBSQ [address] CARE/DAY INTERNAL 25 MED MINUTES SBSQ [id number] CARE/DAY INTERNAL 25 MED MINUTES RADIOLOGI 27490 Niki MARIEE EXAM 8 AYANA S CHEST 2 RADIOLOGY VIEWS FRONTAL&L ASSOCIATE ATERAL S PSC INITIAL [address] CARE/DAY INTERNAL DARYN F 50 MED MINUTES RADEX ABD 89831 JOHN PAUL CLIFTON, VIOLETA 8 AYANA S AQT ABD RADIOLOGY W/S/E/D VIEWS 1 ASSOCIATE VIEW CH S PSC PHYS CERT G0180 [facility] BRANDINIXON MCR-COVR 8 [facility] INTERNAL SRVC PER MED CERT PRD INJECTION J3301 [facility] 8 [facility], TRIAMCINO INTERNAL DARYN Boucher LONE MED ACETONIDE NOS 10 MG IM ADM 44289 [facility] PRQ ID 8 LOIDA , SUBQ/IM INTERNAL DARYN Boucher NJXS 1 MED VACCINE BLOOD 87408 [facility] COUNT 8 CO CO COMPLETE [facility] AUTO&AUTO DIFRNTL WBC BLOOD 51179 [facility] COUNT 8 CO VT SMEAR [facility] MCRSCP W/MNL DIFRNTL WBC COUNT COLLECTIO 58870 PE[facility] Falcon VENOUS 8 CO VT BLOOD [facility] VENIPUNCT URE RADIOLOGI 17924 Niki MARIEE EXAM 8 AYANA S CHEST 2 RADIOLOGY VIEWS FRONTAL&L ASSOCIATE ATERAL S PSC COMPREHEN 53233 [facility] SIVE 8 CO [facility] PANEL THER 44260 [facility] PROPH/DX 8 [facility] SUBQ/IM Encounters Encounter Start End Date Code Location Performer Type Date OFFICE 56787 [facility] BRAD OUTPATIEN 7 7 PHYSICIAN T VISIT S GROUP 15 MINUTES HOSPITAL [facility] 7 7 [facility] INPATIENT INC EMERGENCY 98731 [facility] DEPT 7 7 PHYSICIAN VISIT S, PLLC HIGH SEVERITY& THREAT FUNCJ OFFICE 63139 [facility] OUTPATIPEPE 7 7 MEDICAL T VISIT SERV 15 FOUNDATIO MINUTES [facility] - 7 7 [facility] OUTPATIEN E T HOSPITALS OFFICE 38258 [facility] OUTPATI[facility] 6 6 COUNTY T VISIT URGENT 25 TREAT MINUTES OFFICE 04887 [facility] T VISIT URGENT 15 TREAT MINUTES OFFICE 98056 [facility] OUT[facility] 6 6 COUNTY T VISIT URGENT 25 TREAT MINUTES OFFICE 30685 [facility] 6 6 COUNTY NAN T VISIT URGENT 25 TREAT MINUTES HOSPITAL [facility] - 6 6 Y [facility] T OFFICE 97454 AM[facility]IA PLUNKETT OUTPATIEN 6 6 MEDICAL N RONN T VISIT SERV 15 FOUNDATIO MINUTES [facility] - 6 6 [facility] T OFF[facility] 93655 [facility] 6 6 PHYSICIAN LES T NEW 30 PRACTICE MINUTES L OFFICE 34554 AM[facility]IA PLUNKETT [facility] 6 6 MEDICAL N RONN T VISIT SERV 10 FOUNDATIO MINUTES N OFFICE 91824 [facility] OUTPATIEN 6 6 [facility] T VISIT URGENT 25 TREAT MINUTES HOSPITAL YUMIKO - 6 6 [facility] INPATIENT [facility] EMERGENCY 71390 MINERAL BLUFF DEPT 5 5 [facility] HIGH SEVERITY& THREAT [facility] BOC[facility]ION - 5 5 [facility] BOCASION - 5 5 [facility] EMERGENCY 39338 [facility] DEPT 5 5 [facility] TH VISIT EMERGENCY HIGH PHYSI SEVERITY& THREAT [facility] EMERGENCY [address] [facility] VISIT HIGH/URGE NT SEVERITY HOSPITAL YUMIKO - 5 5 [facility] OUTPATIEN [facility] YUMIKO - 5 5 [facility] OUTPATIEN [facility] HOME [facility], 5 5 HOME INPATIENT HEALTH AGENCY HOME [facility] 5 5 HOME INPATIENT HEALTH AGENCY OFFICE 19744 ROSA ELENA LLANES [facility] 5 5 CLINIC COUNTS INCLUDE 234 [facility] AT [facility] T VISIT 15 MINUTES HOSPITAL YUMIKO - 4 4 [facility] OUTPATIEN [facility] YUMIKO - 4 4 [facility] INPATIENT [facility] YUMI[facility] - 4 4 [facility]PATIEN [facility] HOSPITAL YUMIKO - 4 4 [facility]PATIEN [facility] OFFICE 77927 [facility] 4 4 PHYSICIAN T NEW 45 S GROUP MINUTES HOSPITAL UNIVERSIT - 4 4 Y [facility] T HOME NURSES HEALTH, 4 4 REGISTRY INPATIENT HOME [facility] NURSES HEALTH, [address] [facility] [place] - 4 4 [facility], ACCESS 4 4 HOSPITALITY MANAGER [facility] EMERGENCY 81163 [facility], 4 4 HOSPITALITY MANAGER DEPARTMEN [facility] T VISIT CO HOS HIGH/URGE NT SEVERITY HOME NURSES HEALTH, 4 4 REGISTRY INPATIENT HOME [facility] NURSES HEALTH, 4 4 REGISTRY INPATIENT & HOME HE HOME NURSES HEALTH, 4 4 REGISTRY INPATIENT & HOME HE CRITICAL [facility], ACCESS 4 4 HOSPITALITY MANAGER [facility] EMERGENCY 46681 [facility], 4 4 HOSPITALITY MANAGER DEPARTMEN [facility] T VISIT CO HOS HIGH/URGE NT SEVERITY CRITICAL [facility], ACCESS 4 4 [facility] HOME NURSES HEALTH, 4 4 REGISTRY INPATIENT & HOME [facility] - 4 4 [facility] 44424 FLEISCHMA FLEISCHMA OUTPATIEN 4 4 N RONN N RONN T VISIT 15 MINUTES HOME NURSES HEALTH, 3 3 REGISTRY INPATIENT & HOME HE HOME NURSES HEALTH, 3 3 REGISTRY OUTPATIEN & HOME HE T HOME NURSES HEALTH, 3 3 REGISTRY OUTPATIEN & HOME HE T OFFICE 63296 FLEISCHMA FLEISCHMA OUTPATIEN 3 3 N RONN N RONN T NEW 45 MINUTES HOSPITAL UNIVERSIT - 3 3 Y OUTPATI HOSPITAL T EMERGENCY 12789 VENKAT ROBLEDO 3 3 ANGELICAHien DOMINGUEZ DEPARTMEN T VISIT MODERATE SEVERITY EMERGENCY 64995 [facility], 3 3 HOSPITALITY MANAGER DEPARTMEN [facility] T VISIT CO HOS HIGH/URGE NT SEVERITY CRITICAL [facility], ACCESS 3 3 HOSPITALITY MANAGER [facility] CRITICAL [facility], ACCESS 3 3 HOSPITALITY MANAGER [facility]PITAL UNIVERSIT - 3 3 [facility] T EMERGENCY 93324 [facility], 3 3 HOSPITALITY MANAGER DEPARTMEN [facility] T VISIT CO HOS HIGH/URGE NT SEVERITY CRITICAL [facility], ACCESS 3 3 HOSPITALITY MANAGER [facility] EMERGENCY 76275 [facility], DEPT 3 3 HOSPITALITY MANAGER VISIT [facility] HIGH CO HOS SEVERITY& THREAT FUNCJ CRITICAL [facility], ACCESS 3 3 HOSPITALITY MANAGER [facility] CRITICAL [facility], ACCESS 3 3 HOSPITALITY MANAGER [facility] HOME NURSES HEALTH, 3 3 REGISTRY OUTPATIEN & HOME HE T EMERGENCY 48080 [facility], 3 3 HOSPITALITY MANAGER DEPARTMEN [facility] T VISIT CO HOS LOW/MODER SEVERITY EMERGENCY 41257 RANDA TOLENTINO 3 3 HEN HEN DEPARTMEN T VISIT MODERATE SEVERITY CRITICAL [facility], ACCESS 3 3 HOSPITALITY MANAGER [facility], - 3 3 HOSPITALITY MANAGER INPATIENT [facility] CRITICAL [facility], ACCESS 3 3 HOSPITALITY MANAGER [facility] EMERGENCY 82666 [facility], 3 3 HOSPITALITY MANAGER DEPARTMEN [facility] T VISIT [facility] HOS HIGH/URGE NT SEVERITY HOME NURSES HEALTH, 2 2 REGISTRY OUTPATIEN & HOME HE T HOME NURSES HEALTH, 2 2 REGISTRY OUTPATIEN & HOME HE T OFFICE [id number] NO REBEKAH NO REBEKAH OUTPATIEN 2 2 T NEW 45 MINUTES CLINIC, [place] [facility] 2 2 [facility] HEALTH OFFICE 63778 [facility] OUT[facility]IEN 2 2 COUNTY T VISIT [facility] 15 HEALTH MINUTES HOME NURSES HEALTH, 2 2 REGISTRY OUTPATIEN & HOME HE T HOME NURSES HEALTH, 2 2 REGISTRY OUTPATIEN & HOME HE T EMERGENCY 33493 [facility], 2 2 HOSPITALITY MANAGER DEPARTMEN [place] T VISIT CO HOS HIGH/URGE NT SEVERITY CRITICAL [facility], ACCESS 2 2 H[facility]PITALITY [facility] [place] [facility] OFFICE 23645 AHMED ADN AHMED ADN OUTPATIEN 2 2 T VISIT 15 MINUTES HOSPITAL [facility], - 2 2 HOSPITALITY MANAGER OUTPATIEN [facility] [facility] OFFICE 65023 AHMED ADN AHMED ADN OUTPATIEN 2 2 T VISIT 15 MINUTES OFFICE 18622 [facility] FED [facility] FED OUTPATIEN 2 2 T NEW 20 MINUTES OFFICE 99965 [facility] OUTPATIEN 2 2 [place] T VISIT HEALTH 25 CLINIC MINUTES CLINIC, [facility] 2 2 [facility] OFFICE 04172 [facility] OUTPATIEN 2 2 [facility] T [facility]ISIT HEALTH 25 CLINIC MINUTES CRITICAL [facility] ACCESS 2 2 H[facility]PITALITY [facility] [place] [facility], [facility] [place] 2 2 [facility] OFFICE 26557 [facility] OUTPATIEN 2 2 RURAL T VISIT HEALTH 25 CLINIC MINUTES HOSPITAL YUMIKO - 2 2 [facility], [facility] 2 2 [facility] OFFICE 13384 [facility] OUTPATIEN 2 2 RURAL T VISIT HEALTH 25 CLINIC MINUTES HOME NURSES HEALTH, 2 2 REGISTRY OUTPATIEN & HOME HE T OFFICE 91107 ANGELO FONG OUTPATIEN 2 2 T VISIT 15 MINUTES OFFICE 56923 [place] [facility] 2 2 [facility] T VISIT [facility] 25 HEALTH MINUTES CLINIC, [place] 2 2 [facility] 1 [facility] [place] 1 1 [facility] OFF[facility] 15996 [facility] T VISIT RURAL 15 HEALTH MINUT[facility] HOME NURSES HEALTH[facility] 1 1 REGISTRY OUTPATIEN & HOME HE T HOME NURSES HEALTH, 1 1 REGISTRY OUTPATIEN & HOME HE T OFFICE 64274 [facility] 1 [facility] T VISIT HEALTH 15 CLINIC MINUTES CLINIC, [facility] 1 1 [facility], [facility] 1 1 [facility] OFFICE 72422 [facility] OUTPATIEN 1 1 [facility] T VISIT HEALTH 15 CLINIC MINUTES OFFICE 87265 [facility] ANGELO FONG OUTPATIEN 1 1 [facility] T VISIT HEALTH 25 CLINIC MINUTES CRITICAL [facility] ACCESS 1 1 [facility] EMERGENCY 43140 [place] [facility] DEPT 1 1 [facility] VISIT HOSPITAL HIGH SEVERITY& [facility]AT [facility] - 1 1 [facility] 1 [facility] 36571 [facility] 1 1 [facility] T [facility]ISIT LIMITED/M INOR PROB CRITICAL [place] ACCESS 1 1 [facility] OFF[facility] 12081 [facility] 1 1 [facility] T VISIT CLIN[facility] OF [address] [place] [address] [facility] - 1 1 [facility] CR[facility] ACCESS 0 0 [facility] OFF[facility] 37257 Niki STEVENS OUTPATIEN 0 0 HILDA Gay MD [facility] - 0 0 [facility] [place] ACCESS 0 0 [facility] CR[facility] [place] ACCESS 0 0 [facility] OFF[facility] 54489 [facility] OUTPATIEN 0 0 [place] T VISIT [address] [place] [address] YUMIKO - 0 0 [facility] OUTPATIEN [facility]ANT [facility]UM[facility] - [facility] 0 [facility] OFFICE [id number] [facility] [facility] OUTPATIEN 0 0 [facility] VISIT INTERNAL 15 MED MINUTES CRITICAL [facility] ACCESS 0 0 [facility] 69357 [place] [facility] OUTPATIEN 0 0 [facility] VISIT INTERNAL 25 MED MINUTES OFFICE 76858 [place] [facility], OUTPATIEN 9 9 [facility] T VISIT INTERNAL 15 MED MINUTES OFFICE 55578 [place] [facility], OUTPATIEN 9 9 [facility] VISIT INTERNAL 15 MED MINUTES OFFICE 92235 [facility] [facility], OUTPATIEN 9 9 [place] [facility] T VISIT INTERNAL 25 MED MINUTES CRITICAL [facility] ACC[facility] 9 9 [facility] 93219 [place] [facility], OUTPATIEN 9 9 [place] [facility] T VISIT INTERNAL 15 MED MINUTES OFFICE 96147 [place] [facility], OUTPATIEN 9 9 [place] [facility] T VISIT INTERNAL 25 MED MINUTES EMERGENCY [id number] PEPE 8 8 [facility] T VISIT LOW/MODER SEVERITY CRITICAL [facility] 8 8 [facility] 02041 PEPE ROBLEDO, 8 8 [facility] T VISIT MODERATE SEVERITY OFFICE 96487 [place] [facility] OUTPATIEN 8 8 [place] [facility] T VISIT INTERNAL 15 MED MINUTES OFFICE 42777 [place] [facility], OUTPATIEN 8 8 [place] [facility] T VISIT INTERNAL 10 MED MINUTES OFFICE 76815 [place] OUTPATIEN 8 8 [place] [facility] T VISIT INTERNAL 15 MED MINUTES OFFICE 14608 ERIN WILLSON 8 8 [facility] PATIENT 40 MIN OFFICE 61133 [facility] EUGENE 8 8 [facility] T VISIT 5 HOSPITAL MINUTES CRITICAL [facility] 8 8 [facility] 07050 [place] OUTPATIEN 8 8 [place] [facility] T VISIT INTERNAL 15 MED MINUTES HOSPITAL [facility] - 8 8 [facility] 74386 HAZEL HAZEL OUTRAJANI 8 8 MARIAA PLATA JR, JOHN T VISIT P P 15 MINUTES OFFICE 79571 [place] ANGELESKEMIPadma EUGENE 8 8 Cameron MARISCAL JR VISIT INTERNAL DARYN F 15 MED MINUTES EMERGENCY [id number] PEPE 8 8 [facility] T VISIT LIMITED/M INOR PROB CRITICAL [facility]PE ACCESS 8 8 [facility] OFF[facility] 07807 VALORIE VILLALTA 8 8 [place] Barnes VISIT INTERNAL 15 MED MINUTES OFFICE 69051 HAZEL EUGENE 8 8 MARIAA PLATA JR, JOHN T VISIT P P 10 MINUTES OFFICE 09063 NEGRITA EUGENE 8 8 Cameron MARISCAL JR VISIT INTERNAL DARYN F 25 MED MINUTES OFFICE 85331 HAZEL EUGENE 8 8 MARIAA PLATA JR, JOHN T VISIT P P 15 MINUTES
--- OUTSIDE RECORDS SUMMARY | 2016-12-13 18:11 | External Medical Summary Rpt ---
Author Author JESSICA Cotter, [employer] Organization [employer] Address Unknown Phone Unavailable Results Urinalysis dipstick W Reflex Microscopic panel in Urine Observa Value Referen Units Interpr Notes Date tion ce etation Range Appeara CLEAR CLEAR No No No Dec 10 nce of informa informa informa 2017 Urine tion in tion in tion in 8:30 PM source source source data data data Bacteri 4+ O No No No Dec 10 a informa informa informa 2016 [Presen tion in tion in tion in 8:30 PM ce] in source source source Urine data data data sedimen t by Light microsc opy Bilirub NEGATIV NEG No No No Dec 10 in E informa informa informa 2016 [Presen tion in tion in tion in 8:30 PM ce] in source source source Urine data data data by Test strip Erythro NEGATIV NEG No No No Dec 10 cytes E informa informa informa 2016 [Presen tion in tion in tion in 8:30 PM ce] in source source source Urine data data data Color YELLOW YELLOW No No No Dec 10 of informa informa informa 2017 Urine tion in tion in tion in 8:30 PM source source source data data data Glucose NEG No No No Dec 10 [Mass/vol informati informati informati 2016 8:30 ume] in on in on in on in PM Urine by source source source Test data data data strip Hyaline OCC NONE #/lpf No No Dec 10 casts informa informa 2016 [Presen tion in tion in 8:30 PM ce] in source source Urine data data sedimen t by Light microsc opy Ketones NEGATIV NEG mg/dL No No Dec 10 E informa informa 2016 [Presen tion in tion in 8:30 PM ce] in source source Urine data data by Automat ed test strip Mucus NEGATIV NEG No No No Dec 10 [Presen E informa informa informa 2016 ce] in tion in tion in tion in 8:30 PM Urine source source source sedimen data data data t by Light microsc opy Nitrite POSITIV NEG No Abnorma No Dec 10 E informa l informa 2016 [Presen tion in tion in 8:30 PM ce] in source source Urine data data by Test strip pH of 5.0 - 8.5 No Normal No Dec 10 Urine informati informati 2017 8:30 on in on in PM source source data data Protein NEG mg/dL High No Dec 10 [Mass/vol informati 2017 8:30 ume] in on in PM Urine by source Automated data test strip Erythro OCC 0 rbc/hpf No No Dec 10 cytes informa informa 2016 [Presen tion in tion in 8:30 PM ce] in source source Urine data data sedimen t by Light microsc opy Specific 1.005 - No Normal No Dec 10 gravity 1.030 informati informati 2016 8:30 of Urine on in on in PM source source data data Epithel 5-10 0 - 5 #/hpf No No Dec 10 ial informa informa 2017 cells.s tion in tion in 8:30 PM quamous source source data data [Presen ce] in Urine sedimen t by Microsc opy high power field Urobili 4.0 NEG E.U./dL No No Dec 10 nogen informa informa 2016 [Presen tion in tion in 8:30 PM ce] in source source Urine data data by Test strip Leukocy [5 O wbc/hpf No No Dec 10 jeison wbc/hpf informa informa 2016 [#/volu ; 10 tion in tion in 8:30 PM me] in wbc/hpf source source Urine ] data data Urinalysis dipstick W Reflex Microscopic panel in Urine Observa Value Referen Units Interpr Notes Date tion ce etation Range Appeara CLEAR CLEAR No No No Dec 10 nce of informa informa informa 2017 Urine tion in tion in tion in 8:30 PM source source source data data data Bilirub NEGATIV NEG No No No Dec 10 in E informa informa informa 2016 [Presen tion in tion in tion in 8:30 PM ce] in source source source Urine data data data by Test strip Erythro NEGATIV NEG No No No Dec 10 cytes E informa informa informa 2016 [Presen tion in tion in tion in 8:30 PM ce] in source source source Urine data data data Color YELLOW YELLOW No No No Dec 10 of informa informa informa 2017 Urine tion in tion in tion in 8:30 PM source source source data data data Glucose NEG No No No Dec 10 [Mass/vol informati informati ati 2016 8:30 ume] in on in on in on in PM Urine by source source source Test data data data strip Ketones NEGATIV NEG mg/dL No No Dec 10 E informa informa 2016 [Presen tion in tion in 8:30 PM ce] in source source Urine data data by Automat ed test strip Mucus NEGATIV NEG No No No Dec 10 [Presen E informa informa informa 2016 ce] in tion in tion in tion in 8:30 PM Urine source source source sedimen data data data t by Light microsc opy Nitrite POSITIV NEG No Abnorma No Dec 10 E informa l 2016 [Presen tion in tion in 8:30 PM ce] in source source Urine data data by Test strip pH of 5.0 - 8.5 No Normal No Dec 10 Urine informati informati 2016 8:30 on in on in PM source source data data Protein NEG mg/dL High No Dec 10 [Mass/vol ati 2016 8:30 ume] in on in PM Urine by source Automated data test strip Specific 1.005 - No Normal No Dec 10 gravity 1.030 informati informati 2016 8:30 of Urine on in on in PM source source data data Urobili 4.0 NEG E.U./dL No No Dec 10 nogen informa informa 2016 [Presen tion in tion in 8:30 PM ce] in source source Urine data data by Test strip CBC W Auto Differential panel in Blood Observa Value Referen Units Interpr Notes Date tion ce etation Range Basophils 0 - 0.2 K/MM3 Normal No Dec 1 inform2016 8:15 [#/volume on in PM ] in source Blood by data Automated count Basophils 0.1 - 2.0 % Normal No Dec 10 /100 informati 2017 8:15 leukocyte on in PM s in source Blood by data Automated count Eosinophi 0.0 - 0.4 K/mm3 Normal No Dec 10 ls informati 2016 8:15 [#/volume on in PM ] in source Blood by data Automated count Eosinophi 0.1 - % Normal No Dec 10 ls/100 12.0 informati 2016 8:15 leukocyte on in PM s in source Blood by data Automated count Granulocy 1.8 - 7.8 K/mm3 Normal No Dec 10 jeison informati 2016 8:15 [#/volume on in PM ] in source Blood by data Automated count Granulocy 37.0 - % Normal No Dec 10 jeison/100 80.0 informati 2016 8:15 leukocyte on in PM s in source Blood by data Automated count Hematocri 37.0 - % Normal No Dec 10 t [Volume 47.0 informati 2016 8:15 on in PM Fraction] source of Blood data Hemoglobi 12.2 - g/dL No No Dec 10 n 16.2 informati informati 2016 8:15 [Mass/vol on in on in PM ume] in source source Blood data data Lymphocyt 0.7 - 4.5 K/mm3 Normal No Dec 10 es informati 2016 8:15 [#/volume on in PM ] in source Unspecifi data ed specimen by Automated count Lymphocyt 10 - 50.0 % High No Dec 10 es informati 2016 8:15 [#/volume on in PM ] in source Unspecifi data ed specimen by Automated count Erythrocy 27 - 31.2 pg Normal No Dec 10 te mean 2016 8:15 corpuscul on in PM ar source hemoglobi data n [Entitic mass] Erythrocy 31.8 - g/dl Normal No Dec 10 te mean 35.4 informati 2016 8:15 corpuscul on in PM ar source hemoglobi data n concentra tion [Mass/vol ume] by Automated count Erythrocy 82.2 - fl Normal No Dec 10 te mean 97.8 informati 2016 8:15 corpuscul on in PM ar volume source [Entitic data volume] by Automated count Monocytes 0.1 - 1.0 K/mm3 Normal No Dec 10 informati 2016 8:15 [#/volume on in PM ] in source Blood by data Automated count Monocytes 1.7 - 9.3 % Normal No Dec 10 /100 informati 2016 8:15 leukocyte on in PM s in source Blood by data Automated count Platelet 7.4 - fl Normal No Dec 10 mean 10.4 ati 2016 8:15 volume on in PM [Entitic source volume] data in Blood by Automated count Platelets 142 - 424 K/mm3 Normal No Dec 10 inform2016 8:15 [#/volume on in PM ] in source Blood data Erythrocy 4.2 - 5.4 M/mm3 Normal No Dec 10 jeison ati 2016 8:15 [#/volume on in PM ] in source Amniotic data fluid Erythrocy 11.5 - % Normal Dec 10 te 17.5 ati 2016 8:15 distribut on in PM ion width source [Entitic data volume] by Automated count Leukocyte 4.8 - K/MM3 Normal No Dec 10 s 10.8 ati 2016 8:15 [#/volume on in PM ] in source Blood data Differential panel, method unspecified - Observa Value Referen Units Interpr Notes Date tion ce etation Range Acantho 1+ No No No No Dec 10 cytes informa informa informa informa 2016 [Presen tion in tion in tion in tion in 8:15 PM ce] in source source source source Blood data data data data by Light microsc opy Anisocy 1+ No No No No Dec 10 tosis informa informa informa informa 2016 [Presen tion in tion in tion in tion in 8:15 PM ce] in source source source source Blood data data data data Eosinophi 0 - 3 % Normal No Dec 10 ls/100 ati 2016 8:15 leukocyte on in PM s in source Blood by data Manual count Hypochr 1+ No No No No Dec 10 omia informa informa informa informa 2016 [Presen tion in tion in tion in tion in 8:15 PM ce] in source source source source Blood data data data data LYMPH 54 10 - 50 % High No Dec 10 informa 2016 tion in 8:15 PM source data Monocytes 2 - 9 % Normal No Dec 10 /100 informati 2016 8:15 leukocyte on in PM s in source Blood by data Automated count Platele NORMAL No No No No Dec 10 ts informa informa informa informa 2016 [Presen tion in tion in tion in tion in 8:15 PM ce] in source source source source Blood data data data data by Light microsc opy Neutrophi 42 - 76 % Normal No Dec 10 ls informati 2017 8:15 [#/volume on in PM ] in source Blood by data Automated count Cells No #CELLS No No Dec 10 Counted informati informati informati 2017 8:15 Total [#] on in on in on in PM in Blood source source source data data data Lactate [Moles/volume] in Blood Observa Value Referen Units Interpr Notes Date tion ce etation Range Lactate 0.4 - 2.0 mmol/L Normal No Dec 10 [Moles/vo informati 2017 8:15 lume] in on in PM Blood source data
--- OUTSIDE RECORDS SUMMARY | 2016-12-13 18:11 | External Medical Summary Rpt ---
Demographics Preferred Language Upper Sorbian Marital Status Unknown Yazidi Affiliation Unknown Race Unknown Ethnic Group Unknown Author Author , JESSICA LOPEZ Address Unknown Phone Immunization Unable to retrieve immunization data due to connection failure with Immunization Registry. Please try again later.
--- OUTSIDE RECORDS SUMMARY | 2016-12-13 18:11 | External Medical Summary Rpt ---
Demographics Preferred Language Telugu Marital Status Unknown Jewish Affiliation Unknown Race Unknown Ethnic Group Unknown Author Author , JESSICA LOPEZ Address Unknown Phone Immunization Unable to retrieve immunization data due to connection failure with Immunization Registry. Please try again later.
--- OUTSIDE RECORDS SUMMARY | 2016-12-13 19:06 | External Medical Summary Rpt ---
Author Author , JESSICA LOPEZ Address Unknown Phone [email or web address] Care Team Providers Care Baby Formula Mixer Name Role Phone NO REBEKAH, NO REBEKAH Unavailable Unavailable AHMED ADN, AHMED ADN Unavailable Unavailable AHMED ADN, AHMED ADN Unavailable Unavailable ILYA LES, ILYA Unavailable Unavailable LES ATKINS COL, ATKINS Unavailable Unavailable COL ATKINS COL, ATKINS Unavailable Unavailable COL BESSON, BESSON Unavailable Unavailable BESSON ROLO, BESSON Unavailable Unavailable ROLO BESSON ROLO, BESSON Unavailable Unavailable ROLO BESSON, MARY A, Unavailable Unavailable BESSON, MARY A [facility] Unavailable Unavailable IMAGING L, [facility] MONIQUE, MONIQUE Unavailable Unavailable MONIQUE ALL, MONIQUE ALL Unavailable Unavailable [facility] Unavailable [facility], [facility] PH[facility]IAN Unavailable Unavailable PRACTICE L, [facility] RICCI PHI, RICCI Unavailable [...] RHO HAGENSCHNEIDER CLAYTON, Unavailable Unavailable HAGENSCHNEIDER CLAYTON HAGENSCHNEIDER, Unavailable Unavailable SAMIR K, HAGCHPERNELLIDER, SAMIR K [facility] Unavailable Unavailable INC, [facility] Unavailable [facility]available HOSPITAL P, [facility] CLIFTON ANNIE, CLIFTON Unavailable Unavailable ANNIE CLIFTON ANNIE, CLIFTON Unavailable Unavailable ANNIE ETIENNE, AYANA S, Unavailable Unavailable CLIFTON, AYANA S SHEKHAR BETANCUR HARVEY, Unavailable Unavailable DORIAN GIMENEZ, Unavailable Unavailable DORIAN RAHMAN [facility], Unavailable Unavailable [facility] YOUSIF DODD Unavailable Unavailable BETINA, BETINA Unavailable Unavailable BETINA NAN, BETINA Unavailable Unavailable NAN [facility] Unavailable Unavailable CLINIC, [facility] Unavailable Unavailable IM[facility], [facility] YG CRY, YG Unavailable Unavailable [facility] Un[facility], [facility] Unavailable Unavailable [facility], [facility] Unavailable Unavailable [facility], [facility] LAUSE FED, LAUSE FED Unavailable Unavailable LAUSE FED, [facility] FED Unavailable Unavailable ETHEL JR DWI, ETHEL Unavailable Unavailable JR DWI [facility] Un[facility] Unavailable [facility], [facility] VENKAT GRAY Unavailable Unavailable FLAQUITA AMADO, Unavailable Unavailable FLAQUITA ROBLEDO LUKINS BRADLEY, LUKINS Unavailable Unavailable BARDLEY LUKINS BRADLEY, LUKINS Unavailable Unavailable BRADLEY [facility] Unavailable Unavailable [facility], [facility] DARYN CEBALLOS, Unavailable Unavailable DARYN CEBALLOS JR, WILLIAM Unavailable Unavailable MENDEZ Boucher JR, WILLIAM F MERHAR GAR, MERHAR Unavailable Unavailable GAR MERHAR GAR, MERHAR Unavailable Unavailable [facility], CLICKING MACHINE OPERATOR [facility] Unavailable [facility]available [facility], [facility] CLICKING MACHINE O[facility]ATOR [facility] MUSIC HOWARD, MUSIC HOWARD Unavailable Unavailable [facility] Unavailable Unavailable [facility], [facility], Unavailable Unavailable [facility] Unavailable Unavailable HEALTH, [facility] Unavailable Unavailable URGENT TREAT, [facility] [...] [facility] Unavailable Unavailable [facility] MARIAA OLIVA JR, Unavailable Unavailable MARIAA OLIVA JR [facility] Unavailable Unavailable HOSPITALS, [facility], Unavailable [facility]available [facility] Unavailable Unavailable [facility]ENCY, [facility] Un[facility] Unavailable [facility] [place], [facility] MAGALIE MAT, MAGALIE MAT Unavailable Unavailable Purpose Continuity of Care Document - 05-27-2007 through 2016 Problems Code Diagnosis DOS Provider Status J449 CHRONIC 09-02-2016 [facility] OBSTRUCTIVE HOME PULMONARY MEDICAL DISEASE UNS EQUIPME I10 ESSENTIAL 07-12-2016 [facility] PRIMARY PHYSICIANS HYPERTENSIO GROUP N J441 CHRONIC 07-12-2016 [facility] OBSTRUCTIVE PHYSICIANS PULMONARY GROUP DZ W/EXACERBAT ION R062 WHEEZING 07-12-2016 [facility] E876 HYPOKALEMIA 07-05-2016 [facility] I509 HEART 07-05-2016 [facility] FAILURE PHYSICIANS UNSPECIFIED GROUP J189 PNEUMONIA 07-05-2016 [facility] UNSPECIFIED PHYSICIANS ORGANISM GROUP E785 HYPERLIPIDE 07-04-2016 [facility] CECILIA PHYSICIANS UNSPECIFIED GROUP I5031 ACUTE 07-03-2016 [facility] HEART FAILURE R05 COUGH 07-03-2016 [facility] R0602 SHORTNESS 07-03-2016 [facility] R918 OTHER 07-03-2016 [facility] NONSPECIFIC MEDICAL ABNORMAL IMAGING ASS FINDING OF LUNG FIELD Z8249 FAMILY HX 07-03-2016 [facility] ISCHEMIC PHYSICIANS HRT DZ OTH GROUP DZ CIRC SYSTEM Z8673 PERSONAL HX 07-03-2016 [facility] CEREB INC INFARCT NO RESID DEFICIT Z8709 PERSONAL 07-03-2016 [facility] HISTORY OT PHYSICIANS, DISEASES PLLC RESPIRATORY SYSTEM C8510 UNSPECIFIED 06-20-2016 [facility] UNSPECIFIED SITE D479 NEOPLASM 06-20-2016 [facility] LYMPHOID HP FOUNDATION & REL TISSUE UNS [id number] LYMPHOCYTOS 06-20-2016 [facility] SYMPTOMATIC FOUNDATION [id number] EPIPHORA 04-11-2016 [facility] DUE TO COUNTY EXCESS URGENT LACRIMATION TREAT LT LACR GLAND J208 ACUTE 04-11-2016 [facility] BRONCHITIS [facility] DUE TO URGENT OTHER SPEC TREAT ORGANISMS L84 CORNS AND 03-25-2016 [facility] CALLOSITIES [facility] URGENT TREAT Q845 ENLARGED 03-25-2016 [facility] AND [facility] HYPERTROPHI URGENT C NAILS TREAT J168 PNEUMONIA 03-11-2016 [facility] DUE TO COUNTY OTHER SPEC URGENT INFECTIOUS TREAT ORGANISMS [id number] CELLULITIS 03-11-2016 [facility] OF LEFT [facility] LOWER LIMB URGENT TREAT M7989 OTHER 03-11-2016 [facility] SPECIFIED [facility] SOFT TISSUE URGENT DISORDERS TREAT N3946 MIXED 03-11-2016 [facility] INCONTINENC COUNTY E URGENT TREAT R112 NAUSEA WITH 03-11-2016 [facility] VOMITING [facility] UNSPECIFIED URGENT TREAT R5081 FEVER 03-11-2016 [facility] PRESENTING COUNTY W/COND URGENT CLASSIFIED TREAT ELSEWHERE H6501 ACUTE 02-02-2016 [facility] SEROUS [facility] OTITIS URGENT MEDIA RIGHT TREAT EAR J301 ALLERGIC 02-02-2016 [facility] RHINITIS [facility] DUE TO URGENT POLLEN TREAT [id number] ABRASION 02-02-2016 [facility] LEFT LOWER [facility] LEG INITIAL URGENT ENCOUNTER TREAT C8588 OTH TYPES 12-14-2015 [facility] NODES MX SITES R42 DIZZINESS 07-06-2015 FAMILIA MENDOSA AND MD [facility] CONSULTING SRV E878 OTHER D/O 07-05-[address] 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 05-07-2015 [place] CURRENT USE [facility] C21758 OTHER LONG 05-07-2015 [facility] CURRENT HOSPITAL DRUG THERAPY Z809 FAMILY 05-07-2015 [place] HISTORY OF [facility] NEOPLASM UNSPECIFIED R531 WEAKNESS 04-29-2015 [facility] [place] [facility] R5381 OTHER 04-29-2015 [facility] R5383 OTHER 04-29-2015 [place] FATIGUE [facility] J209 ACUTE 04-23-2015 [facility] UNSPECIFIED HOSPITAL P J440 COPD WITH 04-23-2015 [facility] P RESPIRATORY INFECTION R079 CHEST PAIN 04-23-2015 [facility] 00142 CHRONIC 12-02-2014 [facility] LEUKEMIA AGENCY W/O ACHIEVED REMISSION 56901 HTN CKD UNS 12-02-2014 [facility] W/CKD HEALTH STAGE I AGENCY THRU STAGE IV/UNS 66310 UNSPECIFIED 12-02-2014 [facility] VENOUS HEALTH INSUFFICIEN AGENCY CY 496 CHRONIC 12-02-2014 [facility] OBSTRUCTION AGENCY NEC 5859 CHRONIC 12-02-2014 [facility] KIDNEY HEALTH DISEASE AGENCY UNSPECIFIED 96540 UNSPECIFIED 12-02-2014 [facility] URINARY HEALTH INCONTINENC AGENCY E 481 PNEUMOCOCCA 09-15-2014 [facility] Velazquez PNEUMONIA [facility] URGENT TREAT 82818 FEVER 09-15-2014 [facility] URGENT TREAT 19770 OTHER VOICE 09-15-2014 [facility] TOM [facility] RESONANCE URGENT DISORDERS TREAT 7862 COUGH 09-15-2014 [facility] URGENT TREAT 2724 OTHER AND 08-27-2014 [facility] UNSPECIFIED [facility] [facility] HYPERLIPIDE CECILIA 4011 ESSENTIAL 08-27-2014 [facility] HYPERTENSIO [place] N, BENIGN [facility] 7823 EDEMA 08-27-2014 [facility] [facility] 74422 SHORTNESS 06-29-2014 [facility] 39494 CHEST PAIN 06-29-2014 [facility] [place] UNSPECIFIED [facility]ICAL IMAGING ASS V1261 PERSONAL 06-29-2014 [facility] [place] HISTORY MEDICAL PNEUMONIA IMAGING ASS RECURRENT 6829 CELLULITIS 05-19-2014 [facility] AND ABSCESS [place] OF HOLDINGS UNSPECIFIED SITE 5589 OTH&UNSPEC 04-26-2014 [facility] NONINFECTIO [place] US HOLDINGS GASTROENTER ITIS&COLITI S 49453 OTH MALIG 04-05-2014 [facility] UNS SITE INC XTRANOD&SUSANNA ID ORGN 4019 UNSPECIFIED 04-05-2014 [facility] ESSENTIAL [facility] HYPERTENSIO INC N 486 PNEUMONIA, 04-05-2014 [facility] ORGANISM PHYSICIANS UNSPECIFIED GROUP 44221 OBSTRUCTIVE 04-05-2014 [facility] CHRONIC PHYSICIANS BRONCHITIS GROUP WITH EXACERBATIO N 83420 OTHER 04-05-2014 [place] DISEASES OF MEDICAL LUNG NOT IMAGING ASS ELSEWHERE CLASSIFIED V5869 LONG-TERM 04-05-2014 [facility] (CURRENT) [facility] USE OF INC OTHER MEDICATIONS 7804 DIZZINESS 03-12-2014 [facility] AND [facility] GIDDINESS INC V1090 PERSONAL 03-12-2014 [facility] HISTORY [facility] UNSPECIFIED INC MALIGNANT NEOPLASM 4660 ACUTE 03-06-2014 [facility] BRONCHITIS [facility] INC 2749 GOUT, 02-22-2014 [facility] UNSPECIFIED PHYSICIANS GROUP 4149 UNSPECIFIED 02-22-2014 [facility] CHRONIC PHYSICIANS ISCHEMIC GROUP HEART DISEASE 4779 ALLERGIC 02-22-2014 [facility] RHINITIS PHYSICIANS CAUSE GROUP UNSPECIFIED 19300 ESOPHAGEAL 02-22-2014 [facility] REFLUX PHYSICIANS GROUP 49913 WHEEZING 02-22-2014 [facility] PHYSICIANS GROUP V0481 NEED 02-22-2014 [facility] PROPHYLACTI PHYSICIANS C GROUP VACCINATION &INOCULATIO N FLU 1101 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 [facility] FED OSIS OF NAIL 4439 UNSPECIFIED 01-05-2014 [facility] PERIPHERAL VASCULAR DISEASE 7038 OTHER 01-05-2014 [facility] SPECIFIED DISEASE OF NAIL 7295 PAIN IN 01-05-2014 [facility] SOFT TISSUES OF LIMB 72871 OTHER 11-25-2013 [facility] TISSUES 81632 DIAB W/O 11-10-2013 NURSES MENTION REGISTRY COMP TYPE HOME II/UNS TYPE HLTHTCA UNCNTRL 55713 HYPOXEMIA 10-06-2013 [facility] V5863 LONG-TERM 10-06-2013 [place] USE OF [facility] T/ANTITHROM BOTIC V5866 LONG-TERM 10-06-2013 [place] USE OF [facility] 0088 INTESTINAL 09-04-2013 [facility], INFECTION CLICKING MACHINE OPERATOR DUE TO [facility] OTHER HOS ORGANISM NEC 99418 COR 09-04-2013 [facility], ATHEROSLERO CLICKING MACHINE OPERATOR UNSPEC [facility] TYPE VESSEL HOS IGIUGIG/SANDY T 4293 CARDIOMEGAL 09-04-2013 [facility], Y CLICKING MACHINE OPERATOR [facility] 91428 DIVERTICULO 09-04-2013 [facility], SIS OF CLICKING MACHINE OPERATOR COLON [facility] 5939 UNSPECIFIED 09-04-2013 [facility], DISORDER CLICKING MACHINE OPERATOR OF KIDNEY [facility] AND URETER HOS V103 PERSONAL 09-04-2013 [facility], HISTORY OF CLICKING MACHINE OPERATOR MALIGNANT [facility] NEOPLASM OF HOS BREAST V1079 PERSONAL HX 09-04-2013 [facility], OTH CLICKING MACHINE OPERATOR LYMPHATIC&H [facility] EMATOPOIETI HOS C NEOPLASM 7020 ACTINIC 07-15-2013 [facility] KERATOSIS 36405 OTHER 07-15-2013 [facility] SEBORRHEIC KERATOSIS V5883 ENCOUNTER 06-16-2013 [facility], FOR CLICKING MACHINE OPERATOR THERAPEUTIC [facility] DRUG HOS MONITORING 7873 FLATULENCE 06-09-2013 [facility] INC, ERUCTATION CLICKING MACHINE OPERATOR AND GAS [facility] PAIN HOS V1083 PERSONAL 06-09-2013 [facility] INC, HISTORY CLICKING MACHINE OPERATOR OTHER [facility] MALIGNANT HOS NEOPLASM SKIN V4589 OTHER 06-09-2013 [facility] INC, POSTSURGICA CLICKING MACHINE OPERATOR L STATUS [facility] OTHER HOS 39189 NODULAR 05-27-2013 [facility] RONN LYMPH NODES MULTIPLE SITES 4510 PHLEBITIS&T 03-03-2013 [facility] HROMBOPHLEB SUP VESSELS LOWER EXTREM 4548 VARICOSE 03-03-2013 [facility] VEINS LOWER EXTREMITIES W/OTH COMPS 4371 OTH 09-03-2012 LUKINS BRADLEY GENERALIZED ISCHEMIC CEREBROVASC ULAR DISEASE 49170 DISORDER OF 09-03-2012 LUKINS BRADLEY BONE AND CARTILAGE UNSPECIFIED 9100 FCE 09-03-2012 [facility] EYE ABRAS/FRIC BURN W/O INF 9596 INJURY 09-03-2012 [facility] GAR OTHER AND UNSPECIFIED HIP AND THIGH 9597 INJURY 09-03-2012 [facility] GAR OTHER&UNSPE CIFIED KNEE LEG ANKLE&FOOT E8889 UNSPECIFIED 09-03-2012 [facility] G[facility] FALL V1060 PERSONAL 09-03-2012 [facility]PITAL UNSPECIFIED LEUKEMIA V1229 PERSONAL HX 09-03-2012 [facility] METABOLIC IMMUNITY D/O V5861 LONG-TERM 09-03-2012 [facility]HAR GAR (CURRENT) USE OF ANTICOAGULA NTS V714 OBSERVATION 09-03-2012 MER[facility] GAR FOLLOWING OTHER ACCIDENT 035 ERYSIPELAS 08-21-2012 [facility] INC, CLICKING MACHINE OPERATOR [facility] 70994 LEUKOCYTOSI 08-21-2012 [facility] INC, S CLICKING MACHINE OPERATOR UNSPECIFIED [facility] 06278 CALCU 08-21-2012 [facility] GALLBLADD W/O MENTION CHOLECYST/O BST 10705 UNSPECIFIED 08-21-2012 [facility] RESPIRATORY ABNORMALITY 7892 SPLENOMEGAL 08-21-2012 [facility] Y 2411 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 [facility] MULTINODULA R GOITER 2462 CYST OF 08-04-2012 [facility] THYROID 7964 OTHER 08-04-2012 [facility] INC, ABNORMAL CLICKING MACHINE OPERATOR CLINICAL [facility] FINDING HOS 66313 UNS 07-22-2012 [facility] LEUKEMIA W/O ACHIEVED REMISSION 4871 INFLUENZA 07-22-2012 [facility] OTHER HOSPITAL RESPIRATORY MANIFESTATI ONS 5119 UNSPECIFIED 07-22-2012 [facility] PLEURAL EFFUSION 5180 PULMONARY 07-22-2012 [facility] COLLAPSE V1254 PERSONAL HX 07-22-2012 [facility] W/O RESIDUAL DEFICITS 2763 ALKALOSIS 07-21-2012 [facility] INC, CLICKING MACHINE OPERATOR [facility] 33463 DEHYDRATION 07-21-2012 [facility] INC, CLICKING MACHINE OPERATOR [facility] 4580 ORTHOSTATIC 07-21-2012 [facility] INC, CLICKING MACHINE OPERATOR HYPOTENSION [facility] 46438 OTHER 07-21-2012 [facility] INC, MALAISE AND CLICKING MACHINE OPERATOR FATIGUE [facility] 2768 HYPOPOTASSE 07-19-2012 [facility] INC, CECILIA CLICKING MACHINE OPERATOR [facility] 4239 UNSPECIFIED 07-19-2012 [facility] DISEASE OF PERICARDIUM 7856 ENLARGEMENT 07-19-2012 [facility] OF LYMPH NODES 2130 BENIGN 06-26-2012 [facility] INC, NEOPLASM OF [facility] BONES OF [facility] SKULL AND HOS FACE 3319 UNSPECIFIED 06-26-2012 DEV[facility] CAMPOS CEREBRAL DEGENERATIO N 49740 PAIN IN 06-26-2012 [facility] INC, JOINT, CLICKING MACHINE OPERATOR LOWER LEG [facility] 7802 SYNCOPE AND 05-23-2012 [facility] INC, COLLAPSE CLICKING MACHINE OPERATOR [facility] 00594 NAUSEA 05-23-2012 [facility], ALONE CLICKING MACHINE OPERATOR [facility] 25281 ABDOMINAL 05-23-2012 [facility] INC, PAIN, LEFT CLICKING MACHINE OPERATOR LOWER [facility] QUADRANT HOS 7847 EPISTAXIS 05-13-2012 [facility], CLICKING MACHINE OPERATOR [facility] 6929 CONTACT 05-12-2012 [facility] INC, DERMATITIS& CLICKING MACHINE OPERATOR OTHER [facility] ECZEMA DUE HOS UNSPEC CAUSE 4279 UNSPECIFIED 04-22-2012 [facility] CARDIAC DYSRHYTHMIA 64780 PAINFUL 04-22-2012 [facility] RESPIRATION OTH-UNS MAL 03-02-2012 [facility] LYMPHOID-HI [facility] TISS-UNS-EX TRANODAL 2870 ALLERGIC 03-02-2012 [facility] PURPURA [facility] 6989 UNSPECIFIED 03-02-2012 [facility] PRURITIC [facility] DISORDER [facility] 26687 GOUTY 01-16-2012 [facility] INC, ARTHROPATHY CLICKING MACHINE OPERATOR [facility] UNSPECIFIED HOS 28489 UNSPECIFIED 01-16-2012 [facility] INC, CLICKING MACHINE OPERATOR ARTHROPATHY [facility] SITE HOS UNSPECIFIED 25034 TACHYPNEA 01-16-2012 [facility], CLICKING MACHINE OPERATOR [facility] 17353 OSTEOARTHRO 12-17-2011 [facility] INC, S UNSPEC CLICKING MACHINE OPERATOR WHETHER [facility] GEN/LOC HOS UNSPEC SITE 4619 ACUTE 11-04-2011 [facility] SINUSITIS, HEALTH UNSPECIFIED CLINIC 86700 ACUTE 11-04-2011 [facility] LARYNGITIS, [facility] WITHOUT CLINIC MENTION OF OBSTRUCTIO 14552 DYSPHONIA 11-04-2011 [facility] HEALTH CLINIC 3829 UNSPECIFIED 10-10-2011 [facility] OTITIS HEALTH MEDIA CLINIC 28050 NONSPECIFIC 10-10-2011 [facility] ABNORMAL HEALTH AUDITORY CLINIC FUNCTION STUDIES 4556 UNSPEC 09-17-2011 [facility] HEMORRHOIDS HEALTH WITHOUT CLINIC MENTION COMPLICATIO N 70368 CHRONIC 09-17-2011 [facility] VENOUS [facility] HYPERTENSIO CLINIC N WITHOUT COMPS 5693 HEMORRHAGE 09-17-2011 [facility] AND ANUS CLINIC 6980 PRURITUS 09-17-2011 [facility] ANI HEALTH CLINIC 63755 UNSPECIFIED 08-23-2011 [facility] ARTHROPATHY MULTIPLE SITES 11382 UNSPECIFIED 07-22-2011 [facility] LYMPHOID [facility] LEUKEMIA IN CLINIC RELAPSE 7821 RASH AND 07-22-2011 [facility] OTHER HEALTH NONSPECIFIC CLINIC SKIN ERUPTION 2722 MIXED 06-04-2011 [facility] HYPERLIPIDE [facility] 44593 UNSPECIFIED 06-04-2011 [facility] 31583 PAIN IN 06-04-2011 [facility], [facility] ANKLE AND [facility] FOOT HEALTH 33224 CALCANEAL 04-29-2011 [facility] 69326 LYMPHOCYTOS 04-16-2011 [facility] SYMPTOMATIC 4571 OTHER 04-10-2011 [facility] NONINFECTIO US LYMPHEDEMA 05923 SLEEP 12-20-2010 [facility] RELATED [facility] 31899 GEN 10-25-2010 [facility] OSTEOARTHRO HEALTH SIS CLINIC INVOLVING MULTIPLE SITES 39865 INSOMNIA 10-25-2010 [facility] UNSPECIFIED HEALTH CLINIC 62704 PAIN IN 09-21-2010[facility] JOINT, RADIOLOGY UPPER ARM ASSOCIAT 9299 CRUSHING 09-21-2010[facility] INJURY OF RADIOLOGY UNSPECIFIED ASSOCIAT SITE 9592 INJURY 09-21-2010[facility] OTHER&UNSPE RADIOLOGY CIFIED ASSOCIAT SHOULDER&UP PER ARM 9593 INJURY 09-21-2010[facility] OTHER&UNSPE RADIOLOGY CIFIED ASSOCIAT ELBOW FOREARM&WRI ST 98490 OCCL&STENOS 08-02-2010[facility] MX&BILAT RADIOLOGY PRECERBRL ASSOCIAT ART W/O INFARCT 2859 UNSPECIFIED 07-31-2010 [facility] ANEMIA JARED & DUBILIER 26791 LEUKEMOID 07-31-2010 [facility] REACTION JARED & DUBILIER 2865 HEMORRHAGIC 07-29-2010 [facility] DR[facility] D/O HOSPITAL INTRINSIC CIRC ANTICOAG AB/INHIB 17136 UNSPECIFIED 07-29-2010 [facility] ARTERY OCCLUSION W/INFARCT 490 BRONCHITIS 07-29-2010 [facility] NOT HOSPITAL SPECIFIED ACUTE OR CHRONIC 5110 PLEURISY 07-29-[facility] WITHOUT RADIOLOGY MENTION ASSOCIAT EFFUS/[place] [address] SCLEROSING 07-29-[address] [facility] S 31633 OTH 07-29-2010[facility] ABNORMAL RADIOLOGY BRAIN & CLAM DREDGE BOAT CAPTAIN ASSOCIAT FUNCTION STUDY V570 CARE 07-18-2010 [facility] INVOL[facility]PITAL BREATHING EXERCISES 2181 INTRAMURAL 06-07-2010 [facility] [place] 2362 NEOPLASM OF 05-21-2010 [facility] [place] V7231 ROUTINE 05-21-2010 [facility] [place] V762 SCREENING 05-21-2010 PATHOLOGY & FOR CYTOLOGY MALIGNANT LAB NEOPLASM OF THE CERVIX 5738 OTHER 05-08-2010 [facility] SPECIFIED RADIOLOGY DISORDERS ASSOCIAT OF LIVER 5759 UNSPECIFIED 05-08-2010 [facility] DISORDER RADIOLOGY OF ASSOCIAT GALLBLADDER 5990 URINARY 05-08-2010 [facility] INFECTION SITE NOT SPECIFIED 6219 UNSPECIFIED 05-08-2010 [facility] DISORDER RADIOLOGY OF UTERUS ASSOCIAT 7242 LUMBAGO 05-08-2010 [facility] 7936 NONSPEC ABN 05-08-2010 [facility]OM[facility]AL [facility]A [facility]2010 PATHOLOGY & NEOPLASM CYTOLOGY SKIN UPPER LAB LIMB INCL SHOULDER 1737 [facility] 03-13-2010 [facility] NEOPLASM [place] SKIN LOWER [facility] LIMB INCLUDING HIP 2382 NEOPLASM OF 03-06-2010 [facility] UNCERTAIN [place] [facility] OF [facility] SKIN 45186 UNSPECIFIED 03-06-2010 C [facility] [place] OSTEOPOROSI [facility] S 0413 KLEBSIELLA 09-20-2009 [facility] IN[facility]CTION 2892 NONSPECIFIC 09-20-2009 [facility] LYMPHADENIT IS 5920 CALCULUS OF 09-20-2009 [facility] PSC V1251 PERSONAL 09-20-2009 [facility] HISTORY, HOSPITAL VENOUS THROMBOSIS AND EMBOLISM 86344 ACUT LINNEA 08-18-2009 [facility]O&TH[facility]B [facility]ES [facility] PROX LOWR [facility] EXTREM 4549 ASYMPTOMATI 08-18-2009 [facility] VEINS 6826 CELLULITIS 08-18-2009 [facility] OF [facility]G EXCEPT FOOT 47198 ABDOMINAL 08-14-2009 PATHOLOGY & PAIN, CYTOLOGY UNSPECIFIED LAB SITE 91342 ABDOMINAL 08-14-2009 [facility] 2163 BENIGN 08-01-2009 DERMATOPATH NEOPLASM OLOGY SKIN ALLINACE OF OTHER&UNSPE C PARTS FACE V7612 OTHER 07-19-2009 [place] [place] [facility] 0091 COLITIS 07-12-2009 [facility] INTERNAL INF ORIGIN MED 08247 ABDOMINAL 07-12-2009 [facility] PAIN, LEFT VAL[place] UPPER INTERNAL QUADRANT MED 7894 ABDOMINAL 07-12-2009 [facility]IDITY [place] INTERNAL MED 7063 SEBORRHEA 03-27-2009 [facility] 7011 ACQUIRED 03-06-2009 [facility]ERATODERMA [facility] INTERNAL MED 04686 REFLUX 12-02-2008 [facility] ESOPHAGITIS [facility] INTERNAL [facility] 18331 OTHER 10-11-2008 [facility] PAIN INTERNAL MED 35413 OSTEOARTHRO 10-11-2008 [facility] S INVLV MX VALLEY SITES BUT INTERNAL [place] [address] SPINAL 10-11-2008 [facility] 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 MED 7231 CERVICALGIA 09-27-2008 ROBERTO CARLOS CHEEMA 7820 DISTURBANCE 09-21-2008 [facility] OF [place] SENSATION INTERNAL MED 00233 BLEPHARITIS 07-28-2008 RAHMAN BRETT A UNSPECIFIED 31535 OBESITY, 04-17-2008 [facility] UNSPECIFIED HOSPITAL 4928 OTHER 04-17-2008 [facility] PSC 58964 URINARY 04-17-2008 [facility] 7068 OTHER 03-09-2008 [facility] SPECIFIED [facility]LEY DISEASE OF INTERNAL SEBACEOUS MED GLANDS 1104 DERMATOPHYT 03-02-2008 [facility] 1701 MALIGNANT 03-02-2008 [facility] NEOPLASM OF HOSPITAL MANDIBLE 7062 SEBACEOUS 03-02-2008 [facility] 8471 THORACIC 02-15-2008 [facility] SPR[facility] STRAIN INTERNAL MED 6256 FEMALE 09-30-2007 HAZEL PLATA, [place] [address] URGE 09-30-2007 HAZ[facility] PLATA, INCONTINENC MARIAA P E 4659 ACUTE URIS 08-14-2007 [facility] OF VALLEY UNSPECIFIED INTERNAL SITE MED 4778 ALLERGIC 08-12-2007 [facility] RHINITIS [place]AIN DUE TO INTERNAL OTHER MED ALLERGEN 59795 HYPERTONICI 07-13-2007 [facility] TY OF VALLEY BLADDER INTERNAL MED 5952 OTHER 07-01-2007 HAZEL PLATA, CHRONIC MARIAA P CYSTITIS Allergies, Adverse Reactions, Alerts Clinical Alert Notifications [...] 40 0 MG TA BL ET 00 10 16 30 30 00 CA Ac PI 60 [...] MG TA BL ET MA 60 01 30 30 00 CA Ac GN [...] 17 17 [address] RUPALI UG E S 40 0 MG TA [...] Terrie LY CO MP AN Y 00 09 10 [...] [address] Terrie LEE UG UM CO 10 MP 0 AN [...] CO MP TA AN BL Y ET NE 00 03 03 0 12 4 CA 67 HU Ac OM 60 -2 -2 0. RL 94 NT ti ET 31 IS 34 ER ve GOLDBERG 58 20 20 0 LE ZI 65 [address] CROCKETT -Lula UG Y M C SY CO RU [...] 28 14 CA 67 BE Ac ON .0 RL 90 SS ti AZ 30 IS 79 ON ve EP 83 20 20 LE AM [address] MERCEDES 0. UG HE 5 N MG CO A MP TA AN BL Y ET 00 03 03 0 12 5 CA 67 BE Ac 47 -1 -1 0. RL 90 SS ti 21 IS 80 ON ve 62 20 20 0 LE [address] MERCEDES UG HE N CO A MP AN Y NE 00 03 03 0 12 4 CA [...] 0. RL 41 SS ti TU 80 IS 51 ON ve SS 01 20 20 0 LE IN [address] MERCEDES DM UG HE N SY CO A RU MP P AN Y 66 12 12 00 12 4 CA 65 CATRACHITO Ac 99 -0 -1 0. RL 06 SE ti 20 8 IS 82 ve 22 20 20 0 [...] Procedures Procedure DOS Code Location Performer Comment PRTBLE E0431 [facility] GASEOUS 7 HOME [...] EQUIPME EQUIPME FLWMTR HUMIDFR&M ASK PRTBLE E0431 [facility] CONTRERASRELL GASEOUS 7 HOME HOME O2 SYS MEDICAL MEDICAL RENT; EQUIPME EQUIPME FLWMTR HUMIDFR&M ASK SBSQ 67364 [facility] 7 PHYSICIAN CARE/DAY S GROUP 15 MINUTES O2 CONC 1 E1390 [facility] [place] 7 HOME HOME 85%/>02 MEDICAL MEDICAL CONC AT EQUIPME EQUIPME PRSC FLW RATE SBSQ 08767 [facility] 7 PHYSICIAN CARE/DAY S GROUP 25 MINUTES RADIOLOGI 78774 [place] [facility] C 7 MEDICAL EXAMINATI IMAGING ON CHEST ASS [place] FRONTAL INITIAL 17899 [facility] 7 PHYSICIAN CARE/DAY S GROUP 70 MINUTES ECG 84722 YUMIKO JI ROUTINE 7 [facility] W/LEAST P 12 LDS I&R ONLY COLLECTIO 80141 [facility] N VENOUS 7 [facility]ALTH[facility] HEALTHCAR BLOOD E E VENIPUNCT HOSPITALS HOSPITALS URE COMPREHEN 90727 [facility] SIVE 7 [facility]ALTH[facility] METABOLIC E E PANEL HOSPITALS HOSPITALS BLOOD 33828 [facility] COUNT 7 HEALTHCAR HEALTHCAR COMPLETE E E AUTO&AUTO HOSPITALS HOSPITALS DIFRNTL WBC HOSPITAL G0463 [facility] OUTPATIEN 7 HEALTHCAR HEALTHCAR T CLIN E E VISIT HOSPITALS HOSPITALS ASSESS & MGMT PT BLOOD 17902 [facility] COUNT 6 Y Y COMPLETE HOSPITAL HOSPITAL AUTO&AUTO DIFRNTL WBC COLLECTIO 40443 [facility] VENOUS 6 Y Y BLOOD HOSPITAL HOSPITAL VENIPUNCT URE COMPREHEN 45348 [facility] UNIVERS SIVE 6 Y Y METABOLIC HOSPITAL HOSPITAL PANEL HOSPITAL G0463 [facility] UNIVERS OUTPATI 6 Y Y T CLIN HOSPITAL HOSPITAL VISIT ASSESS & MGMT PT DUPLEX 09035 FAMIL[facility] MENDOSA MENDOSA FAMILIA SCAN 6 MD EXTRACRAN CONSULTIN IAL ART G SRV COMPL BI STUDY DUPLEX 50527 [facility] SCAN 6 [facility] IAL ART COMPL BI STUDY COMPRE 31178 [facility] GOLD SET AUDIOMETR 6 PHYSICIAN Y PRACTICE THRESHOLD L EVAL SP RECOGNIJ TYMPANOME 35428 [place] G[facility] SET TRY 6 PHYSICIAN PRACTICE L RADIOLOGI 54850 [place] DENI C EXAM 6 [facility] CHEST 2 IMAGING VIEWS ASS FRONTAL&L ATERAL RADIOLOGI 68748 [place] MON[place] ALL C EXAM 6 MEDICAL CHEST 2 IMAGING VIEWS ASS FRONTAL&L ATERAL ADMINISTR G0008 [place] ATION OF 5 [facility] VIRUS VACCINE BLOOD 05420 JENNY ALVARADO COUNT 5 [facility] AUTOMATED INJECTION J1650 JENNY [address] [facility] N SODIUM 10 MG INJECTION J2270 JENNY ALVARADO MORPHINE 5 [facility] UP TO 10 MG BASIC 88857 [facility] REHABHENRI BROTHERSSSM REHABHENRI METABOLIC 5 [facility] CALCIUM TOTAL COLLECTIO 27681 [facility] REHABHENRI ALVARADO N VENOUS 5 [facility] HOSPITAL VENIPUNCT URE IIV3 VACC 98033 JENNY ALVARADO 5 [facility] ADELINA FREE 0.5 ML DOSAGE IM USE NONCOVERE A9270 [facility] D ITEM OR 5 [facility] INJECTION J2405 ZEVSSM REHABHENRI ALVARADO [address] [place] [address] HOSPITAL ON HCL PER 1 [place] [address] ZEVSSM REHABHENRI IVELISSEHENRI THYROID [address] [place] [address] [place] [address] ZEVSSM REHABHENRI ALVARADO HEAD/BRAI 5 [facility] [place] [address] JENNY ALVARADO BLOOD/URI 5 [facility] NONCOVERE A9270 ZEVSSM REHABHENRI ALVARADO D ITEM OR 5 [facility] G0378 [facility] [place] OBSERVATI [address] [place] [address] ON HOSPITAL HOSPITAL SERVICE PER HOUR ECG 83690 ZEVSSM REHABHENRI ALVARADO ROUTINE [address] [place] [address] HOSPITAL HOSPITAL W/LEAST 12 LDS TRCG ONLY W/O I&R C-REACTIV 62264 [facility] E PROTEIN 5 [facility] HOSPITAL COMPREHEN 90588 ZEVSSM REHABHENRI ALVARADO SIVE [facility] METABOLIC [facility] PANEL COLLECTIO 46887 ZEVSSM REHABHENRI ALVARADO N VENOUS 5 [facility] HOSPITAL VENIPUNCT URE BLOOD 02362 ZEVSSM REHABHENRI ALVARADO COUNT 5 [facility]OSP[facility] AUTO&AUTO DIFRNTL WBC NATRIURET 90223 JENNY OVIEDOON IC 5 [place] [address] JENNY ALVARADO TROPONIN 5 [facility] ADELINA SEDIMENTA 27108 JENNY OVIEDOON TION RATE 5 [facility] NON-AUTOM ATED URNLS DIP 82751 ZEVSSM REHABHENRI OVIEDOON 5 [facility] HOSPITAL LET REAGENT AUTO MICROSCOP Y CT THORAX 81501 [facility] [place] MAT W/O [address] [place] [address] [facility] [place] [facility] [facility] HEAD/BRAI 5 RADIOLOGY N W/O CONTRAST MATERIAL RADIOLOGI 52477 YUMIKO CALDERON C EXAM [address] [facility] CHEST 2 INC INC VIEWS FRONTAL&L ATERAL ECG 22278 YUMIKO DAVENPORT JR ROUTINE 5 [facility] W/LEAST P 12 LDS I&R ONLY RADIOLOGI 55286 YUMIKO CALDERON C EXAM [address] [facility] CHEST 2 INC INC VIEWS FRONTAL&L ATERAL DISPBL T4535 [facility] LINER/ISABELLE 5 HOME HOME ELD/GUARD HEALTH HEALTH /PAD/UNDG AGENCY AGENCY RMNT INCONT EA INJECTION J0696 PEPE CANTU [address] [place] [address] URGENT URGENT NE SODIUM TREAT TREAT PER [address] [place] [address] [facility] FOLIC 5 [facility] ACID [facility] SERUM 25 59953 [facility] HYDROXY 5 [facility] INCLUDES HOLDINGS HOLDINGS FRACTIONS IF PERFORMED CYANOCOBA 15141 [facility] AMBAR 5 [facility] VITAMIN HOLD[facility] HOLDINGS B-12 [place] [address] LAB [facility] MAGNESIUM 5 [facility] HOLDINGS LIPID 14150 LAB [facility] PANEL 5 [facility] HOLDINGS GENERAL 16953 [facility] HEALTH 5 [facility] PANEL HOLDINGS HOLDINGS RADIOLOGI 95656 [place] DEN[place] C EXAM 5 [facility] CHEST 2 IMAGING VIEWS ASS FRONTAL&L ATERAL RADEX 65129 [place] DENI RIBS 5 [facility] UNILATERA IMAGING L 2 VIEWS ASS DISPBL T4535 [facility] LINER/ISABELLE 5 HOME HOME ELD/GUARD HEALTH HEALTH /PAD/UNDG AGENCY AGENCY RMNT INCONT EA CUL BACT 92438 [facility] XCPT 5 [facility] URINE [facility] HOLDINGS BLOOD/STO OL AEROBIC ISOL BASIC 07820 [facility] METABOLIC 4 [facility] [place] [address] YUMIKO CALDERON INFUSION 4 [facility] THERAPY/P INC INC ROPHYLAXI S /DX 1ST TO 1 HR THERAPEUT 44202 YUMIKO CALDERON IC 4 [facility] INJECTION INC INC IV [facility] 55707 [facility] DISCHARGE 4 PHYSICIAN PHYSICIAN DAY S GROUP S GROUP MANAGEMEN T 30 MIN/< RADIOLOGI 93951 MARICARMEN CHEEMA C EXAM 4 [facility] CHEST 2 IMAGING VIEWS ASS FRONTAL&L ATERAL ECG 96429 YUMIKO DAVENPORT JR ROUTINE 4 [facility] W/LEAST P 12 LDS I&R ONLY ECG 24733 YUMIKO CALDERON ROUTINE 4 [facility] ECG INC INC W/LEAST 12 LDS TRCG ONLY W/O I&R RADIOLOGI 96480 YUMIKO CALDERON C EXAM 4 [facility] CHEST 2 INC INC VIEWS FRONTAL&L ATERAL PRESSURIZ 93624 YUMIKO CALDERON ED/NONPRE 4 [facility] [place]URIZED [place] [address] YUMIKO CALDERON HEAD/BRAI 4 [facility] N [place] [address] YUMIKO CALDERON INFUSION 4 [facility] THER INC INC PROPH ADDL SEQUENTIA L TO 1 HR RADIOLOGI 67784 YUMIKO CALDERON C 4 [facility] EXAMINATI INC [place] [address] YUMIKO CALDERON INFUSION 4 [facility] THERAPY/P INC INC ROPHYLAXI S /DX 1ST TO 1 HR ECG 99527 YUMIKO CALDERON ROUTINE 4 [facility] ECG INC INC W/LEAST 12 LDS TRCG ONLY W/O I&R DEBRIDEME 68874 LAUSE FED LAUSE FED NT NAIL 4 ANY METHOD 6/> HOSPITAL G0463 [facility] 4 Y Y T [facility]PITAL VISIT ASSESS & MGMT PT DISPBL T4535 NURSES NURSES LINER/ISABELLE 4 REGISTRY REGISTRY ELD/GUARD HOME HOME /PAD/UNDG HLTHTCA HLTHTCA RMNT INCONT EA DISPBL T4535 NURSES NURSES LINER/ISABELLE 4 REGISTRY REGISTRY ELD/GUARD HOME HOME /PAD/UNDG HLTHTCA HLTHTCA RMNT INCONT EA NONCOVERE A9270 [facility] D ITEM OR 4 [facility] NONCOVERE A9270 [facility] D ITEM OR 4 [facility] ECG 57273 [facility] ROUTINE 4 [facility] W/LEAST 12 LDS TRCG ONLY W/O I&R RADIOLOGI 07844 HAYDER HAYDER C EXAM 4 RHO RHO CHEST 2 VIEWS FRONTAL&L ATERAL RADIOLOGI 81774 [facility], [facility], C EXAM 4 CLICKING MACHINE OPERATOR CLICKING MACHINE OPERATOR CHEST 2 PEPE PEPE VIEWS CO HOS CO HOS FRONTAL&L ATERAL RADEX 87987 [facility] [employer] [place], [facility], ABDOMEN 4 CLICKING MACHINE OPERATOR CLICKING MACHINE OPERATOR COMPL PEPE CANTU W/DCBTS&/ [place] [address] [facility] [employer] [place], [employer], ABDOMEN & 4 CLICKING MACHINE OPERATOR CLICKING MACHINE OPERATOR PELVIS PEPE CANTU W/[place] [address] [facility] [employer] [place], [facility], INFUSION 4 CLICKING MACHINE OPERATOR CLICKING MACHINE OPERATOR HYDRATION PEPE CANTU INITIAL CO HOS CO HOS 31 MIN-1 HOUR DISPBL T4535 NURSES NURSES LINER/ISABELLE 4 REGISTRY REGISTRY ELD/GUARD HOME HOME /PAD/UNDG HLTHTCA HLTHTCA RMNT INCONT EA DISPBL T4535 NURSES NURSES LINER/ISABELLE 4 REGISTRY REGISTRY ELD/GUARD & HOME HE & HOME HE /PAD/UNDG RMNT INCONT EA DESTRUCTI 03738 MUS[facility] HOWARD MUSIC HOWARD ON 4 PREMALIGN ANT LESION 15/> DISPBL T4535 NURSES NURSES LINER/[facility] 4 REGISTRY REGISTRY ELD/GUARD & HOME HE & HOME HE /PAD/UNDG RMNT INCONT EA ECG 66475 [facility] FAMILIA MENDOSA FAMILIA ROUTINE 4 ECG W/LEAST 12 LDS I&R ONLY ECG 64997 [employer], ROUTINE 4 CLICKING MACHINE OPERATOR CLICKING MACHINE OPERATOR ECG PEPE CANTU W/LEAST CO HOS CO HOS 12 LDS TRCG ONLY W/O I&R DISPBL T4535 NURSES NURSES LINER/[facility] 4 REGISTRY REGISTRY ELD/GUARD & HOME HE & HOME HE /[place] [address] [employer], INFUSION 4 CLICKING MACHINE OPERATOR CLICKING MACHINE OPERATOR THERAPY/P PEPE CANTU ROPHYLAXI CO HOS CO HOS S /DX 1ST TO 1 HR THER 23548 [employer], PROPH/DX 4 CLICKING MACHINE OPERATOR CLICKING MACHINE OPERATOR NJX IV PEPE CANTU PUSH CO HOS CO HOS SINGLE/1S T SBST/[place] [address] [employer], INFUSION 4 CLICKING MACHINE OPERATOR CLICKING MACHINE OPERATOR HYDRATION PEPE CANTU INITIAL CO HOS CO HOS 31 MIN-1 HOUR INJECTION J2405 [employer], 4 CLICKING MACHINE OPERATOR CLICKING MACHINE OPERATOR ONDANSETR PEPE CANTU ON HCL CO HOS CO HOS PER 1 MG DISPBL T4535 NURSES NURSES LINER/[facility] 4 REGISTRY REGISTRY ELD/GUARD & HOME HE & HOME HE /PAD/UNDG RMNT INCONT HOSPITAL G0463 [facility] 4 Y Y T [facility] HOSPITAL VISIT ASSESS & MGMT PT DEBRIDEME 93459 LAUSE FED LAUSE FED NT NAIL 3 ANY METHOD 6/> DUP-SCAN 41468 ATKINS ATKINS XTR VEINS 3 COL COL COMPLETE BILATERAL STUDY DISPBL T4535 NURSES NURSES LINER/[facility] 3 REGISTRY REGISTRY ELD/GUARD & HOME HE & HOME HE /PAD/UNDG RMNT INCONT EA DEBRIDEME 78473 LAUSE FED LAUSE FED NT NAIL 3 ANY METHOD 6/> DISPBL T4535 NURSES NURSES LINER/ISABELLE 3 REGISTRY REGISTRY ELD/GUARD & HOME HE & HOME HE /PAD/UNDG RMNT INCONT EA DUP-SCAN 14215 ATKINS ATKINS XTR VEINS 3 COL COL UNILATERA L/LIMITED STUDY ENDOVEN 38286 ATKINS ATKINS ABLTJ 3 COL COL INCMPTNT VEIN XTR LASER 1ST VEIN STAB 74487 ATKINS ATKINS PHLEBT 3 COL COL VARICOSE VEINS 1 XTR > 20 INCS DISPBL T4535 NURSES NURSES LINER/ISABELLE 3 REGISTRY REGISTRY ELD/GUARD & HOME HE & HOME HE /PAD/UNDG RMNT INCONT EA DUP-SCAN 62992 ATKINS ATKINS XTR VEINS 3 COL COL UNILATERA L/LIMITED STUDY STAB 26896 ATKINS ATKINS PHLEBT 3 COL COL VARICOSE VEINS 1 XTR 10-20 STAB INCS ENDOVEN 00325 ATKINS ATKINS ABLTJ 3 COL COL INCMPTNT VEIN XTR LASER 1ST VEIN BASIC 62671 [facility] METABOLIC 3 Y Y PANEL [facility] CALCIUM TOTAL COLLECTIO 46913 [facility] VENOUS 3 Y Y [facility] VENIP[facility] URE RADIOLOGI 67614 [facility] C 3 GAR GAR EXAMINATI ON TIBIA & FIBULA 2 VIEWS RADIOLOGI 83746 [facility] C 3 [facility] 2 VIEWS BLOOD 33457 [facility] COUNT 3 Y Y [facility] [place] [address] LUKINS LUKINS HEAD/BRAI 3 [facility] N W/O CONTRAST MATERIAL RADIOLOGI 94792 [facility] C 3 GAR GAR EXAMINATI ON KN[place] [address] [place] [address] [facility], [facility], ABDOMEN & 3 CLICKING MACHINE OPERATOR CLICKING MACHINE OPERATOR PELVIS PEPE CANTU W/O CO HOS CO HOS CONTRST 1/> [place] [address] [facility], [facility], INFUSION 3 CLICKING MACHINE OPERATOR CLICKING MACHINE OPERATOR HYDRATION PEPE CANTU INITIAL CO HOS CO HOS 31 MIN-1 HOUR INJECTION J2405 [facility] [employer] [place] [place], [facility], 3 CLICKING MACHINE OPERATOR CLICKING MACHINE OPERATOR ONDANSETR PEPE CANTU ON HCL CO HOS CO HOS PER 1 [place] [address] [facility] [employer] [place] [place], [facility], INFUSION 3 CLICKING MACHINE OPERATOR CLICKING MACHINE OPERATOR THERAPY/P PEPE CANTU ROPHYLAXI CO HOS CO HOS S /DX 1ST TO 1 HR RADIOLOGI 33831 [facility] [employer] [facility], C EXAM 3 CLICKING MACHINE OPERATOR CLICKING MACHINE OPERATOR CHEST 2 PEPE CANTU VIEWS CO HOS CO HOS FRONTAL&L ATERAL THER 61551 [facility] [employer] [place], [employer], PROPH/DX 3 CLICKING MACHINE OPERATOR CLICKING MACHINE OPERATOR NJX IV PEPE CANTU PUSH CO HOS CO HOS SINGLE/1S T SBST/DRUG ECG 31866 [facility] [employer] [place], [employer], ROUTINE 3 CLICKING MACHINE OPERATOR CLICKING MACHINE OPERATOR ECG PEPE CANTU W/LEAST CO HOS CO HOS 12 LDS TRCG ONLY W/O I&R ECG 34542 AHMED ADN AHMED ADN ROUTINE 3 ECG W/LEAST 12 LDS I&R ONLY LOCM Q9967 [facility] [employer] [place] [place], [employer], [phone] CLICKING MACHINE OPERATOR CLICKING MACHINE OPERATOR MG/ML PEPE CANTU IODINE CO HOS CO HOS CONCENTRA TION PER ML US SOFT 35800 [place] TISSUE 3 ANNIE ANNIE HEAD & NECK REAL TIME IMGE DOCM BASIC 48466 [facility] METABOLIC 3 Y Y PANEL [facility] CALCIUM TOTAL NONCOVERE A9270 [facility] D ITEM OR 3 Y Y SERVICE [facility] G0378 [facility] OBSERVATI 3 Y Y ON HOSPITAL HOSPITAL SERVICE PER HOUR PHYSICAL 56408 [facility] THERAPY 3 Y Y EVALUATIO [facility] N PRESSURIZ 27516 [facility] ED/NONPRE 3 Y Y SSURIZED [facility] [place] [address] [facility] 1/> AREAS 3 Y Y EA 15 [facility] MIN GAIT TRAINJ W/STAIR BLOOD 09484 [facility] COUNT 3 Y Y COMPLETE [facility] AUTOMATED INJECTION J1644 [facility] HEPARIN 3 Y Y SODIUM [facility] PER 1000 UNITS INJECTION J1956 [facility] 3 Y Y LEVOFLOXA [facility] KRISTIN 250 MG INJECTION J1956 [facility] 3 Y Y [facility] KRISTIN 250 MG INJECTION J1644 [facility] HEPARIN 3 Y Y SODIUM [facility] PER 1000 UNITS BLOOD 61584 [facility] COUNT 3 Y Y COMPLETE [facility] AUTO&AUTO DIFRNTL WBC PRESSURIZ 69795 [facility] ED/NONPRE 3 Y Y SSURIZED [facility] INHALATIO N TREATMENT CULTURE 22759 [facility] BACTERIAL 3 Y Y BLOOD [facility] AEROBIC W/ID ISOLATES RADIOLOGI 34597 [facility]CI C EXAM 3 PHI PHI CHEST 2 VIEWS FRONTAL&L ATERAL COMPREHEN 97268 [facility] SIVE 3 Y Y METABOLIC [facility] PANEL NONCOVERE A9270 [facility] D ITEM OR 3 Y Y SERVICE [facility] ECG 75926 [facility] ROUTINE 3 Y Y ECG [facility] W/LEAST 12 LDS TRCG ONLY W/O I&R INFUSION J7030 [facility] NORMAL 3 Y Y SALINE [facility] SOL[place] [address] [place] [address] [facility], [facility], INFUSION 3 CLICKING MACHINE OPERATOR CLICKING MACHINE OPERATOR HYDRATION PEPE CANTU EACH CO HOS CO HOS ADDITIONA L HOUR INJECTION J2405 [facility], [facility], 3 CLICKING MACHINE OPERATOR CLICKING MACHINE OPERATOR ONDANSETR PEPE CANTU ON HCL CO HOS CO HOS PER 1 [place] [address] [facility], [facility], INFUSION 3 CLICKING MACHINE OPERATOR CLICKING MACHINE OPERATOR HYDRATION PEPE PEPE INITIAL CO HOS CO HOS 31 MIN-1 HOUR RADIOLOGI 97437 [facility], [facility], C 3 CLICKING MACHINE OPERATOR CLICKING MACHINE OPERATOR EXAMINATI PEPE CANTU ON CHEST CO HOS CO HOS SINGLE VIEW FRONTAL ECG 95848 [facility], [facility], ROUTINE 3 CLICKING MACHINE OPERATOR CLICKING MACHINE OPERATOR ECG PEPE MORAS W/LEAST CO HOS CO HOS 12 LDS TRCG ONLY W/O I&R ECG 11396 AHMED ADN AHMED ADN ROUTINE 3 ECG W/LEAST 12 LDS I&R ONLY ARTERIAL 19882 [facility], [facility], PUNCTURE 3 CLICKING MACHINE OPERATOR CLICKING MACHINE OPERATOR WITHDRAWA PEPE PEPE L BLOOD CO HOS CO HOS DX INSJ TEMP 68875 [facility], [facility], NDWELLG 3 CLICKING MACHINE OPERATOR CLICKING MACHINE OPERATOR BLADDER PEPE PEPE CATHETER CO HOS CO HOS SIMPLE THER 34535 [facility], [facility], PROPH/DX 3 CLICKING MACHINE OPERATOR CLICKING MACHINE OPERATOR NJX IV PEPE PEPE PUSH CO HOS CO HOS SINGLE/1S T SBST/[place] [address] [facility], [facility], INFUSION 3 CLICKING MACHINE OPERATOR CLICKING MACHINE OPERATOR THERAPY/P PEPE PEPE ROPHYLAXI CO HOS CO HOS S /DX 1ST TO 1 HR INJECTION J0456 [facility], [facility], 3 CLICKING MACHINE OPERATOR CLICKING MACHINE OPERATOR AZITHROMY PEPE CANTU KRISTIN 500 CO HOS CO [facility]OS MG INJECTION J0696 [facility], [facility], 3 CLICKING MACHINE OPERATOR CLICKING MACHINE OPERATOR CEFTRIAXO PEPE CANTU NE SODIUM CO HOS CO HOS PER 250 MG PRESSURIZ 38598 [facility], [facility], ED/NONPRE 3 CLICKING MACHINE OPERATOR CLICKING MACHINE OPERATOR SSURIZED PEPE MORAS INHALATIO CO HOS CO HOS N TREATMENT NONINVASI 52980 [facility], [facility], VE 3 CLICKING MACHINE OPERATOR CLICKING MACHINE OPERATOR EAR/PULSE PEPE PEPE OXIMETRY CO HOS CO HOS [facility] G0378 [facility], [facility], OBSERVATI 3 CLICKING MACHINE OPERATOR CLICKING MACHINE OPERATOR ON PEPE PEPE SERVICE CO HOS CO HOS PER HOUR LOC Q9967 [facility], [facility], [phone] 3 CLICKING MACHINE OPERATOR CLICKING MACHINE OPERATOR MG/ML PEPE PEPE IODINE CO HOS CO HOS CONCENTRA TION PER ML ARTERIAL 99585 [facility], [facility], PUNCTURE 3 CLICKING MACHINE OPERATOR CLICKING MACHINE OPERATOR WITHDRAWA PEPE PEPE L BLOOD CO HOS CO HOS DX RADIOLOGI 57061 [facility], [facility], C EXAM 3 CLICKING MACHINE OPERATOR CLICKING MACHINE OPERATOR CHEST 2 PEPE PEPE VIEWS CO HOS CO HOS FRONTAL&[place] [address] [facility], [facility], ANGIOGRAP 3 CLICKING MACHINE OPERATOR CLICKING MACHINE OPERATOR HY CHEST PEPE PEPE W/CONTRAS CO H[place] H[place] T/[place] [address] [facility] [employer] [place] [place], [facility], INFUSION 3 CLICKING MACHINE OPERATOR CLICKING MACHINE OPERATOR THERAPY/P PEPE CANTU ROPHYLAXI CO HOS CO HOS S /DX 1ST TO [address] THORAX 32965 [place] [place] 3 ANNIE ANNIE W/CONTRAS T MATERIAL DEBRIDEME 92920 LAUSE FED LAUSE FED NT NAIL 3 ANY METHOD 6/> RADIOLOGI 87678 DEVIN BELTRAN C EXAM 3 BETH BETH KNEE COMPLETE 4/MORE VIEWS RADIOLOGI 11735 [facility] [employer] [place], [facility], C 3 CLICKING MACHINE OPERATOR CLICKING MACHINE OPERATOR EXAMINATI PEPE CANTU ON KNEE [address] [place] [address] [facility] [employer] [place], [facility], HEAD/BRAI 3 CLICKING MACHINE OPERATOR CLICKING MACHINE OPERATOR N W/O PEPE CANTU CONTRAST CO HOS CO HOS MATERIAL DISPBL T4535 NURSES NURSES LINER/ISABELLE 3 REGISTRY REGISTRY ELD/GUARD & HOME HE & HOME HE /PAD/UNDG RMNT INCONT EA DISPBL T4535 NURSES NURSES LINER/ISABELLE 3 REGISTRY REGISTRY ELD/GUARD & HOME HE & HOME HE /PAD/UNDG RMNT INCONT EA INJECTION J1885 [facility] [employer] [place] [place], [facility], 3 CLICKING MACHINE OPERATOR CLICKING MACHINE OPERATOR KETOROLAC PEPE MORAS CO HOS CO HOS TROMETHAM INE PER 15 MG RADIOLOGI 41518 JUICE BOSE C EXAM 3 E[place]ER C[place] EIDER C[place] CHEST 2 VIEWS FRONTAL&L ATERAL PRESSURIZ 98673 [facility] [employer] [place], [facility] [facility] [place], ED/NONPRE 3 CLICKING MACHINE OPERATOR CLICKING MACHINE OPERATOR SSURIZED PEPE CANTU INHALATIO CO HOS CO HOS N TREATMENT INITIAL 86423 AHMED ADN AHMED ADN OBSERVATI 3 ON CARE/DAY 30 MINUTES MANJ 34638 [facility] [employer] [place], [facility], WALL 3 CLICKING MACHINE OPERATOR CLICKING MACHINE OPERATOR FACILITAT PEPE CANTU E LNG CO HOS CO HOS FUNCJ 1 DEMO&/JONNY L NONINVASI 47296 [facility] [employer] [place], [facility], VE 3 CLICKING MACHINE OPERATOR CLICKING MACHINE OPERATOR EAR/PULSE PEPE CANTU OXIMETRY CO HOS CO HOS [facility] G0378 [facility], [facility], OBSERVATI 3 CLICKING MACHINE OPERATOR CLICKING MACHINE OPERATOR ON [facility] CO HOS CO HOS PER HOUR DIRECT [id number] [facility], ADMISSION 3 CLICKING MACHINE OPERATOR CLICKING MACHINE OPERATOR PATIENT [facility] [place] [address] [facility], [facility], INFUSION 3 CLICKING MACHINE OPERATOR CLICKING MACHINE OPERATOR THERAPY/P PEPE VILLARREALOLAS ROPHYLAXI CO HOS CO HOS S /DX 1ST TO 1 HR RADIOLOGI 47024 JUICE BOSE C EXAM 3 [facility] CHEST 2 VIEWS FRONTAL&L ATERAL DISPBL T4535 NURSES NURSES LINER/ISABELLE 2 REGISTRY REGISTRY ELD/GUARD & HOME HE & HOME HE /PAD/UNDG RMNT INCONT EA ECG 41513 AHMED ADN AHMED ADN ROUTINE 2 ECG W/LEAST 12 LDS TRCG ONLY W/O I&R DISPBL T4535 NURSES NURSES LINER/ISABELLE 2 REGISTRY REGISTRY ELD/GUARD & HOME HE & HOME HE /PAD/UNDG RMNT INCONT EA DUP-SCAN 05423 NO REBEKAH NO REBEKAH XTR VEINS 2 COMPLETE BILATERAL STUDY DISPBL T4535 NURSES NURSES LINER/ISABELLE 2 REGISTRY REGISTRY ELD/GUARD & HOME HE & HOME HE /PAD/UNDG RMNT INCONT EA DISPBL T4535 NURSES NURSES LINER/ISABELLE 2 REGISTRY REGISTRY ELD/GUARD & HOME HE & HOME HE /PAD/UNDG RMNT INCONT EA BASIC 37327 [facility], [facility], METABOLIC 2 CLICKING MACHINE OPERATOR CLICKING MACHINE OPERATOR PANEL PEPEWHIT CANTU CALCIUM CO HOS CO HOS TOTAL ECG 64691 [facility], [facility], ROUTINE 2 CLICKING MACHINE OPERATOR CLICKING MACHINE OPERATOR ECG PEPE MORAS W/LEAST CO HOS CO HOS 12 LDS TRCG ONLY W/O I&R URNLS DIP 29275 [facility], [facility], 2 CLICKING MACHINE OPERATOR CLICKING MACHINE OPERATOR STICK/TAB PEPE CANTU LET RGNT CO HOS CO HOS AUT[place] [address] [facility], [facility], INFUSION 2 CLICKING MACHINE OPERATOR CLICKING MACHINE OPERATOR THERAPY/P PEPE PEPE ROPHYLAXI CO HOS CO HOS S /DX 1ST TO 1 HR BLOOD 47263 [facility], [facility], COUNT 2 CLICKING MACHINE OPERATOR CLICKING MACHINE OPERATOR COMPLETE PEPE PEPE AUTO&AUTO CO HOS CO HOS DIFRNTL WBC NATRIURET 46588 [facility], [facility], IC 2 CLICKING MACHINE OPERATOR CLICKING MACHINE OPERATOR PEPTIDE PEPE PEPE CO HOS CO HOS RADIOLOGI 73472 [facility], [facility], C EXAM 2 CLICKING MACHINE OPERATOR CLICKING MACHINE OPERATOR CHEST 2 PEPE PEPE VIEWS CO HOS CO HOS FRONTAL&L ATERAL FIBRIN 27580 [facility], [facility], DGRADJ 2 CLICKING MACHINE OPERATOR CLICKING MACHINE OPERATOR PRODUCTS PEPE PEPE D-DIMER CO HOS CO HOS QUANTITAT ADELINA THER 64754 [facility], [facility], PROPH/DX 2 CLICKING MACHINE OPERATOR CLICKING MACHINE OPERATOR NJX IV PEPE PEPE PUSH CO HOS CO HOS SINGLE/1S T SBST/DRUG RADIOLOGI 02816 [facility] C EXAM 2 BETH CHEST 2 RADIOLOGY VIEWS ASSOCIAT FRONTAL&[place] [address] [facility], [facility], INFUSION 2 CLICKING MACHINE OPERATOR CLICKING MACHINE OPERATOR THERAPY/P PEPE PEPE ROPHYLAXI CO HOS CO HOS S /DX 1ST TO 1 [place] [address] [facility], [facility], INFUSION 2 CLICKING MACHINE OPERATOR CLICKING MACHINE OPERATOR HYDRATION PEPE PEPE INITIAL CO HOS CO HOS 31 MIN-1 [place] [address] [facility], [facility], INFUSION 2 CLICKING MACHINE OPERATOR CLICKING MACHINE OPERATOR HYDRATION PEPE PEPE EACH CO HOS CO HOS [place]DITIONA [place] [address]924 [facility] [address] IMAGING IMAGING ATTENUATI L L ON SKULL BASE MID-THIGH COMPREHEN 80525 [facility], [facility], SIVE 2 CLICKING MACHINE OPERATOR CLICKING MACHINE OPERATOR METABOLIC PEPE PEPE PANEL CO HOS CO HOS NATRIURET 26141 [facility], [facility], IC 2 CLICKING MACHINE OPERATOR CLICKING MACHINE OPERATOR PEPTIDE PEPE PEPE CO HOS CO HOS BLOOD 50535 [facility], [facility], COUNT 2 CLICKING MACHINE OPERATOR CLICKING MACHINE OPERATOR COMPLETE PEPE PEPE AUTO&AUTO CO HOS CO HOS DIFRNTL WBC RADIOLOGI 70977 [facility], [facility], C EXAM 2 CLICKING MACHINE OPERATOR CLICKING MACHINE OPERATOR CHEST 2 PEPE PEPE VIEWS CO HOS CO HOS FRONTAL&L ATERAL PROTHROMB 30549 [facility], [facility], IN TIME 2 CLICKING MACHINE OPERATOR CLICKING MACHINE OPERATOR PEPE CANTU CO HOS CO HOS SEDIMENTA 90146 [facility], [employer], TION RATE 2 CLICKING MACHINE OPERATOR CLICKING MACHINE OPERATOR RBC PEPE VILLARREALOLAS NON-AUTOM CO HOS CO HOS ATED BLOOD 40928 [facility] [employer] [place] [place], [employer], COUNT 2 CLICKING MACHINE OPERATOR CLICKING MACHINE OPERATOR SMEAR PEPE MORAS MCRSCP CO HOS CO HOS W/MNL DIFRNTL WBC COUNT DUP-SCAN 47078 YUMIKO CALDERON XTR VEINS 2 [facility] INC INC UNILATERA L/LIMITED STUDY DISPBL T4535 NURSES NURSES LINER/ISABELLE 2 REGISTRY REGISTRY ELD/GUARD & HOME HE & HOME HE /PAD/UNDG RMNT INCONT EA DISPBL T4535 NURSES NURSES LINER/ISABELLE 2 REGISTRY REGISTRY ELD/GUARD & HOME HE & HOME HE /[place] [address] [facility] SURG 1 [facility] PATHOLOGY [facility]IN[facility] GROSS&PHI ROSCOPIC EXAM DECALCIFI 58554 [facility] CATION 1 [facility] PROCEDURE CLINIC CLINIC PSC PSC PET 69365 [facility] [address] IMAGING IMAGING ATTENUATI L L ON SKULL BASE MID-THIGH BONE 85848 [facility] [place] [place] [address] [facility] BLOOD/URI 1 [facility] C ACID COMPREHEN 27266 [facility] SIVE 1 [facility] METABOLIC PANEL COLLECTIO 04864 [facility] N VENOUS 1 [facility] BLOOD VENIPUNCT URE LACTATE 87339 [facility] DEHYDROGE 1 [facility] NASE LDH BLOOD 30583 [facility] COUNT 1 [facility] COMPLETE AUTO&AUTO DIFRNTL WBC RADEX 51608 [facility] ANKLE 1 [facility] COMPLETE MINIMUM [address] [facility] CYTOMETRY 1 [facility] INTERPRET ATION 16/> MARKERS FLOW 01037 [facility] CYTOMETRY 1 [facility] CELL SURF MARKER TECHL ONLY 1ST CHRMSM 85937 [facility] COUNT 1 [facility] 15-20 CLL 2KARYOTYP BANDING CHRMSM 71024 [facility] ANALYSIS 1 [facility] ADDL KARYOTYP EACH STUDY COLLECTIO 61678 [facility] N VENOUS 1 [facility] BLOOD VENIPUNCT URE FLOW 65302 [facility] CYTOMETRY 1 [facility] CELL SURF MARKER TECHL ONLY EA DISPBL T4535 NURSES NURSES LINER/ISABELLE 1 REGISTRY REGISTRY ELD/GUARD & HOME HE & HOME HE /PAD/UNDG RMNT INCONT EA DISPBL T4535 NURSES NURSES LINER/ISABELLE 1 REGISTRY REGISTRY ELD/GUARD & HOME HE & HOME HE /PAD/UNDG RMNT INCONT EA DESTRUCTI 02706 [facility] ANGELO KIMN ON 1 [facility] LESION 1ST RADEX 88805 PEPE CANTU FOREARM 2 1 CO CO VIEWS [facility] RADIOLOGI 03348 PE[facility]ANTU C 1 [facility] [place] [facility] FIBULA 2 VIEWS RADEX 69860 PEPE CANTU ELBOW 1 CO CO [facility] MINIMUM 3 VIEWS DUPLEX 73573 [facility] BELTRAN SCAN [address] [facility] EXTRACRAN RADIOLOGY IAL ART ASSOCIAT COMPL BI STUDY BLOOD 47263 [facility] ISABELA PAT SMEAR 1 JARED & PERIPHERA DUBILIER L INTERP PHYS W/[place] [address] MAULDIN BELTRAN HEAD/BRAI 1 [facility] N W/O RADIOLOGY CONTRAST ASSOCIAT MATERIAL RADEX 12621 [facility] BEL[facility] ABDOMEN 1 [facility] COMPL RADIOLOGY W/DCBTS&/ ASSOCIAT ERC VIEWS RADIOLOGI 69732 [facility] BELTRAN C EXAM 1 [facility] CHEST 2 RADIOLOGY VIEWS ASSOCIAT FRONTAL&L ATERAL DEMO&/JONNY 92080 PEPE Velazquez OF PT 1 [facility] GEN/NEB/I NHLR/IP COLLECTIO 06635 PEPE Falcon VENOUS 1 CO MO BLOOD [facility] VENIPUNCT URE BASIC 84878 PEPE CANTU METABOLIC 1 CO CO PANEL [facility] CALCIUM TOTAL ECG 19154 PE[facility]U ROUTINE 1 CO CO ECG [facility] W/LEAST 12 LDS TRCG ONLY W/O I&R PRESSURIZ 27022 PEPE CANTU ED/NONPRE 1 CO CO SSURIZED [facility] INHALATIO N TREATMENT ANTIBODY 43402 PE[facility] C[facility] INFLUENZA 1 CO MO VIRUS [facility] BLOOD 62871 [facility] COUNT 1 CO MO SMEAR [facility] MCRSCP W/[place] [address] COMBINED COMBINED THYROID 1 PHYSICIAN PHYSICIAN STIMULATI S LA S LA NG HORMONE TSH LIPID 33578 COMBINED COMBINED PANEL 1 PHYSICIAN PHYSICIAN S LA S LA COMPREHEN 90200 COMBINED COMBINED SIVE 1 PHYSICIAN PHYSICIAN METABOLIC S LA S LA PANEL PROTHROMB 73012 COMBINED COMBINED IN TIME 1 PHYSICIAN PHYSICIAN S LA S LA BLOOD 37628 COMBINED COMBINED COUNT 1 PHYSICIAN PHYSICIAN COMPLETE S LA S LA AUTO&AUTO DIFRNTL WBC RADEX 72172 [facility] RIBS [facility] 2 VIEWS ASSOCIAT RADIOLOGI 54600 PEPE CANTU C EXAM 1 CO MO CHEST 2 [facility] VIEWS FRONTAL&L ATERAL RADEX 94335 PEPE CANTU RIBS UNI 1 CO CO W/POSTERO HOSPITAL HOSPITAL ANT CH MINIMUM 3 [place] [address] [facility] TRANSVAGI 1 [facility] CERV/VAGI G0101 [facility] NAL 1 [facility]; [place] PELV&CLIN BREAST EXAM SCR G0145 PATHOLOGY PATHOLOGY CYTOPATH 1 & & CERV/VAG CYTOLOGY CYTOLOGY SCR LAB LAB AUTO&MNL RSCR PHYS SCREEN Q0091 [facility] PAP 1 [facility] SMEAR; [facility] [place] PREP &C ONVEY TO LAB RADIOLOGI 96371 [facility] C EXAM 1 ANNIE CHEST 2 RADIOLOGY VIEWS ASSOCIAT FRONTAL&[place] [address] PEPE CANTU ABDOMEN 0 CO CO W/O HOSPITAL HOSPITAL CONTRAST MATERIAL CT PELVIS 99502 PEPE CANTU W/O 0 CO MO CONTRAST [facility] MATERIAL CULTURE 28594 PEPE CANTU BACTERIAL 0 CO [facility] QUANTTATI [place] [address] PATHOLOGY PATHOLOGY SURG 0 & & PATHOLOGY CYTOLOGY CYTOLOGY LAB LAB GROSS&PHI ROSCOPIC EXAM EXCISION 03589 C GEOVANNI STEVENS MAL 0 HILDA CALLAWAY MD PSC TRUNK/ARM /LEG 2.1-3.0 CM LIPID 76782 COMBINED COMBINED PANEL 0 PHYSICIAN PHYSICIAN S LA S LA COLLECTIO 31431 COMBINED COMBINED N VENOUS 0 PHYSICIAN PHYSICIAN BLOOD S LA S LA VENIPUNCT URE COMPREHEN 40869 COMBINED COMBINED SIVE 0 PHYSICIAN PHYSICIAN [place] [address] COMBINED COMBINED THYROID 0 PHYSICIAN PHYSICIAN STIMULATI S LA S LA NG HORMONE TSH BLOOD 53238 COMBINED COMBINED COUNT 0 PHYSICIAN PHYSICIAN COMPLETE S LA S LA AUTO&[place] [address] MAUL[facility] BELTRAN, ABDOMEN 0 MARIAA C W/O RADIOLOGY CONTRAST MATERIAL ASSOCIATE S PSC CT PELVIS 65696 [facility] BEL[facility], W/O 0 MARIAA C CONTRAST RADIOLOGY MATERIAL ASSOCIATE S PSC BLOOD 90005 COMBINED COMBINED COUNT 0 PHYSICIAN PHYSICIAN COMPLETE S LAB S LAB AUTO&AUTO DIFRNTL WBC COMPREHEN 37322 COMBINED COMBINED SIVE 0 PHYSICIAN PHYSICIAN METABOLIC S LAB S LAB PANEL LIPID 39469 COMBINED COMBINED PANEL 0 PHYSICIAN PHYSICIAN S LAB S LAB DUP-SCAN 58066 PEPE CANTU XTR VEINS 0 CO [facility] [place] [address] PATHOLOGY PATHOLOGY SURG 0 & & PATHOLOGY CYTOLOGY CYTOLOGY LAB LAB GROSS&[place] [address] YUMIKO CALDERON INFUSION 0 [facility] THERAPY/P INC INC ROPHYLAXI S /DX 1ST TO 1 HR COLONOSCO 12580 [place], PY 0 MEDICAL DEISY W/BIOPSY SERV SINGLE/[place] [address] DERMATOPA DERMATOPA SURG 0 THOLOGY THOLOGY PATHOLOGY ALLINACE ALLINACE OF OF GROSS&PHI ROSCOPIC EXAM SCREENING 85694 [facility], 0 MEDICAL ROBERTO CARLOS MAMMOGRAP IMAGING HY ASSOCIATE BILATERAL S COMPUTER- [address] [place] DENI, AIDED 0 MEDICAL ROBERTO CARLOS DETECTION IMAGING ASSOCIATE SCREENING S MAMMOGRAP HY CULTURE 07227 PEPE CANTU BACTERIAL 0 [facility] QUANTTATI VE COLONY COUNT URINE LIPID 77372 PEPE CANTU PANEL 0 [facility] COMPREHEN 43743 PE[facility] C[facility]U SIVE 0 [facility] PANEL LIPOPROTE 35586 PEPE CANUT IN DIRECT [address] [place] [address] MEASUREME NT LDL CHOLESTER OL BLOOD 84294 PEPE CANTU COUNT 9 [facility] AUTO&AUTO DIFRNTL WBC URNLS DIP 77139 [place] G[place] 9 LOIDA HERNANDEZ A STICK/TAB INTERNAL LET RGNT MED NON-AUTO W/O MICRSCP COMPREHEN 73711 PEPE C[facility]U SIVE 9 [facility] PANEL LIPID 08716 PEPE CANTU PANEL 9 [facility] COLLECTIO 61929 [facility] BESSON, N VENOUS 9 [facility] A BLOOD INTERNAL VENIPUNCT MED URE PHYS G0179 [facility] MCKEMIE RE-CERT 9 LOIDA PLATA, MCR-COVR INTERNAL DARYN F [facility] MED SRVC RE-CERT PRD 3D 30788 DENI CHEEMA, RENDERING 9 ROBERTO CARLOS ROBERTO CARLOS W/INTERP & POSTPROCE SS SUPERVISI [place] MRI 08782 DENI CHEEMA, SPINAL 9 ROBERTO CARLOS ROBERTO CARLOS CANAL CERVICAL W/O CONTRAST MATRL ECG 74053 [facility] GARRISON, ROUTINE 9 [facility] A ECG INTERNAL W/LEAST MED 12 LDS W/I&R PHYS G0179 [place] MCKEMIE RE-CERT 9 [facility], MCR-COVR INTERNAL DARYN F [place] TH MED SRVC RE-CERT PRD OPHTH 44714 JOSIAH RAHMAN, [facility] 9 DORIAN A DORIAN A XM&EVAL COMPRHNSV ESTAB PT 1/> DESTRUCTI 28407 [place] BESN[place], ON 9 [facility] A PREMALIGN INTERNAL ANT MED LESION 1ST COLLECTIO 63872 PEPE Flacon VENOUS 8 CO CO BLOOD [facility] VENIPUNCT URE PRESSURIZ 20473 [facility] CANTU ED/NONPRE 8 CO CO SSURIZED [facility] INHALATIO N TREATMENT DEMO&/JONNY 85526 PEPE CANTU L OF PT 8 CO CO UTILIZ [facility] AERSL GEN/NEB/I NHLR/IP RADIOLOGI 46048 PEPE Prince EXAM 8 CO CO CHEST 2 [facility] VIEWS FRONTAL&L ATERAL BLOOD 94060 PEPE CANTU COUNT 8 CO CO COMPLETE [facility] AUTO&AUTO DIFRNTL WBC BLOOD 40536 PE[facility] C[facility]U COUNT 8 CO CO SMEAR [facility] MCRSCP W/MNL DIFRNTL WBC COUNT ADMINISTR G0008 [facility] BESS[place], ATION OF 8 [facility] A INFLUENZA INTERNAL VIRUS MED VACCINE IIV3 09000 [place], VACCINE 8 [facility] A SPLIT INTERNAL VIRUS 0.5 MED ML DOSAGE IM USE [facility] 18312 [place] GYPSY, DISCHARGE 8 [facility] DAY INTERNAL MANAGEMEN MED T 30 MIN/< SBSQ [address] [address] CARE/DAY INTERNAL 25 MED MINUTES SBSQ 55785 [facility] 8 [facility] A CARE/DAY INTERNAL 25 MED MINUTES RADEX ABD 82203 VIOLETA MARIEE 8 AYANA Stanford AQT ABD RADIOLOGY W/S/E/D VIEWS 1 ASSOCIATE VIEW SWAPNA S PSC RADIOLOGI 57989 [place], C EXAM 8 AYANA S CHEST 2 RADIOLOGY VIEWS FRONTAL&L ASSOCIATE ATERAL S PSC INITIAL 22021 [place] [facility] 8 [facility], CARE/DAY INTERNAL DARYN Boucher 50 MED MINUTES PHYS CERT G0180 [place] GARRISON [facility] 8 [facility] INTERNAL SRVC PER MED CERT PRD IM ADM 09761 [place] [facility] PRQ ID 8 [facility], SUBQ/IM INTERNAL DARYN Boucher NJXS 1 MED VACCINE INJECTION [id number] [place] [facility] 8 [facility], TRIAMCINO INTERNAL DARYN Boucher LONE MED ACETONIDE NOS 10 MG BLOOD 37173 PEPE CANTU COUNT 8 [facility] SMEAR [facility] MCRSCP W/MNL DIFRNTL WBC COUNT COMPREHEN 60928 [facility]U SIVE 8 [facility] PANEL THER 03567 PEPE CANTU PROPH/DX 8 [facility] NJX [facility] SUBQ/IM COLLECTIO 00208 PEPE CANTU N VENOUS 8 [facility] BLOOD [facility] VENIPUNCT URE BLOOD 42480 PEPE CANTU COUNT 8 [facility] COMPLETE [facility] AUTO&AUTO DIFRNTL WBC RADIOLOGI 17039 Niki MARIEE EXAM 8 AYANA S CHEST 2 RADIOLOGY VIEWS FRONTAL&L ASSOCIATE ATERAL S PSC Encounters Encounter Start End Date Code Location Performer Type Date OFFICE 85106 [facility] 7 7 PHYSICIAN T VISIT S GROUP 15 MINUTES EMERGENCY 01642 ERIC DODD DEPT 7 7 [facility] YUMI[facility] - 7 7 [facility] INPATIENT INC OFFICE 15368 AMALIA EUGENE 7 7 MEDICAL T VISIT SERV 15 FOUNDATIO MINUTES [facility] - 7 7 [facility] OFFICE 87029 PEPE CAZARESPATIEN 6 6 COUNTY T VISIT URGENT 25 TREAT MINUTES OFFICE [address] [facility] 6 6 [facility] T VISIT URGENT 15 TREAT MINUTES OFFICE [address] [facility] 6 6 [facility] T VISIT URGENT 25 TREAT MINUTES OFFICE 49946 [facility] 6 [facility] T VISIT URGENT 25 TREAT MINUTES HOSPITAL UNIVERSIT - 6 6 [facility] T OFFICE 47692 AMALIA [facility] 6 6 MEDICAL N RONN T VISIT SERV 15 FOUNDATIO MINUTES [facility] [place] - 6 6 [facility] 82124 [facility] 6 6 PHYSICIAN LES T NEW 30 PRACTICE MINUTES L OFFICE 67941 AMALIA MAR[facility] 6 6 MEDICAL N RONN T VISIT SERV 10 FOUNDATIO MINUTES N OFFICE [address] [facility] 6 6 [facility] T VISIT URGENT 25 TREAT MINUTES HOSPITAL YUMIKO - 6 6 [facility] INPATIENT [facility] EMERGENCY 84473 IVELISSEON DEPT 5 5 [facility] HIGH SEVERITY& THREAT [facility] BOC[facility] - 5 5 [facility] 60465 [facility] DEPT [address] [facility] VISIT EMERGENCY HIGH PHYSI SEVERITY& THREAT [facility] IVELISSEON - 5 5 [facility]ER[facility] 43064 IVELISSEON 5 5 [facility] T VISIT HIGH/URGE NT SEVERITY HOSPITAL YUMIKO - 5 5 [facility] OUTPATIEN [facility] YUMIKO - 5 5 [facility] OUTPATIEN [facility] HOME [facility], 5 5 HOME INPATIENT HEALTH AGENCY HOME [facility] HEALTH, 5 5 HOME INPATIENT HEALTH AGENCY OFFICE [address] [facility] 5 5 [facility] T VISIT 15 MINUTES HOSPITAL YUMIKO - 4 4 [facility] OUTPATIEN INC HOSPITAL YUMIKO - 4 4 [facility] INPATIENT INC HOSPITAL YUMIKO - 4 4 [facility] OUTPATIEN INC HOSPITAL YUMIKO [facility] 4 4 [facility] OUTPATIEN [facility] T OFFICE 49232 [facility] 4 4 PHYSICIAN T NEW 45 S GROUP [facility]ERS[facility] - 4 4 [facility], 4 4 REGISTRY INPATIENT HOME [facility], 4 4 REGISTRY [facility]PATIENT [facility] [place] [facility] [address] [facility] EMERGENCY 39549 [facility], 4 4 CLICKING MACHINE OPERATOR DEPARTMEN PE[facility] T VISIT CO HOS HIGH/URGE NT SEVERITY CRITICAL [facility], ACCESS 4 4 CLICKING MACHINE OPERATOR [facility] [facility]SES HEALTH, 4 4 REGISTRY INPATIENT HOME [facility], 4 4 REGISTRY INPATIENT & HOME HE HOME NURSES HEALTH, 4 4 REGISTRY INPATIENT & HOME HE CRITICAL [facility], ACCESS 4 4 CLICKING MACHINE OPERATOR [facility] [place] [facility] CR[facility], ACCESS 4 4 [facility] [place] [facility] EM[facility]ENC[facility] 04185 [facility], 4 4 CLICKING MACHINE OPERATOR DEPARTMEN [place] T VISIT CO HOS HIGH/URGE NT SEVERITY HOME NURSES HEALTH, 4 4 REGISTRY INPATIENT & HOME HE OFFICE [id number] FLEISCHMA FLEISCHMA OUTPATIEN 4 4 N RONN N RONN T VISIT 15 MINUTES [facility]OSPITAL [facility] - 4 4 Y OUTPATIEN HOSPITAL T HOME NURSES HEALTH, 3 3 REGISTRY INPATIENT & HOME HE HOME NURSES HEALTH, 3 3 REGISTRY OUTPATIEN & HOME HE T HOME NURSES HEALTH, 3 3 REGISTRY OUTPATIEN & HOME HE T OFFICE 24938 FLEISCHMA FLEISCHMA OUTPATIEN 3 3 N RONN N RONN T NEW 45 MINUTES [facility], ACCESS 3 3 CLICKING MACHINE OPERATOR [facility] [place] [facility] EMERGENC[facility] 80871 [facility], 3 3 CLICKING MACHINE OPERATOR DEPARTMEN [place] T VISIT CO HOS HIGH/URGE NT SEVERITY EMERGENCY 93039 VENKAT ROBLEDO 3 3 ANGELICA DOMINGUEZ DEPARTMEN T VISIT MODERATE SEVERITY CRITICAL [facility], ACCESS 3 3 CLICKING MACHINE OPERATOR [facility] [place] [facility], ACCESS 3 3 CLICKING MACHINE OPERATOR [facility] [place] [facility] EMERGENCY 16955 [facility], 3 3 CLICKING MACHINE OPERATOR DEPARTMEN [facility] T VISIT CO HOS HIGH/URGE NT SEVERITY EMERGENCY 97681 [facility], DEPT 3 3 CLICKING MACHINE OPERATOR VISIT [place] [facility] HOS SEVERITY& THREAT FUNCJ CRITICAL [facility], ACCESS 3 3 CLICKING MACHINE OPERATOR [facility] [place] [facility], ACCESS 3 3 CLICKING MACHINE OPERATOR [facility] [place] [facility] HOME NURSES HEALTH, 3 3 REGISTRY OUTPATIEN & HOME HE T EMERGENCY 00674 [facility], 3 3 CLICKING MACHINE OPERATOR DEPARTMEN [facility] T VISIT CO HOS LOW/MODER SEVERITY EMERGENCY 15546 RANDA RANDA 3 3 HEN HEN DEPARTMEN T VISIT MODERATE SEVERITY CRITICAL [facility] INC, ACCESS 3 3 CLICKING MACHINE OPERATOR [facility] [place] [facility] INC, - 3 3 CLICKING MACHINE OPERATOR INPATIENT [facility] EMERGENC[facility] 00885 [facility] INC, 3 3 CLICKING MACHINE OPERATOR DEPARTMEN [place] T VISIT CO HOS HIGH/URGE NT SEVERITY CRITICAL [facility] INC, ACCESS 3 3 CLICKING MACHINE OPERATOR [facility] [facility] NURSES HEALTH, 2 2 REGISTRY OUTPATIEN & HOME HE T HOME NURSES HEALTH, 2 2 REGISTRY OUTPATIEN & HOME HE T OFFICE 20554 NO REBEKAH NO REBEKAH OUTPATIEN 2 2 T NEW 45 MINUTES CLINIC, [place] [facility] 2 2 [facility] OFFICE 01875 [facility] OUTPATIEN 2 2 COUNTY T VISIT [facility] 15 HEALTH MINUTES HOME NURSES HEALTH, 2 2 REGISTRY OUTPATIEN & HOME HE T HOME NURSES HEALTH, 2 2 REGISTRY OUTPATIEN & HOME HE T CRITICAL [facility] INC, ACCESS 2 2 CLICKING MACHINE OPERATOR [facility] [place] [facility] EMERGENCY 68469 [facility] INC, 2 2 CLICKING MACHINE OPERATOR DEPARTMEN [facility] T VISIT CO HOS HIGH/URGE NT SEVERITY OFFICE 30357 AHMED ADN AHMED ADN OUTPATIEN 2 2 T VISIT 15 MINUTES HOSPITAL [facility] INC, - 2 2 CLICKING MACHINE OPERATOR OUTPATIEN [facility] [facility] OFFICE 03406 AHMED ADN AHMED ADN OUTPATIEN 2 2 T VISIT 15 MINUTES OFFICE 08774 [facility] OUTPATIEN 2 2 T NEW 20 MINUTES OFFICE 48313 [facility] OUTPATIEN 2 2 RURAL T VISIT HEALTH 25 CLINIC MINUTES CLINIC, [facility] 2 2 [facility] OFFICE 48409 [facility] OUTPATIEN 2 2 RURAL T VISIT HEALTH 25 CLINIC MINUTES CRITICAL [facility] INC, ACCESS 2 2 [facility] [facility] OFF[facility] 31647 [facility] OUTPATIEN 2 2 RURAL T [facility]ISIT HEALTH 25 CLINIC MINUT[facility] CLINIC, [facility] RURAL 2 2 [facility] [place] - 2 2 [facility] 62178 [facility] OUTPATIEN 2 2 RURAL T VISIT HEALTH 25 CLINIC MINUT[facility] CLINIC, [facility] RURAL 2 2 [facility] CLINIC HOME NURSES HEALTH, 2 2 REGISTRY OUTPATIEN & HOME HE T OFFICE 23925 AHMED ADN AHMED ADN OUTPATIEN 2 2 T VISIT 15 MINUTES CLINIC, [facility] RURAL 2 2 [facility] OFFICE 02372 [facility] OUT[facility] 2 2 [facility] VIS[facility] 25 HEALTH MINUTES [facility] 1 [facility] CLINIC, [facility] RURAL 1 1 [facility] OFFICE 25425 [facility] OUTPATIEN 1 1 [facility] T VISIT [facility] 15 HEALTH MINUTES HOME NURSES HEALTH, 1 1 REGISTRY OUTPATIEN & HOME HE T HOME NURSES HEALTH, 1 1 REGISTRY OUTPATIEN & HOME HE T OFFICE 11427 [facility] OUTPATIEN 1 1 RURAL T VISIT HEALTH 15 CLINIC MINUTES CLINIC, [facility] RURAL 1 1 [facility] CLINIC OFFICE 06220 [facility] OUTPATIEN 1 1 RURAL T VISIT HEALTH 15 CLINIC MINUTES CLINIC, [facility] RURAL 1 1 [facility] CLINIC OFFICE 78083 [facility] [place] [place] OUTPATIEN 1 1 RURAL T VISIT HEALTH 25 CLINIC MINUTES CRITICAL PEPE ACCESS 1 1 [facility] PEPE - 1 1 [facility] EMERGENCY 37851 [facility] TAMIE DEPT 1 1 [facility] VISIT HOSPITAL HIGH SEVERITY& THREAT FUNCJ EMERGENCY 18858 [facility] 1 1 [facility] T VISIT LIMITED/M INOR PROB CRITICAL PEPE ACCESS 1 1 [facility] CRITICAL [facility] ACCESS 1 1 [facility] OFFICE 08262 [facility] 1 1 [facility] VISIT CLINIC OF 15 [facility] PEPE - 1 1 [facility] CRITICAL [facility] ACCESS 0 0 [facility] OFFICE 84680 Niki STEVENS OUTPATIEN 0 0 HILDA Gay MD [facility] PEPE - 0 0 [facility] CRITICAL [facility] ACCESS 0 0 [facility] CRITICAL [facility] ACCESS 0 0 [facility] OFFICE 11703 PPEE OUTPATIEN 0 0 [facility] T VISIT 5 [facility] - 0 0 [facility]IEN [facility] - 0 0 [facility] OUTPATIEN [facility] OFFICE 50558 [facility] OUTPATIEN 0 0 [facility] T VISIT INTERNAL 15 MED MINUTES CRITICAL PEPE ACCESS 0 0 [facility] CRITICAL [facility] ACCESS 0 0 [facility] OFFICE 35375 [facility] OUTPATIEN 0 0 [place] [facility] VISIT INTERNAL 25 MED MINUTES OFFICE 96051 [facility], OUTPATIEN 9 9 [facility] T VISIT INTERNAL 15 MED MINUTES OFFICE 53425 [facility], OUTPATIEN 9 9 [facility] VISIT INTERNAL 15 MED MINUTES OFFICE 98513 [facility], OUTPATIEN 9 9 [facility] T VISIT INTERNAL 25 MED MINUTES CRITICAL PEPE ACCESS 9 9 [facility] OFFICE 71427 [facility] [facility], OUTPATIEN 9 9 [facility] VISIT INTERNAL 15 MED MINUTES OFFICE 71589 [facility], OUTPATIEN 9 9 [facility] T VISIT INTERNAL 25 MED MINUTES EMERGENCY 44810 [facility] ROBLED[place], 8 8 [facility] T VISIT MODERATE SEVERITY EMERGENCY 24845 [facility] 8 8 [facility] T VISIT LOW/MODER SEVERITY CRITICAL [facility] 8 [facility] OFF[facility] 29281 [facility] OUTPATIEN 8 8 [facility] T VISIT INTERNAL 15 MED MINUTES OFFICE 92820 [facility], OUTPATIEN 8 8 [facility] VISIT INTERNAL 10 MED MINUTES OFFICE 13256 [facility], OUTPATIEN 8 8 [facility] T VISIT INTERNAL 15 MED MINUTES OFFICE 70858 [facility] EUGENE 8 8 [place] T VISIT 5 HOSPITAL MINUTES OFFICE 96415 [place] CE[facility], CONSULTAT 8 8 MEDICAL DARYN ION SERV E NEW/ESTAB FOUNDATIO PATIENT 40 MIN CRITICAL [facility] 8 8 [facility] OFFICE 49438 VALORIE VILLALTA 8 8 [place] MARY Hoff T VISIT INTERNAL 15 MED MINUTES HOSPITAL [facility] 8 8 [facility] OFFICE 24991 HAZEL EUGENE 8 8 MARIAA PLATA JR, JOHN T VISIT P P 15 MINUTES OFFICE 58896 NEGRITA EUGENE 8 8 Cameron MARISCAL JR VISIT INTERNAL DARYN F 15 MED MINUTES EMERGENCY 07785 [facility] 8 8 [facility] T VISIT LIMITED/M INOR PROB CRITICAL [facility] 8 8 [facility] OFFICE 17504 VALORIE VILLALTA 8 8 LOIDA Barnes VISIT INTERNAL 15 MED MINUTES OFFICE 52002 HAZEL EUGENE 8 8 MARIAA PLATA JR, JOHN T VISIT P P 10 MINUTES OFFICE 80657 NEGRITA EUGENE 8 8 Cameron MARISCAL JR VISIT INTERNAL DARYN F 25 MED MINUTES OFFICE 10291 HAZLE EUGENE 8 8 MARIAA PLATA JR, JOHN T VISIT P P 15 MINUTES
--- OUTSIDE RECORDS SUMMARY | 2016-12-13 19:06 | External Medical Summary Rpt ---
Author Author , JESSICA LOPEZ Address Unknown Phone [email or web address] Care Team Providers Care Core Inserter Name Role Phone NO REBEKAH, NO REBEKAH Unavailable Unavailable AHMED ADN, AHMED ADN Unavailable Unavailable AHMED ADN, AHMED ADN Unavailable Unavailable ILYA LES, ILYA Unavailable Unavailable LES ATKINS COL, ATKINS Unavailable Unavailable COL ATKINS COL, ATKINS Unavailable Unavailable COL BESSON, BESSON Unavailable Unavailable BESSON ROLO, BESSON Unavailable Unavailable ROLO BESSON ROLO, BESSON Unavailable Unavailable ROLO BESSON, MARY A, Unavailable Unavailable BESSON, MARY A [facility] Unavailable Unavailable IMAGING L, [facility] MONIQUE, MONIQUE Unavailable Unavailable MONIQUE ALL, MONIQUE ALL Unavailable Unavailable [facility] Unavailable [facility], [facility] Unavailable Unavailable PRACTICE L, [facility] RICCI PHI, RICCI Unavailable [...] Unavailable Unavailable SAMIR K, HAGCHPERNELLIDER, SAMIR K [facility] Unavailable Unavailable INC, [facility] Un[facility] Un[facility] P, [facility] [place] ANNIE, CLIFTON Unavailable Unavailable ANNIE CLIFTON ANNIE, CLIFTON Unavailable Unavailable ANNIE ETIENNE, AYANA S, Unavailable Unavailable CLIFTON, AYANA S SHEKHAR BETANCUR HARVEY, Unavailable Unavailable DORIAN GIMENEZ, Unavailable Unavailable DORIAN RAHMAN [facility], Unavailable Unavailable [facility] YOUSIF DODD Unavailable Unavailable BETINA, BETINA Unavailable Unavailable BETINA NAN, BETINA Unavailable Unavailable [facility] Unavailable Unavailable CL[facility], [facility] Unavailable Unavailable [facility], [facility] YG CRY, YG Unavailable Unavailable [facility] Un[facility], [facility] [place] Unavailable Unavailable [facility], [facility] Unavailable Unavailable [facility], [facility], [facility] Unavailable Unavailable [facility], [facility] Unavailable Unavailable ETHEL JR DWI, ETHEL Unavailable Unavailable JR DWI [facility] Unavailable Unavailable [facility], [facility] VENKAT GRAY Unavailable Unavailable FLAQUITA AMADO, Unavailable Unavailable FLAQUITA ROBLEDO LUKINS BRADLEY, LUKINS Unavailable Unavailable BRADLEY LUKINS BRADLEY, LUKINS Unavailable Unavailable BRADLEY [facility] Unavailable Unavailable [facility], [facility] DARYN CEBALLOS, Unavailable Unavailable DARYN CEBALLOS JR, WILLIAM Unavailable Unavailable MENDEZ Boucher JR, WILLIAM F MERHAR GAR, MERHAR Unavailable Unavailable GAR MERHAR GAR, MERHAR Unavailable Unavailable [facility] [place] Un[facility], [facility], [facility] Unavailable Unavailable [facility] Unavailable Unavailable [facility], [facility], [facility]available [facility]available PSYCHIATRIC Unavailable Unavailable HEALTH, [facility] Unavailable Unavailable URGENT TREAT, [facility] NURSES REGISTRY & Unavailable [...] Unavailable EQUIP[facility], [facility] Unavailable [facility] MARIAA OLIVA JR, Unavailable Unavailable MARIAA OLIVA JR [facility] Unavailable Unavailable HOSPITALS, [facility], Unavailable Unavailable [facility] Unavailable Unavailable [facility], [facility] Unavailable Unavailable [facility] [place], [facility] MAGALIE MAT, MAGALIE MAT Unavailable Unavailable Purpose Continuity of Care Document - 05-27-2007 through 2016 Problems Code Diagnosis DOS Provider Status J449 CHRONIC 09-02-[address] [facility] OBSTRUCTIVE HOME PULMONARY MEDICAL DISEASE UNS EQUIPME I10 ESSENTIAL 07-12-2016 [facility] PRIMARY PHYSICIANS HYPERTENSIO GROUP N J441 CHRONIC 07-12-2016 [facility] OBSTRUCTIVE PHYSICIANS PULMONARY GROUP DZ W/EXACERBAT ION R062 WHEEZING 07-12-2016 [facility] E876 HYPOKALEMIA 07-05-2016 [facility] I509 HEART 07-05-2016 [facility] FAILURE PHYSICIANS UNSPECIFIED GROUP J189 PNEUMONIA 07-05-2016 [facility] UNSPECIFIED PHYSICIANS ORGANISM GROUP E785 HYPERLIPIDE 07-04-2016 [facility] CECILIA PHYSICIANS UNSPECIFIED GROUP I5031 ACUTE 07-03-2016 [facility] HEART FAILURE R05 COUGH 07-03-2016 [facility] R0602 SHORTNESS 07-03-2016 [place] [facility] R918 OTHER 07-03-2016 [place] NONSPECIFIC MEDICAL ABNORMAL IMAGING ASS FINDING OF LUNG FIELD Z8249 FAMILY HX 07-03-2016 [facility] ISCHEMIC PHYSICIANS HRT DZ OTH GROUP DZ CIRC SYSTEM Z8673 PERSONAL HX 07-03-2016 [facility] CEREB INC INFARCT NO RESID DEFICIT Z8709 PERSONAL 07-03-2016 [facility] PHYSICIANS, DISEASES PLLC RESPIRATORY SYSTEM C8510 UNSPECIFIED 06-20-2016 [facility] UNSPECIFIED SITE D479 NEOPLASM 06-20-2016 [facility] & REL TISSUE UNS Q26947 LYMPHOCYTOS 06-20-2016 [facility] SYMPTOMATIC FOUNDATION K83419 EPIPHORA 04-11-2016 [facility] DUE TO COUNTY EXCESS URGENT LACRIMATION TREAT LT LACR GLAND J208 ACUTE 04-11-2016 [facility] BRONCHITIS [facility] DUE TO URGENT OTHER SPEC TREAT ORGANISMS L84 CORNS AND 03-25-2016 [facility] CALLOSITIES [facility] URGENT TREAT Q845 ENLARGED 03-25-2016 [facility] HYPERTROPHI URGENT C NAILS TREAT J168 PNEUMONIA 03-11-2016 [facility] DUE TO COUNTY OTHER SPEC URGENT INFECTIOUS TREAT ORGANISMS F81489 CELLULITIS 03-11-2016 [facility] OF LEFT [facility] LOWER LIMB URGENT TREAT M7989 OTHER 03-11-2016 [facility] SPECIFIED [facility] SOFT TISSUE URGENT DISORDERS TREAT N3946 MIXED 03-11-2016 [facility] INCONTINENC COUNTY E URGENT TREAT R112 NAUSEA WITH 03-11-2016 [facility] VOMITING [facility] UNSPECIFIED URGENT TREAT R5081 FEVER 03-11-2016 [facility] PRESENTING COUNTY W/COND URGENT CLASSIFIED TREAT ELSEWHERE H6501 ACUTE 02-02-2016 [facility] SEROUS [facility] OTITIS URGENT MEDIA RIGHT TREAT EAR J301 ALLERGIC 02-02-2016 [facility] RHINITIS [facility] DUE TO URGENT POLLEN TREAT S94367P ABRASION 02-02-2016 [facility] LEFT LOWER [facility] LEG INITIAL URGENT ENCOUNTER TREAT C8588 OTH TYPES 12-14-2015 [facility] LYMPHOMA NODES MX SITES R42 DIZZINESS 07-06-2015 FAMILIA MENDOSA AND MD [facility] CONSULTING SRV E878 OTHER D/O 07-05-2015 [facility] NEC H903 SENSORINEUR 06-28-2015 [facility] PHYSICIAN LOSS PRACTICE L BILATERAL C8300 SMALL CELL 06-15-2015 [facility] UNSPECIFIED SITE E780 PURE 05-07-2015 [place] HYPERCHOLES [facility] TEROLEMIA [facility] 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 [place] 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 Z7902 DETENTION 05-07-2015 [place] CURR USE [facility] ANTITHROMBO HOSPITAL TICS/ANTIPL ATELETS 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 [facility] J38992 OTHER LONG 05-07-2015 [facility] CURRENT HOSPITAL DRUG THERAPY Z809 FAMILY 05-07-2015 [place] HISTORY OF [facility] MALIGNANT HOSPITAL NEOPLASM UNSPECIFIED R531 WEAKNESS 04-29-2015 [facility] [place] [facility] R5381 OTHER 04-29-2015 [facility] R5383 OTHER 04-29-2015 [place] [facility] J209 ACUTE 04-23-2015 [facility] UNSPECIFIED HOSPITAL P J440 COPD WITH 04-23-2015 [facility] P RESPIRATORY INFECTION R079 CHEST PAIN 04-23-2015 [place] [facility]PEC[facility] IM[facility]ING ASS 50068 CHRONIC 12-02-2014 [facility] LEUKEMIA AGENCY W/O ACHIEVED REMISSION 69842 HTN CKD UNS 12-02-2014 [facility] W/CKD HEALTH STAGE I AGENCY THRU STAGE IV/UNS 51769 UNSPECIFIED 12-02-2014 [facility] VENOUS HEALTH INSUFFICIEN AGENCY CY 496 CHRONIC 12-02-2014 [facility] OBSTRUCTION AGENCY NEC 5859 CHRONIC 12-02-2014 [facility] KIDNEY HEALTH DISEASE AGENCY UNSPECIFIED 77067 UNSPECIFIED 12-02-2014 [facility] URINARY HEALTH INCONTINENC AGENCY E 481 PNEUMOCOCCA 09-15-2014 [facility] Velazquez PNEUMONIA [facility] URGENT TREAT 08455 FEVER 09-15-2014 [facility] URGENT TREAT 49839 OTHER VOICE 09-15-2014 [facility] TOM [facility] RESONANCE URGENT DISORDERS TREAT 7862 COUGH 09-15-2014 [facility] URGENT TREAT 2724 OTHER AND 08-27-2014 [facility] UNSPECIFIED [place] [facility] HYPERLIPIDE CECILIA 4011 ESSENTIAL 08-27-2014 [facility] HYPERTENSIO [place] N, BENIGN HOLDINGS 7823 EDEMA 08-27-2014 [facility] [place] [facility] 26161 SHORTNESS 06-29-2014 [place] [facility] 82565 CHEST PAIN 06-29-2014 [place] UNSPECIFIED [facility]ICAL IMAGING ASS V1261 PERSONAL 06-29-2014 [place] HISTORY MEDICAL PNEUMONIA IMAGING ASS RECURRENT 6829 CELLULITIS 05-19-2014 [facility] AND ABSCESS [place] OF HOLDINGS UNSPECIFIED SITE 5589 OTH&UNSPEC 04-26-2014 [facility] NONINFECTIO [place] US HOLDINGS GASTROENTER ITIS&COLITI S 12802 OTH MALIG 04-05-2014 [facility] UNS SITE INC XTRANOD&SUSANNA ID ORGN 4019 UNSPECIFIED 04-05-2014 [facility] ESSENTIAL [facility] HYPERTENSIO INC N 486 PNEUMONIA, 04-05-2014 [facility] ORGANISM PHYSICIANS UNSPECIFIED GROUP 00315 OBSTRUCTIVE 04-05-2014 [facility] CHRONIC PHYSICIANS BRONCHITIS GROUP WITH EXACERBATIO N 91663 OTHER 04-05-2014 [place] DISEASES OF MEDICAL LUNG NOT IMAGING ASS ELSEWHERE CLASSIFIED V5869 LONG-TERM 04-05-2014 [facility] (CURRENT) [facility] USE OF INC OTHER MEDICATIONS 7804 DIZZINESS 03-12-2014 [facility] GIDDINESS INC V1090 PERSONAL 03-12-2014 [facility] HISTORY [facility] UNSPECIFIED INC MALIGNANT NEOPLASM 4660 ACUTE 03-06-2014 [facility] BRONCHITIS [facility] INC 2749 GOUT, 02-22-2014 [facility] UNSPECIFIED PHYSICIANS GROUP 4149 UNSPECIFIED 02-22-2014 [facility] CHRONIC PHYSICIANS ISCHEMIC GROUP HEART DISEASE 4779 ALLERGIC 02-22-2014 [facility] RHINITIS PHYSICIANS CAUSE GROUP UNSPECIFIED 17374 ESOPHAGEAL 02-22-2014 [facility] REFLUX PHYSICIANS GROUP 28173 WHEEZING 02-22-2014 [facility] PHYSICIANS GROUP V0481 NEED 02-22-2014 [facility] PROPHYLACTI PHYSICIANS C GROUP VACCINATION &INOCULATIO N FLU 1101 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 [facility] FED OSIS OF NAIL 4439 UNSPECIFIED 01-05-2014 [facility] PERIPHERAL VASCULAR DISEASE 7038 OTHER 01-05-2014 [facility] SPECIFIED DISEASE OF NAIL 7295 PAIN IN 01-05-2014 [facility] SOFT TISSUES OF LIMB 01715 OTHER 11-25-2013 [facility] AND HEMATOPOIET IC TISSUES 15517 DIAB W/O 11-10-2013 NURSES MENTION REGISTRY COMP TYPE HOME II/UNS TYPE HLTHTCA UNCNTRL 65277 HYPOXEMIA 10-06-2013 [facility] V5863 LONG-TERM 10-06-2013 [place] [facility] T/ANTITHROM BOTIC V5866 LONG-TERM 10-06-2013 [place] USE OF [facility] 0088 INTESTINAL 09-04-2013 [facility], INFECTION RADIO PRESENTER DUE TO [facility] OTHER HOS ORGANISM NEC 18449 COR 09-04-2013 [facility], ATHEROSLERO RADIO PRESENTER UNSPEC [facility] TYPE VESSEL HOS [place] T 4293 CARDIOMEGAL 09-04-2013 [facility], Y [facility] [place] [facility] 87008 DIVERTICULO 09-04-2013 [facility], SIS OF RADIO PRESENTER COLON [facility] 5939 UNSPECIFIED 09-04-2013 [facility], DISORDER RADIO PRESENTER OF KIDNEY [facility] [facility] AND URETER HOS V103 PERSONAL 09-04-2013 [facility], HISTORY OF RADIO PRESENTER MALIGNANT [facility] NEOPLASM OF HOS BREAST V1079 PERSONAL HX 09-04-2013 [facility], OTH RADIO PRESENTER LYMPHATIC&H [facility] EMATOPOIETI HOS C NEOPLASM 7020 ACTINIC 07-15-2013 [facility] KERATOSIS 70510 OTHER 07-15-2013 [facility] SEBORRHEIC KERATOSIS V5883 ENCOUNTER 06-16-2013 [facility], FOR RADIO PRESENTER THERAPEUTIC [facility] DRUG HOS MONITORING 7873 FLATULENCE 06-09-2013 [facility], ERUCTATION RADIO PRESENTER AND GAS [facility] PAIN HOS V1083 PERSONAL 06-09-2013 [facility], HISTORY RADIO PRESENTER OTHER [facility] MALIGNANT HOS NEOPLASM SKIN V4589 OTHER 06-09-2013 [facility], POSTSURGICA RADIO PRESENTER L STATUS [facility] OTHER HOS 42409 NODULAR 05-27-2013 [facility] RONN LYMPH NODES MULTIPLE SITES 4510 PHLEBITIS&T 03-03-2013 [facility] HROMBOPHLEB SUP VESSELS LOWER EXTREM 4548 VARICOSE 03-03-2013 [facility] VEINS LOWER EXTREMITIES W/OTH COMPS 4371 OTH 09-03-2012 L[facility] BRADLEY GENERALIZED ISCHEMIC CEREBROVASC ULAR DISEASE 57580 DISORDER OF 09-03-2012 LUKINS BRADLEY BONE AND CARTILAGE UNSPECIFIED 9100 FCE 09-03-2012 [facility] EYE ABRAS/FRIC BURN W/O INF 9596 INJURY 09-03-2012 MERHAR GAR OTHER AND UNSPECIFIED HIP AND THIGH 9597 INJURY 09-03-2012 [facility] GAR OTHER&UNSPE CIFIED KNEE LEG ANKLE&FOOT E8889 UNSPECIFIED 09-03-2012 [facility] GAR FALL V1060 PERSONAL 09-03-2012 [facility]ISTORY OF [facility]OSPITAL UNSPECIFIED LEUKEMIA V1229 PERSONAL HX 09-03-2012 [facility] ENDOCRN METABOLIC IMMUNITY D/O V5861 LONG-TERM 09-03-2012 MERHAR GAR (CURRENT) USE OF ANTICOAGULA NTS V714 OBSERVATION 09-03-2012 MERHAR GAR FOLLOWING OTHER ACCIDENT 035 ERYSIPELAS 08-21-2012 [facility], [facility] [place] [facility] 44903 LEUKOCYTOSI 08-21-2012 [facility], S RADIO PRESENTER UNSPECIFIED [place] [facility] 56540 CALCU 08-21-2012 [facility] GALLBLADD W/O MENTION CHOLECYST/O BST 74494 UNSPECIFIED 08-21-2012 [facility] RESPIRATORY ABNORMALITY 7892 SPLENOMEGAL 08-21-2012 [facility] Y 2411 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 [facility] MULTINODULA R GOITER 2462 CYST OF 08-04-2012 [facility] THYROID 7964 OTHER 08-04-2012 [facility], ABNORMAL RADIO PRESENTER CLINICAL [place] [facility] FINDING HOS 85007 UNS 07-22-2012 [facility] LEUKEMIA W/O ACHIEVED REMISSION 4871 INFLUENZA 07-22-2012 [facility] OTHER HOSPITAL RESPIRATORY MANIFESTATI ONS 5119 UNSPECIFIED 07-22-[address] [facility] PLEURAL EFFUSION 5180 PULMONARY 07-22-2012 [facility] COLLAPSE V1254 PERSONAL HX 07-22-2012 [facility] W/O RESIDUAL DEFICITS 2763 ALKALOSIS 07-21-2012 [facility], [facility] [place] [facility] 54488 DEHYDRATION 07-21-2012 [facility], RADIO PRESENTER [place] [facility] 4580 ORTHOSTATIC 07-21-2012 [facility], RADIO PRESENTER HYPOTENSION [facility] [facility] 79714 OTHER 07-21-2012 [facility], MALAISE AND RADIO PRESENTER FATIGUE [facility] 2768 HYPOPOTASSE 07-19-2012 [facility], CECILIA RADIO PRESENTER [place] [facility] 4239 UNSPECIFIED 07-19-2012 [facility] DISEASE OF PERICARDIUM 7856 ENLARGEMENT 07-19-2012 [facility] OF LYMPH NODES 2130 BENIGN 06-26-2012 [facility], NEOPLASM OF [facility] BONES OF [place] [facility] SKULL AND HOS FACE 3319 UNSPECIFIED 06-26-2012 DEVIN CAMPOS CEREBRAL DEGENERATIO N 30680 PAIN IN 06-26-2012 [facility], JOINT, RADIO PRESENTER LOWER LEG [facility] 7802 SYNCOPE AND 05-23-2012 [facility], COLLAPSE [facility] [place] [facility] 60691 NAUSEA 05-23-2012 [facility], ALONE [facility] [place] [facility] 52166 ABDOMINAL 05-23-2012 [facility], PAIN, LEFT RADIO PRESENTER LOWER [facility] [facility] QUADRANT HOS 7847 EPISTAXIS 05-13-2012 [facility], [facility] [place] [facility] 6929 CONTACT 05-12-2012 [facility], DERMATITIS& RADIO PRESENTER OTHER [facility] ECZEMA DUE HOS UNSPEC CAUSE 4279 UNSPECIFIED 04-22-2012 [facility] CARDIAC DYSRHYTHMIA 07872 PAINFUL 04-22-2012 [facility] RESPIRATION OTH-UNS MAL 03-02-2012 [facility] LYMPHOID-HI [facility] TISS-UNS-EX TRANODAL 2870 ALLERGIC 03-02-2012 [facility] 6989 UNSPECIFIED 03-02-2012 [facility] PRURITIC [facility] DISORDER [facility] 26124 GOUTY 01-16-2012 [facility], ARTHROPATHY RADIO PRESENTER [place] [facility] UNSPECIFIED HOS 42606 UNSPECIFIED 01-16-2012 [facility], RADIO PRESENTER ARTHROPATHY [facility] SITE HOS UNSPECIFIED 61850 TACHYPNEA 01-16-2012 [facility], [facility] [place] [facility] 26483 OSTEOARTHRO 12-17-2011 [facility], S UNSPEC RADIO PRESENTER WHETHER [facility] GEN/LOC HOS UNSPEC SITE 4619 ACUTE 11-04-2011 [facility] SINUSITIS, HEALTH UNSPECIFIED CLINIC 67664 ACUTE 11-04-2011 [facility] LARYNGITIS, [facility] WITHOUT CLINIC MENTION OF OBSTRUCTIO 88755 DYSPHONIA 11-04-2011 [facility] HEALTH CLINIC 3829 UNSPECIFIED 10-10-2011 [facility] OTITIS HEALTH MEDIA CLINIC 97328 NONSPECIFIC 10-10-2011 [facility] ABNORMAL HEALTH AUDITORY CLINIC FUNCTION STUDIES 4556 UNSPEC 09-17-2011 [facility] HEMORRHOIDS HEALTH WITHOUT CLINIC MENTION COMPLICATIO N 56880 CHRONIC 09-17-2011 [facility] VENOUS [facility] HYPERTENSIO CLINIC N WITHOUT COMPS 5693 HEMORRHAGE 09-17-2011 [facility] AND ANUS CLINIC 6980 PRURITUS 09-17-2011 [facility] ANI HEALTH CLINIC 02121 UNSPECIFIED 08-23-2011 [facility] ARTHROPATHY MULTIPLE SITES 58148 UNSPECIFIED 07-22-2011 [facility] LYMPHOID [facility] LEUKEMIA IN CLINIC RELAPSE 7821 RASH AND 07-22-2011 [facility] OTHER HEALTH NONSPECIFIC CLINIC SKIN ERUPTION 2722 MIXED 06-04-2011 [facility] HYPERLIPIDE [facility] 64711 UNSPECIFIED 06-04-2011 [facility] 089[facility] PAIN IN 06-04-2011 [facility] ANKLE AND [facility] FOOT HEALTH 91435 CALCANEAL 04-29-2011 [facility] 42640 LYMPHOCYTOS 04-16-2011 [facility] SYMPTOMATIC 4571 OTHER 04-10-2011 [facility] NONINFECTIO US LYMPHEDEMA 96693 SLEEP 12-20-2010 [facility] RELATED LEG [facility] 57060 GEN 10-25-2010 [facility] OSTEOARTHRO HEALTH SIS CLINIC INVOLVING MULTIPLE SITES 98733 INSOMNIA 10-25-2010 [facility] UNSPECIFIED HEALTH CLINIC 90068 PAIN IN 09-21-[facility] UPPER ARM ASSOCIAT 9299 CRUSHING 09-21-[facility] INJURY OF RAD[facility]OLOGY UNSPECIFIED ASSOCIAT SITE 9592 INJURY 09-21-2010[facility] OTHER&UNSPE RADIOLOGY CIFIED ASSOCIAT SHOULDER&UP PER ARM 9593 INJURY 09-21-2010[facility] OTHER&UNSPE RADIOLOGY CIFIED ASSOCIAT ELBOW FOREARM&WRI ST 37654 OCCL&STENOS 08-02-2010[facility] MX&BILAT RADIOLOGY PRECERBRL ASSOCIAT ART W/O INFARCT 2859 UNSPECIFIED 07-31-2010 [facility] ANEMIA JARED & DUBILIER 53312 LEUKEMOID 07-31-2010 [facility] REACTION JARED & DUBILIER 2865 HEMORRHAGIC 07-29-2010 [facility] D/O HOSPITAL INTRINSIC CIRC ANTICOAG AB/INHIB 83468 UNSPECIFIED 07-29-2010 [facility] ARTERY OCCLUSION W/INFARCT 490 BRONCHITIS 07-29-2010 [facility] NOT HOSPITAL SPECIFIED ACUTE OR CHRONIC 5110 PLEURISY 07-29-2010[facility] WITHOUT RADIOLOGY MENTION ASSOCIAT EFFUS/[place] [address] SCLEROSING 07-29-2010 [facility] S 44749 OTH 07-29-2010[facility] ABNORMAL RADIOLOGY BRAIN & PARKS RECREATION DIRECTOR ASSOCIAT FUNCTION STUDY V570 CARE 07-18-2010 [facility] INVOLVING HOSPITAL BREATHING EXERCISES 2181 INTRAMURAL 06-07-2010 [facility] [place] 2362 NEOPLASM OF 05-21-2010 [facility] UNCERTAIN [facility] OF CLINIC OF OVARY [place] V7231 ROUTINE 05-21-2010 [facility] [place] V762 SCREENING 05-21-2010 PATHOLOGY & FOR CYTOLOGY MALIGNANT LAB NEOPLASM OF THE CERVIX 5738 OTHER 05-08-2010 [facility] SPECIFIED RADIOLOG[facility] DISORDERS ASSOCIAT OF LIVER 5759 UNSPECIFIED 05-08-2010 [facility] DISORDER RADIOLOGY OF ASSOCIAT GALLBLADDER 5990 URINARY 05-08-2010 [facility] INFECTION SITE NOT SPECIFIED 6219 UNSPECIFIED 05-08-2010 [facility] DISORDER RADIOLOGY OF UTERUS ASSOCIAT 7242 LUMBAGO 05-08-2010 [facility] 7936 NONSPEC ABN 05-08-2010 [facility] ABDOMINAL AREA 1736 [facility] 03-13-2010 PATHOLOGY & NEOPLASM CYTOLOGY SKIN UPPER LAB LIMB INCL SHOULDER 1737 [facility] 03-13-2010 C GE[facility]NI NEOPLASM [place] SKIN LOWER [facility] LIMB INCLUDING HIP 2382 NEOPLASM OF 03-06-2010 C GE[facility]ANNI UNCERTAIN [place] [facility] OF [facility] SKIN 94339 UNSPECIFIED 03-06-2010 C GE[facility]ANNI [facility] OSTEOPOROSI [facility] S 0413 KLEBSIELLA 09-20-2009 [facility] IN[facility]CTION 2892 NONSPECIFIC 09-20-2009 [facility] LYMP[facility]ADEN[facility] 5920 CALCULUS OF 09-20-2009 [facility] PSC V1251 PERSONAL 09-20-2009 [facility] HISTORY, HOSPITAL VENOUS THROMBOSIS AND EMBOLISM 93673 ACUT LINNEA 08-18-2009 [facility] EMBO&THROMB [facility] DEEP VES [facility] PROX LOWR [facility] EXTREM 4549 ASYMPTOMATI 08-18-2009 [facility] VEINS 6826 CELLULITIS 08-18-2009 [facility] OF [facility] EXCEPT FOOT 36298 ABDOMINAL 08-14-2009 PATHOLOGY & PAIN, CYTOLOGY UNSPECIFIED LAB SITE 08503 ABDOMINAL 08-14-2009 [place] [facility] GENERALIZED FOUNDATIO 2163 BENIGN 08-01-2009 DERMATOPATH NEOPLASM OLOGY SKIN ALLINACE OF OTHER&UNSPE C PARTS FACE V7612 OTHER 07-19-2009 [place] [facility] 0091 COLITIS 07-12-2009 [facility] TROENTERIT INTERNAL INF ORIGIN MED 66430 ABDOMINAL 07-12-2009 [facility] PAIN, LEFT VALLEY UPPER INTERNAL QUADRANT MED 7894 ABDOMINAL 07-12-2009 [facility] RIGIDITY [facility]ICK INTERNAL MED 7063 SEBORRHEA 03-27-2009 [facility] INTERNAL MED 7011 ACQUIRED 03-06-2009 [facility] KERATODERMA [facility] INTERNAL MED 55991 REFLUX 12-02-2008 [facility] ESOPHAGITIS [facility]ICK INTERNAL MED 99505 OTHER 10-11-2008 [facility] CHRONIC [facility] PAIN INTERNAL MED 51459 OSTEOARTHRO 10-11-2008 [facility] S INVLV MX VALLEY SITES BUT INTERNAL [place] SPEC MED GEN 24652 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-11-2008 [facility] 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 MED 7231 CERVICALGIA 09-27-2008 [facility]ERT[facility] CARLOS CHEEMA 7820 DISTURBANCE 09-21-2008 [facility] SENSATION INTERNAL MED 65729 BLEPHARITIS 07-28-2008 RAHMAN BRETT A UNSPECIFIED 58718 OBESITY, 04-17-2008 [facility] 4928 OTHER 04-17-2008 [facility] 30523 URINARY 04-17-2008 [facility] 7068 OTHER 03-09-2008 [facility] SPECIFIED [facility] DISEASE OF INTERNAL SEBACEOUS MED GLANDS 1104 DERMATOPHYT 03-02-2008 [facility] SERV FOOT FOUNDATIO 1701 MALIGNANT 03-02-2008 [facility] NEOPLASM OF HOSPITAL MANDIBLE 7062 SEBACEOUS 03-02-2008 [facility] 8471 THORACIC 02-15-2008 [facility] STRAIN INTERNAL MED 6256 FEMALE 09-30-2007 HAZEL PLATA, STRESS [place] E [address] URGE 09-30-2007 HAZEL PLATA, INCONTINENC MARIAA P E 4659 ACUTE URIS 08-14-2007 [facility] UNSPECIFIED INTERNAL SITE MED 4778 ALLERGIC 08-12-2007 [facility] RHINITIS RENICK DUE TO INTERNAL OTHER MED ALLERGEN 94625 HYPERTONICI 07-13-2007 [facility] TY OF [facility] BLADDER [...] 93 [address] eTrrie MÁRQUEZ UG E 25 CO MP MG [...] CO MP TA AN BL Y ET IA 00 03 03 0 12 4 CA [...] HE N CO A MP AN Y IA 00 03 03 0 12 4 CA [...] RENT; EQUIPME EQUIPME FLWMTR HUMIDFR&M ASK SBSQ 76420 [facility] 7 PHYSICIAN CARE/DAY S GROUP 15 MINUTES O2 CONC 1 E1390 [place] [facility] 7 HOME HOME 85%/>02 MEDICAL MEDICAL CONC AT EQUIPME EQUIPME PRSC FLW RATE SBSQ 53279 [facility] 7 [facility]YS[facility]IAN CARE/DAY S GROUP 25 MINUTES RADIOLOGI 34427 [place] [facility] [facility] 7 MEDICAL EXAMINATI IMAGING ON CHEST ASS SINGLE VIEW FRONTAL INITIAL 16989 [facility] 7 PHYSICIAN CARE/DAY S GROUP 70 MINUTES ECG 47843 YUMIKO JI ROUTINE 7 [facility] W/LEAST P 12 LDS I&R ONLY COLLECTIO 65145 [facility] N VENOUS 7 [facility]ALTHCAR BLOOD E E VENIPUNCT HOSPITALS HOSPITALS URE COMPREHEN 86047 [facility] SIVE 7 [facility]ALTH[facility]ALTHCAR METABOLIC E E PANEL HOSPITALS HOSPITALS BLOOD 60463 [facility] COUNT 7 HEALTHCAR HEALTHCAR COMPLETE E E AUTO&AUTO HOSPITALS HOSPITALS DIFRNTL WBC HOSPITAL G0463 [facility] OUTPATIEN 7 HEALTHCAR HEALTHCAR T CLIN E E VISIT HOSPITALS HOSPITALS ASSESS & MGMT PT BLOOD 37444 [facility] Y Y COMPLETE HOSPITAL HOSPITAL AUTO&AUTO DIFRNTL WBC COLLECTIO 52461 [facility] N VENOUS 6 Y Y BLOOD HOSPITAL HOSPITAL VENIPUNCT URE COMPREHEN 79476 [facility] UNIVERS SIVE 6 Y Y METABOLIC HOSPITAL HOSPITAL PANEL HOSPITAL G0463 [facility] UNIVERS OUTPATI 6 Y Y T CLIN HOSPITAL HOSPITAL VISIT ASSESS & MGMT PT DUPLEX 80465 FAMILIA MENDOSA MENDOSA FAMILIA SCAN 6 MD EXTRACRAN CONSULTIN IAL ART G SRV COMPL BI STUDY DUPLEX 26913 [place] SCAN 6 [facility] IAL ART COMPL BI STUDY COMPRE 72315 [place] GOLD SET AUDIOMETR 6 PHYSICIAN Y PRACTICE THRESHOLD L EVAL SP RECOGNIJ TYMPANOME 01504 [place] [facility] SET TRY 6 PHYSICIAN PRACTICE L RADIOLOGI 47882 [place] DENI C EXAM 6 [facility] CHEST 2 IMAGING VIEWS ASS FRONTAL&L ATERAL RADIOLOGI 64416 [place] MON[place] ALL C EXAM 6 MEDICAL CHEST 2 IMAGING VIEWS ASS FRONTAL&L ATERAL ADMINISTR G0008 [place] ATION OF 5 [facility] VIRUS VACCINE BLOOD 29675 JENNY ALVARADO COUNT 5 [facility] AUTOMATED INJECTION J1650 JENNY ALVARADO 5 [facility] HOSPITAL N SODIUM 10 MG INJECTION J2270 JENNY ALVARADO MORPHINE 5 [facility] HOSP[facility] UP TO 10 MG BASIC 90706 [facility] BROTHERSSAINT LUKE[facility] METABOLIC 5 [facility] HOSP[facility] CALCIUM TOTAL COLLECTIO 96955 [facility] N VENOUS 5 [facility] HOSPITAL VENIPUNCT URE IIV3 VACC 03722 JENNY ALVARADO 5 [facility] ADELINA FREE 0.5 ML DOSAGE IM USE NONCOVERE A9270 [facility] D ITEM OR 5 [facility] INJECTION J2405 [facility] [address] [place] [address] HOSPITAL ON HCL PER 1 [place] [address] [facility] IVELISSEHENRI THYROID [address] [place] [address] [place] [address] [facility] ALVARAD[facility] HEAD/BRAI 5 [facility] W/O HOSPITAL [place] [address] JENNY ALVARADO BLOOD/URI 5 [facility] HOSP[facility] NONCOVERE A9270 [facility] D ITEM OR 5 [facility] HOSP[facility] G0378 [facility] [place] OBSERVATI [address] [place] [address] ON HOSPITAL HOSPITAL SERVICE PER HOUR ECG 56561 [facility] ROUTINE [address] [place] [address] HOSPITAL HOSPITAL W/LEAST 12 LDS TRCG ONLY W/O I&R C-REACTIV 11981 [facility] E PROTEIN 5 [facility] HOSP[facility] COMPREHEN 23489 [facility] SIVE 5 [facility] METABOLIC [facility] HOSPITAL PANEL COLLECTIO 63617 [facility] N VENOUS 5 [facility] HOSPITAL VENIPUNCT URE BLOOD 12054 [facility] COUNT 5 [facility] HOSP[facility] AUTO&AUTO DIFRNTL WBC NATRIURET 68066 JENNY OVIEDOON IC 5 [facility] [place] [address] [address]EN[address]VARADO TROPONIN [address] [facility] ADELINA SEDIMENTA 32310 JENNY OVIEDOON TION RATE 5 [facility] NON-AUTOM ATED URNLS DIP 22456 [facility] OVIEDOON 5 [facility] HOSPITAL LET REAGENT AUTO MICROSCOP Y CT THORAX 23215 [facility] [place] MAT W/O [address] [place] [address] [facility] [place] MAT HEAD/BRAI 5 RADIOLOGY N W/O CONTRAST MATERIAL RADIOLOGI 71128 YUMIKO CALDERON C EXAM 5 [facility] CHEST 2 INC INC VIEWS FRONTAL&L ATERAL ECG 14951 YUMIKO DAVENPORT JR ROUTINE [address] [facility] W/LEAST P 12 LDS I&R ONLY RADIOLOGI 27596 YUMIKO CALDERON C EXAM 5 [facility] CHEST 2 INC INC VIEWS FRONTAL&L ATERAL DISPBL T4535 [facility] LINER/ISABELLE 5 HOME HOME ELD/GUARD HEALTH HEALTH /PAD/UNDG AGENCY AGENCY RMNT INCONT EA INJECTION J0696 PEPE CANTU [address] [place] [address] URGENT URGENT NE SODIUM TREAT TREAT PER [address] [place] [address] [facility] FOLIC 5 [facility] ACID [facility] SERUM 25 27252 [facility] HYDROXY 5 [facility] INCLUDES [facility] HOLDINGS FRACTIONS IF PERFORMED CYANOCOBA 14283 [facility] AMBAR 5 [facility] VITAMIN [facility] HOLDINGS B-12 [place] [address] LAB [facility] MAGNESIUM 5 [facility] HOLDINGS LIPID 86001 LAB [facility] PANEL 5 [facility] HOLDINGS GENERAL 76528 [facility] J[facility] HEALTH 5 [facility] PANEL [facility]INGS HOLDINGS RADIOLOGI 49723 [place] DENI C EXAM 5 [facility] CHEST 2 IMAGING VIEWS ASS FRONTAL&L ATERAL RADEX 41502 [place] DENI RIBS 5 [facility] UNILATERA IMAGING L 2 VIEWS ASS DISPBL T4535 [facility] LINER/ISABELLE 5 HOME HOME ELD/GUARD HEALTH HEALTH /PAD/UNDG AGENCY AGENCY RMNT INCONT EA CUL BACT 20446 [facility] XCPT 5 [facility] URINE [facility] HOLDINGS BLOOD/STO OL AEROBIC ISOL BASIC 68210 [facility] METABOLIC 4 [facility] [place] [address] YUMIKO CALDERON INFUSION 4 [facility] THERAPY/P INC INC ROPHYLAXI S /DX 1ST TO 1 HR THERAPEUT 86164 YUMIKO CALDERON IC 4 [facility] INJECTION INC INC IV PUSH EACH [facility] 29433 [facility] DISCHARGE 4 PHYSICIAN PHYSICIAN DAY S GROUP S GROUP MANAGEMEN T 30 MIN/< RADIOLOGI 70993 MARICARMEN CHEEMA C EXAM 4 [facility] CHEST 2 IMAGING VIEWS ASS FRONTAL&L ATERAL ECG 49500 YUMIKO DAVENPORT JR ROUTINE 4 [facility] W/LEAST P 12 LDS I&R ONLY ECG 43846 YUMIKO CALDERON ROUTINE 4 [facility] ECG INC INC W/LEAST 12 LDS TRCG ONLY W/O I&R RADIOLOGI 73294 YUMIKO CALDERON C EXAM 4 [facility] CHEST 2 INC INC VIEWS FRONTAL&L ATERAL PRESSURIZ 71890 YUMIKO CALDERON ED/NONPRE 4 [facility] SSURIZED [place] [address] YUMIKO CALDERON HEAD/BRAI 4 [facility] N [place] [address] YUMIKO CALDERON INFUSION 4 [facility] THER INC INC PROPH ADDL SEQUENTIA L TO 1 HR RADIOLOGI 97586 YUMIKO CALDERON C 4 [facility] EXAMINATI INC [place] [address] YUMIKO CALDERON INFUSION 4 [facility] THERAPY/P INC INC ROPHYLAXI S /DX 1ST TO 1 HR ECG 86355 YUMIKO CALDERON ROUTINE 4 [facility] ECG INC INC W/LEAST 12 LDS TRCG ONLY W/O I&R DEBRIDEME 71770 LA[facility] FED LAUSE FED NT NAIL 4 ANY METHOD 6/> HOSPITAL G0463 [facility] 4 Y Y T [facility] HOSPITAL VISIT ASSESS & MGMT PT DISPBL T4535 NURSES NURSES LINER/ISABELLE 4 REGISTRY REGISTRY ELD/GUARD HOME HOME /PAD/UNDG HLTHTCA HLTHTCA RMNT INCONT EA DISPBL T4535 NURSES NURSES LINER/ISABELLE 4 REGISTRY REGISTRY ELD/GUARD HOME HOME /PAD/UNDG HLTHTCA HLTHTCA RMNT INCONT EA NONCOVERE A9270 [facility] D ITEM OR 4 [facility] NONCOVERE A9270 [facility] D ITEM OR 4 [facility] ECG 68698 [facility] ROUTINE [address] [facility] W/LEAST 12 LDS TRCG ONLY W/O I&R RADIOLOGI 22749 HAYDER HAYDER C EXAM 4 RHO RHO CHEST 2 VIEWS FRONTAL&L ATERAL RADIOLOGI 46183 [facility], [facility], C EXAM 4 RADIO PRESENTER RADIO PRESENTER CHEST 2 PEPE PEPE VIEWS CO HOS CO HOS FRONTAL&L ATERAL RADEX 50428 [facility] [employer], [facility], ABDOMEN 4 RADIO PRESENTER RADIO PRESENTER COMPL PEPE CANTU W/DCBTS&/ [place] [address] [facility] [employer], [employer], ABDOMEN & 4 RADIO PRESENTER RADIO PRESENTER PELVIS PEPE CANTU W/[place] [address] [facility] [employer], [facility], INFUSION 4 RADIO PRESENTER RADIO PRESENTER HYDRATION PEPE CANTU INITIAL CO HOS CO HOS 31 MIN-1 HOUR DISPBL T4535 NURSES NURSES LINER/ISABELLE 4 REGISTRY REGISTRY ELD/GUARD HOME HOME /PAD/UNDG HLTHTCA HLTHTCA RMNT INCONT EA DISPBL T4535 NURSES NURSES LINER/ISABELLE 4 REGISTRY REGISTRY ELD/GUARD & HOME HE & HOME HE /PAD/UNDG RMNT INCONT EA DESTRUCTI 98949 MUSIC HOWARD MUSIC HOWARD ON 4 PREMALIGN ANT LESION 15/> DISPBL T4535 NURSES NURSES LINER/[facility] 4 REGISTRY REGISTRY ELD/GUARD & HOME HE & HOME HE /PAD/UNDG RMNT INCONT EA ECG 91261 MEND[facility] FAMILIA MENDOSA FAMILIA ROUTINE 4 ECG W/LEAST 12 LDS I&R ONLY ECG 17536 [employer], ROUTINE 4 RADIO PRESENTER RADIO PRESENTER ECG PEPE CANTU W/LEAST CO HOS CO HOS 12 LDS TRCG ONLY W/O I&R DISPBL T4535 NURSES NURSES LINER/[facility] 4 REGISTRY REGISTRY ELD/GUARD & HOME HE & HOME HE /PAD/[place] [address] [employer], INFUSION 4 RADIO PRESENTER RADIO PRESENTER THERAPY/P PEPE CANTU ROPHYLAXI CO HOS CO HOS S /DX 1ST TO 1 HR THER 54313 [employer], PROPH/DX 4 RADIO PRESENTER RADIO PRESENTER NJX IV PEPE CANTU PUSH CO HOS CO HOS SINGLE/1S T SBST/[place] [address] [employer], INFUSION 4 RADIO PRESENTER RADIO PRESENTER HYDRATION PEPE CANTU INITIAL CO HOS CO HOS 31 MIN-1 HOUR INJECTION J2405 [employer], 4 RADIO PRESENTER RADIO PRESENTER ONDANSETR PEPE CANTU ON HCL CO HOS CO HOS PER 1 MG DISPBL T4535 NURSES NURSES LINER/[facility] 4 REGISTRY REGISTRY ELD/GUARD & HOME HE & HOME HE /PAD/UNDG RMNT INCONT HOSPITAL G0463 [facility] 4 Y Y T [facility] HOSPITAL VISIT ASSESS & MGMT PT DEBRIDEME 76412 LAUSE FED LAUSE FED NT NAIL 3 ANY METHOD 6/> DUP-SCAN 92303 ATKINS ATKINS XTR VEINS 3 COL COL COMPLETE BILATERAL STUDY DISPBL T4535 NURSES NURSES LINER/[facility] 3 REGISTRY REGISTRY ELD/GUARD & HOME HE & HOME HE /PAD/UNDG RMNT INCONT EA DEBRIDEME 39519 LAUSE FED LAUSE FED NT NAIL 3 ANY METHOD 6/> DISPBL T4535 NURSES NURSES LINER/ISABELLE 3 REGISTRY REGISTRY ELD/GUARD & HOME HE & HOME HE /PAD/UNDG RMNT INCONT EA DUP-SCAN 03294 ATKINS ATKINS XTR VEINS 3 COL COL UNILATERA L/LIMITED STUDY ENDOVEN 54442 ATKINS ATKINS ABLTJ 3 COL COL INCMPTNT VEIN XTR LASER 1ST VEIN STAB 77664 ATKINS ATKINS PHLEBT 3 COL COL VARICOSE VEINS 1 XTR > 20 INCS DISPBL T4535 NURSES NURSES LINER/ISABELLE 3 REGISTRY REGISTRY ELD/GUARD & HOME HE & HOME HE /PAD/UNDG RMNT INCONT EA DUP-SCAN 85276 ATKINS ATKINS XTR VEINS 3 COL COL UNILATERA L/LIMITED STUDY STAB 70492 ATKINS ATKINS PHLEBT 3 COL COL VARICOSE VEINS 1 XTR 10-20 STAB INCS ENDOVEN 51720 ATKINS ATKINS ABLTJ 3 COL COL INCMPTNT VEIN XTR LASER 1ST VEIN BASIC 01344 [facility] METABOLIC 3 Y Y PANEL [facility] CALCIUM TOTAL COLLECTIO 94980 [facility] ALLIANCE VENOUS 3 Y Y [facility] VENIPUNCT URE RADIOLOGI 68528 [facility] MERHAR C 3 GAR GAR EXAMINATI ON TIBIA & FIBULA 2 VIEWS RADIOLOGI 26979 [facility] C 3 Y Y [facility] ON [facility] 2 VIEWS BLOOD 38474 [facility] COUNT 3 Y [place] [facility] [place] [address] LUKINS LUKINS HEAD/BRAI 3 [facility] N W/O CONTRAST MATERIAL RADIOLOGI 18369 [facility] MERHAR C 3 GAR GAR EXAMINATI ON KN[place] [address] [place] [address] [facility], ABDOMEN & 3 RADIO PRESENTER RADIO PRESENTER PELVIS PEPE CANTU W/O CO HOS CO HOS CONTRST 1/> [place] [address] [facility], INFUSION 3 RADIO PRESENTER RADIO PRESENTER HYDRATION PEPE CANTU INITIAL CO HOS CO HOS 31 MIN-1 HOUR INJECTION J2405 [facility] [employer], [facility], 3 RADIO PRESENTER RADIO PRESENTER ONDANSETR PEPE CANTU ON HCL CO H[place] CO HOS PER 1 [place] [address] [facility] [employer], [facility], INFUSION 3 RADIO PRESENTER RADIO PRESENTER THERAPY/P PEPE CANTU ROPHYLAXI CO HOS CO HOS S /DX 1ST TO 1 HR RADIOLOGI 68713 [facility] Plair [facility], C EXAM 3 RADIO PRESENTER RADIO PRESENTER CHEST 2 PEPE CANTU VIEWS CO HOS CO HOS FRONTAL&L ATERAL THER 08470 [facility] [employer], [employer], PROPH/DX 3 RADIO PRESENTER RADIO PRESENTER NJX IV PEPE CANTU PUSH CO HOS CO HOS SINGLE/1S T SBST/DRUG ECG 95104 [facility] [employer], [employer], ROUTINE 3 RADIO PRESENTER RADIO PRESENTER ECG PEPE CANTU W/LEAST CO HOS CO HOS 12 LDS TRCG ONLY W/O I&R ECG 57292 AHMED ADN AHMED ADN ROUTINE 3 ECG W/LEAST 12 LDS I&R ONLY LOCM Q9967 [facility] [employer], [employer], 300-399 3 RADIO PRESENTER RADIO PRESENTER MG/ML PEPE CANTU IODINE CO HOS CO HOS CONCENTRA TION PER ML US SOFT 95020 [facility] TISSUE 3 ANNIE ANNIE HEAD & NECK REAL TIME IMGE DOCM BASIC 57873 [facility] METABOLIC 3 Y Y PANEL [facility] CALCIUM TOTAL NONCOVERE A9270 [facility] D ITEM OR 3 Y Y SERVICE [facility] G0378 [facility] OBSERVATI 3 Y Y ON HOSPITAL HOSPITAL SERVICE PER HOUR PHYSICAL 30072 [facility] THERAPY 3 Y Y EVALUATIO [facility] N PRESSURIZ 48594 [facility] ED/NONPRE 3 Y Y SSURIZED [facility] [place] [address] [facility] 1/> AREAS 3 Y Y EA 15 [facility] MIN GAIT TRAINJ W/STAIR BLOOD 56536 [facility] COUNT 3 Y Y COMPLETE [facility] AUTOMATED INJECTION J1644 [facility] HEPARIN 3 Y Y SODIUM [facility] PER 1000 UNITS INJECTION J1956 [facility] 3 Y Y LEVOFLOXA [facility] KRISTIN 250 MG INJECTION J1956 [facility] 3 Y Y LEVOFLOXA [facility] KRISTIN 250 MG INJECTION J1644 [facility] HEPARIN 3 Y Y SODIUM [facility] PER 1000 UNITS BLOOD 61359 [facility] COUNT 3 Y Y COMPLETE [facility] AUTO&AUTO DIFRNTL WBC PRESSURIZ 81402 [facility] ED/NONPRE 3 Y Y SSURIZED [facility] INHALATIO N TREATMENT CULTURE 22635 [facility] BACTERIAL 3 Y Y BLOOD [facility] AEROBIC W/ID ISOLATES RADIOLOGI 52829 [facility] RICCI C EXAM 3 PHI PHI CHEST 2 VIEWS FRONTAL&L ATERAL COMPREHEN 01152 [facility] SIVE 3 Y Y METABOLIC [facility] PANEL NONCOVERE A9270 [facility] D ITEM OR 3 Y Y SERVICE [facility] HOSPITAL ECG 06985 [facility] ROUTINE 3 Y Y ECG [facility] W/LEAST 12 LDS TRCG ONLY W/O I&R INFUSION J7030 [facility] NORMAL 3 Y Y SALINE [facility] SOLUTION [address] [place] [address] [facility], [facility], INFUSION 3 RADIO PRESENTER RADIO PRESENTER HYDRATION PEPE CANTU EACH CO HOS CO HOS ADDITIONA L HOUR INJECTION J2405 [facility], [facility], 3 RADIO PRESENTER RADIO PRESENTER ONDANSETR PEPE CANTU ON HCL CO HOS CO HOS PER 1 [place] [address] [facility], [facility], INFUSION 3 RADIO PRESENTER RADIO PRESENTER HYDRATION PEPE PEPE INITIAL CO HOS CO HOS 31 MIN-1 HOUR RADIOLOGI 97674 [facility], [facility], C 3 RADIO PRESENTER RADIO PRESENTER EXAMINATI PEPE CANTU ON CHEST CO HOS CO HOS SINGLE VIEW FRONTAL ECG 85334 [facility], [facility], ROUTINE 3 RADIO PRESENTER RADIO PRESENTER ECG PEPE MORAS W/LEAST CO HOS CO HOS 12 LDS TRCG ONLY W/O I&R ECG 56049 AHMED ADN AHMED ADN ROUTINE 3 ECG W/LEAST 12 LDS I&R ONLY ARTERIAL 19226 [facility], [facility], PUNCTURE 3 RADIO PRESENTER RADIO PRESENTER WITHDRAWA PEPE PEPE L BLOOD CO HOS CO HOS DX INSJ TEMP 04404 [facility], [facility], NDWELLG 3 RADIO PRESENTER RADIO PRESENTER BLADDER PEPE PEPE CATHETER CO HOS CO HOS SIMPLE THER 32981 [facility], [facility], PROPH/DX 3 RADIO PRESENTER RADIO PRESENTER NJX IV PEPE PEPE PUSH CO HOS CO HOS SINGLE/1S T SBST/[place] [address] [facility], [facility], INFUSION 3 RADIO PRESENTER RADIO PRESENTER THERAPY/P PEPE PEPE ROPHYLAXI CO HOS CO HOS S /DX 1ST TO 1 HR INJECTION J0456 [facility], [facility], 3 RADIO PRESENTER RADIO PRESENTER AZITHROMY PEPE CANTU KRISTIN 500 CO HOS CO HOS MG INJECTION J0696 [facility], [facility], 3 RADIO PRESENTER RADIO PRESENTER CEFTRIAXO PEPE CANTU NE SODIUM CO HOS CO HOS PER 250 MG PRESSURIZ 73470 [facility], [facility], ED/NONPRE 3 RADIO PRESENTER RADIO PRESENTER SSURIZED PEPE MORAS INHALATIO CO HOS CO HOS N TREATMENT NONINVASI 82598 [facility], [facility], VE 3 RADIO PRESENTER RADIO PRESENTER EAR/PULSE PPEE PEPE OXIMETRY CO HOS CO HOS [facility] G0378 [facility], [facility], OBSERVATI 3 RADIO PRESENTER RADIO PRESENTER ON PEPE PEPE SERVICE CO HOS CO HOS PER HOUR LOC Q9967 [facility], [facility], 300-399 3 RADIO PRESENTER RADIO PRESENTER MG/ML PEPE PEPE IODINE CO HOS CO HOS CONCENTRA TION PER ML ARTERIAL 77799 [facility], [facility], PUNCTURE 3 RADIO PRESENTER RADIO PRESENTER WITHDRAWA PEPE PEPE L BLOOD CO HOS CO HOS DX RADIOLOGI 14314 [facility], [facility], C EXAM 3 RADIO PRESENTER RADIO PRESENTER CHEST 2 PEPE PEPE VIEWS CO HOS CO HOS FRONTAL&[place] [address] [facility], [facility], ANGIOGRAP 3 RADIO PRESENTER RADIO PRESENTER HY CHEST PEPE PEPE W/CONTRAS [place] [address] [facility] [employer], [facility], INFUSION 3 RADIO PRESENTER RADIO PRESENTER THERAPY/P PEPE CANTU ROPHYLAXI CO HOS CO HOS S /DX 1ST TO [address] THORAX 14164 ETIENNE [place] 3 ANNIE ANNIE W/CONTRAS T MATERIAL DEBRIDEME 08799 LAUSE FED LAUSE FED NT NAIL 3 ANY METHOD 6/> RADIOLOGI 84350 DEVIN BELTRAN C EXAM 3 BETH BETH KNEE COMPLETE 4/MORE VIEWS RADIOLOGI 72028 [facility] [employer], [facility], C 3 RADIO PRESENTER RADIO PRESENTER EXAMINATI PEPE CANTU ON KNEE [address] [place] [address] [facility] [employer], [facility], HEAD/BRAI 3 RADIO PRESENTER RADIO PRESENTER N W/O PEPE CANTU CONTRAST CO HOS CO HOS MATERIAL DISPBL T4535 NURSES NURSES LINER/ISABELLE 3 REGISTRY REGISTRY ELD/GUARD & HOME HE & HOME HE /PAD/UNDG RMNT INCONT EA DISPBL T4535 NURSES NURSES LINER/ISABELLE 3 REGISTRY REGISTRY ELD/GUARD & HOME HE & HOME HE /PAD/UNDG RMNT INCONT EA INJECTION J1885 [facility] [employer], [facility], 3 RADIO PRESENTER RADIO PRESENTER KETOROLAC PEPE MORAS CO HOS CO HOS TROMETHAM INE PER 15 MG RADIOLOGI 68683 JUICE BOSE C EXAM 3 EIDER CLAYTON EIDER CLAYTON CHEST 2 VIEWS FRONTAL&L ATERAL PRESSURIZ 51816 [facility] [employer], [facility] [employer], ED/NONPRE 3 RADIO PRESENTER RADIO PRESENTER SSURIZED PEPE CANTU INHALATIO CO HOS CO HOS N TREATMENT INITIAL 69587 AHMED ADN AHMED ADN OBSERVATI 3 ON CARE/DAY 30 MINUTES MANJ 52731 [facility] [employer], [facility], WALL 3 RADIO PRESENTER RADIO PRESENTER FACILITAT PEPE CANTU E LNG CO HOS CO HOS FUNCJ 1 DEMO&/JONNY L NONINVASI 55252 [facility] [employer], [facility], VE 3 RADIO PRESENTER RADIO PRESENTER EAR/PULSE PEPE CANTU OXIMETRY CO HOS CO HOS [facility] G0378 [facility], [facility] OBSERVATI 3 RADIO PRESENTER RADIO PRESENTER ON PEPE MORANEW [facility] CO HOS CO HOS PER HOUR DIRECT G037[address] [facility], ADMISSION 3 RADIO PRESENTER RADIO PRESENTER PATIENT [facility] [place] [address] [facility], [facility], INFUSION 3 RADIO PRESENTER RADIO PRESENTER THERAPY/P PEPE VILLARREALOLAS ROPHYLAXI CO HOS CO HOS S /DX 1ST TO 1 HR RADIOLOGI 94414 JUICE BOSE C EXAM 3 EIDER CLAYTON EIDER CLAYTON CHEST 2 VIEWS FRONTAL&L ATERAL DISPBL T4535 NURSES NURSES LINER/ISABELLE 2 REGISTRY REGISTRY ELD/GUARD & HOME HE & HOME HE /PAD/UNDG RMNT INCONT EA ECG 63334 AHMED ADN AHMED ADN ROUTINE 2 ECG W/LEAST 12 LDS TRCG ONLY W/O I&R DISPBL T4535 NURSES NURSES LINER/ISABELLE 2 REGISTRY REGISTRY ELD/GUARD & HOME HE & HOME HE /PAD/UNDG RMNT INCONT EA DUP-SCAN 56446 ON REBEKAH NO REBEKAH XTR VEINS 2 COMPLETE BILATERAL STUDY DISPBL T4535 NURSES NURSES LINER/ISABELLE 2 REGISTRY REGISTRY ELD/GUARD & HOME HE & HOME HE /PAD/UNDG RMNT INCONT EA DISPBL T4535 NURSES NURSES LINER/ISABELLE 2 REGISTRY REGISTRY ELD/GUARD & HOME HE & HOME HE /PAD/UNDG RMNT INCONT EA BASIC 88509 [facility], [facility], METABOLIC 2 RADIO PRESENTER RADIO PRESENTER PANEL PEPEWHIT CANTU CALCIUM CO HOS CO HOS TOTAL ECG 88174 [facility], [facility], ROUTINE 2 RADIO PRESENTER RADIO PRESENTER ECG PEPE MORAS W/LEAST CO HOS CO HOS 12 LDS TRCG ONLY W/O I&R URNLS DIP 61173 [facility], [facility], 2 RADIO PRESENTER RADIO PRESENTER STICK/TAB PEPE CANTU LET RGNT CO HOS CO HOS AUTO [place] [address] [facility], [facility], INFUSION 2 RADIO PRESENTER RADIO PRESENTER THERAPY/P PEPE PEPE ROPHYLAXI CO HOS CO HOS S /DX 1ST TO 1 HR BLOOD 50343 [facility], [facility], COUNT 2 RADIO PRESENTER RADIO PRESENTER COMPLETE PEPE PEPE AUTO&AUTO CO HOS CO HOS DIFRNTL WBC NATRIURET 70402 [facility], [facility], IC 2 RADIO PRESENTER RADIO PRESENTER PEPTIDE PEPE PEPE CO HOS CO HOS RADIOLOGI 40199 [facility], [facility], C EXAM 2 RADIO PRESENTER RADIO PRESENTER CHEST 2 PEPE PEPE VIEWS CO HOS CO HOS FRONTAL&L ATERAL FIBRIN 15119 [facility], [facility], DGRADJ 2 RADIO PRESENTER RADIO PRESENTER PRODUCTS PEPE PEPE D-DIMER CO HOS CO HOS QUANTITAT ADELINA THER 93207 [facility], [facility], PROPH/DX 2 RADIO PRESENTER RADIO PRESENTER NJX IV PEPE PEPE PUSH CO HOS CO HOS SINGLE/1S T SBST/DRUG RADIOLOGI 52305 [facility] C EXAM 2 BETH CHEST 2 RADIOLOGY VIEWS ASSOCIAT FRONTAL&[place] [address] [facility], [facility], INFUSION 2 RADIO PRESENTER RADIO PRESENTER THERAPY/P PEPE PEPE ROPHYLAXI CO HOS CO HOS S /DX 1ST TO 1 [place] [address] [facility], [facility], INFUSION 2 RADIO PRESENTER RADIO PRESENTER HYDRATION PEPE PEPE INITIAL CO HOS CO HOS 31 MIN-1 [place] [address] [facility], [facility], INFUSION 2 RADIO PRESENTER RADIO PRESENTER HYDRATION PEPE PEPE EACH CO HOS CO HOS [place] [address]91 [facility] [address] IMAGING IMAGING ATTENUATI L L ON SKULL BASE MID-THIGH COMPREHEN 56598 [facility], [facility], SIVE 2 RADIO PRESENTER RADIO PRESENTER METABOLIC PEPE PEPE PANEL CO HOS CO HOS NATRIURET 46503 [facility], [facility], IC 2 RADIO PRESENTER RADIO PRESENTER PEPTIDE EPPE PEPE CO HOS CO HOS BLOOD 65457 [facility], [facility], COUNT 2 RADIO PRESENTER RADIO PRESENTER COMPLETE PEPE PEPE AUTO&AUTO CO HOS CO HOS DIFRNTL WBC RADIOLOGI 81159 [facility], [facility], C EXAM 2 RADIO PRESENTER RADIO PRESENTER CHEST 2 PEPE PEPE VIEWS CO HOS CO HOS FRONTAL&L ATERAL PROTHROMB 51536 [facility], [facility], IN TIME 2 RADIO PRESENTER RADIO PRESENTER PEPE CANTU CO HOS CO HOS SEDIMENTA 74151 [facility], [employer], TION RATE 2 RADIO PRESENTER RADIO PRESENTER RBC PEPE VILLARREALOLAS NON-AUTOM CO HOS CO HOS ATED BLOOD 49516 [facility] Trenergi, [employer], COUNT 2 RADIO PRESENTER RADIO PRESENTER SMEAR PEPE MORAS MCRSCP CO HOS CO HOS W/MNL DIFRNTL WBC COUNT DUP-SCAN 04327 YUMIKO CALDERON XTR VEINS 2 [facility] INC INC UNILATERA L/LIMITED STUDY DISPBL T4535 NURSES NURSES LINER/ISABELLE 2 REGISTRY REGISTRY ELD/GUARD & HOME HE & HOME HE /PAD/UNDG RMNT INCONT EA DISPBL T4535 NURSES NURSES LINER/ISABELLE 2 REGISTRY REGISTRY ELD/GUARD & HOME HE & HOME HE /[place] [address] [facility] SURG 1 [facility] GROSS&PHI ROSCOPIC EXAM DECALCIFI 80096 [facility] CATION 1 [facility] PROCEDURE CLINIC [place] [address] [facility] [address] IMAGING IMAGING ATTENUATI L L ON SKULL BASE MID-THIGH BONE 37814 [facility] [place] [facility] [place] [address] [facility] BLOOD/URI 1 [facility] C ACID COMPREHEN 57802 [facility] SIVE 1 [facility] METABOLIC PANEL COLLECTIO 41146 [facility] N VENOUS 1 [facility] BLOOD VENIPUNCT URE LACTATE 11603 [facility] DEHYDROGE 1 [facility] NASE LDH BLOOD 21682 [facility] COUNT 1 [facility] COMPLETE AUTO&AUTO DIFRNTL WBC RADEX 55667 [facility] ANKLE 1 [facility] COMPLETE MINIMUM [address] [facility] CYTOMETRY 1 [facility] INTERPRET ATION 16/> MARKERS FLOW 18167 [facility] CYTOMETRY 1 [facility] CELL SURF MARKER TECHL ONLY 1ST CHRMSM 38471 [facility] COUNT 1 [facility] 15-20 CLL 2KARYOTYP BANDING CHRMSM 21895 [facility] ANALYSIS 1 [facility] ADDL KARYOTYP EACH STUDY COLLECTIO 79045 [facility] N VENOUS 1 [facility] BLOOD VENIPUNCT URE FLOW 97300 [facility] CYTOMETRY 1 [facility] CELL SURF MARKER TECHL ONLY EA DISPBL T4535 NURSES NURSES LINER/ISABELLE 1 REGISTRY REGISTRY ELD/GUARD & HOME HE & HOME HE /PAD/UNDG RMNT INCONT EA DISPBL T4535 NURSES NURSES LINER/ISABELLE 1 REGISTRY REGISTRY ELD/GUARD & HOME HE & HOME HE /PAD/UNDG RMNT INCONT EA DESTRUCTI 98557 [facility] ANGELO KIMN ON 1 [facility] CLINIC LESION 1ST RADEX 42147 PEPE CANTU FOREARM 2 1 CO CO VIEWS [facility] RADIOLOGI 13108 PEPE CANTU C 1 [facility] FIBULA 2 VIEWS RADEX 87332 PEPE CANTU ELBOW 1 CO CO [facility] MINIMUM 3 VIEWS DUPLEX 95573 MONTE[facility]UMA BELTRAN SCAN 1 [facility] EXTRACRAN RADIOLOGY IAL ART ASSOCIAT COMPL BI STUDY BLOOD 23375 [facility] ISABELA PAT SMEAR 1 JARED & PERIPHERA DUBILIER L INTERP PHYS W/[place] [address] MONTEZUMA BELTRAN HEAD/BRAI 1 BETH N W/O RADIOLOGY CONTRAST ASSOCIAT MATERIAL RADEX 45576 [facility]TRAN ABDOMEN 1 BETH COMPL RADIOLOGY W/DCBTS&/ ASSOCIAT ERC VIEWS RADIOLOGI 02831 [facility]TRAN C EXAM 1 [facility] CHEST 2 RADIOLOGY VIEWS ASSOCIAT FRONTAL&L ATERAL DEMO&/JONNY 66166 PEPE Velazquez OF PT 1 [facility] A[facility] GEN/NEB/I NHLR/IP COLLECTIO 63820 PEPE Falcon VENOUS 1 CO UT BLOOD [facility] VENIPUNCT URE BASIC 99078 PEPE CANTU METABOLIC 1 CO CO PANEL [facility] CALCIUM TOTAL ECG 60643 PEPE CANTU ROUTINE 1 CO CO ECG [facility] W/LEAST 12 LDS TRCG ONLY W/O I&R PRESSURIZ 20418 PEPE CANTU ED/NONPRE 1 CO CO SSURIZED [facility] INHALATIO N TREATMENT ANTIBODY 10961 PEPE CANTU INFLUENZA 1 CO UT VIRUS [facility] BLOOD 69484 PEPE CANTU COUNT 1 CO UT SMEAR [facility] MCRSCP W/[place] [address] COMBINED COMBINED THYROID 1 PHYSICIAN PHYSICIAN STIMULATI S LA S LA NG HORMONE TSH LIPID 76474 COMBINED COMBINED PANEL 1 PHYSICIAN PHYSICIAN S LA S LA COMPREHEN 14404 COMBINED COMBINED SIVE 1 PHYSICIAN PHYSICIAN METABOLIC S LA S LA PANEL PROTHROMB 81884 COMBINED COMBINED IN TIME 1 PHYSICIAN PHYSICIAN S LA S LA BLOOD 28178 COMBINED COMBINED COUNT 1 PHYSICIAN PHYSICIAN COMPLETE S LA S LA AUTO&AUTO DIFRNTL WBC RADEX 60120 [facility]TRAN RIBS [facility] 2 VIEWS ASSOCIAT RADIOLOGI 48730 PEPE CANTU C EXAM 1 CO UT CHEST 2 [facility] HOSPITAL VIEWS FRONTAL&L ATERAL RADEX 43971 PEPE CANTU RIBS UNI 1 CO CO W/[facility] HOSPITAL ANT CH MINIMUM 3 [place] [address] [facility] TRANSVAGI 1 [facility] [place] CERV/VAGI G0101 [facility] NAL 1 [facility]; [place] PELV&CLIN BREAST EXAM SCR G0145 PATHOLOGY PATHOLOGY CYTOPATH 1 & & CERV/VAG CYTOLOGY CYTOLOGY SCR LAB LAB AUTO&MNL RSCR PHYS SCREEN Q0091 [facility] PAP 1 [facility] SMEAR; [facility] OF [place] [place] PREP &C ONVEY TO LAB RADIOLOGI 44589 [facility] C EXAM 1 ANNIE CHEST 2 RADIOLOGY VIEWS ASSOCIAT FRONTAL&[place] [address] PEPE CANTU ABDOMEN 0 CO CO W/O HOSPITAL HOSPITAL CONTRAST MATERIAL CT PELVIS 07012 PEPE CANTU W/O 0 CO UT CONTRAST [facility] MATERIAL CULTURE 56453 PEPE CANTU BACTERIAL 0 CO [facility] QUANTTATI [place] [address] PATHOLOGY PATHOLOGY SURG 0 & & PATHOLOGY CYTOLOGY CYTOLOGY LAB LAB GROSS&PHI ROSCOPIC EXAM EXCISION 40057 C GEOVANNI STEVENS MAL 0 HILDA CALLAWAY MD PSC TRUNK/ARM /LEG 2.1-3.0 CM LIPID 21266 COMBINED COMBINED PANEL 0 PHYSICIAN PHYSICIAN S LA S LA COLLECTIO 59310 COMBINED COMBINED N VENOUS 0 PHYSICIAN PHYSICIAN BLOOD S LA S LA VENIPUNCT URE COMPREHEN 46152 COMBINED COMBINED SIVE 0 PHYSICIAN PHYSICIAN [place] [address] COMBINED COMBINED THYROID 0 PHYSICIAN PHYSICIAN STIMULATI S LA S LA NG HORMONE TSH BLOOD 01120 COMBINED COMBINED COUNT 0 PHYSICIAN PHYSICIAN COMPLETE S LA S LA AUTO&[place] [address] MONTEZUMA BELTRAN, ABDOMEN 0 MARIAA C W/O RADIOLOGY CONTRAST MATERIAL ASSOCIATE S PSC CT PELVIS 05333 MONTE[facility]UMA BELTRAN, W/O 0 MARIAA C CONTRAST RADIOLOGY MATERIAL ASSOCIATE S PSC BLOOD 64363 COMBINED COMBINED COUNT 0 PHYSICIAN PHYSICIAN COMPLETE S LAB S LAB AUTO&AUTO DIFRNTL WBC COMPREHEN 50281 COMBINED COMBINED SIVE 0 PHYSICIAN PHYSICIAN METABOLIC S LAB S LAB PANEL LIPID 89683 COMBINED COMBINED PANEL 0 PHYSICIAN PHYSICIAN S LAB S LAB DUP-SCAN 72357 PEPE CANTU XTR VEINS 0 CO [facility] [place] [address] PATHOLOGY PATHOLOGY SURG 0 & & PATHOLOGY CYTOLOGY CYTOLOGY LAB LAB GROSS&[place] [address] YUMIKO CALDERON INFUSION 0 [facility] THERAPY/P INC INC ROPHYLAXI S /DX 1ST TO 1 HR COLONOSCO 37723 [place], PY 0 MEDICAL DEISY W/BIOPSY SERV SINGLE/[place] [address] DERMATOPA DERMATOPA SURG 0 THOLOGY THOLOGY PATHOLOGY ALLINACE [facility]ACE OF OF GROSS&PHI ROSCOPIC EXAM SCREENING 50651 [facility], 0 MEDICAL ROBERTO CARLOS MAMMOGRAP IMAGING HY ASSOCIATE BILATERAL S COMPUTER- 95932 [place] DENI, AIDED 0 MEDICAL ROBERTO CARLOS DETECTION IMAGING ASSOCIATE SCREENING S MAMMOGRAP HY CULTURE 88691 [facility]ANTU BACTERIAL 0 [facility] QUANTTATI VE COLONY COUNT URINE LIPID 76014 PE[facility]U PANEL 0 [facility] COMPREHEN 91284 PE[facility] CANTU SIVE 0 [facility] PANEL LIPOPROTE 91744 PEPE CANTU IN DIRECT [address] [place] [address] MEASUREME NT LDL CHOLESTER OL BLOOD 64514 PEPE CANTU COUNT 9 [facility] AUTO&AUTO DIFRNTL WBC URNLS DIP 31543 [place] 9 LOIDA HERNANDEZ A STICK/TAB INTERNAL LET RGNT MED NON-AUTO W/O MICRSCP COMPREHEN 87130 PE[facility]ANTU SIVE 9 [facility] PANEL LIPID 71784 PEPE CANTU PANEL 9 [facility] COLLECTIO 59577 [facility], N VENOUS 9 [facility] A BLOOD INTERNAL VENIPUNCT MED URE PHYS G0179 [place] MCKEMIE RE-CERT 9 LOIDA PLATA, MCR-COVR INTERNAL DARYN F [facility] MED SRVC RE-CERT PRD 3D 98810 DENI CHEEMA, RENDERING 9 ROBERTO CARLOS ROBERTO CARLOS W/INTERP & [place] [address] DENI CHEEMA, SPINAL 9 ROBERTO CARLOS ROBERTO CARLOS CANAL CERVICAL W/O CONTRAST MATRL ECG 55193 [facility] G[place], ROUTINE 9 [facility] A ECG INTERNAL W/LEAST MED 12 LDS W/I&R PHYS G0179 [facility] MCKEMIE RE-CERT 9 [facility], MCR-COVR INTERNAL DARYN F [place] TH MED SRVC RE-CERT PRD OPHTH 53919 JOSIAH RAHMAN, [facility] 9 DORIAN A DORIAN A XM&EVAL COMPRHNSV ESTAB PT 1/> DESTRUCTI 27794 [facility] BESN[place], ON 9 [facility] A PREMALIGN INTERNAL ANT MED LESION 1ST COLLECTIO 54085 PEPE Falcon VENOUS 8 CO CO BLOOD [facility] VENIPUNCT URE PRESSURIZ 67604 PEPE CANTU ED/NONPRE 8 CO CO SSURIZED [facility] INHALATIO N TREATMENT DEMO&/JONNY 99589 PEPE CANTU L OF PT 8 CO CO UTILIZ [facility] AERSL GEN/NEB/I NHLR/IP RADIOLOGI 78523 PEPE Prince EXAM 8 CO CO CHEST 2 [facility] VIEWS FRONTAL&L ATERAL BLOOD 44230 PEPE CANTU COUNT 8 CO CO COMPLETE [facility] AUTO&AUTO DIFRNTL WBC BLOOD 13892 PEPE CANTU COUNT 8 CO CO SMEAR [facility] MCRSCP W/MNL DIFRNTL WBC COUNT ADMINISTR G0008 [facility] [place], ATION OF 8 [facility] A INFLUENZA INTERNAL VIRUS MED VACCINE IIV3 98026 [facility] [place], VACCINE 8 [facility] A SPLIT INTERNAL VIRUS 0.5 MED ML DOSAGE IM USE [facility] 61541 [facility] GYPSY, DISCHARGE 8 [facility] DAY INTERNAL MANAGEMEN MED T 30 MIN/< SBSQ [address] [address] CARE/DAY INTERNAL 25 MED MINUTES SBSQ 94621 [facility] 8 [facility] A CARE/DAY INTERNAL 25 MED MINUTES RADEX ABD 36743 VIOLETA MARIEE 8 AYANA Stanford AQT ABD RADIOLOGY W/S/E/D VIEWS 1 ASSOCIATE VIEW SWAPNA S PSC RADIOLOGI 33234 [place], C EXAM 8 AYANA S CHEST 2 RADIOLOGY VIEWS FRONTAL&L ASSOCIATE ATERAL S PSC INITIAL 93463 [facility] 8 [facility], CARE/DAY INTERNAL DARYN Boucher 50 MED MINUTES PHYS CERT G0180 [facility] GARRISON [facility] 8 RENICK MARY Hoff [facility] INTERNAL SRVC PER MED CERT PRD IM ADM 07741 [facility] PRQ ID 8 [facility], SUBQ/IM INTERNAL DARYN Boucher NJXS 1 MED VACCINE INJECTION [id number] [facility] 8 [facility], TRIAMCINO INTERNAL DARYN Boucher LONE MED ACETONIDE NOS 10 MG BLOOD 50301 PEPE CANTU COUNT 8 [facility] SMEAR [facility] MCRSCP W/MNL DIFRNTL WBC COUNT COMPREHEN 59415 PEPE CANTU SIVE 8 [facility] PANEL THER 28191 PEPE CANTU PROPH/DX 8 [facility] NJX [facility] SUBQ/IM COLLECTIO 06921 PEPE CANTU N VENOUS 8 [facility] BLOOD [facility] VENIPUNCT URE BLOOD 94681 PEPE CANTU COUNT 8 [facility] COMPLETE [facility] AUTO&AUTO DIFRNTL WBC RADIOLOGI 96568 Niki MARIEE EXAM 8 AYANA S CHEST 2 RADIOLOGY VIEWS FRONTAL&L ASSOCIATE ATERAL S PSC Encounters Encounter Start End Date Code Location Performer Type Date OFFICE 48655 [facility] BRAD APPLEEN 7 7 PHYSICIAN T VISIT S GROUP 15 MINUTES EMERGENCY 75373 ERIC DODD DEPT 7 7 [facility]& THREAT [facility] YUMIKO - 7 7 [facility] INPATIENT INC OFFICE 15901 AMALIA EUGENE 7 7 MEDICAL T VISIT SERV 15 FOUNDATIO MINUTES [facility] - 7 7 [facility]ALTHCAR OUTPATIEN E HOSPITALS OFFICE 78584 PEPE CAZARESPATIEN 6 6 COUNTY T VISIT URGENT 25 TREAT MINUTES OFFICE 25840 [facility] 6 6 [facility] T VISIT URGENT 15 TREAT MINUTES OFFICE 60069 [facility] 6 6 [facility] T VISIT URGENT 25 TREAT MINUTES OFFICE 21317 [facility] 6 [facility] T VISIT URGENT 25 TREAT MINUTES HOSPITAL [facility] - 6 6 [facility] T OFFICE 32631 [facility] 6 6 MEDICAL N RONN T VISIT SERV 15 FOUNDATIO MINUTES HOSPITAL [place] - 6 6 [facility] T OFFICE 28390 [facility] 6 6 PHYSICIAN LES T NEW 30 PRACTICE MINUTES L OFFICE 70647 [facility] 6 6 MEDICAL N RONN T VISIT SERV 10 FOUNDATIO MINUTES N OFFICE 37037 [facility]PE [facility] 6 6 [facility] T VISIT URGENT 25 TREAT MINUTES HOSPITAL YUMIKO - 6 6 [facility] INPATIENT [facility] EMERGENCY 43517 IVELISSEON DEPT 5 5 [facility] HIGH SEVERITY& THREAT [facility] BOCASION - 5 5 [facility] T EMERGENCY 86468 [facility] DEPT 5 5 [facility] VISIT EMERGENCY HIGH PHYSI SEVERITY& THREAT [facility] IVELISSEON - 5 5 [facility] T EMERGENCY 11937 IVELISSEON 5 5 [facility] T VISIT HIGH/URGE NT SEVERITY HOSPITAL YUMIKO - 5 5 [facility] OUTPATIEN [facility] H[facility]PITAL YUMIKO - 5 5 [facility] OUTPATIEN [facility] HOME [facility], 5 5 HOME INPATIENT HEALTH AGENCY HOME [facility] HEALTH, 5 5 HOME INPATIENT HEALTH AGENCY OFFICE 62286 [facility] 5 5 [facility] T VISIT 15 MINUTES HOSPITAL YUMIKO - 4 4 [facility] OUTPATIEN INC HOSPITAL YUMIKO - 4 4 [facility] INPATIENT INC HOSPITAL YUMIKO - 4 4 [facility] OUTPATIEN INC [facility]OSPITAL YUMIKO - 4 4 [facility] OUTPATIEN [facility] T OFFICE 98689 [facility] 4 4 PHYSICIAN T NEW 45 S GROUP [facility]PITAL [facility]IVERS[facility] - [facility] 4 [facility], 4 4 REGISTRY INPATIENT HOME [facility]ES [facility], 4 4 REGISTRY [facility]PATIENT [facility] [place] - [address] [facility] EMERGENCY 92968 [facility], 4 4 [facility] DEPARTMEN PEPE T VISIT CO HOS HIGH/URGE NT SEVERITY CRITICAL [facility], ACCESS 4 4 [facility] HOME NURSES HEALTH, 4 4 REGISTRY INPATIENT HOME [facility], 4 4 REGISTRY INPATIENT & HOME HE HOME NURSES HEALTH, 4 4 REGISTRY INPATIENT & HOME HE CRITICAL [facility], ACCESS 4 4 [facility], ACCESS 4 4 [facility] HOS EMERGENCY 42326 [facility], 4 4 [facility] DEPARTMEN PEPE T VISIT CO HOS HIGH/URGE NT SEVERITY HOME NURSES HEALTH, 4 4 REGISTRY INPATIENT & HOME HE OFFICE 04133 FLEISCHMA FLEISCHMA OUTPATIEN 4 4 N RONN N RONN T VISIT 15 MINUTES HOSPITAL UNIVERSIT - 4 4 Y OUTPATIEN HOSPITAL T HOME NURSES HEALTH, 3 3 REGISTRY INPATIENT & HOME HE HOME NURSES HEALTH, 3 3 REGISTRY OUTPATIEN & HOME HE T HOME NURSES HEALTH, 3 3 REGISTRY OUTPATIEN & HOME HE T OFFICE 01891 FLEISCHMA FLEISCHMA OUTPATIEN 3 3 N RONN N RONN T NEW 45 MINUTES HOSPITAL [facility] - 3 3 [facility] ACCESS 3 3 [facility] EMERGENCY 86450 [facility], 3 3 [facility] DEPARTMEN [facility] T VISIT CO HOS HIGH/URGE NT SEVERITY EMERGENCY 93127 VENKAT ROBLEDO 3 3 ANGELICA DOMINGUEZ DEPARTMEN T VISIT MODERATE SEVERITY CRITICAL [facility], ACCESS 3 3 [facility] - 3 3 [facility] ACCESS 3 3 [facility] EMERGENCY 32869 [facility], 3 3 [facility] DEPARTMEN [facility] T VISIT CO HOS HIGH/URGE NT SEVERITY EMERGENCY 95018 [facility], DEPT 3 3 [facility] VISIT [facility] HIGH CO HOS SEVERITY& THREAT FUNCJ CRITICAL [facility], ACCESS 3 3 [facility], ACCESS 3 3 [facility] HOME NURSES HEALTH, 3 3 REGISTRY OUTPATIEN & HOME HE T EMERGENCY 37759 [facility], 3 3 [facility] DEPARTMEN [facility] LOW/MODER SEVERITY EMERGENCY 95051 RANDA RANDA 3 3 HEN HEN DEPARTMEN T VISIT MODERATE SEVERITY CRITICAL [facility], ACCESS 3 3 [facility], - 3 3 [facility] EMERGENCY 63073 [facility] 3 3 [facility] DEPARTMEN [facility] VISIT CO HOS HIGH/URGE NT SEVERITY CRITICAL [facility], ACCESS 3 3 [facility] HOME NURSES HEALTH, 2 2 [facility]ISTRY OUTPATIEN & HOME HE T HOME NURSES HEALTH, 2 2 REGISTRY OUTPATIEN & HOME HE T OFFICE [id number] NO REBEKAH NO REBEKAH OUTPATIEN 2 2 T NEW 45 MINUTES CLINIC, [place] [facility] 2 2 [facility] OFFICE 88146 [facility] 2 2 COUNTY T VISIT [facility] 15 HEALTH MINUTES HOME NURSES HEALTH, 2 2 REGISTRY OUTPATIEN & HOME HE T HOME NURSES HEALTH, 2 2 REGISTRY OUTPATIEN & HOME HE T CRITICAL [facility], ACCESS 2 2 [facility] 77130 [facility], 2 2 [facility] DEPARTMEN [facility] T VISIT CO HOS HIGH/URGE NT SEVERITY OFFICE 88696 AHMED ADN AHMED ADN OUTPATIEN 2 2 T VISIT 15 MINUTES HOSPITAL [facility], - 2 2 [facility] OFFICE 88251 AHMED ADN AHMED ADN OUTPATIEN 2 2 T VISIT 15 MINUTES OFFICE 54098 [facility] OUTPATIEN 2 2 T NEW 20 MINUTES OFFICE 09843 [facility] OUTPATIEN 2 2 RURAL T VISIT HEALTH 25 CLINIC MINUTES CLINIC, [facility] 2 [facility] 79392 [facility] OUTPATIEN 2 2 [facility] T VISIT HEALTH 25 CLINIC MINUTES CRITICAL [facility], ACCESS 2 2 [facility] OFFICE 76032 [facility] OUTPATIEN 2 2 [facility] T VISIT HEALTH 25 CLINIC MINUTES [facility], [facility] RURAL 2 2 [facility] [place] - 2 2 [facility] OUTPATIST[facility] T OFFICE 21147 [facility] OUTPATIEN 2 2 RURAL T VISIT HEALTH 25 CLINIC MINUTES CLINIC, [facility] RURAL 2 2 [facility] HOME NURSES HEALTH[facility] 2 2 REGISTRY OUTPATIEN & HOME HE T OFFICE 27425 AHMED ADN AHMED ADN OUTPATIEN 2 2 T VISIT 15 MINUTES CLINIC, [facility] 2 2 [facility] OFFICE 44966 [facility] 2 2 [facility] T VISIT [facility] 25 HEALTH MINUTES [facility] 1 [facility] 1 1 [facility] OFFICE 36167 [facility] OUT[facility] 1 1 [facility] T VISIT [facility] 15 HEALTH MINUTES HOME NURSES HEALTH, 1 1 [facility]IST[facility] OUTPATIEN & HOME HE T HOME NURSES HEALTH, 1 1 [facility]ISTRY OUTPATIEN & HOME HE T OFFICE 27869 [facility] OUTPATIEN 1 1 RURAL T VISIT HEALTH 15 CLINIC MINUTES CLINIC, [facility] 1 [facility] 71690 [facility]PATIEN 1 1 [facility] T VISIT HEALTH 15 CLINIC MINUTES [facility], [facility] 1 [facility] 56155 [facility] ANGELO FONG OUTPATIEN 1 1 RURAL T VISIT HEALTH 25 CLINIC MINUTES CRITICAL PEPE ACCESS 1 1 [facility] PE[facility] - 1 1 [facility] 17129 [facility] TAMIE DEPT 1 1 [facility] SEVERITY& THREAT FUNCJ EMERGENCY 26830 PEPE 1 1 [facility] T [facility]ISIT LIMITED/M INOR PROB CRITICAL PEPE ACCESS 1 1 [facility] CRITICAL PEPE ACCESS 1 1 [facility] OFFICE [id number] [facility]'S BELTRAN [facility]PATIEN 1 1 [facility] PEPE - 1 1 [facility]PE ACCESS 0 0 [facility] OFFICE 82071 Niki STEVENS OUTPATIEN 0 0 [facility] - [facility] 0 0 [facility] CRITICAL PEPE ACCESS 0 0 [facility] OFFICE [id number] [facility] OUTPATIEN 0 0 [facility] VIS[facility] 5 [facility] 0 [facility] YUMI[facility] 0 0 [facility] OUTPATIEN [facility] OFFICE 75170 [place] OUTPATIEN 0 0 [facility] T VISIT INTERNAL 15 MED MINUTES CRITICAL PEPE [facility]ESS 0 0 [facility] CRITICAL PEPE ACCESS 0 0 [facility] OFFICE 10003 [place] [facility] OUTPATIEN 0 0 RENICK ROLO T VISIT INTERNAL 25 MED MINUTES OFFICE 95876 [place] [facility], OUTPATIEN 9 9 [facility] T VISIT INTERNAL 15 MED MINUTES OFFICE 90957 [place] [facility], OUTPATIEN 9 9 [facility] VISIT INTERNAL 15 MED MINUTES OFFICE 92205 [facility] [facility], OUTPATIEN 9 9 [facility] T VISIT INTERNAL 25 MED MINUTES CRITICAL PEPE ACCESS 9 9 [facility] OFFICE 27570 [place], OUTPATIEN 9 9 RENICK MARY A T VISIT INTERNAL 15 MED MINUTES OFFICE 29834 [facility] [facility], OUTPATIEN 9 9 [facility] MARY A T VISIT INTERNAL 25 MED MINUTES EMERGENCY 62510 PEPE ROBLEDO, 8 8 PENDING S[facility] TO [facility] T VISIT MODERATE SEVERITY EMERGENCY 96152 PEPE 8 8 [facility] T VISIT LOW/MODER SEVERITY CRITICAL [facility] 8 [facility] 32256 [place] [facility], OUTPATIEN 8 8 RENICK MARY A T VISIT INTERNAL 15 MED MINUTES OFFICE 79890 [place] [facility], OUTPATIEN 8 8 [facility] T VISIT INTERNAL 10 MED MINUTES OFFICE 12487 [facility] [facility], OUTPATIEN 8 8 [facility] T VISIT INTERNAL 15 MED MINUTES OFFICE 49883 [facility] EUGENE 8 8 [facility] T VISIT 5 HOSPITAL MINUTES OFFICE 72658 [place] CEBALLOS, CONSULTAT 8 8 MEDICAL DARYN ION SERV E NEW/ESTAB FOUNDATIO PATIENT 40 MIN CRITICAL [facility] 8 8 [facility] OFFICE 37104 VALORIE VILLALTA 8 8 LO[place] MARY Hoff T VISIT INTERNAL 15 MED MINUTES [facility]OS[facility] 8 8 [facility] 48967 HAZEL EUGENE 8 8 MARIAA PLATA JR, JOHN T VISIT P P 15 MINUTES OFFICE 60780 NEGRITA EUGENE 8 8 Cameron MARISCAL JR VISIT INTERNAL DARYN F 15 MED MINUTES EMERGENCY 31640 PEPE 8 8 [facility] T VISIT LIMITED/M INOR PROB CRITICAL [facility] 8 8 [facility] OFFICE 50233 VALORIE VILLALTA 8 8 LOIDA Barnes VISIT INTERNAL 15 MED MINUTES OFFICE 88412 HAZEL EUGENE 8 8 MARIAA PLATA JR, JOHN T VISIT P P 10 MINUTES OFFICE 99703 NEGRITA EUGENE 8 8 Cameron MARISCAL JR VISIT INTERNAL DARYN F 25 MED MINUTES OFFICE 06599 HAZEL EUGENE 8 8 MARIAA PLATA JR, JOHN T VISIT P P 15 MINUTES
--- OUTSIDE RECORDS SUMMARY | 2016-12-13 19:15 | External Medical Summary Rpt ---
Author Author , JESSICA Organization JESSICA Address Unknown Phone [email or web address] Team Providers Care State Historical Society Director Name Role Phone NO REBEKAH, NO REBEKAH Unavailable Unavailable AHMED ADN, AHMED ADN Unavailable Unavailable AHMED ADN, AHMED ADN Unavailable Unavailable ILYA LES, ILYA Unavailable Unavailable LES ATKINS COL, ATKINS Unavailable Unavailable COL ATKINS COL, ATKINS Unavailable Unavailable COL BESSON, BESSON Unavailable Unavailable BESSON ROLO, BESSON Unavailable Unavailable ROLO BESSON ROLO, BESSON Unavailable Unavailable ROLO BESSON, MARY A, Unavailable Unavailable BESSON, MARY A [facility] Unavailable Unavailable IMAGING L, [facility] MONIQUE, MONIQUE Unavailable Unavailable MONIQUE ALL, MONIQUE ALL Unavailable Unavailable [facility] Unavailable Unavailable HOSPITAL, [facility] Unavailable Unavailable PRACTICE L, [facility] RICCI PHI, RICCI Unavailable [...] Unavailable Unavailable SAMIR K, DARIO, SAMIR K [facility] Unavailable Unavailable INC, [facility] Unavailable Unavailable HOSPITAL P, [facility] [place] ANNIE, CLIFTON Unavailable Unavailable ANNIE CLIFTON ANNIE, CLIFTON Unavailable Unavailable ANNIE ETIENNE, AYANA S, Unavailable Unavailable CLIFTON, AYANA S GYPSY, GYPSY CORRIGAN, Unavailable Unavailable DORIAN GIMENEZ, Unavailable Unavailable DORIAN RAHMAN [facility], Unavailable Unavailable [facility] YOUSIF DODD Unavailable Unavailable BETINA, BETINA Unavailable Unavailable BETINA EULOGIO, BETINA Unavailable Unavailable [facility] Unavailable Unavailable CLINIC, [facility] Unavailable Unavailable IMAGING ASS, [facility] YG CRY, YG Unavailable Unavailable [facility] Un[facility], [facility] [place] Unavailable Unavailable [facility], [facility] Unavailable Unavailable [facility], [facility] LAUSE FED, LAUSE FED Unavailable Unavailable [facility] FED, [facility] FED Unavailable Unavailable ETHEL JR DWI, ETHEL Unavailable Unavailable JR DWI [facility] Unavailable Unavailable [facility], [facility] VENKAT GRAY Unavailable Unavailable FLAQUITA AMADO, Unavailable Unavailable FLAQUITA ROBLEDO LUKINS BRADLEY, LUKINS Unavailable Unavailable BRADLEY LUKINS BRADLEY, LUKINS Unavailable Unavailable BRADLEY [facility] Unavailable Unavailable ASS[facility]AT, [facility] DARYN CEBALLOS, Unavailable Unavailable DARYN CEBALLOS JR, WILLIAM Unavailable Unavailable MENDEZ Boucher JR, WILLIAM F MERHAR GAR, MERHAR Unavailable Unavailable GAR MERHAR GAR, MERHAR Unavailable Unavailable [facility] [place] Unavailable Un[facility], [facility], [facility] Unavailable Un[facility] Un[facility] Unavailable [facility], [facility], Unavailable [facility]available [facility] Unavailable Unavailable HEALTH, [facility] Unavailable Unavailable URGENT TREAT, [facility] NURSES REGISTRY & Unavailable [...] Unavailable [facility]QUIP[facility], [facility], Unavailable Unavailable [facility] MARIAA OLIVA JR, Unavailable Unavailable MARIAA OLIVA JR [facility] Unavailable Unavailable HOSPITALS, [facility], [facility]available [facility] Unavailable Unavailable [facility], [facility] Un[facility] Unavailable [facility] [place], [facility] ABDALLA, MAGALIE MAT Unavailable Unavailable Purpose Continuity of Care Document - 05-27-2007 through 2016 Problems Code Diagnosis DOS Provider Status J449 CHRONIC 09-02-2016 [facility] HOME PULMONARY MEDICAL DISEASE UNS EQUIPME I10 ESSENTIAL 07-12-2016 [facility] HYPERTENSIO GROUP N J441 CHRONIC 07-12-2016 [facility] OBSTRUCTIVE PHYSICIANS PULMONARY GROUP DZ W/EXACERBAT ION R062 WHEEZING 07-12-2016 [facility] E876 HYPOKALEMIA 07-05-2016 [facility] I509 HEART 07-05-2016 [facility] FAILURE PHYSICIANS UNSPECIFIED GROUP J189 PNEUMONIA 07-05-2016 [facility] UNSPECIFIED PHYSICIANS ORGANISM GROUP E785 HYPERLIPIDE 07-04-2016 [facility] CECILIA PHYSICIANS UNSPECIFIED GROUP I5031 ACUTE 07-03-2016 [facility] HEART FAILURE R05 COUGH 07-03-2016 [facility] R0602 SHORTNESS 07-03-2016 [place] [facility] R918 OTHER 07-03-2016 [place] NONSPECIFIC MEDICAL ABNORMAL IMAGING ASS FINDING OF LUNG FIELD Z8249 FAMILY HX 07-03-2016 [facility] ISCHEMIC PHYSICIANS HRT DZ OTH GROUP DZ CIRC SYSTEM Z8673 PERSONAL HX 07-03-2016 [facility] CEREB INC INFARCT NO RESID DEFICIT Z8709 PERSONAL 07-03-2016 [facility]ICIANS, DISEASES PLLC RESPIRATORY SYSTEM C8510 UNSPECIFIED 06-20-2016 [facility] UNSPECIFIED SITE D479 NEOPLASM 06-20-2016 [facility] L[facility]MP[facility]OUND[facility] & REL TISSUE UNS H72165 LYMPHOCYTOS 06-20-2016 [facility] SYMPTOMATIC FOUNDATION H24818 EPIPHORA 04-11-2016 [facility] DUE TO COUNTY EXCESS URGENT LACRIMATION TREAT LT LACR GLAND J208 ACUTE 04-11-2016 [facility] BRONCHITIS [facility] DUE TO URGENT OTHER SPEC TREAT ORGANISMS L84 CORNS AND 03-25-2016 [facility] CALLOSITIES [facility] URGENT TREAT Q845 ENLARGED 03-25-2016 [facility] AND [facility] HYPERTROPHI URGENT C NAILS TREAT J168 PNEUMONIA 03-11-2016 [facility] DUE TO COUNTY OTHER SPEC URGENT INFECTIOUS TREAT ORGANISMS R93702 CELLULITIS 03-11-2016 [facility] OF LEFT [facility] LOWER LIMB URGENT TREAT M7989 OTHER 03-11-2016 [facility] SPECIFIED [facility] SOFT TISSUE URGENT DISORDERS TREAT N3946 MIXED 03-11-2016 [facility] INCONTINENC COUNTY E URGENT TREAT R112 NAUSEA WITH 03-11-2016 [facility] VOMITING [facility] UNSPECIFIED URGENT TREAT R5081 FEVER 03-11-2016 [facility] PRESENTING COUNTY W/COND URGENT CLASSIFIED TREAT ELSEWHERE H6501 ACUTE 02-02-2016 [facility] SEROUS [facility] OTITIS URGENT MEDIA RIGHT TREAT EAR J301 ALLERGIC 02-02-2016 [facility] RHINITIS [facility] DUE TO URGENT POLLEN TREAT F12474P ABRASION 02-02-2016 [facility] LEFT LOWER [facility] LEG INITIAL URGENT ENCOUNTER TREAT C8588 OTH TYPES 12-14-2015 [facility] L[facility] NODES MX SITES R42 DIZZINESS 07-06-2015 [facility] MENDOSA AND MD BATEMAN CONSULTING SRV E878 OTHER D/O 07-05-2015 [facility] NEC H903 SENSORINEUR 06-28-2015 [facility] LOSS PRACTICE L BILATERAL C8300 SMALL CELL 06-15-2015 [facility] UNSPECIFIED SITE E780 PURE 05-07-2015 [facility] HYPERCHOLES [facility] 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 [facility] 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 [facility] CURR USE [facility] ANTITHROMBO HOSPITAL TICS/ANTIPL ATELETS Z7982 SENIOR LIVING 05-07-2015 [facility] CURRENT USE [facility] S95870 OTHER LONG 05-07-2015 [facility] DRUG THERAPY Z809 FAMILY 05-07-2015 [facility] HISTORY OF [facility] NEOPLASM UNSPECIFIED R531 WEAKNESS 04-29-2015 [facility] [place] [facility] R5381 OTHER 04-29-2015 [facility] MALAISE [facility] R5383 OTHER 04-29-2015 [facility] FATIGUE [facility] J209 ACUTE 04-23-2015 [facility] UNSPECIFIED HOSPITAL P J440 COPD WITH 04-23-2015 [facility] P RESPIRATORY INFECTION R079 CHEST PAIN 04-23-2015 [place] U[facility]PEC[facility]IED [facility] IM[facility]ING ASS 63230 CHRONIC 12-02-2014 [facility] LYMPHOID HEALTH LEUKEMIA AGENCY W/O ACHIEVED REMISSION 99666 HTN CKD UNS 12-02-2014 [facility] W/CKD HEALTH STAGE I AGENCY THRU STAGE IV/UNS 76653 UNSPECIFIED 12-02-2014 [facility] VENOUS HEALTH INSUFFICIEN AGENCY CY 496 CHRONIC 12-02-2014 [facility] AIRWAY HEALTH OBSTRUCTION AGENCY NEC 5859 CHRONIC 12-02-2014 [facility] KIDNEY HEALTH DISEASE AGENCY UNSPECIFIED 76622 UNSPECIFIED 12-02-2014 [facility] URINARY HEALTH INCONTINENC AGENCY E 481 PNEUMOCOCCA 09-15-2014 [facility] Velazquez PNEUMONIA [facility] URGENT TREAT 43514 FEVER 09-15-2014 [facility] URGENT TREAT 56481 OTHER VOICE 09-15-2014 [facility] RESONANCE URGENT DISORDERS TREAT 7862 COUGH 09-15-2014 [facility] URGENT TREAT 2724 OTHER AND 08-27-2014 [facility] UNSPECIFIED [place] [facility] HYPERLIPIDE CECILIA 4011 ESSENTIAL 08-27-2014 [facility] HYPERTENSIO [place] N, BENIGN HOLDINGS 7823 EDEMA 08-27-2014 [facility] [place] [facility] 53363 SHORTNESS 06-29-2014 [place] [facility] 01107 CHEST PAIN 06-29-2014 [place] UNSPECIFIED MEDICAL IMAGING ASS V1261 PERSONAL 06-29-2014 [place] HISTORY MEDICAL PNEUMONIA IMAGING ASS RECURRENT 6829 CELLULITIS 05-19-2014 [facility] AND ABSCESS [place] OF HOLDINGS UNSPECIFIED SITE 5589 OTH&UNSPEC 04-26-2014 [facility] NONINFECTIO [place] US HOLDINGS GASTROENTER ITIS&COLITI S 30664 OTH MALIG 04-05-2014 [facility] UNS SITE INC XTRANOD&SUSANNA ID ORGN 4019 UNSPECIFIED 04-05-2014 [facility] ESSENTIAL [facility] HYPERTENSIO INC N 486 PNEUMONIA, 04-05-2014 [facility] ORGANISM PHYSICIANS UNSPECIFIED GROUP 92715 OBSTRUCTIVE 04-05-2014 [facility] CHRONIC PHYSICIANS BRONCHITIS GROUP WITH EXACERBATIO N 35535 OTHER 04-05-2014 [place] DISEASES OF MEDICAL LUNG NOT IMAGING ASS ELSEWHERE CLASSIFIED V5869 LONG-TERM 04-05-2014 [facility] (CURRENT) [facility] USE OF INC OTHER MEDICATIONS 7804 DIZZINESS 03-12-2014 [facility] GIDDINESS INC V1090 PERSONAL 03-12-2014 [facility] HISTORY [facility] UNSPECIFIED INC MALIGNANT NEOPLASM 4660 ACUTE 03-06-2014 [facility] BRONCHITIS [facility] INC 2749 GOUT, 02-22-2014 [facility] UNSPECIFIED PHYSICIANS GROUP 4149 UNSPECIFIED 02-22-2014 [facility] CHRONIC PHYSICIANS ISCHEMIC GROUP HEART DISEASE 4779 ALLERGIC 02-22-2014 [facility] RHINITIS PHYSICIANS CAUSE GROUP UNSPECIFIED 54709 ESOPHAGEAL 02-22-2014 [facility] REFLUX PHYSICIANS GROUP 43745 WHEEZING 02-22-2014 [facility] PHYSICIANS GROUP V0481 NEED 02-22-2014 [facility] PROPHYLACTI PHYSICIANS C GROUP VACCINATION &INOCULATIO N FLU 1101 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 [facility] OSIS OF NAIL 4439 UNSPECIFIED 01-05-2014 [facility] PERIPHERAL VASCULAR DISEASE 7038 OTHER 01-05-2014 [facility] SPECIFIED DISEASE OF NAIL 7295 PAIN IN 01-05-2014 [facility] SOFT TISSUES OF LIMB 50221 OTHER 11-25-2013 [facility] AND HEMATOPOIET IC TISSUES 52663 DIAB W/O 11-10-2013 NURSES MENTION REGISTRY COMP TYPE HOME II/UNS TYPE HLTHTCA UNCNTRL 16871 HYPOXEMIA 10-06-2013 [facility] V5863 LONG-TERM 10-06-2013 [facility] USE OF [facility] T/ANTITHROM BOTIC V5866 LONG-TERM 10-06-2013 [place] [facility] 0088 INTESTINAL 09-04-2013 [facility], INFECTION LICENSED SOCIAL WORKER DUE TO [facility] OTHER HOS ORGANISM NEC 43968 COR 09-04-2013 [facility], ATHEROSLERO LICENSED SOCIAL WORKER UNSPEC [place] [facility] TYPE VESSEL HOS MASHPEE/SANDY T 4293 CARDIOMEGAL 09-04-2013 [facility], Y LICENSED SOCIAL WORKER [place] [facility] 79261 DIVERTICULO 09-04-2013 [facility], SIS OF LICENSED SOCIAL WORKER COLON [facility] 5939 UNSPECIFIED 09-04-2013 [facility], DISORDER LICENSED SOCIAL WORKER OF KIDNEY [facility] [facility] AND URETER HOS V103 PERSONAL 09-04-2013 [facility], HISTORY OF LICENSED SOCIAL WORKER MALIGNANT [facility] NEOPLASM OF HOS BREAST V1079 PERSONAL HX 09-04-2013 [facility], OTH LICENSED SOCIAL WORKER LYMPHATIC&H [facility] EMATOPOIETI HOS C NEOPLASM 7020 ACTINIC 07-15-2013 [facility] KERATOSIS 95587 OTHER 07-15-2013 [facility] SEBORRHEIC KERATOSIS V5883 ENCOUNTER 06-16-2013 [facility], FOR LICENSED SOCIAL WORKER THERAPEUTIC [place] [facility] DRUG HOS MONITORING 7873 FLATULENCE 06-09-2013 [facility], ERUCTATION LICENSED SOCIAL WORKER AND GAS [facility] PAIN HOS V1083 PERSONAL 06-09-2013 [facility], HISTORY LICENSED SOCIAL WORKER OTHER [facility] MALIGNANT HOS NEOPLASM SKIN V4589 OTHER 06-09-2013 [facility], POSTSURGICA LICENSED SOCIAL WORKER L STATUS [facility] OTHER HOS 78260 NODULAR 05-27-2013 [facility] RONN LYMPH NODES MULTIPLE SITES 4510 PHLEBITIS&T 03-03-2013 [facility] HROMBOPHLEB SUP VESSELS LOWER EXTREM 4548 VARICOSE 03-03-2013 [facility] VEINS LOWER EXTREMITIES W/OTH COMPS 4371 OTH 09-03-2012 [facility] BRADLEY GENERALIZED ISCHEMIC CEREBROVASC ULAR DISEASE 21067 DISORDER OF 09-03-2012 L[facility] BRADLEY BONE AND CARTILAGE UNSPECIFIED 9100 FCE 09-03-2012 [place] [facility]P NO HOSPITAL EYE ABRAS/FRIC BURN W/O INF 9596 INJURY 09-03-2012 MERHAR GAR OTHER AND UNSPECIFIED HIP AND THIGH 9597 INJURY 09-03-2012 [facility] GAR OTHER&UNSPE CIFIED KNEE LEG ANKLE&FOOT E8889 UNSPECIFIED 09-03-2012 [facility] GAR FALL V1060 PERSONAL 09-03-2012 [place] HISTORY OF HOSPITAL UNSPECIFIED LEUKEMIA V1229 PERSONAL HX 09-03-2012 [facility] ENDOCRN METABOLIC IMMUNITY D/O V5861 LONG-TERM 09-03-2012 [facility] PRICE (CURRENT) USE OF ANTICOAGULA NTS V714 OBSERVATION 09-03-2012 [facility] PRICE FOLLOWING OTHER ACCIDENT 035 ERYSIPELAS 08-21-2012 [facility], LICENSED SOCIAL [facility] [place] [facility] 87634 LEUKOCYTOSI 08-21-2012 [facility], S LICENSED SOCIAL WORKER UNSPECIFIED [place] [facility] 94076 CALCU 08-21-2012 [facility] GALLBLADD W/O MENTION CHOLECYST/O BST 78564 UNSPECIFIED 08-21-2012 [facility] RESPIRATORY ABNORMALITY 7892 SPLENOMEGAL 08-21-2012 [facility] Y 2411 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 [facility] MULTINODULA R GOITER 2462 CYST OF 08-04-2012 [facility] THYROID 7964 OTHER 08-04-2012 [facility], ABNORMAL LICENSED SOCIAL WORKER CLINICAL [place] [facility] FINDING HOS 72070 UNS 07-22-2012 [facility] LEUKEMIA W/O ACHIEVED REMISSION 4871 INFLUENZA 07-22-2012 [place] WITH OTHER HOSPITAL RESPIRATORY MANIFESTATI ONS 5119 UNSPECIFIED 07-22-2012 [facility] PLEURAL EFFUSION 5180 PULMONARY 07-22-2012 [facility] COLLAPSE V1254 PERSONAL HX 07-22-2012 [place] [facility] W/O RESIDUAL DEFICITS 2763 ALKALOSIS 07-21-2012 [facility], LICENSED SOCIAL WORKER [place] [facility] 99424 DEHYDRATION 07-21-2012 [facility], LICENSED SOCIAL WORKER [place] [facility] 4580 ORTHOSTATIC 07-21-2012 [facility], LICENSED SOCIAL WORKER HYPOTENSION [facility] [facility] 96848 OTHER 07-21-2012 [facility], MALAISE AND LICENSED SOCIAL WORKER FATIGUE [facility] 2768 HYPOPOTASSE 07-19-2012 [facility], CECILIA LICENSED SOCIAL WORKER [place] [facility] 4239 UNSPECIFIED 07-19-2012 [facility] DISEASE OF PERICARDIUM 7856 ENLARGEMENT 07-19-2012 [facility] OF LYMPH NODES 2130 BENIGN 06-26-2012 [facility], NEOPLASM OF [facility] BONES OF [place] [facility] SKULL AND HOS FACE 3319 UNSPECIFIED 06-26-2012 DEVIN CAMPOS CEREBRAL DEGENERATIO N 74811 PAIN IN 06-26-2012 [facility], JOINT, LICENSED SOCIAL WORKER LOWER LEG [facility] 7802 SYNCOPE AND 05-23-2012 [facility], COLLAPSE LICENSED SOCIAL [facility] [place] [facility] 60397 NAUSEA 05-23-2012 [facility], ALONE LICENSED SOCIAL [facility] [place] [facility] 56153 ABDOMINAL 05-23-2012 [facility], PAIN, LEFT LICENSED SOCIAL WORKER LOWER [place] [facility] QUADRANT HOS 7847 EPISTAXIS 05-13-2012 [facility], LICENSED SOCIAL WORKER [place] [facility] 6929 CONTACT 05-12-2012 [facility], DERMATITIS& LICENSED SOCIAL WORKER OTHER [place] [facility] ECZEMA DUE HOS UNSPEC CAUSE 4279 UNSPECIFIED 04-22-2012 [facility] CARDIAC DYSRHYTHMIA 66324 PAINFUL 04-22-2012 [facility] RESPIRATION 47433 OTH-UNS MAL 03-02-2012 [facility] TISS-UNS-EX TRANODAL 2870 ALLERGIC 03-02-2012 [facility]PURA [facility] 6989 UNSPECIFIED 03-02-2012 [facility] PRURITIC [facility] DISORDER [facility] 28941 GOUTY 01-16-2012 [facility], ARTHROPATHY LICENSED SOCIAL WORKER [place] [facility] UNSPECIFIED HOS 35370 UNSPECIFIED 01-16-2012 [facility], LICENSED SOCIAL WORKER ARTHROPATHY [facility] SITE HOS UNSPECIFIED 25000 TACHYPNEA 01-16-2012 [facility], LICENSED SOCIAL WORKER [place] [facility] 65840 OSTEOARTHRO 12-17-2011 [facility], S UNSPEC LICENSED SOCIAL WORKER WHETHER [facility] GEN/LOC HOS UNSPEC SITE 4619 ACUTE 11-04-[address] [facility] SINUSITIS, HEALTH UNSPECIFIED CLINIC 96485 ACUTE 11-04-[address] [facility] LARYNGITIS, [facility] WITHOUT CLINIC MENTION OF OBSTRUCTIO 27779 DYSPHONIA 11-04-[address] [facility] HEALTH CLINIC 3829 UNSPECIFIED 10-10-[address] [facility] OTITIS HEALTH MEDIA CLINIC 97729 NONSPECIFIC 10-10-[address] [facility] ABNORMAL [facility] AUDITORY CLINIC FUNCTION STUDIES 4556 UNSPEC 09-17-[address] [facility] HEMORRHOIDS HEALTH WITHOUT CLINIC MENTION COMPLICATIO N 28031 CHRONIC 09-17-[address] [facility] VENOUS [facility] HYPERTENSIO CLINIC N WITHOUT COMPS 5693 HEMORRHAGE 09-17-[address] [facility] AND ANUS CLINIC 6980 PRURITUS 09-17-[address] [facility] ANI HEALTH CLINIC 79743 UNSPECIFIED 08-23-2011 [facility] ARTHROPATHY MULTIPLE SITES 97077 UNSPECIFIED 07-22-[address] [facility] LYMPHOID [facility] LEUKEMIA IN CLINIC RELAPSE 7821 RASH AND 07-22-[address] [facility] OTHER HEALTH NONSPECIFIC CLINIC SKIN ERUPTION 2722 MIXED 06-04-2011 [facility] HYPERLIPIDE [facility] 31079 UNSPECIFIED 06-04-2011 [facility] CONSTIPATIMARIA [facility] 36000 PAIN IN 06-04-2011 [facility] FOOT HEALTH 04554 CALCANEAL 04-29-2011 [facility] 23140 LYMPHOCYTOS 04-16-2011 [facility] SYMPTOMATIC 4571 OTHER 04-10-2011 [facility] NONINFECTIO US LYMPHEDEMA 54961 SLEEP 12-20-[address] [facility] RELATED LEG [facility]ALTH [facility] 41897 GEN 10-25-[address] [facility] OSTEOARTHRO HEALTH SIS CLINIC INVOLVING MULTIPLE SITES 73615 INSOMNIA 10-25-[address] [facility] UNSPECIFIED HEALTH CLINIC 72153 PAIN IN 09-21-[facility], RADIOLOGY UPPER ARM ASSOCIAT 9299 CRUSHING 09-21-[facility] INJURY OF RADIOLOGY UNSPECIFIED ASSOCIAT SITE 9592 INJURY 09-21-2010[facility] OTHER&UNSPE RADIOLOGY CIFIED ASSOCIAT SHOULDER&UP PER ARM 9593 INJURY 09-21-2010[facility] OTHER&UNSPE RADIOLOGY CIFIED ASSOCIAT ELBOW FOREARM&WRI ST 63546 OCCL&STENOS 08-02-2010[facility] MX&BILAT RADIOLOGY PRECERBRL ASSOCIAT ART W/O INFARCT 2859 UNSPECIFIED 07-31-2010 [facility] ANEMIA JARED & DUBILIER 88210 LEUKEMOID 07-31-2010 [facility] REACTION JARED & DUBILIER 2865 HEMORRHAGIC 07-29-2010 [facility] DR[facility] D/O HOSPITAL INTRINSIC CIRC ANTICOAG AB/INHIB 78709 UNSPECIFIED 07-29-2010 [facility] ARTERY OCCLUSION W/INFARCT 490 BRONCHITIS 07-29-2010 [facility] NOT HOSPITAL SPECIFIED ACUTE OR CHRONIC 5110 PLEURISY 07-29-[facility] WITHOUT RADIOLOGY MENTION ASSOCIAT EFFUS/[place] [address] SCLEROSING 07-29-2010 [facility] DR[facility] S 37551 OTH 07-29-2010[facility] ABNORMAL RADIOLOGY BRAIN & SHIFT COMMANDER ASSOCIAT FUNCTION STUDY V570 CARE 07-18-2010 [facility] INVOLVING HOSPITAL BREATHING EXERCISES 2181 INTRAMURAL 06-07-2010 [facility] [place] 2362 NEOPLASM OF 05-21-2010 [facility] UN[facility]ERT[facility] [place] V7231 ROUTINE 05-21-2010 [facility]AM[facility] [place] V762 SCREENING 05-21-2010 PATHOLOGY & FOR CYTOLOGY MALIGNANT LAB NEOPLASM OF THE CERVIX 5738 OTHER 05-08-2010 [facility] SPECIFIED [facility]IOLOG[facility] DISORDERS ASSOCIAT OF LIVER 5759 UNSPECIFIED 05-08-2010 [facility] DISORDER RADIOLOGY OF ASSOCIAT GALLBLADDER 5990 URINARY 05-08-2010 [facility] INFECTION SITE NOT SPECIFIED 6219 UNSPECIFIED 05-08-2010 [facility] DISORDER RADIOLOGY OF UTERUS ASSOCIAT 7242 LUMBAGO 05-08-2010 [facility] 7936 NONSPEC ABN 05-08-2010 [facility] ABDOMINAL AREA 1736 OT MALIG 03-13-2010 PATHOLOGY & NEOPLASM CYTOLOGY SKIN UPPER LAB LIMB INCL SHOULDER 1737 [facility] 03-13-2010 C [facility] NEOPLASM [place] SKIN LOWER [facility] LIMB INCLUDING HIP 2382 NEOPLASM OF 03-06-2010 C [facility] SKIN 81230 UNSPECIFIED 03-06-2010 C GEOVANNI STEVENS OSTEOPOROSI [facility] S 0413 KLEBSIELLA 09-20-2009 [facility] INFECTION 2892 NONSPECIFIC 09-20-2009 [facility] LYMPHADENIT IS 5920 CALCULUS OF 09-20-2009 [facility] PSC V1251 PERSONAL 09-20-2009 [facility] HISTORY, HOSPITAL VENOUS THROMBOSIS AND EMBOLISM 56903 ACUT LINNEA 08-18-2009 [facility]O&THROMB [facility] DEEP VES [facility] PROX LOWR PSC EXTREM 4549 ASYMPTOMATI 08-18-2009 [facility] VEINS 6826 CELLULITIS 08-18-2009 [facility] OF LEG EXCEPT FOOT 22118 ABDOMINAL 08-14-2009 PATHOLOGY & PAIN, CYTOLOGY UNSPECIFIED LAB SITE 57247 ABDOMINAL 08-14-2009 [place] [facility] GENERALIZED FOUNDATIO 2163 BENIGN 08-01-2009 DERMATOPATH NEOPLASM OLOGY SKIN ALLINACE OF OTHER&UNSPE C PARTS FACE V7612 OTHER 07-19-2009 [place] [facility] 0091 COLITIS 07-12-2009 [facility] TROENTERIT INTERNAL INF ORIGIN MED 33245 ABDOMINAL 07-12-2009 [facility] PAIN, LEFT VAL[place] UPPER INTERNAL QUADRANT MED 7894 ABDOMINAL 03-03-2010 [facility] RIGIDITY [facility] INTERNAL MED 7063 SEBORRHEA 03-27-2009 [facility] INTERNAL MED 7011 ACQUIRED 03-06-2009 [facility] KERATODERMA [place] INTERNAL MED 59179 REFLUX 12-02-2008 [facility] ESOPHAGITIS [place] INTERNAL MED 08551 OTHER 10-11-2008 [facility] CHRONIC [place] PAIN INTERNAL MED 32694 OSTEOARTHRO 10-11-2008 [facility] S INVLV [place] SITES BUT INTERNAL NOT SPEC MED GEN 70310 SPINAL 10-11-2008 [facility] 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 MED 7231 CERVICALGIA 09-27-2008 ROBERT[facility] CARLOS CHEEMA 7820 DISTURBANCE 09-21-2008 [facility] OF SKIN [place] SENSATION INTERNAL MED 94640 BLEPHARITIS 07-28-2008 RAHMAN BRETT A UNSPECIFIED 00598 OBESITY, 04-17-2008 [facility] UNSPECIFIED HOSPITAL 4928 OTHER 04-17-2008 [facility] [facility] PSC 56903 URINARY 04-17-2008 [facility] 7068 OTHER 03-09-2008 [facility] SPECIFIED [place] DISEASE OF INTERNAL SEBACEOUS MED GLANDS 1104 DERMATOPHYT 03-02-2008 [place] [facility] OF SERV FOOT FOUNDATIO 1701 MALIGNANT 03-02-2008 [facility] NEOPLASM OF HOSPITAL MANDIBLE 7062 SEBACEOUS 03-02-2008 [facility]ST [facility] 8471 THORACIC 02-15-2008 [facility] [place] STRAIN INTERNAL MED 6256 FEMALE 09-30-2007 HAZ[facility] PLATA, [place] E [address] URGE 09-30-2007 HAZ[facility] PLATA, INCONTINENC MARIAA P E 4659 ACUTE URIS 08-14-2007 [facility] OF [facility] UNSPECIFIED INTERNAL SITE MED 4778 ALLERGIC 08-12-2007 [facility] RHINITIS [place] DUE TO INTERNAL OTHER MED ALLERGEN 17376 HYPERTONICI 07-13-2007 [facility] TY OF [facility] BLADDER INTERNAL MED 5952 OTHER 07-01-2007 [facility] PALTA, CHRONIC MARIAA P CYSTITIS Medications Na ND [...] [address] Terrie [facility] CO 10 MP 0 AN MG Y [...] CO MP TA AN BL Y ET MN 00 03 03 0 12 4 CA [...] HE N CO A MP AN Y MN 00 03 03 0 12 4 CA [...] Performer Comment O2 CONC 1 E1390 [place] [facility] 7 HOME HOME 85%/>02 MEDICAL MEDICAL CONC AT EQUIPME EQUIPME PRSC FLW RATE PRTBLE E0431 [place] GASEOUS 7 HOME HOME O2 SYS MEDICAL MEDICAL RENT; EQUIPME EQUIPME FLWMTR HUMIDFR&M ASK O2 CONC 1 E1390 [place] 7 HOME HOME 85%/>02 MEDICAL MEDICAL CONC AT EQUIPME EQUIPME PRS FLW RATE PRTBLE E0431 [place] GASEOUS 7 HOME HOME O2 SYS MEDICAL MEDICAL RENT; EQUIPME EQUIPME FLWMTR HUMIDFR&M ASK PRTBLE E0431 [place] GASEOUS 7 HOME HOME O2 SYS MEDICAL MEDICAL RENT; EQUIPME EQUIPME FLWMTR HUMIDFR&M ASK O2 CONC 1 E1390 [place] [place] 7 HOME HOME 85%/>02 MEDICAL MEDICAL CONC AT EQUIPME EQUIPME PRSC FLW RATE SBSQ 64778 [place] [address] PHYSICIAN CARE/DAY S GROUP 15 MINUTES SBSQ 24588 [place] [address] PHYSICIAN CARE/DAY S GROUP 25 MINUTES RADIOLOGI 76141 [facility] [place] 7 MEDICAL EXAMINATI IMAGING ON CHEST ASS SINGLE VIEW FRONTAL ECG 33198 YUMIKO JI ROUTINE 7 [facility] W/LEAST P 12 LDS I&R ONLY INITIAL 67340 [place] [address] PHYSICIAN CARE/DAY S GROUP 70 MINUTES HOSPITAL G0463 [facility] OUTPATIEN 7 [facility]ALTHCAR HEALTHCAR T CLIN E E VISIT [facility] ASSESS & MGMT PT BLOOD 61044 [facility] 7 [facility]ALTH[facility] COMPLETE E E AUTO&AUTO [facility]OS[facility] DIFRNTL WBC COMPREHEN 72526 [facility] SIVE 7 [facility]ALTH[facility] METABOLIC E E PANEL [facility]IT[facility] COLLECTIO 79230 [facility] N VENOUS 7 HEALTHCAR HEALTHCAR BLOOD E E VENIPUNCT HOSPITALS HOSPITALS URE COMPREHEN 41736 [facility] 6 Y Y METABOLIC HOSPITAL HOSPITAL PANEL BLOOD 13772 [facility] 6 Y Y COMPLETE HOSPITAL HOSPITAL AUTO&AUTO DIFRNTL WBC HOSPITAL G0463 [facility] OUTPATI[facility] 6 Y Y T CLIN HOSPITAL HOSPITAL VISIT ASSESS & MGMT PT COLLECTIO 10822 [facility] N VENOUS 6 Y Y BLOOD HOSPITAL HOSPITAL VENIPUNCT URE DUPLEX 97896 [facility] MENDOSA MENDOSA FAMILIA SCAN 6 MD EXTRACRAN CONSULTIN IAL ART G SRV COMPL BI STUDY DUPLEX 13274 [facility] SCAN 6 [facility] IAL ART COMPL BI STUDY COMPRE 50044 [facility] SET AUDIOMETR 6 PHYSICIAN Y PRACTICE THRESHOLD L EVAL SP RECOGNIJ TYMPANOME 28008 [facility] TRY 6 PHYSICIAN PRACTICE L RADIOLOGI 56402 [place] DENI C EXAM 6 [facility] CHEST 2 IMAGING VIEWS ASS FRONTAL&L ATERAL RADIOLOGI 58223 [place] MONIQUE ALL C EXAM 6 MEDICAL CHEST 2 IMAGING VIEWS ASS FRONTAL&L ATERAL INJECTION J2405 JENNY ALVARADO [address] [place] [address] ON HCL PER 1 MG INJECTION J1650 JENNY OVIEDOON [address] [place] [address] N SODIUM 10 MG INJECTION J2270 [facility] MILLS MORPHINE [address] [place] [address] UP TO 10 MG ADMINISTR G0008 JENNY ALVARADO ATION OF [address] [place] [address] VIRUS VACCINE IIV3 VACC 78331 JENNY ALVARADO [address] [place] [address] ADELINA FREE 0.5 ML DOSAGE IM USE BLOOD 21198 JENNY ALVARADO COUNT [address] [place] [address] AUTOMATED BASIC 95652 [facility] METABOLIC 5 [facility] CALCIUM TOTAL COLLECTIO 32982 JENNY ALVARADO N VENOUS 5 [facility] VENIPUNCT URE NONCOVERE A9270 [facility] D ITEM OR 5 [facility] NONCOVERE A9270 [facility] D ITEM OR 5 [place] [address] [facility] ALVARADO THYROID 5 [facility] NG HORMONE TSH COMPREHEN 29806 [facility] ALVARAD[facility] SIVE 5 [facility] PANEL COLLECTIO 19849 [facility]AD[facility] N VENOUS 5 [facility] [place] [address] [facility] ALVARADO BLOOD/URI 5 [facility] HOSPITAL URNLS DIP [address] STICK/TAB HOSPITAL HOSPITAL LET REAGENT AUTO MICROSCOP Y NATRIURET 09602 [facility] IC [address] [place] [address] [place] [address] [facility] TROPONIN 5 [facility] ADELINA BLOOD 81411 [facility] COUNT [address] [place] [address] HOSPITAL AUTO&[place] [address] [facility] ALVARADO HEAD/BRAI [address] [place] [address] W/O HOSPITAL HOSPITAL CONTRAST MATERIAL C-REACTIV 68889 MILLS JENNY E PROTEIN [address] [place] [address] HOSPITAL G0378 [facility] OBSERVATI [address] [place] [address] ON HOSPITAL HOSPITAL SERVICE PER HOUR SEDIMENTA 05263 M[facility] TION RATE 5 [facility] NON-AUTOM ATED ECG 06386 [facility] ROUTINE 5 [facility] HOSPITAL W/LEAST 12 LDS TRCG ONLY W/O I&[place] [address] [facility] [place]IE MAT HEAD/BRAI 5 RADIOLOGY N W/O CONTRAST MATERIAL CT THORAX 70216 [facility] [place] MAT W/O 5 RADIOLOGY CONTRAST MATERIAL ECG 81542 YUMIKO DAVENPORT JR ROUTINE 5 [facility] W/LEAST P 12 LDS I&R ONLY RADIOLOGI 39641 YUMIKO CALDERON C EXAM 5 [facility] CHEST 2 INC INC VIEWS FRONTAL&L ATERAL RADIOLOGI 78072 YUMIKO CALDERON C EXAM 5 [facility] CHEST 2 INC INC VIEWS FRONTAL&L ATERAL DISPBL T4535 [facility] LINER/ISABELLE 5 HOME HOME ELD/GUARD HEALTH HEALTH /PAD/UNDG AGENCY AGENCY RMNT INCONT EA INJECTION J0696 [facility] 5 [facility] URGENT URGENT NE SODIUM TREAT TREAT [place] [address] [place] [address] [facility] FOLIC 5 [facility] ACID [facility] SERUM LIPID 13389 [facility] PANEL 5 [facility] HOLDINGS GENERAL 85421 [facility] HEALTH 5 [facility] PANEL HOLDINGS HOLDINGS 25 15097 [facility] HYDROXY 5 [facility] INCLUDES HOLDINGS HOLDINGS FRACTIONS IF PERFORMED CYANOCOBA 76233 LAB [facility] AMBAR 5 [facility] VITAMIN HOLDINGS HOLDINGS B-12 [place] [address] LAB J[facility]ANI [facility] MAGNESIUM 5 [facility] HOLDINGS RADIOLOGI 42724 [place] DENI C EXAM 5 [facility] CHEST 2 IMAGING VIEWS ASS FRONTAL&L ATERAL RADEX 89308 [place] DENI RIBS 5 [facility] UNILATERA IMAGING L 2 VIEWS ASS DISPBL T4535 [facility] LINER/ISABELLE 5 HOME HOME ELD/GUARD HEALTH HEALTH /PAD/UNDG AGENCY AGENCY RMNT INCONT EA CUL BACT 57719 LAB [facility] LAB [facility] XCPT 5 [facility] URINE [facility]INGS HOLDINGS BLOOD/STO OL AEROBIC ISOL BASIC 53379 LAB [facility] LAB J[facility] METABOLIC 4 [facility] PANEL [place] [address] YUMIKO CALDERON INFUSION 4 [facility] THERAPY/P INC INC ROPHYLAXI S /DX 1ST TO 1 HR THERAPEUT 43680 YUMIKO CALDERON IC 4 [facility] INJECTION INC INC IV PUSH [facility] 58899 [facility] DISCHARGE 4 PHYSICIAN PHYSICIAN DAY S GROUP S GROUP MANAGEMEN T 30 MIN/< RADIOLOGI 03459 MARICARMEN CHEEMA C EXAM 4 [facility] CHEST 2 IMAGING VIEWS ASS FRONTAL&L ATERAL ECG 49752 YUMIKO DAVENPORT JR ROUTINE 4 [facility] W/LEAST P 12 LDS I&R ONLY PRESSURIZ 71796 YUMIKO CALDERON ED/NONPRE 4 [facility] HOSP SSURIZED INC INC INHALATIO N TREATMENT RADIOLOGI 90034 YUMIKO CALDERON C EXAM 4 [facility]OSP CHEST 2 INC INC VIEWS FRONTAL&[place] [address] YUMIKO CALDERON HEAD/BRAI 4 [facility] N W/O INC INC CONTRAST MATERIAL ECG 12095 YUMIKO CALDERON ROUTINE 4 [facility] ECG INC INC W/LEAST 12 LDS TRCG ONLY W/O I&R ECG 91519 YUMIKO CALDERON ROUTINE 4 [facility] ECG INC INC W/LEAST 12 LDS TRCG ONLY W/O I&R RADIOLOGI 38236 YUMIKO CALDERON C 4 [facility] EXAMINATI INC [place] [address] YUMIKO CALDERON INFUSION 4 [facility] THERAPY/P INC INC ROPHYLAXI S /DX 1ST TO 1 [place] [address] YUMIKO CALDERON INFUSION 4 [facility] THER INC INC PROPH ADDL SEQUENTIA L TO 1 HR DEBRIDEME 60654 [facility] LAUSE FED NT NAIL 4 ANY METHOD 6/> HOSPITAL G0463 [facility] 4 Y Y T [facility]IN [facility]ITAL HOSPITAL VISIT ASSESS & MGMT PT DISPBL T4535 NURSES NURSES LINER/ISABELLE 4 REGISTRY REGISTRY ELD/GUARD HOME HOME /PAD/UNDG HLTHTCA HLTHTCA RMNT INCONT EA DISPBL T4535 NURSES NURSES LINER/ISABELLE 4 REGISTRY REGISTRY ELD/GUARD HOME HOME /PAD/UNDG HLTHTCA HLTHTCA RMNT INCONT EA NONCOVERE A9270 JENNY ALVARADO D ITEM OR 4 [facility] NONCOVERE A9270 [facility] D ITEM OR 4 [facility] RADIOLOGI 73755 HAYDER HAYDER C EXAM 4 RHO RHO CHEST 2 VIEWS FRONTAL&L ATERAL ECG 31832 JENNY ALVARADO ROUTINE [address] [facility] W/LEAST 12 LDS TRCG ONLY W/O I&R RADEX 79428 [employer]FXPERT, IVFXPERT, ABDOMEN 4 LICENSED SOCIAL WORKER LICENSED SOCIAL WORKER COMPL [facility] W/DCBTS&/ [place] [address] [employer], ABDOMEN & 4 LICENSED SOCIAL WORKER LICENSED SOCIAL WORKER PELVIS PEPEHien CANTU W/O CO HOS CO HOS CONTRAST MATERIAL RADIOLOGI 24442 [employer], [employer], C EXAM 4 LICENSED SOCIAL WORKER LICENSED SOCIAL WORKER CHEST 2 PEPE PEPE VIEWS CO HOS CO HOS FRONTAL&[place] [address] [employer]PERT, [employer], INFUSION 4 LICENSED SOCIAL WORKER LICENSED SOCIAL WORKER HYDRATION PEPE PEPE INITIAL CO HOS CO HOS 31 MIN-1 HOUR DISPBL T4535 NURSES NURSES LINER/ISABELLE 4 REGISTRY REGISTRY ELD/GUARD HOME HOME /PAD/UNDG HLTHTCA HLTHTCA RMNT INCONT EA DISPBL T4535 NURSES NURSES LINER/ISABELLE 4 REGISTRY REGISTRY ELD/GUARD & HOME HE & HOME HE /PAD/UNDG RMNT INCONT EA DESTRUCTI 81203 MUSIC HOWARD MUSIC HOWARD ON 4 PREMALIGN ANT LESION 15/> DISPBL T4535 NURSES NURSES LINER/ISABELLE 4 REGISTRY REGISTRY ELD/GUARD & HOME HE & HOME HE /PAD/UNDG RMNT INCONT EA ECG 05006 MENDOSA FAMILIA MENDOSA FAMILIA ROUTINE 4 ECG W/LEAST 12 LDS I&R ONLY ECG 43978 [employer], ROUTINE 4 LICENSED SOCIAL WORKER LICENSED SOCIAL WORKER ECG [facility] W/LEAST CO HOS CO HOS 12 LDS TRCG ONLY W/O I&R DISPBL T4535 NURSES NURSES LINER/ISABELLE 4 REGISTRY REGISTRY ELD/GUARD & HOME HE & HOME HE /[place] [address] [facility] [employer], [facility] INC, INFUSION 4 LICENSED SOCIAL WORKER LICENSED SOCIAL WORKER HYDRATION PEPE [facility] INITIAL CO HOS CO HOS 31 MIN-1 [place] [address] [facility] INC, INFUSION 4 LICENSED SOCIAL WORKER LICENSED SOCIAL WORKER THERAPY/P [facility] ROPHYLAXI CO HOS CO HOS S /DX 1ST TO 1 HR INJECTION J2405 [facility] INC, 4 LICENSED SOCIAL WORKER LICENSED SOCIAL WORKER ONDANSETR [facility] ON HCL CO HOS CO HOS PER 1 MG THER 86467 [facility] [employer] [facility] INC, PROPH/DX 4 LICENSED SOCIAL WORKER LICENSED SOCIAL WORKER NJX IV PEPE [facility] PUSH CO HOS CO HOS SINGLE/1S T SBST/DRUG DISPBL T4535 NURSES NURSES LINER/[facility] 4 REGISTRY REGISTRY ELD/GUARD & HOME HE & HOME HE /PAD/UNDG RMNT INCONT [facility] G0463 [facility] 4 Y Y T [facility] VISIT ASSESS & MGMT PT DEBRIDEME 44939 LAUSE FED LAUSE FED NT NAIL 3 ANY METHOD 6/> DUP-SCAN 84128 ATKINS ATKINS XTR VEINS 3 COL COL COMPLETE BILATERAL STUDY DISPBL T4535 NURSES NURSES LINER/[facility] 3 REGISTRY REGISTRY ELD/GUARD & HOME HE & HOME HE /PAD/UNDG RMNT INCONT EA DEBRIDEME 88519 LAUSE FED LAUSE FED NT NAIL 3 ANY METHOD 6/> DISPBL T4535 NURSES NURSES LINER/[facility] 3 REGISTRY REGISTRY ELD/GUARD & HOME HE & HOME HE /PAD/UNDG RMNT INCONT EA DUP-SCAN 96114 ATKINS ATKINS XTR VEINS 3 COL COL UNILATERA L/LIMITED STUDY STAB 44709 ATKINS ATKINS PHLEBT 3 COL COL VARICOSE VEINS 1 XTR > 20 INCS ENDOVEN 01761 ATKINS ATKINS ABLTJ 3 COL COL INCMPTNT VEIN XTR LASER 1ST VEIN DISPBL T4535 NURSES NURSES LINER/ISABELLE 3 REGISTRY REGISTRY ELD/GUARD & HOME HE & HOME HE /PAD/UNDG RMNT INCONT EA DUP-SCAN 89889 ATKINS ATKINS XTR VEINS 3 COL COL UNILATERA L/LIMITED STUDY STAB 99035 ATKINS ATKINS PHLEBT 3 COL COL VARICOSE VEINS 1 XTR 10-20 STAB INCS ENDOVEN 26214 ATKINS ATKINS ABLTJ 3 COL COL INCMPTNT VEIN XTR LASER 1ST VEIN RADIOLOGI 28481 [facility] 3 [facility] 2 VIEWS RADIOLOGI 20447 [facility] MERHAR C 3 GAR GAR EXAMINATI ON KN[place] [address] [place] [address] LUKINS LUKINS HEAD/BRAI 3 [facility] N W/O CONTRAST MATERIAL RADIOLOGI 97231 [facility] MERHAR C 3 GAR GAR EXAMINATI ON TIBIA & FIBULA 2 VIEWS BLOOD 01581 [facility] COUNT 3 Y Y COMPLETE [facility] AUTOMATED COLLECTIO 75483 [facility] VENOUS 3 Y Y FORMERLY [facility] VENIPUNCT URE BASIC 95873 [facility] METABOLIC 3 [place] [address] [facility] Ichiba, [facility] INC, INFUSION 3 LICENSED SOCIAL WORKER LICENSED SOCIAL WORKER THERAPY/P [facility] ROPHYLAXI CO HOS CO HOS S /DX 1ST TO 1 [place] [address] [facility] [employer] [facility] INC, INFUSION 3 LICENSED SOCIAL WORKER LICENSED SOCIAL WORKER HYDRATION [facility] INITIAL CO HOS CO HOS 31 MIN-1 HOUR LOCM Q9967 [facility] INC, 300-399 3 LICENSED SOCIAL WORKER LICENSED SOCIAL WORKER MG/ML [facility]PE [facility] IODINE CO HOS CO HOS CONCENTRA TION PER ML ECG 27082 AHMED ADN AHMED ADN ROUTINE 3 ECG W/LEAST 12 LDS I&R ONLY INJECTION J2405 [facility] INC, 3 LICENSED SOCIAL WORKER LICENSED SOCIAL WORKER ONDANSETR PEPE CANUT ON HCL CO HOS CO HOS PER 1 MG RADIOLOGI 76238 [facility], [facility] INC, C EXAM 3 LICENSED SOCIAL WORKER LICENSED SOCIAL WORKER CHEST 2 PEPEHien CANTU VIEWS CO HOS CO HOS FRONTAL&[place] [address] [facility] INC, [employer], ABDOMEN & 3 LICENSED SOCIAL WORKER LICENSED SOCIAL WORKER PELVIS [facility] W/O CO HOS CO HOS CONTRST 1/> BODY RE THER 36743 [facility] INC, [employer], PROPH/DX 3 LICENSED SOCIAL WORKER LICENSED SOCIAL WORKER NJX IV [facility] PUSH CO HOS CO HOS SINGLE/1S T SBST/DRUG ECG 94737 [facility] INC, [employer], ROUTINE 3 LICENSED SOCIAL WORKER LICENSED SOCIAL WORKER ECG [facility] W/LEAST CO HOS CO HOS 12 LDS TRCG ONLY W/O I&R US SOFT 79079 [place] TISSUE 3 ANNIE ANNIE HEAD & NECK REAL TIME IMGE DOCM BASIC 56308 [facility] METABOLIC 3 Y Y PANEL [facility] [place] [address] [facility] UNIVERS 1/> AREAS 3 Y Y EA 15 HOSPITAL HOSPITAL MIN GAIT TRAINJ W/STAIR BLOOD 52834 [facility] COUNT 3 Y Y COMPLETE [facility] HOSPITAL AUTOMATED NONCOVERE A9270 [facility] D ITEM OR 3 Y Y SERVICE [facility] G0378 [facility] 3 Y Y ON HOSPITAL HOSPITAL SERVICE PER HOUR PRESSURIZ 19725 [facility] ED/NONPRE 3 Y Y SSURIZED [facility] INHALATIO N TREATMENT INJECTION J1644 [facility] HEPARIN 3 Y Y [facility] PER 1000 UNITS INJECTION J1956 [facility] 3 Y Y LEVOFLOXA [facility] KRISTIN 250 MG PHYSICAL 74054 [facility] THERAPY 3 Y Y EVALUATIO [facility] N ECG 85838 [facility] ROUTINE 3 Y Y ECG [facility] W/LEAST 12 LDS TRCG ONLY W/O I&R INJECTION J1644 [facility] HEPARIN 3 Y Y SODIUM [facility] PER 1000 UNITS INJECTION J1956 [facility] 3 Y Y LEVOFLOXA [facility] KRISTIN 250 MG PRESSURIZ 57857 [facility] ED/NONPRE 3 Y Y SSURIZED [facility] INHALATIO N TREATMENT RADIOLOGI 26816 RADHAMES RICCI C EXAM 3 PHI PHI CHEST 2 VIEWS FRONTAL&L ATERAL INFUSION J7030 [facility] NORMAL 3 Y Y SALINE [facility] SOLUTION 1000 CC CULTURE 60815 [facility] BACTERIAL 3 Y Y BLOOD [facility] AEROBIC W/ID ISOLATES NONCOVERE A9270 [facility] D ITEM OR 3 Y Y SERVICE [facility] COMPREHEN 35284 [facility] SIVE 3 Y Y METABOLIC [facility] PANEL BLOOD 90704 [facility] COUNT 3 Y Y COMPLETE [facility] AUTO&[place] [address] [facility] INC, INFUSION 3 LICENSED SOCIAL WORKER LICENSED SOCIAL WORKER THERAPY/P PEPE CANTU ROPHYLAXI CO HOS CO HOS S /DX 1ST TO 1 HR INSJ TEMP 96100 [facility], [facility] INC, NDWELLG 3 LICENSED SOCIAL WORKER LICENSED SOCIAL WORKER BLADDER [facility]PE [facility] [address] [facility], [facility] INC, INFUSION 3 LICENSED SOCIAL WORKER LICENSED SOCIAL WORKER HYDRATION [facility]PE [facility] INITIAL CO HOS CO HOS 31 MIN-1 [place] [address] [facility], [facility] INC, INFUSION 3 LICENSED SOCIAL WORKER LICENSED SOCIAL WORKER HYDRATION [facility] EACH CO HOS CO HOS ADDITIONA L HOUR INJECTION J2405 [facility], [facility] INC, 3 LICENSED SOCIAL WORKER LICENSED SOCIAL WORKER ONDANSETR [facility] ON HCL CO HOS CO HOS PER 1 MG ECG 18064 AHMED ADN AHMED ADN ROUTINE 3 ECG W/LEAST 12 LDS I&R ONLY ARTERIAL 81043 [facility] INC, [facility] INC, PUNCTURE 3 LICENSED SOCIAL WORKER LICENSED SOCIAL WORKER WITHDRAWA [facility] L BLOOD CO HOS CO HOS DX RADIOLOGI 73332 [facility], [facility] INC, C 3 LICENSED SOCIAL WORKER LICENSED SOCIAL WORKER EXAMINATI [facility]PE [facility]U ON CHEST CO HOS CO HOS SINGLE VIEW FRONTAL ECG 86790 [facility], [facility] INC, ROUTINE 3 LICENSED SOCIAL WORKER LICENSED SOCIAL WORKER ECG [facility] W/LEAST CO HOS CO HOS 12 LDS TRCG ONLY W/O I&R THER 59656 [facility], [facility] INC, PROPH/DX 3 LICENSED SOCIAL WORKER LICENSED SOCIAL WORKER NJX IV [facility] PUSH CO HOS CO HOS SINGLE/1S T SBST/DRUG INJECTION J0456 [facility], [facility] INC, 3 LICENSED SOCIAL WORKER LICENSED SOCIAL WORKER AZITHROMY [facility] KRISTIN 500 CO HOS CO HOS MG PRESSURIZ 36428 [facility], ED/NONPRE 3 LICENSED SOCIAL WORKER LICENSED SOCIAL WORKER SSURIZED PEPE CANTU INHALATIO CO HOS CO HOS N TREATMENT INJECTION J0696 [facility], [facility], 3 LICENSED SOCIAL WORKER LICENSED SOCIAL WORKER CEFTRIAXO PEPE CANTU NE SODIUM CO HOS CO HOS PER 250 MG NONINVASI 93378 [facility], [facility], VE 3 LICENSED SOCIAL WORKER LICENSED SOCIAL WORKER EAR/PULSE PEPE MORAS OXIMETRY CO HOS CO HOS MULTIPLE DETER ARTERIAL 03941 [facility], [facility], PUNCTURE 3 LICENSED SOCIAL WORKER LICENSED SOCIAL WORKER WITHDRAWA PEPE CANTU L BLOOD CO [facility]OS CO HOS DX RADIOLOGI 27746 [facility], [facility], C EXAM 3 LICENSED SOCIAL WORKER LICENSED SOCIAL WORKER CHEST 2 PEPE PEPE VIEWS CO HOS CO HOS FRONTAL&L ATERAL CT THORAX 50254 [place] 3 ANNIE ANNIE W/[place] [address] [facility], [facility], ANGIOGRAP 3 LICENSED SOCIAL WORKER LICENSED SOCIAL WORKER HY CHEST PEPE PEPE W/CONTRAS CO HOS CO [facility] T/[facility] G0378 [facility], OBSERVATI 3 LICENSED SOCIAL WORKER LICENSED SOCIAL WORKER ON PEPE PEPE SERVICE CO HOS CO HOS PER HOUR LOCM Q9967 [facility], [facility], [phone] LICENSED SOCIAL WORKER LICENSED SOCIAL WORKER MG/ML PEPE CANTU IODINE CO [place] [address] [facility], [facility], INFUSION 3 LICENSED SOCIAL WORKER LICENSED SOCIAL WORKER THERAPY/P PEPE PEPE ROPHYLAXI CO HOS CO HOS S /DX 1ST TO 1 HR DEBRIDEME 50763 LAUSE FED LAUSE FED NT NAIL 3 ANY METHOD 6/> [place] [address] [facility], [facility], HEAD/BRAI 3 LICENSED SOCIAL WORKER LICENSED SOCIAL WORKER N W/O PEPE MORAS CONTRAST CO HOS CO HOS MATERIAL RADIOLOGI 98834 DEVIN BELTRAN C EXAM 3 BETH BETH KNEE COMPLETE 4/MORE VIEWS RADIOLOGI 18343 [facility], [facility], C 3 LICENSED SOCIAL WORKER LICENSED SOCIAL WORKER EXAMINATI PEPE CANTU ON KNEE 3 CO HOS CO HOS VIEWS DISPBL T4535 NURSES NURSES LINER/ISABELLE 3 REGISTRY REGISTRY ELD/GUARD & HOME HE & HOME HE /PAD/UNDG RMNT INCONT EA DISPBL T4535 NURSES NURSES LINER/ISABELLE 3 REGISTRY REGISTRY ELD/GUARD & HOME HE & HOME HE /PAD/UNDG RMNT INCONT EA INJECTION J1885 [facility], [facility], 3 LICENSED SOCIAL WORKER LICENSED SOCIAL WORKER KETOROLAC PEPE CANTU CO HOS CO HOS TROMETHAM INE PER 15 MG RADIOLOGI 57324 JUICE BOSE C EXAM 3 EIDER CLAYTON ARNOLD CHEST 2 VIEWS FRONTAL&L ATERAL PRESSURIZ 47791 [facility], ED/NONPRE 3 LICENSED SOCIAL WORKER LICENSED SOCIAL WORKER SSURIZED PEPE CANTU INHALATIO [place] [address] [facility], [facility], WALL 3 LICENSED SOCIAL WORKER LICENSED SOCIAL WORKER FACILITAT PEPE CANTU E LNG CO HOS CO HOS FUNCJ 1 DEMO&/JONNY L NONINVASI 62336 [facility], [facility], VE 3 LICENSED SOCIAL WORKER LICENSED SOCIAL WORKER EAR/PULSE PEPE CANTU OXIMETRY CO HOS CO HOS MULTIPLE DETER INITIAL 08124 AHMED ADN AHMED ADN OBSERVATI 3 ON CARE/DAY 30 [place] [address] [facility], [facility], INFUSION 3 LICENSED SOCIAL WORKER LICENSED SOCIAL WORKER THERAPY/P PEPE CANTU ROPHYLAXI CO HOS CO HOS S /DX 1ST TO 1 HR RADIOLOGI 53468 JUICE BOSE C EXAM 3 EIDER CLAYTON MENDOZA CLAYTON CHEST 2 VIEWS FRONTAL&L ATERAL DIRECT G0379 [facility], [facility], ADMISSION 3 LICENSED SOCIAL WORKER LICENSED SOCIAL WORKER [facility] G0378 [facility], [facility], OBSERVATI 3 LICENSED SOCIAL WORKER LICENSED SOCIAL WORKER [facility] CO HOS PER HOUR DISPBL T4535 NURSES NURSES LINER/ISABELLE 2 REGISTRY REGISTRY ELD/GUARD & HOME HE & HOME HE /PAD/UNDG RMNT INCONT EA ECG 31217 AHMED ADN AHMED ADN ROUTINE 2 ECG W/LEAST 12 LDS TRCG ONLY W/O I&R DISPBL T4535 NURSES NURSES LINER/ISABELLE 2 REGISTRY REGISTRY ELD/GUARD & HOME HE & HOME HE /PAD/UNDG RMNT INCONT EA DUP-SCAN 04651 NO REBEKAH NO REBEKAH XTR VEINS 2 COMPLETE BILATERAL STUDY DISPBL T4535 NURSES NURSES LINER/ISABELLE 2 REGISTRY REGISTRY ELD/GUARD & HOME HE & HOME HE /PAD/UNDG RMNT INCONT EA DISPBL T4535 NURSES NURSES LINER/ISABELLE 2 REGISTRY REGISTRY ELD/GUARD & HOME HE & HOME HE /PAD/UNDG RMNT INCONT EA URNLS DIP 87578 [facility], 2 LICENSED SOCIAL WORKER LICENSED SOCIAL WORKER STICK/TAB [facility] LET RGNT CO HOS CO [place] [address] [facility], INFUSION 2 LICENSED SOCIAL WORKER LICENSED SOCIAL WORKER THERAPY/P [facility] ROPHYLAXI CO HOS CO HOS S /DX 1ST TO 1 HR BLOOD 60001 [facility], [facility], COUNT 2 LICENSED SOCIAL WORKER LICENSED SOCIAL WORKER COMPLETE [facility] AUTO&AUTO CO HOS CO HOS DIFRNTL WBC NATRIURET 57708 [facility], [facility], IC 2 LICENSED SOCIAL WORKER LICENSED SOCIAL WORKER PEPTIDE [facility] CO HOS CO HOS BASIC 36556 [facility], [facility], METABOLIC 2 LICENSED SOCIAL WORKER LICENSED SOCIAL WORKER PANEL [facility] CALCIUM CO HOS CO HOS TOTAL RADIOLOGI 48379 [facility], [facility], C EXAM 2 LICENSED SOCIAL WORKER LICENSED SOCIAL WORKER CHEST 2 [facility] VIEWS CO HOS CO HOS FRONTAL&L ATERAL ECG 90249 [facility], [facility] ROUTINE 2 LICENSED SOCIAL WORKER LICENSED SOCIAL WORKER ECG [facility] W/LEAST CO HOS CO HOS 12 LDS TRCG ONLY W/O I&R FIBRIN 31754 [facility], [facility], DGRADJ 2 LICENSED SOCIAL WORKER LICENSED SOCIAL WORKER PRODUCTS [facility] D-DIMER CO HOS CO HOS QUANTITAT ADELINA THER 81186 [facility], [facility], PROPH/DX 2 LICENSED SOCIAL WORKER LICENSED SOCIAL WORKER NJX IV PEPE MORAS PUSH CO HOS CO HOS SINGLE/1S T SBST/DRUG RADIOLOGI 76615 [facility] BETH CHEST 2 RADIOLOGY VIEWS ASSOCIAT FRONTAL&[place] [address] [facility], [facility], INFUSION 2 LICENSED SOCIAL WORKER LICENSED SOCIAL WORKER THERAPY/P PEPE MORAS ROPHYLAXI CO HOS CO HOS S /DX 1ST TO 1 [place] [address] [facility], [facility], INFUSION 2 LICENSED SOCIAL WORKER LICENSED SOCIAL WORKER HYDRATION PEPE PEPE EACH [place] [address] [facility], [facility], INFUSION 2 LICENSED SOCIAL WORKER LICENSED SOCIAL WORKER HYDRATION PEPE PEPE INITIAL CO HOS CO HOS 31 MIN-1 [place] [address] [facility] [address] IMAGING IMAGING ATTENUATI L L ON SKULL BASE MID-THIGH COMPREHEN 16504 [facility], [facility], SIVE 2 LICENSED SOCIAL WORKER LICENSED SOCIAL WORKER METABOLIC PEPE MORAS PANEL CO HOS CO HOS BLOOD 88972 [facility], [facility], COUNT 2 LICENSED SOCIAL WORKER LICENSED SOCIAL WORKER COMPLETE PEPE MORAS AUTO&AUTO CO HOS CO HOS DIFRNTL WBC BLOOD 50256 [facility], [facility], COUNT 2 LICENSED SOCIAL WORKER LICENSED SOCIAL WORKER SMEAR [facility]U MCRSCP CO HOS CO HOS W/MNL DIFRNTL WBC COUNT NATRIURET 42756 [facility], [facility], IC 2 LICENSED SOCIAL WORKER LICENSED SOCIAL WORKER PEPTIDE PEPE PEPE CO HOS CO HOS RADIOLOGI 11319 [facility], [facility], C EXAM 2 LICENSED SOCIAL WORKER LICENSED SOCIAL WORKER CHEST 2 PE[facility] PEPE VIEWS CO HOS CO HOS FRONTAL&L ATERAL PROTHROMB 22890 [facility], [facility], IN TIME 2 LICENSED SOCIAL WORKER LICENSED SOCIAL WORKER PEPE PEPE CO HOS CO HOS SEDIMENTA 21193 [facility], [facility] TION RATE 2 LICENSED SOCIAL WORKER LICENSED SOCIAL WORKER RBC PEPE PEPE NON-AUTOM CO HOS CO HOS ATED DUP-SCAN 78149 YUM[facility] CALDERON XTR VEINS 2 [facility] INC UNILATERA L/LIMITED STUDY DISPBL T4535 NURSES NURSES LINER/ISABELLE 2 REGISTRY REGISTRY ELD/GUARD & HOME HE & HOME HE /PAD/UNDG RMNT INCONT EA DISPBL T4535 NURSES NURSES LINER/ISABELLE 2 REGISTRY REGISTRY ELD/GUARD & HOME HE & HOME HE /PAD/[place] [address] [facility] [address] IMAGING IMAGING ATTENUATI L L [place] [address] NEW NEW SURG 1 [facility] PATHOLOGY CLINIC [facility] PSC GROSS&PHI ROSCOPIC EXAM DECALCIFI 03128 NEW NEW CATION 1 [facility] PROCEDURE CLINIC CLINIC PSC PSC BONE 88757 [facility] [place] CELESTINO INTERPRET PSC ATION RADEX 34266 [facility] ANKLE 1 [facility] COMPLETE MINIMUM 3 VIEWS COMPREHEN 01647 [facility] SIVE 1 [facility] METABOLIC PANEL COLLECTIO 73047 [facility] N VENOUS 1 [facility] BLOOD VENIPUNCT URE BLOOD 38841 [facility] COUNT 1 [facility] COMPLETE AUTO&AUTO DIFRNTL WBC LACTATE 21790 [facility] DEHYDROGE 1 [facility] [address] [facility] BLOOD/URI 1 [facility] C ACID COLLECTIO 03665 [facility] N VENOUS 1 [facility] BLOOD VENIPUNCT URE FLOW 27942 [facility] CYTOMETRY [address] [place] [address] CELL SURF MARKER TECHL ONLY EA FLOW 09592 [facility] CYTOMETRY 1 [facility] CELL SURF MARKER TECHL ONLY 1ST CHRMSM 48868 [facility] COUNT 1 [facility] 15-20 CLL 2KARYOTYP BANDING CHRMSM 20891 [facility] ANALYSIS 1 [facility] ADDL KARYOTYP EACH STUDY FLOW 01557 [facility] CYTOMETRY [address] [place] [address] INTERPRET ATION 16/> MARKERS DISPBL T4535 NURSES NURSES LINER/ISABELLE 1 REGISTRY REGISTRY ELD/GUARD & HOME HE & HOME HE /PAD/UNDG RMNT INCONT EA DISPBL T4535 NURSES NURSES LINER/ISABELLE 1 REGISTRY REGISTRY ELD/GUARD & HOME HE & HOME HE /PAD/UNDG RMNT INCONT EA DESTRUCTI 24796 [facility] ANGELO FONG ON 1 [facility] CLINIC LESION 1ST RADEX 15634 [facility] ELBOW 1 CO CO COMPLETE [facility] MINIMUM 3 VIEWS RADIOLOGI 63455 [facility] C 1 CO CO EXAMINATI [facility] ON TIBIA & FIBULA 2 VIEWS RADEX 00478 [facility] FOREARM 2 1 CO CO VIEWS [facility] DUPLEX 28433 [facility] SCAN 1 [facility] EXTRACRAN RADIOLOGY IAL ART ASSOCIAT COMPL BI STUDY BLOOD 77270 [facility] ISABELA PAT SMEAR 1 JARED & PERIPHERA DUBILIER L INTERP PHYS W/[place] [address] [facility] HEAD/BRAI 1 BETH N W/O RADIOLOGY CONTRAST ASSOCIAT MATERIAL RADEX 83550 [facility] ABDOMEN 1 BETH COMPL RADIOLOGY W/DCBTS&/ ASSOCIAT ERC VIEWS ECG 86925 [facility] ROUTINE 1 CO CO ECG [facility] W/LEAST 12 LDS TRCG ONLY W/O I&R DEMO&/JONNY 88703 PE[facility] Velazquez OF PT 1 CO CO UTILIZ [facility] AERSL GEN/NEB/I NHLR/IP ANTIBODY 98707 [facility] INFLUENZA 1 CO CO VIRUS [facility] HOSPITAL RADIOLOGI 62244 [facility] C EXAM 1 BETH CHEST 2 RADIOLOGY VIEWS ASSOCIAT FRONTAL&L ATERAL PRESSURIZ 64704 [facility] ED/NONPRE 1 CO CO SSURIZED [facility] INHALATIO N TREATMENT COLLECTIO 48686 PE[facility] Falcon VENOUS 1 CO CO BLOOD [facility] VENIPUNCT URE BLOOD 37713 [facility] COUNT 1 [facility]ITAL MCRSCP W/MNL DIFRNTL WBC COUNT BASIC 29132 [facility] METABOLIC 1 CO CO PANEL HOSPITAL HOSPITAL CALCIUM TOTAL BLOOD 11138 COMBINED COMBINED COUNT 1 PHYSICIAN PHYSICIAN COMPLETE S LA S LA AUTO&AUTO DIFRNTL WBC LIPID 03342 COMBINED COMBINED PANEL 1 PHYSICIAN PHYSICIAN S LA S LA COMPREHEN 58345 COMBINED COMBINED SIVE 1 PHYSICIAN PHYSICIAN [place] [address] COMBINED COMBINED THYROID 1 PHYSICIAN PHYSICIAN STIMULATI S LA S LA NG HORMONE TSH PROTHROMB 95634 COMBINED COMBINED IN TIME 1 PHYSICIAN PHYSICIAN S LA S LA RADIOLOGI 99219 [facility] C EXAM 1 CO CO CHEST 2 [facility] HOSPITAL VIEWS FRONTAL&L ATERAL RADEX 06752 [facility] RIBS UNI 1 CO CO W/POSTERO HOSPITAL HOSPITAL ANT CH MINIMUM 3 VIEWS RADEX 73863 [facility] RIBS [facility] L 2 [place] [address] [facility] TRANSVAGI 1 [facility] [place] SCREEN Q0091 [facility] PAP 1 [facility] SMEAR; [facility]IN[facility] OF [facility] [place] PREP &C ONVEY TO LAB CERV/VAGI G0101 [facility] NAL 1 [facility] CANCER [facility] OF SCR; [place] PELV&CLIN BREAST EXAM SCR G0145 PATHOLOGY PATHOLOGY CYTOPATH 1 & & CERV/VAG CYTOLOGY CYTOLOGY SCR LAB LAB AUTO&MNL RSCR PHYS RADIOLOGI 69202 [facility] C EXAM 1 ANNIE CHEST 2 RADIOLOGY VIEWS ASSOCIAT FRONTAL&L ATERAL CULTURE 49626 [facility] BACTERIAL 0 CO CO HOSPITAL HOSPITAL QUANTTATI VE COLONY COUNT URINE CT PELVIS 87253 [facility] W/O 0 CO [place] [address] [facility] ABDOMEN 0 CO CO W/O HOSP[place] [address] PATHOLOGY PATHOLOGY SURG 0 & & PATHOLOGY CYTOLOGY CYTOLOGY LAB LAB GROSS&PHI ROSCOPIC EXAM EXCISION 54295 C GEOVANNI STEVENS MAL 0 HILDA CLALAWAY MD PSC TRUNK/ARM /LEG 2.1-3.0 [place] [address] COMBINED COMBINED THYROID 0 PHYSICIAN PHYSICIAN STIMULATI S LA S LA NG HORMONE TSH COMPREHEN 24045 COMBINED COMBINED SIVE 0 PHYSICIAN PHYSICIAN METABOLIC S LA S LA PANEL COLLECTIO 40367 COMBINED COMBINED N VENOUS 0 PHYSICIAN PHYSICIAN BLOOD S LA S LA VENIPUNCT URE LIPID 28526 COMBINED COMBINED PANEL 0 PHYSICIAN PHYSICIAN S LA S LA BLOOD 39739 COMBINED COMBINED COUNT 0 PHYSICIAN PHYSICIAN COMPLETE S LA S LA AUTO&[place] [address] [facility], [facility] MARI[facility] C W/O RADIOLOGY CONTRAST MATERIAL ASSOCIATE S PSC CT PELVIS 15111 [facility], W/O 0 MARIAA C CONTRAST RADIOLOGY MATERIAL ASSOCIATE S PSC BLOOD 52203 COMBINED COMBINED COUNT 0 PHYSICIAN PHYSICIAN COMPLETE S LAB S LAB AUTO&AUTO DIFRNTL WBC LIPID 62819 COMBINED COMBINED PANEL 0 PHYSICIAN PHYSICIAN S LAB S LAB COMPREHEN 44700 COMBINED COMBINED SIVE 0 PHYSICIAN PHYSICIAN METABOLIC S LAB S LAB PANEL DUP-SCAN 73764 [facility] XTR VEINS 0 [facility] [place] [address] PATHOLOGY PATHOLOGY SURG 0 & & PATHOLOGY CYTOLOGY CYTOLOGY LAB LAB GROSS&PHI ROSCOPIC EXAM COLONOSCO 07315 [place], PY 0 MEDICAL DEISY W/BIOPSY SERV SINGLE/[place] [address] [facility] Y[facility] INFUSION 0 [facility] THERAPY/P INC INC ROPHYLAXI S /DX 1ST TO 1 [place] [address] DERMATOPA DERMATOPA SURG 0 THOLOGY THOLOGY PATHOLOGY ALLINACE ALLINACE OF OF GROSS&PHI ROSCOPIC EXAM COMPUTER- 71888 [place] [facility], AIDED 0 MEDICAL ROBERTO CARLOS DETECTION IMAGING ASSOCIATE SCREENING S MAMMOGRAP HY SCREENING 87935 [place] [facility], 0 MEDICAL ROBERTO CARLOS MAMMOGRAP IMAGING HY ASSOCIATE BILATERAL S CULTURE 96138 [facility] BACTERIAL 0 CO [facility]PITAL HOSPITAL QUANTTATI VE COLONY COUNT URINE COMPREHEN 72380 [facility] THORNEE 0 [facility] PANEL LIPID 33077 [facility] PANEL 0 [facility] LIPOPROTE 54259 [facility] IN DIRECT 0 [facility] MEASUREME NT LDL CHOLESTER OL BLOOD 85614 [facility] COUNT 9 [facility] COMPLETE [facility]PITAL AUTO&AUTO DIFRNTL WBC LIPID 33831 [facility] PANEL 9 [facility] COMPREHEN 29198 [facility] SIVE 9 [facility] PANEL COLLECTIO 41552 [facility], N VENOUS 9 [facility] BLOOD INTERNAL VENIPUNCT MED URE URNLS DIP 46658 [facility], 9 [facility] STICK/TAB INTERNAL LET RGNT MED NON-AUTO W/O MICRSCP PHYS G0179 [facility] MCKEMIE RE-CERT 9 [facility], MCR-COVR INTERNAL [facility] MED SRVC RE-CERT PRD 3D 81463 DENI, DENI, RENDERING 9 ROBERTO CARLOS ROBERTO CARLOS W/INTERP & POST[place] MRI 31366 DENI, DENI, SPINAL 9 ROBERTO CARLOS ROBERTO CARLOS CANAL CERVICAL W/O CONTRAST MATRL ECG 74879 [facility], ROUTINE 9 [facility] A ECG INTERNAL W/LEAST MED 12 LDS W/I&R PHYS G0179 [facility] MCKEMIE RE-CERT 9 [facility], MCR-COVR INTERNAL [facility] MED SRVC RE-CERT PRD OPHTH 05106 JOSIAH RAHMAN, MEDICAL 9 DORIAN A DORIAN A XM&EVAL COMPRHNSV ESTAB PT 1/> DESTRUCTI 63856 [facility], ON 9 [facility] PREMALIGN INTERNAL ANT MED LESION 1ST PRESSURIZ 82801 [facility] ED/NONPRE 8 [facility] INHALATIO N TREATMENT RADIOLOGI 69335 [facility] Prince EXAM 8 CO CO CHEST 2 [facility] VIEWS FRONTAL&L ATERAL COLLECTIO 93904 [facility] N VENOUS 8 CO CO BLOOD [facility] VENIPUNCT URE BLOOD 36472 [facility] CATNU COUNT 8 CO CO COMPLETE [facility] AUTO&AUTO DIFRNTL WBC BLOOD 04110 [facility] COUNT 8 CO CO SMEAR [facility] MCRSCP W/MNL DIFRNTL WBC COUNT DEMO&/JONNY 43971 [facility] L OF PT 8 CO CO UTILIZ [facility] AERSL GEN/NEB/I NHLR/IP IIV3 08152 [facility] BESNIXON, VACCINE [address] [place] [address] SPLIT INTERNAL VIRUS 0.5 MED ML DOSAGE IM USE ADMINISTR G0008 [facility] GARRISON, ATION OF [address] [place] [address] INFLUENZA INTERNAL VIRUS [facility] 52474 [facility] GYPSY, DISCHARGE [address] [place] [address] INTERNAL MANAGEMEN MED T 30 MIN/< SBSQ [address] [address] CARE/DAY INTERNAL 25 MED MINUTES SBSQ [address] CARE/DAY INTERNAL 25 MED MINUTES INITIAL [address] CARE/DAY INTERNAL DARYN 50 MED MINUTES RADIOLOGI 06443 Niki MARIEE EXAM 8 AYANA S CHEST 2 RADIOLOGY VIEWS FRONTAL&L ASSOCIATE ATERAL S PSC RADEX ABD 69942 [facility]ONSHARJINDER [place], COMPL 8 AYANA S AQT ABD RADIOLOGY W/S/E/D VIEWS 1 ASSOCIATE VIEW CH S PSC PHYS CERT G0180 [facility] BRANDINIXON MCR-COVR 8 [facility] INTERNAL SRVC PER MED CERT PRD IM ADM 92505 LIC MENDEZ PRQ ID 8 LOIDA PLATA, SUBQ/IM INTERNAL DARYN Boucher NJXS 1 MED VACCINE INJECTION J3301 [facility] [address], TRIAMCINO INTERNAL DARYN Boucher LONE MED ACETONIDE NOS 10 MG RADIOLOGI 14910 Niki MARIEE EXAM 8 AYANA S CHEST 2 RADIOLOGY VIEWS FRONTAL&L ASSOCIATE ATERAL S PSC BLOOD 03790 [facility] COUNT 8 CO TN SMEAR [facility] MCRSCP W/MNL DIFRNTL WBC COUNT BLOOD 83949 [facility] COUNT 8 CO TN COMPLETE [facility] AUTO&AUTO DIFRNTL WBC COLLECTIO 85630 [facility] N VENOUS 8 CO [facility] VENIPUNCT URE COMPREHEN 21416 [facility] SIVE 8 [facility] PANEL THER 25245 [facility] PROPH/DX 8 [facility] NJX [facility] SUBQ/IM Encounters Encounter Start End Date Code Location Performer Type Date OFFICE 29860 [facility] MARLINE OUTPATIEN 7 7 PHYSICIAN T VISIT S GROUP 15 MINUTES HOSPITAL Y[facility] - 7 7 [facility] INPATIENT INC EMERGENCY 33400 [facility] DEPT 7 7 PHYSICIAN VISIT S, [facility] HIGH SEVERITY& THREAT [facility] - 7 7 [facility] OFFICE 93928 [facility] OUTPATIEN 7 7 MEDICAL T VISIT SERV 15 FOUNDATIO MINUTES N OFFICE 94365 [facility] T VISIT URGENT 25 TREAT MINUTES OFFICE 23987 [facility] 6 6 [facility] T VISIT URGENT 15 TREAT MINUTES OFFICE 59889 [facility] OUTPATIEN 6 6 COUNTY T VISIT URGENT 25 TREAT MINUTES OFFICE 68092 [facility] 6 6 COUNTY NAN T VISIT URGENT 25 TREAT MINUTES HOSPITAL UNIVERSIT - 6 6 Y OUTPATI HOSPITAL T OFFICE 82768 [facility] OUTPATIEN 6 6 MEDICAL N RONN T VISIT SERV 15 FOUNDATIO MINUTES N [facility] [place] - 6 6 [facility] T OFFICE 29264 [facility] 6 6 PHYSICIAN LES T NEW 30 PRACTICE MINUTES L OFFICE 83504 AM[facility]IA PLUNKETT [facility] 6 6 MEDICAL N RONN T VISIT SERV 10 FOUNDATIO MINUTES N OFFICE 25123 [facility] OUTPATIEN 6 6 [facility] T VISIT URGENT 25 TREAT MINUTES HOSPITAL YUMIKO - 6 6 [facility] INPATIENT [facility] 18264 [facility] DEPT 5 5 [facility] HIGH SEVERITY& THREAT [facility] - 5 5 [facility] EMERGENCY 30517 [facility] DEPT 5 5 [facility] THO VISIT EMERGENCY HIGH PHYSI SEVERITY& THREAT [facility] - 5 5 [facility] EMERGENCY 91917 [facility] 5 [facility] VIS[facility] HIGH/URGE NT SEVERITY [facility]OSP[facility] - 5 5 [facility] YUMIKO - 5 5 [facility] OUTPATIEN [facility], 5 5 HOME INPATIENT HEALTH AGENCY [facility], 5 5 HOME INPATIENT HEALTH AGENCY OFFICE 35758 ROSA ELENA LLANES [facility] 5 5 CLINIC [facility] T VISIT 15 MINUTES HOSPITAL YUMIKO - 4 4 [facility] OUTPATIEN [facility] YUMIKO - 4 4 [facility] - 4 4 [facility] YUM[facility] - 4 4 [facility] OFFICE 88953 [facility] 4 4 PHYSICIAN T NEW 45 S GROUP MINUTES HOSPITAL UNIVERSIT - 4 4 Y [facility] T HOME NURSES HEALTH, 4 4 REGISTRY INPATIENT HOME [facility], 4 4 REGISTRY INPATIENT HOME [facility] [place] - 4 4 COMM[facility]ITY [facility] T CRITICAL [facility], ACCESS 4 4 LICENSED SOCIAL WORKER [facility] EMERGENCY 25855 [facility], 4 4 LICENSED SOCIAL WORKER DEPARTMEN [facility] T VISIT CO HOS HIGH/URGE NT SEVERITY HOME NURSES HEALTH, 4 4 REGISTRY INPATIENT HOME [facility], 4 4 REGISTRY INPATIENT & HOME HE HOME NURSES HEALTH, 4 4 REGISTRY INPATIENT & HOME HE CRITICAL [facility], ACCESS 4 4 [facility]ICAL [facility], ACCESS 4 4 [facility] EMERGENCY 21386 [facility], 4 4 LICENSED SOCIAL WORKER DEPARTMEN [facility] T VISIT CO HOS HIGH/URGE NT SEVERITY HOME NURSES HEALTH, 4 4 REGISTRY INPATIENT & HOME HOSPITAL UNIVERS[facility] - 4 4 Y [facility] T OFFICE 95100 FLEISCHMA FLEISCHMA OUTPATIEN 4 4 N RONN N RONN T VISIT 15 MINUTES HOME NURSES HEALTH, 3 3 REGISTRY INPATIENT & HOME HE HOME NURSES HEALTH, 3 3 REGISTRY OUTPATIEN & HOME HE T HOME NURSES HEALTH, 3 3 REGISTRY OUTPATIEN & HOME HE T OFFICE 86713 [facility]IS[facility] OUTPATIEN 3 3 N RONN N RONN T NEW 45 MINUTES HOSPITAL UNIVERSIT - 3 3 Y [facility] T EMERGENCY 89637 VENKAT ROBLEDO 3 3 ANGELICA DOMINGUEZ DEPARTMEN T VISIT MODERATE SEVERITY EMERGENCY 31132 [facility], 3 3 LICENSED SOCIAL WORKER DEPARTMEN [facility] T VISIT CO HOS HIGH/URGE NT SEVERITY CRITICAL [facility], ACCESS 3 3 LICENSED SOCIAL WORKER [facility] CR[facility]ICAL [facility], ACCESS 3 3 LICENSED SOCIAL WORKER [facility]PITAL UNIVERSIT - 3 3 Y [facility] T EMERGENCY 74774 [facility], 3 3 LICENSED SOCIAL WORKER DEPARTMEN EPPE T VISIT CO HOS HIGH/URGE NT SEVERITY CR[facility]ICAL [facility], ACCESS 3 3 LICENSED SOCIAL [facility] EMERGENCY 14627 [facility], DEPT 3 3 LICENSED SOCIAL WORKER VISIT [facility] HIGH CO HOS SEVERITY& THREAT FUNCJ CRITICAL [facility], ACCESS 3 3 LICENSED SOCIAL WORKER [facility] CR[facility]ICAL [facility], ACCESS 3 3 LICENSED SOCIAL WORKER [facility] HOME NURSES HEALTH, 3 3 REGISTRY OUTPATIEN & HOME HE T EMERGENCY 52938 [facility], 3 3 LICENSED SOCIAL WORKER DEPARTMEN [facility] T VISIT CO HOS LOW/MODER SEVERITY CRITICAL [facility], ACCESS 3 3 [facility] 52569 RANDA RANDA 3 3 HEN HEN DEPARTMEN T VISIT MODERATE SEVERITY HOSPITAL [facility], - 3 3 LICENSED SOCIAL WORKER INPATIENT [facility], ACCESS 3 3 [facility] 02279 [facility], 3 3 LICENSED SOCIAL WORKER DEPARTMEN [facility] HIGH/URGE NT SEVERITY HOME NURSES HEALTH, 2 2 REGISTRY OUTPATIEN & HOME HE T HOME NURSES HEALTH, 2 2 REGISTRY OUTPATIEN & HOME HE T OFFICE 53540 NO REBEKAH NO REBEKAH OUTPATIEN 2 2 T NEW 45 MINUTES CLINIC, [facility] 2 2 [facility] HE[facility] OFFICE 85736 [facility] OUT[facility]IEN 2 2 COUNTY T VISIT [facility] 15 HEALTH MINUTES HOME NURSES HEALTH, 2 2 REGISTRY OUTPATIEN & HOME HE T HOME NURSES HEALTH, 2 2 REGISTRY OUTPATIEN & HOME HE T CRITICAL [facility], ACCESS 2 2 [facility] CO HOS EMERGENCY 40294 [facility], 2 2 LICENSED SOCIAL WORKER DEPARTMEN [facility] T VISIT CO HOS HIGH/URGE NT SEVERITY OFFICE 78800 AHMED ADN AHMED ADN OUTPATIEN 2 2 T VISIT 15 MINUTES HOSPITAL [facility], - 2 2 LICENSED SOCIAL WORKER OUTPATIEN [facility] OFFICE 78897 AHMED ADN AHMED ADN OUTPATIEN 2 2 T VISIT 15 MINUTES OFFICE 32857 LAUSE FED LAUSE FED OUTPATIEN 2 2 T NEW 20 MINUTES OFFICE 83045 [facility] OUTPATIEN 2 2 RURAL T VISIT HEALTH 25 CLINIC MINUTES CLINIC, [facility] RURAL 2 2 [facility] CL[facility] OFFICE 58338 [facility] OUTPATIEN 2 2 RURAL T VISIT HEALTH 25 CLINIC MINUTES CRITICAL [facility], ACCESS 2 2 LICENSED [facility]IAL WORKER [facility] CO HOS OFFICE 26300 [facility] OUTPATIEN 2 2 RURAL T VISIT HEALTH 25 CLINIC MINUTES CLINIC, [facility] 2 2 [facility] 89466 [facility] OUTPATIEN 2 2 RURAL T VISIT HEALTH 25 CLINIC MINUTES CLINIC, [facility] RURAL 2 2 [facility] CLINIC HOME NURSES HEALTH, 2 2 REGISTRY OUTPATIEN & HOME HE T OFFICE 41803 ANGELO FONG OUTPATIEN 2 2 T VISIT 15 MINUTES CLINIC, [facility] 2 2 [facility] OFFICE 68059 [facility] VISIT [facility] 25 HEALTH MINUTES [facility] 1 1 [facility] OFFICE 09499 [facility] 1 1 [facility] T VISIT [facility]URAL 15 HEALTH MINUTES HOME NURSES HEALTH, 1 1 REGISTRY OUTPATIEN & HOME HE T HOME NURSES HEALTH, 1 1 REGISTRY OUTPATIEN & HOME HE T OFFICE 88666 [facility] T VISIT HEALTH 15 CLINIC MINUTES CLINIC, [facility] 1 1 [facility] OFFICE 20386 [facility] 1 [facility] T VISIT HEALTH 15 CLINIC MINUTES CLINIC, [facility] 1 1 [facility] OFFICE 95510 [facility] ANGELO FONG OUTPATIEN 1 1 RURAL T VISIT HEALTH 25 CLINIC MINUTES CR[facility]ICAL [facility] 1 [facility] 64719 [facility] DEPT 1 1 [facility] VISIT HOSPITAL HIGH [facility]VERITY& THREAT [facility] - 1 1 [facility] EMERGENCY 07824 [facility] 1 1 [facility] T [facility]ISIT LIMITED/M INOR PROB CRITICAL [facility] 1 1 [facility] 20777 [facility] 1 1 [facility] T VISIT CLINIC OF [address] [place] [address] [facility] - 1 1 [facility] CR[facility]ICAL [facility] 0 [facility] [facility] OFFICE [id number] C GEOVANNI STEVENS OUTPATIEN 0 0 HILDA Gay MD [facility] [id number] [facility] OUTPATI[facility] 0 0 [facility] T VISIT 5 [facility] CRIT[facility]ESS 0 0 [facility] YUMIKO - [facility] 0 [facility] YUMIKO [facility] 0 0 [facility] 52269 [facility] 0 0 [facility] T VISIT INTERNAL 15 MED MINUTES OFFICE 29859 [facility] 0 0 [facility] VISIT INTERNAL 25 MED MINUTES CR[facility]ICAL [facility] ACC[facility] 0 0 [facility] 17820 [facility] OUTPATIEN 9 9 [facility] VISIT INTERNAL 15 MED MINUTES OFFICE 37005 [facility] OUTPATIEN 9 9 [facility] VIS[facility] INTERNAL 15 MED MINUTES [facility] 9 9 [facility] 34132 [facility], OUTPATIEN 9 9 [facility] A T VISIT INTERNAL 25 MED MINUTES OFFICE 85927 [facility] OUTPATIEN 9 9 [facility] T VISIT INTERNAL 15 MED MINUTES OFFICE 76067 [facility], OUTPATIEN 9 9 [facility] T VISIT INTERNAL 25 MED MINUTES CR[facility] 8 [facility] EM[facility]GENC[facility] 07175 PE[facility] 8 8 [facility] T VISIT LOW/MODER SEVERITY EMERGENCY 77418 [facility] ROBLEDO, 8 8 [facility] T VISIT MODERATE SEVERITY OFFICE 00004 [facility], OUTPATIEN 8 8 [facility] T VISIT INTERNAL 15 MED MINUTES OFFICE 51515 [facility], OUTPATIEN 8 8 [place] [place] T VISIT INTERNAL 10 MED MINUTES OFFICE 51268 [facility] OUTPATI[facility] 8 8 [facility] T VISIT INTERNAL 15 MED MINUTES CRITICAL [facility] ARORA 8 8 [facility] 06727 ERIN WILLSON 8 8 MEDICAL DARYN HERNANDEZ SERV E NEW/[facility]AB [facility] PATIENT 40 MIN OFFICE 31944 [facility] EUGENE 8 8 [facility] VISIT 5 [facility] MINUTES OFFICE 76801 [place] OUTPATIEN 8 8 [facility] [place] [facility] T VISIT INTERNAL 15 MED MINUTES [facility] - 8 8 [facility] 34662 HAZEL HAZEL OUTPATIEN 8 8 MARIAA PLATA JR, JOHN T VISIT P P 15 MINUTES OFFICE 32715 [facility] ANGELESKEMIPadma VALORIE 8 8 Cameron MARISCAL JR VISIT INTERNAL DARYN F 15 MED MINUTES EMERGENCY 28607 [facility]PE 8 8 [facility] T VISIT LIMITED/M INOR PROB CRITICAL [facility] ACCESS 8 8 [facility] 28792 VALORIE VILLALTA 8 8 LOIDA Barnes VISIT INTERNAL 15 MED MINUTES OFFICE 24536 HAZEL EUGENE 8 8 MARIAA PLATA JR, JOHN T VISIT P P 10 MINUTES OFFICE 49996 NEGRITA EUGENE 8 8 Cameron MARISCAL JR VISIT INTERNAL DARYN F 25 MED MINUTES OFFICE 62334 HAZEL EUGENE 8 8 MARIAA PLATA JR, JOHN T VISIT P P 15 MINUTES
--- OUTSIDE RECORDS SUMMARY | 2016-12-13 19:15 | External Medical Summary Rpt ---
Author Author , JESSICA Organization JESSICA Address Unknown Phone [email or web address] Care Team Providers Care Housing Inspectors Name Role Phone NO REBEKAH, NO REBEKAH Unavailable Unavailable AHMED ADN, AHMED ADN Unavailable Unavailable AHMED ADN, AHMED ADN Unavailable Unavailable ILYA LES, ILYA Unavailable Unavailable LES ATKINS COL, ATKINS Unavailable Unavailable COL ATKINS COL, ATKINS Unavailable Unavailable COL BESSON, BESSON Unavailable Unavailable BESSON ROLO, BESSON Unavailable Unavailable ROLO BESSON ROLO, BESSON Unavailable Unavailable ROLO BESSON, MARY A, Unavailable Unavailable BESSON, MARY A [facility] Unavailable Unavailable IMAGING L, [facility] MONIQUE, MONIQUE Unavailable Unavailable MONIQUE ALL, MONIQUE ALL Unavailable Unavailable [facility] Unavailable Unavailable HOSPITAL, [facility] Unavailable Unavailable PRACTICE L, [facility] RICCI PHI, RICCI Unavailable [...] FAMILIA, MENDOSA FAMILIA Unavailable Unavailable ISABELA PAT, IASBELA PAT Unavailable Unavailable DENI BRADLEY, Unavailable Unavailable [...] Unavailable Unavailable SAMIR K, DARIO, SAMIR K [facility] Unavailable Unavailable INC, [facility] Unavailable Unavailable HOSPITAL P, [facility] [place] ANNIE, CLIFTON Unavailable Unavailable ANNIE CLIFTON ANNIE, CLIFTON Unavailable Unavailable ANNIE ETIENNE, AYANA S, Unavailable Unavailable CLIFTON, AYANA S GYPSY, GYPSY CORRIGAN, Unavailable Unavailable DORIAN GIMENEZ, Unavailable Unavailable DORIAN RAHMAN [facility], Unavailable Unavailable [facility] YOUSIF DODD Unavailable Unavailable BETINA, BETINA Unavailable Unavailable BETINA EULOGIO, BETINA Unavailable Unavailable NAN [facility] Unavailable Unavailable CLINIC, [facility] Unavailable Unavailable IMAGING [facility], [facility] YG CRY, YG Unavailable Unavailable [facility] Unavailable Un[facility], [facility] [place] Unavailable Unavailable [facility], [facility] Unavailable Unavailable [facility], [facility] LAUSE FED, LAUSE FED Unavailable Unavailable [facility] FED, [facility] FED Unavailable Unavailable ETHEL JR DWI, ETHEL Unavailable Unavailable JR DWI [facility] Un[facility] Unavailable [facility], [facility] VENKAT GRAY Unavailable Unavailable FLAQUITA AMADO, Unavailable Unavailable FLAQUITA ROBLEDO LUKINS BRADLEY, LUKINS Unavailable Unavailable BRADLEY LUKINS BRADLEY, LUKINS Unavailable Unavailable [facility]AD[facility] Unavailable Unavailable ASSOCIAT, [facility] DARYN CEBALLOS, Unavailable Unavailable DARYN CEBALLOS JR, WILLIAM Unavailable Unavailable MENDEZ Boucher JR, WILLIAM F MERHAR GAR, MERHAR Unavailable Unavailable GAR MERHAR GAR, MERHAR Unavailable Unavailable [facility] Unavailable Un[facility], [facility]IC HOWARD, MUSIC HOW[facility] Unavailable Unavailable [facility] Unavailable Unavailable PSC, [facility], Unavailable [facility]available [facility] Unavailable Unavailable HEALTH, [facility] Unavailable Unavailable URGENT TREAT, [facility] NURSES REGISTRY & Unavailable [...] OLIVA JR, Unavailable Unavailable MARIAA OLIVA JR [facility] Unavailable Unavailable HOSPITALS, [facility], Unavailable Unavailable [facility] Unavailable Unavailable AGENCY, [facility], [facility] Un[facility] [place], [facility] ABDALLA, MAGALIE MAT Unavailable Unavailable Purpose Continuity of Care Document - 05-27-2007 through 2016 Problems Code Diagnosis DOS Provider Status J449 CHRONIC 09-02-2016 [facility] HOME PULMONARY MEDICAL DISEASE UNS EQUIPME I10 ESSENTIAL 07-12-2016 [facility] PRIMARY PHYSICIANS HYPERTENSIO GROUP N J441 CHRONIC 07-12-2016 [facility] OBSTRUCTIVE PHYSICIANS PULMONARY GROUP DZ W/EXACERBAT ION R062 WHEEZING 07-12-2016 [facility] E876 HYPOKALEMIA 07-05-2016 [facility] I509 HEART 07-05-2016 [facility] FAILURE PHYSICIANS UNSPECIFIED GROUP J189 PNEUMONIA 07-05-2016 [facility] UNSPECIFIED PHYSICIANS ORGANISM GROUP E785 HYPERLIPIDE 07-04-2016 [facility] CECILIA PHYSICIANS UNSPECIFIED GROUP I5031 ACUTE 07-03-2016 [facility] HEART FAILURE R05 COUGH 07-03-2016 [facility] R0602 SHORTNESS 07-03-2016 [place] [facility] R918 OTHER 07-03-2016 [place] NONSPECIFIC MEDICAL ABNORMAL IMAGING ASS FINDING OF LUNG FIELD Z8249 FAMILY HX 07-03-2016 [facility] ISCHEMIC PHYSICIANS HRT DZ OTH GROUP DZ CIRC SYSTEM Z8673 PERSONAL HX 07-03-2016 [facility] CEREB INC INFARCT NO RESID DEFICIT Z8709 PERSONAL 07-03-2016 [facility] OT PHYSICIANS, DISEASES PLLC RESPIRATORY SYSTEM C8510 UNSPECIFIED 06-20-2016 [facility] UNSPECIFIED SITE D479 NEOPLASM 06-20-2016 [facility] HP FOUNDATION & REL TISSUE UNS Y58266 LYMPHOCYTOS 06-20-2016 [facility] MEDICAL IS SERV SYMPTOMATIC FOUNDATION B76271 EPIPHORA 04-11-2016 [facility] DUE TO COUNTY EXCESS URGENT LACRIMATION TREAT LT LACR GLAND J208 ACUTE 04-11-2016 [facility] BRONCHITIS [facility] DUE TO URGENT OTHER SPEC TREAT ORGANISMS L84 CORNS AND 03-25-2016 [facility] CALLOSITIES [facility] URGENT TREAT Q845 ENLARGED 03-25-2016 [facility] AND [facility] HYPERTROPHI URGENT C NAILS TREAT J168 PNEUMONIA 03-11-2016 [facility] DUE TO COUNTY OTHER SPEC URGENT INFECTIOUS TREAT ORGANISMS Q04109 CELLULITIS 03-11-2016 [facility] OF LEFT [facility] LOWER LIMB URGENT TREAT M7989 OTHER 03-11-2016 [facility] SPECIFIED [facility] SOFT TISSUE URGENT DISORDERS TREAT N3946 MIXED 03-11-2016 [facility] INCONTINENC COUNTY E URGENT TREAT R112 NAUSEA WITH 03-11-2016 [facility] VOMITING [facility] UNSPECIFIED URGENT TREAT R5081 FEVER 03-11-2016 [facility] PRESENTING COUNTY W/COND URGENT CLASSIFIED TREAT ELSEWHERE H6501 ACUTE 02-02-2016 [facility] SEROUS [facility] OTITIS URGENT MEDIA RIGHT TREAT EAR J301 ALLERGIC 02-02-2016 [facility] RHINITIS [facility] DUE TO URGENT POLLEN TREAT [id number] ABRASION 02-02-2016 [facility] LEFT LOWER [facility] LEG INITIAL URGENT ENCOUNTER TREAT C8588 OTH TYPES 12-14-2015 [facility] L[facility]MP[facility] NODES MX SITES R42 DIZZINESS 07-06-2015 FAMILIA MENDOSA AND MD [facility] CONSULTING SRV E878 OTHER D/O 07-05-2015 [facility] AND FLUID BALANCE NEC H903 SENSORINEUR 06-28-2015 [facility]IAN LOSS PRACTICE L BILATERAL C8300 SMALL CELL 06-15-2015 [facility] UNSPECIFIED SITE E780 PURE 05-07-2015 [facility] HYPERCHOLES [facility] 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 Z7902 HOME HEALTH CAREGIVER 05-07-2015 [facility] CURR USE [facility] ANTITHROMBO HOSPITAL TICS/ANTIPL ATELETS Z7982 SNF 05-07-2015 [facility] CURRENT USE [facility] [id number] OTHER LONG 05-07-2015 [facility] DRUG THERAPY Z809 FAMILY 05-07-2015 [facility] HISTORY OF [facility]NT HOSPITAL NEOPLASM UNSPECIFIED R531 WEAKNESS 04-29-2015 [facility] [place] [facility] R5381 OTHER 04-29-2015 [facility] MALAISE [facility] R5383 OTHER 04-29-2015 [facility] FATIGUE [facility] J209 ACUTE 04-23-2015 [facility] UNSPECIFIED HOSPITAL P J440 COPD WITH 04-23-2015 [facility] RESPIRATORY INFECTION R079 CHEST PAIN 04-23-2015 [place] [facility] 20007 CHRONIC 12-02-2014 [facility] LYMPHO[facility] HEALTH LEUKEMIA AGENCY W/O ACHIEVED REMISSION 02813 HTN CKD UNS 12-02-2014 [facility] W/CKD HEALTH STAGE I AGENCY THRU STAGE IV/UNS 54160 UNSPECIFIED 12-02-2014 [facility] VENOUS HEALTH INSUFFICIEN AGENCY CY 496 CHRONIC 12-02-2014 [facility] AIRWAY HEALTH OBSTRUCTION AGENCY NEC 5859 CHRONIC 12-02-2014 [facility] KIDNEY HEALTH DISEASE AGENCY UNSPECIFIED 34995 UNSPECIFIED 12-02-2014 [facility] URINARY HEALTH INCONTINENC AGENCY E 481 PNEUMOCOCCA 09-15-2014 [facility] Velazquez PNEUMONIA [facility] URGENT TREAT 98527 FEVER 09-15-2014 [facility] URGENT TREAT 06417 OTHER VOICE 09-15-2014 [facility] RESONANCE URGENT DISORDERS TREAT 7862 COUGH 09-15-2014 [facility] URGENT TREAT 2724 OTHER AND 08-27-2014 [facility] UNSPECIFIED [place] [facility] HYPERLIPIDE CECILIA 4011 ESSENTIAL 08-27-2014 [facility] HYPERTENSIO [place] N, BENIGN HOLDINGS 7823 EDEMA 08-27-2014 [facility] [place] [facility] 76660 SHORTNESS 06-29-2014 [place] [facility] 42027 CHEST PAIN 06-29-2014 [place] [facility] V1261 PERSONAL 06-29-2014 [place] H[facility]ORY MEDICAL PNEUMONIA IMAGING ASS RECURRENT 6829 CELLULITIS 05-19-2014 [facility] AND ABSCESS [place] OF HOLDINGS UNSPECIFIED SITE 5589 OTH&UNSPEC 04-26-2014 [facility] NONINFECTIO [place] US HOLDINGS GASTROENTER ITIS&COLITI S 04758 OTH MALIG 04-05-2014 [facility] UNS SITE INC XTRANOD&SUSANNA ID ORGN 4019 UNSPECIFIED 04-05-2014 [facility] ESSENTIAL [facility] HYPERTENSIO INC N 486 PNEUMONIA, 04-05-2014 [facility] ORGANISM PHYSICIANS UNSPECIFIED GROUP 12535 OBSTRUCTIVE 04-05-2014 [facility] CHRONIC PHYSICIANS BRONCHITIS GROUP WITH EXACERBATIO N 82224 OTHER 04-05-2014 [place] DISEASES OF MEDICAL LUNG NOT IMAGING ASS ELSEWHERE CLASSIFIED V5869 LONG-TERM 04-05-2014 [facility] (CURRENT) [facility] USE OF INC OTHER MEDICATIONS 7804 DIZZINESS 03-12-2014 [facility] AND [facility] GIDDINESS INC V1090 PERSONAL 03-12-2014 [facility] HISTORY [facility] UNSPECIFIED INC MALIGNANT NEOPLASM 4660 ACUTE 03-06-2014 [facility] BRONCHITIS [facility] INC 2749 GOUT, 02-22-2014 [facility] UNSPECIFIED PHYSICIANS GROUP 4149 UNSPECIFIED 02-22-2014 [facility] CHRONIC PHYSICIANS ISCHEMIC GROUP HEART DISEASE 4779 ALLERGIC 02-22-2014 [facility] RHINITIS PHYSICIANS CAUSE GROUP UNSPECIFIED 54022 ESOPHAGEAL 02-22-2014 [facility] REFLUX PHYSICIANS GROUP 97434 WHEEZING 02-22-2014 [facility] PHYSICIANS GROUP V0481 NEED 02-22-2014 [facility] PROPHYLACTI PHYSICIANS C GROUP VACCINATION &INOCULATIO N FLU 1101 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 [facility] FED OSIS OF NAIL 4439 UNSPECIFIED 01-05-2014 [facility] PERIPHERAL VASCULAR DISEASE 7038 OTHER 01-05-2014 [facility] SPECIFIED DISEASE OF NAIL 7295 PAIN IN 01-05-2014 [facility] SOFT TISSUES OF LIMB 29015 OTHER 11-25-2013 [facility] TISSUES 87580 DIAB W/O 11-10-2013 NURSES MENTION REGISTRY COMP TYPE HOME II/UNS TYPE HLTHTCA UNCNTRL 53187 HYPOXEMIA 10-06-2013 [facility] V5863 LONG-TERM 10-06-2013 [facility] T/ANTITHROM BOTIC V5866 LONG-TERM 10-06-2013 [facility] 0088 INTESTINAL 09-04-2013 [facility], INFECTION ACQUISITION PROFESSIONAL DUE TO [facility] OTHER HOS ORGANISM NEC 47766 COR 09-04-2013 [facility], ATHEROSLERO ACQUISITION PROFESSIONAL UNSPEC [facility] TYPE VESSEL HOS TELIDA/SANDY T 4293 CARDIOMEGAL 09-04-2013 [facility], Y ACQUISITION PROFESSIONAL [facility] 17667 DIVERTICULO 09-04-2013 [facility], SIS OF ACQUISITION PROFESSIONAL COLON [facility] 5939 UNSPECIFIED 09-04-2013 [facility], DISORDER ACQUISITION PROFESSIONAL OF KIDNEY [facility] AND URETER HOS V103 PERSONAL 09-04-2013 [facility], HISTORY OF ACQUISITION PROFESSIONAL MALIGNANT [facility] NEOPLASM OF HOS BREAST V1079 PERSONAL HX 09-04-2013 [facility], OTH ACQUISITION PROFESSIONAL LYMPHATIC&H [facility] EMATOPOIETI HOS C NEOPLASM 7020 ACTINIC 07-15-2013 [facility] KERATOSIS 20388 OTHER 07-15-2013 [facility] SEBORRHEIC KERATOSIS V5883 ENCOUNTER 06-16-2013 [facility], FOR ACQUISITION PROFESSIONAL THERAPEUTIC [facility] DRUG HOS MONITORING 7873 FLATULENCE 06-09-2013 [facility], ERUCTATION ACQUISITION PROFESSIONAL AND GAS [facility] PAIN HOS V1083 PERSONAL 06-09-2013 [facility], HISTORY ACQUISITION PROFESSIONAL OTHER [facility] MALIGNANT HOS NEOPLASM SKIN V4589 OTHER 06-09-2013 [facility], POSTSURGICA ACQUISITION PROFESSIONAL L STATUS [facility] OTHER HOS 82129 NODULAR 05-27-2013 [facility] RONN LYMPH NODES MULTIPLE SITES 4510 PHLEBITIS&T 03-03-2013 [facility] HROMBOPHLEB SUP VESSELS LOWER EXTREM 4548 VARICOSE 03-03-2013 [facility] VEINS LOWER EXTREMITIES W/OTH COMPS 4371 OTH 09-03-2012 LUK[facility] BRADLEY GENERALIZED ISCHEMIC CEREBROVASC ULAR DISEASE 77639 DISORDER OF 09-03-2012 LUKINS BRADLEY BONE AND CARTILAGE UNSPECIFIED 9100 FCE 09-03-2012 [facility] NCK&SCLP NO HOSPITAL EYE ABRAS/FRIC BURN W/O INF 9596 INJURY 09-03-2012 MERHAR GAR OTHER AND UNSPECIFIED HIP AND THIGH 9597 INJURY 09-03-2012 [facility] GAR OTHER&UNSPE CIFIED KNEE LEG ANKLE&FOOT E8889 UNSPECIFIED 09-03-2012 MER[facility] GAR FALL V1060 PERSONAL 09-03-2012 [facility] HISTORY OF HOSPITAL UNSPECIFIED LEUKEMIA V1229 PERSONAL HX 09-03-2012 [facility] ENDOCRN METABOLIC IMMUNITY D/O V5861 LONG-TERM 09-03-2012 KHADIJAH PRICE (CURRENT) USE OF ANTICOAGULA NTS V714 OBSERVATION 09-03-2012 KHADIJAH PRICE FOLLOWING OTHER ACCIDENT 035 ERYSIPELAS 08-21-2012 [facility], ACQUISITION PROFESSIONAL [facility] 69010 LEUKOCYTOSI 08-21-2012 [facility], S ACQUISITION PROFESSIONAL UNSPECIFIED [facility] 93670 CALCU 08-21-2012 [facility] GALLBLADD W/O MENTION CHOLECYST/O BST 09546 UNSPECIFIED 08-21-2012 [facility] ADN RESPIRATORY ABNORMALITY 7892 SPLENOMEGAL 08-21-2012 [facility] Y 2411 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 [facility] MULTINODULA R GOITER 2462 CYST OF 08-04-2012 [facility] THYROID 7964 OTHER 08-04-2012 [facility], ABNORMAL ACQUISITION PROFESSIONAL CLINICAL [facility] FINDING HOS 21193 UNS 07-22-2012 [facility] LEUKEMIA W/O ACHIEVED REMISSION 4871 INFLUENZA 07-22-2012 [facility] WITH OTHER HOSPITAL RESPIRATORY MANIFESTATI ONS 5119 UNSPECIFIED 07-22-2012 [facility] PLEURAL EFFUSION 5180 PULMONARY 07-22-2012 [facility] COLLAPSE V1254 PERSONAL HX 07-22-2012 [facility] W/O RESIDUAL DEFICITS 2763 ALKALOSIS 07-21-2012 [facility], ACQUISITION PROFESSIONAL [facility] 30264 DEHYDRATION 07-21-2012 [facility], ACQUISITION PROFESSIONAL [facility] 4580 ORTHOSTATIC 07-21-2012 [facility], ACQUISITION PROFESSIONAL HYPOTENSION [facility] 61061 OTHER 07-21-2012 [facility], MALAISE AND ACQUISITION PROFESSIONAL FATIGUE [facility] 2768 HYPOPOTASSE 07-19-2012 [facility], CECILIA ACQUISITION PROFESSIONAL [facility] 4239 UNSPECIFIED 07-19-2012 [facility] DISEASE OF PERICARDIUM 7856 ENLARGEMENT 07-19-2012 [facility] OF LYMPH NODES 2130 BENIGN 06-26-2012 [facility], NEOPLASM OF [facility] BONES OF [facility] SKULL AND HOS FACE 3319 UNSPECIFIED 06-26-2012 DEVIN CAMPOS CEREBRAL DEGENERATIO N 73416 PAIN IN 06-26-2012 [facility], JOINT, ACQUISITION PROFESSIONAL LOWER LEG [facility] 7802 SYNCOPE AND 05-23-2012 [facility], COLLAPSE ACQUISITION PROFESSIONAL [facility] 30487 NAUSEA 05-23-2012 [facility], ALONE ACQUISITION PROFESSIONAL [facility] 08655 ABDOMINAL 05-23-2012 [facility], PAIN, LEFT ACQUISITION PROFESSIONAL LOWER [facility] QUADRANT HOS 7847 EPISTAXIS 05-13-2012 [facility], ACQUISITION PROFESSIONAL [facility] 6929 CONTACT 05-12-2012 [facility], DERMATITIS& ACQUISITION PROFESSIONAL OTHER [facility] ECZEMA DUE HOS UNSPEC CAUSE 4279 UNSPECIFIED 04-22-2012 [facility] CARDIAC DYSRHYTHMIA 28279 PAINFUL 04-22-2012 [facility] RESPIRATION 96224 OTH-UNS MAL 03-02-2012 [facility] TISS-UNS-EX TRANODAL 2870 ALLERGIC 03-02-2012 [facility] PURPURA [facility] 6989 UNSPECIFIED 03-02-2012 [facility] PRURITIC [facility] DISORDER [facility] 64214 GOUTY 01-16-2012 [facility], ARTHROPATHY ACQUISITION PROFESSIONAL [facility] UNSPECIFIED HOS 07920 UNSPECIFIED 01-16-2012 [facility], ACQUISITION PROFESSIONAL ARTHROPATHY [facility] SITE HOS UNSPECIFIED 63631 TACHYPNEA 01-16-2012 [facility], ACQUISITION PROFESSIONAL [facility] 01716 OSTEOARTHRO 12-17-2011 [facility], S UNSPEC ACQUISITION PROFESSIONAL WHETHER [facility] GEN/LOC HOS UNSPEC SITE 4619 ACUTE 11-04-2011 [facility] SINUSITIS, HEALTH UNSPECIFIED CLINIC 05322 ACUTE 11-04-2011 [facility] LARYNGITIS, [facility] WITHOUT CLINIC MENTION OF OBSTRUCTIO 97962 DYSPHONIA 11-04-2011 [facility] HEALTH CLINIC 3829 UNSPECIFIED 10-10-2011 [facility] OTITIS HEALTH MEDIA CLINIC 06351 NONSPECIFIC 10-10-2011 [facility] ABNORMAL [facility] AUDITORY CLINIC FUNCTION STUDIES 4556 UNSPEC 09-17-2011 [facility] HEMORRHOIDS HEALTH WITHOUT CLINIC MENTION COMPLICATIO N 48406 CHRONIC 09-17-2011 [facility] VENOUS [facility] HYPERTENSIO CLINIC N WITHOUT COMPS 5693 HEMORRHAGE 09-17-2011 [facility] HEALTH AND ANUS CLINIC 6980 PRURITUS 09-17-2011 [facility] ANI HEALTH CLINIC 43476 UNSPECIFIED 08-23-2011 [facility] ARTHROPATHY MULTIPLE SITES 37463 UNSPECIFIED 07-22-2011 [facility] LYMPHOID [facility] LEUKEMIA IN CLINIC RELAPSE 7821 RASH AND 07-22-2011 [facility] OTHER HEALTH NONSPECIFIC CLINIC SKIN ERUPTION 2722 MIXED 06-04-2011 [facility] HYPERLIPIDE [facility] 88875 UNSPECIFIED 06-04-2011 [facility] CONSTIPAT[facility]ISSION [facility] 28719 PAIN IN 06-04-2011 [facility] FOOT HEALTH 95535 CALCANEAL 04-29-2011 [facility] 78176 LYMPHOCYTOS 04-16-2011 [facility] SYMPTOMATIC 4571 OTHER 04-10-2011 [facility] NONINFECTIO US LYMPHEDEMA 22542 SLEEP 12-20-2010 [facility] RELATED [facility]G [facility] 43928 GEN 10-25-2010 [facility] OSTEOARTHRO HEALTH SIS CLINIC INVOLVING MULTIPLE SITES 73675 INSOMNIA 10-25-2010 [facility] UNSPECIFIED HEALTH CLINIC 81564 PAIN IN 09-21-[facility] UPPER ARM ASSOCIAT 9299 CRUSHING 09-21-2010[facility] INJURY OF RADIOLOGY UNSPECIFIED ASSOCIAT SITE 9592 INJURY 09-21-2010[facility] OTHER&UNSPE RADIOLOGY CIFIED ASSOCIAT SHOULDER&UP PER ARM 9593 INJURY 09-21-2010[facility] OTHER&UNSPE RADIOLOGY CIFIED ASSOCIAT ELBOW FOREARM&WRI ST 828[address] OCCL&STENOS 08-02-2010[facility] MX&BILAT RADIOLOGY PRECERBRL ASSOCIAT ART W/O INFARCT 2859 UNSPECIFIED 07-31-2010 [facility] ANEMIA JARED & DUBILIER 11058 LEUKEMOID 07-31-2010 [facility] REACTION JARED & DUBILIER 2865 HEMORRHAGIC 07-29-2010 [facility] DR[facility] D/O HOSPITAL INTRINSIC CIRC ANTICOAG AB/INHIB 21783 UNSPECIFIED 07-29-2010 [facility] CERE[facility]AL [facility]OSPITAL ARTERY OCCLUSION W/INFARCT 490 BRONCHITIS 07-29-2010 [facility] DR[facility] NOT HOSPITAL SPECIFIED ACUTE OR CHRONIC 5110 PLEURISY 07-29-2010[facility] WITHOUT RAD[facility] MENTION ASSOCIAT EFFUS/[place] [address] SCLEROSING 07-29-2010 [facility] S 89759 OTH 07-29-2010[facility] ABNORMAL RAD[facility] BRAIN & MACHINIST BRAKE ASSOCIAT FUNCTION STUDY V570 CARE 07-18-2010 [facility] INVOLVING [facility]OSPITAL BREATHING EXERCISES 2181 INTRAMURAL 06-07-2010 [facility] [place] 2362 NEOPLASM OF 05-21-2010 [facility] [place] V7231 ROUTINE 05-21-2010 [facility] [place] V762 SCREENING 05-21-2010 PATHOLOGY & FOR CYTOLOGY MAL[facility]NT LAB NEOPLASM OF THE CERVIX 5738 OTHER 05-08-2010 [place] SPECIFIED RADIOLOGY DISORDERS ASSOCIAT OF LIVER 5759 UNSPECIFIED 05-08-2010 [place] DISORDER RADIOLOGY OF ASSOCIAT GALLBLADDER 5990 URINARY 05-08-2010 [facility] INFECTION SITE NOT SPECIFIED 6219 UNSPECIFIED 05-08-2010 [place] DISORDER RADIOLOGY OF UTERUS ASSOCIAT 7242 LUMBAGO 05-08-2010 [facility] 7936 NONSPEC ABN 05-08-2010 [facility] ABDOMINAL AREA 1736 OT MALIG 03-13-2010 PATHOLOGY & NEOPLASM CYTOLOGY SKIN UPPER LAB LIMB INCL [facility] 03-13-2010 C [facility] NEOPLASM [place] [facility]OWER [facility] LIM[facility] INCLUDING HIP 2382 NEOPLASM OF 03-06-2010 C GEOVANNI [facility] SKIN 16543 UNSPECIFIED 03-06-2010 C GEVOANNI STEVENS [facility]OSI [facility] S 0413 KLEBSIELLA 09-20-2009 [facility] IN[facility]CTION 2892 NONSPECIFIC 09-20-2009 [facility] LYMPHADENIT IS 5920 CALCULUS OF 09-20-2009 [facility] PSC V1251 PERSONAL 09-20-2009 [facility] HISTORY, HOSPITAL VENOUS THROMBOSIS AND EMBOLISM 96839 ACUT LINNEA 08-18-2009 [place] EMBO&THROMB [facility] DEEP VES [facility] PROX LOWR PSC EXTREM 4549 ASYMPTOMATI 08-18-2009 [facility] [place] [facility] VEINS 6826 CELLULITIS 08-18-2009 [facility] OF LEG EXCEPT FOOT 21341 ABDOMINAL 08-14-2009 PATHOLOGY & PAIN, CYTOLOGY UNSPECIFIED LAB SITE 98463 ABDOMINAL 08-14-2009 [place] [facility] GENERALIZED FOUNDAT[facility] 2163 BENIGN 08-01-2009 DERMATOPATH NEOPLASM OLOGY SKIN ALLINACE OF OTHER&UNSPE C PARTS FACE V7612 OTHER 07-19-2009 [place] [facility] 0091 COLITIS 07-12-2009 [facility] INTERNAL INF ORIGIN MED 94709 ABDOMINAL 07-12-2009 [facility] PAIN, LEFT VALLEY UPPER INTERNAL QUADRANT MED 7894 ABDOMINAL 03-03-2010 [facility] RIGIDITY [facility] INTERNAL MED 7063 SEBORRHEA 03-27-2009 [facility] 7011 ACQUIRED 03-06-2009 [facility] KERATODERMA [place] INTERNAL MED 37228 REFLUX 12-02-2008 [facility] ESOPHAGITIS [place] [facility] MED 85185 OTHER 10-11-2008 [facility] CHRONIC [place] PAIN INTERNAL MED 87205 OSTEOARTHRO 10-11-2008 [facility] S INV[facility] [place] SITES BUT INTERNAL [place]C [place] GEN 74424 SPINAL 10-11-2008 [facility] 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 MED 7231 CERVICALGIA 09-27-2008 ROBERTO CARLOS CHEEMA 7820 DISTURBANCE 09-21-2008 [facility] OF [place]IN [place] SENSATION INTERNAL MED 95487 BLEPHARITIS 07-28-2008 RAHMAN BRETT A UNSPECIFIED 49661 OBESITY, 04-17-2008 [facility] UNSPECIFIED HOSPITAL 4928 OTHER 04-17-2008 [facility] PSC 07251 URINARY 04-17-2008 [facility] [...] HAZEL PLATA, STRESS [place] INCONTINENC E 84[address] URGE 09-30-2007 HAZEL PLATA, INCONTINENC MARIAA P E 4659 ACUTE URIS 08-14-2007 [facility] OF VALLEY UNSPECIFIED INTERNAL SITE MED 4778 ALLERGIC 08-12-2007 [facility] RHINITIS [place] DUE TO INTERNAL OTHER MED ALLERGEN 90573 HYPERTONICI 07-13-2007 [facility] TY OF VALLEY BLADDER [...] [address] Terrie LEE [facility] CO 10 MP 0 AN MG Y [...] CO MP TA AN BL Y ET DC 00 03 03 0 12 4 CA [...] HE N CO A MP AN Y DC 00 03 03 0 12 4 CA [...] Performer Comment O2 CONC 1 E1390 [place] [facility] [place] 7 HOME HOME 85%/>02 MEDICAL MEDICAL [...] AT EQUIPME EQUIPME PRSC FLW RATE SBSQ 07657 [place] [address] PHYSICIAN CARE/DAY S GROUP 15 MINUTES SBSQ 01204 [place] [address] PHYSICIAN CARE/DAY S GROUP 25 MINUTES RADIOLOGI 65650 [facility] 7 MEDICAL EXAMINATI IMAGING ON CHEST ASS SINGLE VIEW FRONTAL ECG 71412 YUMIKO JI ROUTINE 7 [facility] W/LEAST P 12 LDS I&R ONLY INITIAL 45579 [place] [address] PHYSICIAN CARE/DAY S GROUP 70 MINUTES HOSPITAL G0463 [facility] OUTPATIEN 7 [facility]ALTHCAR HEALTHCAR T CLIN E E VISIT [facility] ASSESS & MGMT PT BLOOD 75595 [facility] COUNT 7 [facility]ALTHCAR HEALTHCAR COMPLETE E E AUTO&AUTO [facility]OSPITALS H[facility]IT[facility] DIFRNTL WBC COMPREHEN 24381 [facility] SIVE 7 [facility]ALTHCAR METABOLIC E E PANEL [facility]IT[facility] COLLECTIO 54509 [facility] N VENOUS 7 HEALTHCAR HEALTHCAR BLOOD E E VENIPUNCT HOSPITALS HOSPITALS URE COMPREHEN 72169 [facility] 6 Y Y [facility]ABOLIC HOSPITAL HOSPITAL PANEL BLOOD 77345 [facility] 6 Y Y COMPLETE HOSPITAL HOSPITAL AUTO&AUTO DIFRNTL WBC HOSPITAL G0463 [facility] OUTPATIEN 6 Y Y T CLIN HOSPITAL HOSPITAL VISIT ASSESS & MGMT PT COLLECTIO 25468 [facility] N VENOUS 6 Y Y BLOOD HOSPITAL HOSPITAL VENIPUNCT URE DUPLEX 98024 [facility] MENDOSA MENDOSA FAMILIA SCAN 6 MD EXTRACRAN CONSULTIN IAL ART G SRV COMPL BI STUDY DUPLEX 15316 [facility] SCAN 6 [facility] IAL ART COMPL BI STUDY COMPRE 16565 [facility] G[facility] SET AUDIOMETR 6 PHYSICIAN Y PRACTICE THRESHOLD L EVAL SP RECOGNIJ TYMPANOME 01912 [facility] TRY 6 PHYSICIAN PRACTICE L RADIOLOGI 00297 [place] DENI C EXAM 6 [facility] CHEST 2 IMAGING VIEWS ASS FRONTAL&L ATERAL RADIOLOGI 37162 [place] MONIQUE ALL C EXAM 6 MEDICAL CHEST 2 IMAGING VIEWS ASS FRONTAL&L ATERAL INJECTION J2405 JENNY ALVARADO [address] [place] [address] ON HCL PER 1 MG INJECTION J1650 JENNY OVIEDOON [address] [place] [address] N SODIUM 10 MG INJECTION J2270 [facility] MORPHINE [address] [place] [address] UP TO 10 MG ADMINISTR G0008 JENNY ALVARADO ATION OF [address] [place] [address] VIRUS VACCINE IIV3 VACC 06652 JENNY ALVARADO [address] [place] [address] ADELINA FREE 0.5 ML DOSAGE IM USE BLOOD 04811 JENNY ALVARADO COUNT [address] [place] [address] AUTOMATED BASIC 57844 [facility] METABOLIC 5 [facility] HOSPITAL CALCIUM TOTAL COLLECTIO 21018 JENNY ALVARADO N VENOUS 5 [facility] HOSPITAL VENIPUNCT URE NONCOVERE A9270 [facility] D ITEM OR 5 [facility] HOSPITAL NONCOVERE A9270 [facility] ITEM OR 5 [facility] [place] [address] [facility] THYROID 5 [facility] NG HORMONE TSH COMPREHEN 69407 [facility] SIVE 5 [facility] PANEL COLLECTIO 51418 [facility] N VENOUS 5 [facility] [place] [address] [facility] BLOOD/URI 5 [facility] HOSPITAL URNLS DIP [address] STICK/TAB HOSPITAL HOSPITAL LET REAGENT AUTO MICROSCOP Y NATRIURET 75157 [facility] IC [address] [place] [address] [place] [address] [facility] TROPONIN 5 [facility] ADELINA BLOOD 91455 [facility] COUNT [address] [place] [address] HOSPITAL AUTO&[place] [address] [facility] HEAD/BRAI [address] [place] [address] W/O HOSPITAL HOSPITAL CONTRAST MATERIAL C-REACTIV 91933 [facility] JENNY E PROTEIN [address] [place] [address] HOSPITAL G0378 [facility] OBSERVATI [address] [place] [address] ON HOSPITAL HOSPITAL SERVICE PER HOUR SEDIMENTA 25622 [facility] TION RATE 5 [facility] HOSPITAL NON-AUTOM ATED ECG 74921 [facility] ROUTINE 5 [facility] H[facility]PITAL W/LEAST 12 LDS TRCG ONLY W/O I&[place] [address] [facility] [place] MAG[place]IE MAT HEAD/BRAI 5 RADIOLOGY N W/O CONTRAST MATERIAL CT THORAX 94297 [facility] [place] MAT W/O 5 RADIOLOGY CONTRAST MATERIAL ECG 37033 YUMIKO DAVENPORT JR ROUTINE 5 [facility] W/LEAST P 12 LDS I&R ONLY RADIOLOGI 19138 YUMIKO CALDERON C EXAM 5 [facility] CHEST 2 INC INC VIEWS FRONTAL&L ATERAL RADIOLOGI 78154 YUMIKO CALDERON C EXAM 5 [facility] CHEST 2 INC INC VIEWS FRONTAL&L ATERAL DISPBL T4535 [facility] LINER/ISABELLE 5 HOME HOME ELD/GUARD HEALTH HEALTH /PAD/UNDG AGENCY AGENCY RMNT INCONT EA INJECTION J0696 [address] [facility] URGENT URGENT NE SODIUM TREAT TREAT PER [address] [place] [address] [facility] FOLIC 5 [facility] SERUM LIPID 84566 [facility] PANEL 5 [facility] HOLD[facility] GENERAL 78510 [facility] HEALTH 5 [facility] PANEL [facility] HOLDINGS 25 01651 [facility] HYDROXY 5 [facility] INCLUDES [facility]INGS HOLDINGS FRACTIONS IF PERFORMED CYANOCOBA 93862 [facility] AMBAR 5 [facility] VITAMIN HOLD[facility] HOLDINGS B-12 [place] [address] LAB [facility] MAGNESIUM 5 [facility] RADIOLOGI 80240 [place] DENI C EXAM 5 [facility] CHEST 2 IMAGING VIEWS ASS FRONTAL&L ATERAL RADEX 71378 [place] DENI RIBS 5 [facility] UNILATERA IMAGING L 2 VIEWS ASS DISPBL T4535 [facility] LINER/ISABELLE 5 HOME HOME ELD/GUARD HEALTH HEALTH /PAD/UNDG AGENCY AGENCY RMNT INCONT EA CUL BACT 35509 [facility] XCPT 5 [facility] URINE [facility] HOLDINGS BLOOD/STO OL AEROBIC ISOL BASIC 96286 LAB [facility] METABOLIC 4 [facility] PANEL [place] [address] YUMIKO CALDERON INFUSION 4 [facility] THERAPY/P INC INC ROPHYLAXI S /DX 1ST TO 1 HR THERAPEUT 28321 YUMIKO CALEDRON IC 4 [facility] INJECTION INC INC IV PUSH [facility]ACH [facility] 89[address] [facility] DISCHARGE 4 PHYSICIAN PHYSICIAN DAY S GROUP S GROUP MANAGEMEN T 30 MIN/< RADIOLOGI 53425 MARICARMEN CHEEMA C EXAM 4 [facility] CHEST 2 IMAGING VIEWS ASS FRONTAL&L ATERAL ECG 29760 YUMIKO DAVENPORT JR ROUTINE 4 [facility] W/LEAST P 12 LDS I&R ONLY PRESSURIZ 75929 YUMIKO CALDERON ED/NONPRE 4 [facility] HOSP SSURIZED INC INC INHALATIO N TREATMENT RADIOLOGI 32052 YUMIKO CALDERON C EXAM 4 [facility] HOSP CHEST 2 INC INC VIEWS FRONTAL&[place] [address] YUMIKO CALDERON HEAD/BRAI 4 [facility] HOSP N W/O INC INC CONTRAST MATERIAL ECG 57635 YUMIKO CALDERON ROUTINE 4 [facility] ECG INC INC W/LEAST 12 LDS TRCG ONLY W/O I&R ECG 39843 YUMIKO CALDERON ROUTINE 4 [facility] ECG INC INC W/LEAST 12 LDS TRCG ONLY W/O I&R RADIOLOGI 74013 YUMIKO CALDERON C [address] [facility] HOSP EXAMINATI INC [place] [address] YUMIKO CALDERON INFUSION [address] [facility]OSP THERAPY/P INC INC ROPHYLAXI S /DX 1ST TO 1 [place] [address] YUMIKO CALDERON INFUSION 4 [facility] MEM HOSP THER INC INC PROPH ADDL SEQUENTIA L TO 1 HR DEBRIDEME 08793 LAUSE FED LAUSE FED NT NAIL 4 ANY METHOD 6/> HOSPITAL G0463 [facility] 4 Y Y T [facility]IN [facility]ITAL HOSPITAL VISIT ASSESS & MGMT PT DISPBL T4535 NURSES NURSES LINER/ISABELLE 4 REGISTRY REGISTRY ELD/GUARD HOME HOME /PAD/UNDG HLTHTCA HLTHTCA RMNT INCONT EA DISPBL T4535 NURSES NURSES LINER/ISABELLE 4 REGISTRY REGISTRY ELD/GUARD HOME HOME /PAD/UNDG HLTHTCA HLTHTCA RMNT INCONT EA NONCOVERE A9270 JENNY ALVARADO D ITEM OR 4 [facility] HOSPITAL NONCOVERE A9270 [facility] D ITEM OR 4 [facility] RADIOLOGI 91733 HAYDER HAYDER C EXAM 4 RHO RHO CHEST 2 VIEWS FRONTAL&L ATERAL ECG 07990 JENNY ALVARADO ROUTINE 4 [facility] W/LEAST 12 LDS TRCG ONLY W/O I&R RADEX 15386 Portr, Portr, ABDOMEN 4 ACQUISITION PROFESSIONAL ACQUISITION PROFESSIONAL COMPL PEPE CANTU W/DCBTS&/ [place] [address] [employer], ABDOMEN & 4 ACQUISITION PROFESSIONAL ACQUISITION PROFESSIONAL PELVIS PEPEHien CANTU W/O CO HOS CO HOS CONTRAST MATERIAL RADIOLOGI 29277 Portr, [employer], C EXAM 4 ACQUISITION PROFESSIONAL ACQUISITION PROFESSIONAL CHEST 2 PEPE PEPE VIEWS CO HOS CO HOS FRONTAL&[place] [address] Portr, Portr, INFUSION 4 ACQUISITION PROFESSIONAL ACQUISITION PROFESSIONAL HYDRATION PEPE PEPE INITIAL CO HOS CO HOS 31 MIN-1 HOUR DISPBL T4535 NURSES NURSES LINER/ISABELLE 4 REGISTRY REGISTRY ELD/GUARD HOME HOME /PAD/UNDG HLTHTCA HLTHTCA RMNT INCONT EA DISPBL T4535 NURSES NURSES LINER/ISABELLE 4 REGISTRY REGISTRY ELD/GUARD & HOME HE & HOME HE /PAD/UNDG RMNT INCONT EA DESTRUCTI 78635 MUSIC HOWARD MUSIC HOWARD ON 4 PREMALIGN ANT LESION 15/> DISPBL T4535 NURSES NURSES LINER/ISABELLE 4 REGISTRY REGISTRY ELD/GUARD & HOME HE & HOME HE /PAD/UNDG RMNT INCONT EA ECG 08419 MENDOSA FAMILIA MENDOSA FAMILIA ROUTINE 4 ECG W/LEAST 12 LDS I&R ONLY ECG 43865 [employer], ROUTINE 4 ACQUISITION PROFESSIONAL ACQUISITION PROFESSIONAL ECG PEPE CANTU W/LEAST CO HOS CO HOS 12 LDS TRCG ONLY W/O I&R DISPBL T4535 NURSES NURSES LINER/ISABELLE 4 REGISTRY REGISTRY ELD/GUARD & HOME HE & HOME HE /[place] [address] [facility], [place], [facility] INC, INFUSION 4 ACQUISITION PROFESSIONAL ACQUISITION PROFESSIONAL HYDRATION PEPE CANTU INITIAL CO HOS CO HOS 31 MIN-1 [place] [address] [facility], [facility] INC, INFUSION 4 ACQUISITION PROFESSIONAL ACQUISITION PROFESSIONAL THERAPY/P PEPE CANTU ROPHYLAXI CO HOS CO HOS S /DX 1ST TO 1 HR INJECTION J2405 [facility], [facility], 4 ACQUISITION PROFESSIONAL ACQUISITION PROFESSIONAL ONDANSETR PEPE CANTU ON HCL CO HOS CO HOS PER 1 MG THER 95071 [facility] Magazino [facility] INC, PROPH/DX 4 ACQUISITION PROFESSIONAL ACQUISITION PROFESSIONAL NJX IV PEPE CANTU PUSH CO HOS CO HOS SINGLE/1S T SBST/DRUG DISPBL T4535 NURSES NURSES [facility] 4 REGISTRY REGISTRY ELD/GUARD & HOME HE & HOME HE /PAD/UNDG RMNT INCONT [facility] G0463 [facility] 4 Y Y T [facility] HOSPITAL VISIT ASSESS & MGMT PT DEBRIDEME 86498 LAUSE FED LAUSE FED NT NAIL 3 ANY METHOD 6/> DUP-SCAN 55711 ATKINS ATKINS XTR VEINS 3 COL COL COMPLETE BILATERAL STUDY DISPBL T4535 NURSES NURSES [facility] 3 REGISTRY REGISTRY ELD/GUARD & HOME HE & HOME HE /PAD/UNDG RMNT INCONT EA DEBRIDEME 71422 LAUSE FED LAUSE FED NT NAIL 3 ANY METHOD 6/> DISPBL T4535 NURSES NURSES [facility] 3 REGISTRY REGISTRY ELD/GUARD & HOME HE & HOME HE /PAD/UNDG RMNT INCONT EA DUP-SCAN 80752 ATKINS ATKINS XTR VEINS 3 COL COL UNILATERA L/LIMITED STUDY STAB 13657 ATKINS ATKINS PHLEBT 3 COL COL VARICOSE VEINS 1 XTR > 20 INCS ENDOVEN 04996 ATKINS ATKINS ABLTJ 3 COL COL INCMPTNT VEIN XTR LASER 1ST VEIN DISPBL T4535 NURSES NURSES LINER/ISABELLE 3 REGISTRY REGISTRY ELD/GUARD & HOME HE & HOME HE /PAD/UNDG RMNT INCONT EA DUP-SCAN 50767 ATKINS ATKINS XTR VEINS 3 COL COL UNILATERA L/LIMITED STUDY STAB 50569 ATKINS ATKINS PHLEBT 3 COL COL VARICOSE VEINS 1 XTR 10-20 STAB INCS ENDOVEN 72263 ATKINS ATKINS ABLTJ 3 COL COL INCMPTNT VEIN XTR LASER 1ST VEIN RADIOLOGI 17923 [facility] 3 [facility] 2 VIEWS RADIOLOGI 59347 [facility] MERHAR C 3 GAR GAR EXAMINATI ON KNEE [address] [place] [address] LUKINS LUKINS HEAD/BRAI 3 [facility] N W/O CONTRAST MATERIAL RADIOLOGI 71974 [facility] MER[facility] C 3 GAR GAR EXAMINATI ON TIBIA & FIBULA 2 VIEWS BLOOD 07594 [facility] COUNT 3 Y Y COMPLETE [facility] AUTOMATED COLLECTIO 95816 [facility] VENOUS 3 Y Y [facility] VENIPUNCT URE BASIC 42720 [facility] METABOLIC [address] [facility] [place] [address] [facility], [place], [facility], INFUSION 3 ACQUISITION PROFESSIONAL ACQUISITION PROFESSIONAL THERAPY/P PEPE CANTU ROPHYLAXI CO HOS CO HOS S /DX 1ST TO 1 [place] [address] [facility] Magazino [facility], INFUSION 3 ACQUISITION PROFESSIONAL ACQUISITION PROFESSIONAL HYDRATION PEPE CANTU INITIAL CO HOS CO HOS 31 MIN-1 HOUR LOCM Q9967 [facility] INC, 300-399 3 ACQUISITION PROFESSIONAL ACQUISITION PROFESSIONAL MG/ML PEPE CANTU IODINE CO HOS CO HOS CONCENTRA TION PER ML ECG 53275 AHMED ADN AHMED ADN ROUTINE 3 ECG W/LEAST 12 LDS I&R ONLY INJECTION J2405 [facility], [facility] INC, 3 ACQUISITION PROFESSIONAL ACQUISITION PROFESSIONAL ONDANSETR PEPE CANTU ON HCL CO HOS CO HOS PER 1 MG RADIOLOGI 94158 [facility], [facility] INC, C EXAM 3 ACQUISITION PROFESSIONAL ACQUISITION PROFESSIONAL CHEST 2 PEPEHien CANTU VIEWS CO HOS CO HOS FRONTAL&[place] [address] [facility], [employer], ABDOMEN & 3 ACQUISITION PROFESSIONAL ACQUISITION PROFESSIONAL PELVIS PEPE CANTU W/O CO HOS CO HOS CONTRST 1/> BODY RE THER 70917 [facility], [employer], PROPH/DX 3 ACQUISITION PROFESSIONAL ACQUISITION PROFESSIONAL NJX IV PEPE CNATU PUSH CO HOS CO HOS SINGLE/1S T SBST/DRUG ECG 29786 [facility], [employer], ROUTINE 3 ACQUISITION PROFESSIONAL ACQUISITION PROFESSIONAL ECG PEPE CANTU W/LEAST CO HOS CO HOS 12 LDS TRCG ONLY W/O I&R US SOFT 48810 [place] TISSUE 3 ANNIE ANNIE HEAD & NECK REAL TIME IMGE DOCM BASIC 69529 [facility] METABOLIC 3 Y Y PANEL [facility] [place] [address] [facility] UNIVERS 1/> AREAS 3 Y Y EA 15 HOSPITAL HOSPITAL MIN GAIT TRAINJ W/STAIR BLOOD 60928 [facility] COUNT 3 Y Y COMPLETE [facility] AUTOMATED NONCOVERE A9270 [facility] D ITEM OR 3 Y Y SERVICE [facility] HOSPITAL G0378 [facility] 3 Y Y ON HOSPITAL HOSPITAL SERVICE PER HOUR PRESSURIZ 90937 [facility] ED/NONPRE 3 Y Y SSURIZED [facility] INHALATIO N TREATMENT INJECTION J1644 [facility] HEPARIN 3 Y [facility] PER 1000 UNITS INJECTION J1956 [facility] 3 Y Y LEVOFLOXA [facility] KRISTIN 250 MG PHYSICAL 29732 [facility] THERAPY 3 Y Y EVALUATIO [facility] N ECG 20738 [facility] ROUTINE 3 Y Y ECG [facility] W/LEAST 12 LDS TRCG ONLY W/O I&R INJECTION J1644 [facility] HEPARIN 3 Y Y SODIUM [facility] PER 1000 UNITS INJECTION J1956 [facility] 3 Y Y LEVOFLOXA [facility] KRISTIN 250 MG PRESSURIZ 66475 [facility] ED/NONPRE 3 Y Y SSURIZED [facility] INHALATIO N TREATMENT RADIOLOGI 89321 RAD[facility] RICCI C EXAM 3 PHI PHI CHEST 2 VIEWS FRONTAL&L ATERAL INFUSION J7030 [facility] NORMAL 3 Y Y SALINE [facility] SOLUTION 1000 CC CULTURE 74045 [facility] BACTERIAL 3 Y Y BLOOD [facility] AEROBIC W/ID ISOLATES NONCOVERE A9270 [facility] D ITEM OR 3 Y Y [facility]ICE [facility] COMPREHEN 78940 [facility] SIVE 3 Y Y METABOLIC [facility] PANEL BLOOD 46058 [facility] COUNT 3 Y Y COMPLETE [facility] AUTO&[place] [address] [facility], [facility], INFUSION 3 ACQUISITION PROFESSIONAL ACQUISITION PROFESSIONAL THERAPY/P PEPE CANTU ROPHYLAXI CO HOS CO HOS S /DX 1ST TO 1 HR INSJ TEMP 37489 [facility], [facility], NDWELLG 3 ACQUISITION PROFESSIONAL ACQUISITION PROFESSIONAL BLADDER PEPE CANTU [place] [address] [facility], [facility], INFUSION 3 ACQUISITION PROFESSIONAL ACQUISITION PROFESSIONAL HYDRATION PEPE CANTU INITIAL CO HOS CO HOS 31 MIN-1 [place] [address] [facility], [facility], INFUSION 3 ACQUISITION PROFESSIONAL ACQUISITION PROFESSIONAL HYDRATION PEPE CANTU EACH CO HOS CO HOS ADDITIONA L HOUR INJECTION J2405 [facility], [facility], 3 ACQUISITION PROFESSIONAL ACQUISITION PROFESSIONAL ONDANSETR PEPE CANTU ON HCL CO HOS CO HOS PER 1 MG ECG 90355 AHMED ADN AHMED ADN ROUTINE 3 ECG W/LEAST 12 LDS I&R ONLY ARTERIAL 66124 [facility], [facility], PUNCTURE 3 ACQUISITION PROFESSIONAL ACQUISITION PROFESSIONAL WITHDRAWA PEPE CANTU L BLOOD CO HOS CO HOS DX RADIOLOGI 20477 [facility], [facility], C 3 ACQUISITION PROFESSIONAL ACQUISITION PROFESSIONAL EXAMINATI PEPE CANTU ON CHEST CO HOS CO HOS SINGLE VIEW FRONTAL ECG 34141 [facility], [facility], ROUTINE 3 ACQUISITION PROFESSIONAL ACQUISITION PROFESSIONAL ECG PEPE CANTU W/LEAST CO HOS CO HOS 12 LDS TRCG ONLY W/O I&R THER 98025 [facility], [facility], PROPH/DX 3 ACQUISITION PROFESSIONAL ACQUISITION PROFESSIONAL NJX IV EPPE CANTU PUSH CO HOS CO HOS SINGLE/1S T SBST/DRUG INJECTION J0456 [facility], [facility] INC, 3 ACQUISITION PROFESSIONAL ACQUISITION PROFESSIONAL AZITHROMY PEPE CANTU KRISTIN 500 CO HOS CO HOS MG PRESSURIZ 06761 [facility], [facility], ED/NONPRE 3 ACQUISITION PROFESSIONAL ACQUISITION PROFESSIONAL SSURIZED PEPE CANTU INHALATIO CO HOS CO HOS N TREATMENT INJECTION J0696 [facility], [facility], 3 ACQUISITION PROFESSIONAL ACQUISITION PROFESSIONAL CEFTRIAXO PEPE CANTU NE SODIUM CO HOS CO HOS PER 250 MG NONINVASI 71847 [facility], [facility], VE 3 ACQUISITION PROFESSIONAL ACQUISITION PROFESSIONAL EAR/PULSE PEPE MORAS OXIMETRY CO HOS CO HOS MULTIPLE DETER ARTERIAL 52055 [facility], [facility], PUNCTURE 3 ACQUISITION PROFESSIONAL ACQUISITION PROFESSIONAL WITHDRAWA PEPE CANTU L BLOOD CO HOS CO HOS DX RADIOLOGI 07364 [facility], [facility], C EXAM 3 ACQUISITION PROFESSIONAL ACQUISITION PROFESSIONAL CHEST 2 PEPE PEPE VIEWS CO HOS CO HOS FRONTAL&L ATERAL CT THORAX 13700 [place] 3 ANNIE ANNIE W/[place] [address] [facility], [facility], ANGIOGRAP 3 ACQUISITION PROFESSIONAL ACQUISITION PROFESSIONAL HY CHEST PEPE PEPE W/CONTRAS CO [facility]OS [facility] T[facility] G[facility]8 [facility], [facility], OBSERVATI 3 ACQUISITION PROFESSIONAL ACQUISITION PROFESSIONAL ON PEPE PEPE SERVICE CO HOS CO HOS PER HOUR LOCM Q9967 [facility], [facility], [phone] ACQUISITION PROFESSIONAL ACQUISITION PROFESSIONAL MG/ML PEPE CANTU IODINE CO [place] [address] [facility], [facility], INFUSION 3 ACQUISITION PROFESSIONAL ACQUISITION PROFESSIONAL THERAPY/P PEPE PEPE ROPHYLAXI CO HOS CO HOS S /DX 1ST TO 1 HR DEBRIDEME 28991 LAUSE FED LAUSE FED NT NAIL 3 ANY METHOD 6/> [place] [address] [facility], [facility], HEAD/BRAI 3 ACQUISITION PROFESSIONAL ACQUISITION PROFESSIONAL N W/O PEPE MORAS CONTRAST CO HOS CO HOS MATERIAL RADIOLOGI 70826 DEVIN BELTRAN C EXAM 3 BETH BETH KNEE COMPLETE 4/MORE VIEWS RADIOLOGI 07339 [facility], [facility], C 3 ACQUISITION PROFESSIONAL ACQUISITION PROFESSIONAL EXAMINATI PEPE CANTU ON KNEE 3 CO HOS CO HOS VIEWS DISPBL T4535 NURSES NURSES LINER/ISABELLE 3 REGISTRY REGISTRY ELD/GUARD & HOME HE & HOME HE /PAD/UNDG RMNT INCONT EA DISPBL T4535 NURSES NURSES LINER/ISABELLE 3 REGISTRY REGISTRY ELD/GUARD & HOME HE & HOME HE /PAD/UNDG RMNT INCONT EA INJECTION J1885 [facility], [facility], 3 ACQUISITION PROFESSIONAL ACQUISITION PROFESSIONAL KETOROLAC PEPE CANTU CO HOS CO HOS TROMETHAM INE PER 15 MG RADIOLOGI 75079 JUICE BOSE C EXAM 3 EIDER CLAYTON ARNOLD CHEST 2 VIEWS FRONTAL&L ATERAL PRESSURIZ 89323 [facility], [facility], ED/NONPRE 3 ACQUISITION PROFESSIONAL ACQUISITION PROFESSIONAL SSURIZED PEPE CANTU INHALATIO [place] [address] [facility], [facility], WALL 3 ACQUISITION PROFESSIONAL ACQUISITION PROFESSIONAL FACILITAT PEPE CANTU E LNG CO HOS CO HOS FUNCJ 1 DEMO&/JONNY L NONINVASI 79905 [facility], [facility], VE 3 ACQUISITION PROFESSIONAL ACQUISITION PROFESSIONAL EAR/PULSE PEPE CANTU OXIMETRY CO HOS CO HOS MULTIPLE DETER INITIAL 17310 AHMED ADN AHMED ADN OBSERVATI 3 ON CARE/DAY 30 [place] [address] [facility], [facility], INFUSION 3 ACQUISITION PROFESSIONAL ACQUISITION PROFESSIONAL THERAPY/P PEPE CANTU ROPHYLAXI CO HOS CO HOS S /DX 1ST TO 1 HR RADIOLOGI 82914 JUICE BOSE C EXAM 3 EIDER CLAYTON MENDOZA CLAYTON CHEST 2 VIEWS FRONTAL&L ATERAL DIRECT G0379 [facility], [facility], ADMISSION 3 ACQUISITION PROFESSIONAL ACQUISITION PROFESSIONAL PATIENT [facility] G0378 [facility], [facility], OBSERVATI 3 ACQUISITION PROFESSIONAL ACQUISITION PROFESSIONAL ON [facility] CO HOS PER HOUR DISPBL T4535 NURSES NURSES LINER/ISABELLE 2 REGISTRY REGISTRY ELD/GUARD & HOME HE & HOME HE /PAD/UNDG RMNT INCONT [place] ECG 06521 AHMED ADN AHMED ADN ROUTINE 2 ECG W/LEAST 12 LDS TRCG ONLY W/O I&R DISPBL T4535 NURSES NURSES LINER/ISABELLE 2 REGISTRY REGISTRY ELD/GUARD & HOME HE & HOME HE /PAD/UNDG RMNT INCONT EA DUP-SCAN 16385 NO REBEKAH NO RBEEKAH XTR VEINS 2 COMPLETE BILATERAL STUDY DISPBL T4535 NURSES NURSES LINER/ISABELLE 2 REGISTRY REGISTRY ELD/GUARD & HOME HE & HOME HE /PAD/UNDG RMNT INCONT EA DISPBL T4535 NURSES NURSES LINER/ISABELLE 2 REGISTRY REGISTRY ELD/GUARD & HOME HE & HOME HE /PAD/UNDG RMNT INCONT EA URNLS DIP 83944 [facility], [facility], 2 ACQUISITION PROFESSIONAL ACQUISITION PROFESSIONAL STICK/TAB [facility] LET RGNT CO HOS [place] [address] [facility], [facility] INFUSION 2 ACQUISITION PROFESSIONAL ACQUISITION PROFESSIONAL THERAPY/P [facility] ROPHYLAXI CO HOS CO HOS S /DX 1ST TO 1 HR BLOOD 37953 [facility], [facility], COUNT 2 ACQUISITION PROFESSIONAL ACQUISITION PROFESSIONAL COMPLETE [facility] AUTO&AUTO CO HOS CO HOS DIFRNTL WBC NATRIURET 36440 [facility], [facility], IC 2 ACQUISITION PROFESSIONAL ACQUISITION PROFESSIONAL PEPTIDE [facility] CO HOS CO HOS BASIC 73445 [facility], [facility] METABOLIC 2 ACQUISITION PROFESSIONAL ACQUISITION PROFESSIONAL PANEL [facility] CALCIUM CO HOS CO HOS TOTAL RADIOLOGI 10034 [facility], [facility], C EXAM 2 ACQUISITION PROFESSIONAL ACQUISITION PROFESSIONAL CHEST 2 [facility] VIEWS CO HOS CO HOS FRONTAL&L ATERAL ECG 86770 [facility], [facility], ROUTINE 2 ACQUISITION PROFESSIONAL ACQUISITION PROFESSIONAL ECG [facility] W/LEAST CO HOS CO HOS 12 LDS TRCG ONLY W/O I&R FIBRIN 34966 [facility], DGRADJ 2 ACQUISITION PROFESSIONAL ACQUISITION PROFESSIONAL PRODUCTS [facility] D-DIMER CO HOS CO HOS QUANTITAT ADELINA THER 05130 [facility], [facility], PROPH/DX 2 ACQUISITION PROFESSIONAL ACQUISITION PROFESSIONAL NJX IV PEPE MORAS PUSH CO HOS CO HOS SINGLE/1S T SBST/DRUG RADIOLOGI 09835 [facility] C EXAM 2 BETH CHEST 2 RADIOLOGY VIEWS ASSOCIAT FRONTAL&[place] [address] [facility], [facility], INFUSION 2 ACQUISITION PROFESSIONAL ACQUISITION PROFESSIONAL THERAPY/P PEPE MORAS ROPHYLAXI CO HOS CO HOS S /DX 1ST TO 1 [place] [address] [facility], [facility], INFUSION 2 ACQUISITION PROFESSIONAL ACQUISITION PROFESSIONAL HYDRATION PEPE PEPE EACH [place] [address] [facility], [facility], INFUSION 2 ACQUISITION PROFESSIONAL ACQUISITION PROFESSIONAL HYDRATION PEPE PEPE INITIAL CO HOS CO HOS 31 MIN-1 HOUR PET 8[address]34 [facility] [address] IMAGING IMAGING ATTENUATI L L ON SKULL BASE MID-THIGH COMPREHEN 63201 [facility], [facility], SIVE 2 ACQUISITION PROFESSIONAL ACQUISITION PROFESSIONAL METABOLIC PEPE MORAS PANEL CO HOS CO HOS BLOOD 26804 [facility], [facility], COUNT 2 ACQUISITION PROFESSIONAL ACQUISITION PROFESSIONAL COMPLETE PEPE MORAS AUTO&AUTO CO HOS CO HOS DIFRNTL WBC BLOOD 01588 [facility], [facility], COUNT 2 ACQUISITION PROFESSIONAL ACQUISITION PROFESSIONAL SMEAR [facility]PE [facility]U MCRSCP CO HOS CO HOS W/MNL DIFRNTL WBC COUNT NATRIURET 81072 [facility], [facility], IC 2 ACQUISITION PROFESSIONAL ACQUISITION PROFESSIONAL PEPTIDE PEPE PEPE CO HOS CO HOS RADIOLOGI 38094 [facility], [facility], C EXAM 2 ACQUISITION PROFESSIONAL ACQUISITION PROFESSIONAL CHEST 2 PEPE PEPE VIEWS CO HOS CO HOS FRONTAL&L ATERAL PROTHROMB 94108 [facility], [facility], IN TIME 2 ACQUISITION PROFESSIONAL ACQUISITION PROFESSIONAL PEPE PEPE CO HOS CO HOS SEDIMENTA 11358 [facility], [facility], TION RATE 2 ACQUISITION PROFESSIONAL ACQUISITION PROFESSIONAL RBC PEPE PEPE NON-AUTOM CO HOS CO HOS ATED DUP-SCAN 82807 YUM[facility]KO CALDERON XTR VEINS 2 [facility] INC UNILATERA L/LIMITED STUDY DISPBL T4535 NURSES NURSES LINER/ISABELLE 2 REGISTRY REGISTRY ELD/GUARD & HOME HE & HOME HE /PAD/UNDG RMNT INCONT EA DISPBL T4535 NURSES NURSES LINER/ISABELLE 2 REGISTRY REGISTRY ELD/GUARD & HOME HE & HOME HE /PAD/UNDG [place] 20353 [facility] [address] IMAGING IMAGING ATTENUATI L L [place] [address] NEW NEW SURG 1 [facility] PATHOLOGY [facility] PSC GROSS&PHI ROSCOPIC EXAM DECALCIFI 30047 NEW NEW CATION 1 [facility] PROCEDURE CLINIC CLINIC PSC PSC BONE 93001 [place] [place] [facility] CELESTINO INTERPRET PSC ATION RADEX 66281 [facility] ANKLE 1 [facility] COMPLETE MINIMUM 3 VIEWS COMPREHEN 02383 [facility] SIVE 1 [facility] METABOLIC PANEL COLLECTIO 35263 [facility] N VENOUS 1 [facility] BLOOD VENIPUNCT URE BLOOD 16553 [facility] COUNT 1 [facility] COMPLETE AUTO&AUTO DIFRNTL WBC LACTATE 91351 [facility] DEHYDROGE 1 [facility] [place] [address] [facility] BLOOD/URI 1 [facility] C ACID COLLECTIO 01796 [facility] N VENOUS 1 [facility] BLOOD VENIPUNCT URE FLOW 54416 [facility] CYTOMETRY [address] [place] [address] CELL SURF MARKER TECHL ONLY EA FLOW 02369 [facility] CYTOMETRY 1 [facility] CELL SURF MARKER TECHL ONLY 1ST CHRMSM 00917 [facility] COUNT 1 [facility] 15-20 CLL 2KARYOTYP BANDING CHRMSM 40063 [facility] ANALYSIS 1 [facility] ADDL KARYOTYP EACH STUDY FLOW 21607 [facility] CYTOMETRY [address] [place] [address] INTERPRET ATION 16/> MARKERS DISPBL T4535 NURSES NURSES LINER/ISABELLE 1 REGISTRY REGISTRY ELD/GUARD & HOME HE & HOME HE /PAD/UNDG RMNT INCONT EA DISPBL T4535 NURSES NURSES LINER/ISABELLE 1 REGISTRY REGISTRY ELD/GUARD & HOME HE & HOME HE /PAD/UNDG RMNT INCONT EA DESTRUCTI 27273 [facility] ANGELO FONG ON 1 [facility] LESION 1ST RADEX 95778 [facility] ELBOW 1 CO CO COMPLETE [facility] MINIMUM 3 VIEWS RADIOLOGI 74669 [facility] C 1 CO CO EXAMINATI [facility] ON TIBIA & FIBULA 2 VIEWS RADEX 87671 [facility] FOREARM 2 1 CO CO VIEWS [facility] DUPLEX 63267 [facility] SCAN 1 [facility] EXTRACRAN RADIOLOGY IAL ART ASSOCIAT COMPL BI STUDY BLOOD 91947 [facility] PAT SMEAR 1 JARED & PERIPHERA DUBILIER L INTERP PHYS W/[place] [address] [facility] HEAD/BRAI 1 BETH N W/O RADIOLOGY CONTRAST ASSOCIAT MATERIAL RADEX 79925 [facility] ABDOMEN 1 BETH COMPL RADIOLOGY W/DCBTS&/ ASSOCIAT ERC VIEWS ECG 24185 [facility] ROUTINE 1 CO CO ECG [facility] W/LEAST 12 LDS TRCG ONLY W/O I&R DEMO&/JONNY 00305 PE[facility] Velazquez OF PT 1 CO CO UTILIZ [facility] AERSL GEN/NEB/I NHLR/IP ANTIBODY 09474 [facility] INFLUENZA 1 CO CO VIRUS [facility]OSPITAL RADIOLOGI 55226 [facility] [facility] C EXAM 1 BETH CHEST 2 RADIOLOGY VIEWS ASSOCIAT FRONTAL&L ATERAL PRESSURIZ 99032 [facility] ED/NONPRE 1 CO CO SSURIZED [facility] INHALATIO N TREATMENT COLLECTIO 37239 [facility] Falcon VENOUS 1 CO CO BLOOD [facility] VENIPUNCT URE BLOOD 23891 [facility] COUNT 1 [facility] MCRSCP W/MNL DIFRNTL WBC COUNT BASIC 12720 [facility] METABOLIC 1 CO CO PANEL [facility]OSPITAL HOSPITAL CALCIUM TOTAL BLOOD 58937 COMBINED COMBINED COUNT 1 PHYSICIAN PHYSICIAN COMPLETE S LA S LA AUTO&AUTO DIFRNTL WBC LIPID 79689 COMBIN[facility] COMBINED PANEL 1 PHYSICIAN PHYSICIAN S LA S LA COMPREHEN 15940 COMBINED COMBINED SIVE 1 PHYSICIAN PHYSICIAN [place] [address] COMBINED COMBINED THYROID 1 PHYSICIAN PHYSICIAN STIMULATI S LA S LA NG HORMONE TSH PROTHROMB 51211 COMBINED COMBINED IN TIME 1 PHYSICIAN PHYSICIAN S LA S LA RADIOLOGI 05405 [facility] C EXAM 1 CO CO CHEST 2 [facility] HOSPITAL VIEWS FRONTAL&L ATERAL RADEX 24540 [facility] RIBS UNI 1 CO CO W/POSTERO HOSPITAL HOSPITAL ANT CH MINIMUM 3 VIEWS RADEX 71605 [facility]BS [facility] 2 [place] [address] [facility] TRANSVAGI 1 [facility] [place] SCREEN Q0091 [facility] PAP 1 [facility]; [facility] [place] [place] PREP &C ONVEY TO LAB CERV/VAGI G0101 [facility] NAL 1 [facility] OF SCR; [place] PELV&CLIN BREAST EXAM SCR G0145 PATHOLOGY PATHOLOGY CYTOPATH 1 & & CERV/VAG CYTOLOGY CYTOLOGY SCR LAB LAB AUTO&MNL RSCR PHYS RADIOLOGI 05826 [facility] C EXAM 1 ANNIE CHEST 2 RADIOLOGY VIEWS ASSOCIAT FRONTAL&L ATERAL CULTURE 03066 [facility] BACTERIAL 0 CO CO HOSPITAL HOSPITAL QUANTTATI VE COLONY COUNT URINE CT PELVIS 98180 [facility] W/O 0 CO CO [place] [address] [facility] ABDOMEN 0 CO CO W/O HOSP[place] [address] PATHOLOGY PATHOLOGY SURG 0 & & PATHOLOGY CYTOLOGY CYTOLOGY LAB LAB GROSS&PHI ROSCOPIC EXAM EXCISION 58019 C GEOVANNI STEVENS MAL 0 HILDA CALLAWAY MD PSC TRUNK/ARM /LEG 2.1-3.0 [place] [address] COMBINED COMBINED THYROID 0 PHYSICIAN PHYSICIAN STIMULATI S LA S LA NG HORMONE TSH COMPREHEN 69897 COMBINED COMBINED SIVE 0 PHYSICIAN PHYSICIAN METABOLIC S LA S LA PANEL COLLECTIO 27596 COMBINED COMBINED N VENOUS 0 PHYSICIAN PHYSICIAN BLOOD S LA S LA VENIPUNCT URE LIPID 77135 COMBINED COMBINED PANEL 0 PHYSICIAN PHYSICIAN S LA S LA BLOOD 98723 COMBINED COMBINED COUNT 0 PHYSICIAN PHYSICIAN COMPLETE S LA S LA AUTO&[place] [address] [facility], ABDOMEN 0 MARIAA C W/O RADIOLOGY CONTRAST MATERIAL ASSOCIATE S PSC CT PELVIS 64466 [place] [facility], W/O 0 MARIAA C CONTRAST RADIOLOGY MATERIAL ASSOCIATE S PSC BLOOD 98919 COMBINED COMBINED COUNT 0 PHYSICIAN PHYSICIAN COMPLETE S LAB S LAB AUTO&AUTO DIFRNTL WBC LIPID 28297 COMBINED COMBINED PANEL 0 PHYSICIAN PHYSICIAN S LAB S LAB COMPREHEN 62523 COMBINED COMBINED SIVE 0 PHYSICIAN PHYSICIAN METABOLIC S LAB S LAB PANEL DUP-SCAN 88777 [facility] XTR VEINS [facility] [place] [address] PATHOLOGY PATHOLOGY SURG 0 & & PATHOLOGY CYTOLOGY CYTOLOGY LAB LAB GROSS&PHI ROSCOPIC EXAM COLONOSCO 59872 [place], PY 0 MEDICAL DEISY W/BIOPSY SERV SINGLE/[place] [address] [facility] YUMIKO INFUSION 0 [facility] THERAPY/P INC INC ROPHYLAXI S /DX 1ST TO 1 [place] [address] DERMATOPA DERMATOPA SURG 0 THOLOGY THOLOGY PATHOLOGY ALLINACE ALLINACE OF OF GROSS&PHI ROSCOPIC EXAM COMPUTER- 61337 [place], AIDED 0 MEDICAL ROBERTO CARLOS DETECTION IMAGING ASSOCIATE SCREENING S MAMMOGRAP HY SCREENING 64349 [place], 0 MEDICAL ROBERTO CARLOS MAMMOGRAP IMAGING HY ASSOCIATE BILATERAL S CULTURE 96696 [facility] BACTERIAL 0 CO CO HOSPITAL HOSPITAL QUANTTATI VE COLONY COUNT URINE COMPREHEN 69022 [facility] THORNEE 0 [facility] PANEL LIPID 99347 [facility] PANEL 0 [facility] LIPOPROTE 00759 [facility] IN DIRECT 0 [facility] MEASUREME NT LDL CHOLESTER OL BLOOD 48357 [facility] COUNT 9 [facility] COMPLETE [facility] HOSPITAL AUTO&AUTO DIFRNTL WBC LIPID 56800 [facility] PANEL 9 [facility]PITAL COMPREHEN 60697 [facility] SIVE 9 [facility] PANEL COLLECTIO 35974 [facility], N VENOUS 9 [facility] BLOOD INTERNAL VENIPUNCT MED URE URNLS DIP 16879 [facility], 9 [facility] STICK/TAB INTERNAL LET RGNT MED NON-AUTO W/O MICRSCP PHYS G0179 [facility] MCKEMIE RE-CERT 9 [facility], MCR-COVR INTERNAL [facility] MED SRVC RE-CERT PRD 3D 49307 DENI, DENI, RENDERING 9 ROBERTO CARLOS ORBERTO CARLOS W/INTERP & [place] 88527 DENI, DENI, SPINAL 9 ROBERTO CARLOS ROBERTO CARLOS CANAL CERVICAL W/O CONTRAST MATRL ECG 76593 [facility], ROUTINE 9 [facility] A ECG INTERNAL W/LEAST MED 12 LDS W/I&R PHYS G0179 [facility] MCKEMIE RE-CERT 9 [facility], MCR-COVR INTERNAL [facility] MED SRVC RE-CERT PRD OPHTH 29977 JOSIAH RAHMAN, MEDICAL 9 DORIAN A DORIAN A XM&EVAL COMPRHNSV ESTAB PT 1/> DESTRUCTI 29599 [facility], ON 9 [facility] A PREMALIGN INTERNAL ANT MED LESION 1ST PRESSURIZ 05411 [facility] ED/NONPRE 8 [facility] INHALATIO N TREATMENT RADIOLOGI 42097 [facility] Prince EXAM 8 CO CO CHEST 2 [facility] VIEWS FRONTAL&L ATERAL COLLECTIO 20123 [facility] N VENOUS 8 CO CO BLOOD [facility] VENIPUNCT URE BLOOD 61684 [facility] COUNT 8 CO CO COMPLETE [facility] AUTO&AUTO DIFRNTL WBC BLOOD 29763 [facility] COUNT 8 CO CO SMEAR [facility] MCRSCP W/MNL DIFRNTL WBC COUNT DEMO&/JONNY 82093 [facility] L OF PT 8 CO CO UTILIZ [facility] AERSL GEN/NEB/I NHLR/IP IIV3 40518 [facility] BESNIXON, VACCINE [address] [place] [address] SPLIT INTERNAL VIRUS 0.5 MED ML DOSAGE IM USE ADMINISTR G0008 [facility] GARRISON, ATION OF [address] [place] [address] INFLUENZA INTERNAL VIRUS [facility] 54058 [facility] GYPSY, DISCHARGE [address] [place] [address] INTERNAL MANAGEMEN MED T 30 MIN/< SBSQ [address] [address] CARE/DAY INTERNAL 25 MED MINUTES SBSQ [address] CARE/DAY INTERNAL 25 MED MINUTES INITIAL [address] CARE/DAY INTERNAL DARYN 50 MED MINUTES RADIOLOGI 57447 Niki MARIEE EXAM 8 AYANA S CHEST 2 RADIOLOGY VIEWS FRONTAL&L ASSOCIATE ATERAL S PSC RADEX ABD 55866 MOHALLHARJINDER [place], COMPL 8 AYANA S AQT ABD RADIOLOGY W/S/E/D VIEWS 1 ASSOCIATE VIEW CH S PSC PHYS CERT G0180 [facility] BRANDINIXON MCR-COVR 8 [facility] INTERNAL SRVC PER MED CERT PRD IM ADM 63989 LIC MENDEZ PRQ ID 8 LOIDA PLATA, SUBQ/IM INTERNAL DARYN Boucher NJXS 1 MED VACCINE INJECTION J3301 [facility] [address], [place]AM[place] INTERNAL DARYN Boucher LONE MED ACETONIDE NOS 10 MG RADIOLOGI 46715 Niki MARIEE EXAM 8 AYANA S CHEST 2 RADIOLOGY VIEWS FRONTAL&L ASSOCIATE ATERAL S PSC BLOOD 84535 [facility] COUNT 8 CO IL SMEAR [facility] MCRSCP W/MNL DIFRNTL WBC COUNT BLOOD 87545 [facility] COUNT 8 CO IL COMPLETE [facility] AUTO&AUTO DIFRNTL WBC COLLECTIO 83972 [facility] N VENOUS 8 CO [facility] VENIPUNCT URE COMPREHEN 14553 [facility] SIVE 8 [facility] PANEL THER 38531 [facility] PROPH/DX 8 [facility] NJX [facility] SUBQ/IM Encounters Encounter Start End Date Code Location Performer Type Date OFFICE 55118 [facility] MARLINE OUTPATIEN 7 7 PHYSICIAN T VISIT S GROUP 15 MINUTES HOSPITAL [facility] - 7 7 [facility]IENT [facility] EMERGENCY 49430 [facility] DEPT 7 7 PHYSICIAN VISIT S, [facility] HIGH SEVERITY& THREAT [facility] - 7 7 [facility]PITALS OFFICE 38268 [facility] OUTPATIEN 7 7 MEDICAL T VISIT SERV 15 FOUNDATIO MINUTES N OFFICE 66348 [facility] COUNTY T VISIT URGENT 25 TREAT MINUTES OFFICE 58623 [facility] 6 6 [facility] T VISIT URGENT 15 TREAT MINUTES OFFICE 74057 [facility] OUTPATIEN 6 6 COUNTY T VISIT URGENT 25 TREAT MINUTES OFFICE 89805 [facility] 6 6 COUNTY NAN T VISIT URGENT 25 TREAT MINUTES HOSPITAL UNIVERSIT - 6 6 Y OUTPATI HOSPITAL T OFFICE 31588 [facility] FLEISCHSTUART OUTPATIEN 6 6 MEDICAL N RONN T VISIT SERV 15 FOUNDATIO MINUTES N [facility] [place] - 6 6 [facility] T OFF[facility] 85859 [facility] 6 6 PHYSICIAN LES T NEW 30 PRACTICE MINUTES L OFFICE 83426 [facility] PLUNK[facility] 6 6 MEDICAL N RONN T VISIT SERV 10 FOUNDATIO MINUTES N OFFICE 29132 [facility] OUTPATIEN 6 6 [facility] T VISIT URGENT 25 TREAT MINUTES HOSPITAL YUMIKO - 6 6 [facility] EMERGENCY 87444 [facility] 5 5 [facility] [place] HIGH SEVERITY& THREAT [facility] BOCASION - 5 5 [facility] EM[facility]GENC[facility] 83815 [facility] DEPT 5 5 [facility] THO VISIT EMERGENCY HIGH PHYSI SEVERITY& THREAT [facility] B[facility] - 5 5 [facility] 70279 [facility] 5 [facility] T VISIT HIGH/URGE NT SEVERITY HOSPITAL YUM[facility]KO - 5 5 [facility]EN [facility] YUMIKO [facility] 5 5 [facility] OUTPATIEN [facility] HOME [facility], 5 5 HOME INPATIENT HEALTH AGENCY HOME [facility], 5 5 HOME INPATIENT HEALTH AGENCY OFFICE 01762 ROSA ELNEA LLANES [facility] 5 5 [facility] T VISIT 15 MINUTES HOSPITAL YUMIKO - 4 4 [facility] OUT[facility]IEN [facility] YUMIKO [facility] 4 4 [facility] INPATIENT [facility] YUMIKO - 4 4 [facility]IEN [facility] YUMIKO [facility] 4 4 [facility] OFFICE 55825 [facility] OUTPATIEN 4 4 PHYSICIAN T NEW 45 S GROUP MINUTES HOSPITAL UNIVERSIT - 4 4 [facility] T HOME NURSES HEALTH, 4 4 REGISTRY INPATIENT HOME [facility] NURSES HEALTH, 4 4 REGISTRY INPATIENT HOME [facility] [place] - 4 4 [facility] T CRITICAL [facility], ACCESS 4 4 [facility] EMERGENC[facility] 63269 [facility], 4 4 ACQUISITION PROFESSIONAL DEPARTMEN [facility] T VISIT CO HOS HIGH/URGE NT SEVERITY HOME NURSES HEALTH, 4 4 REGISTRY INPATIENT HOME [facility] N[facility]SES HEALTH, 4 4 REGISTRY INPATIENT & HOME HE HOME NURSES HEALTH, 4 4 REGISTRY INPATIENT & HOME HE CRITICAL [facility], ACCESS 4 4 [facility] CR[facility]ICAL [facility], ACCESS 4 4 [facility] EMERGENCY 97604 [facility], 4 4 ACQUISITION PROFESSIONAL DEPARTMEN [facility] T VISIT CO HOS HIGH/URGE NT SEVERITY HOME NURSES HEALTH, 4 4 REGISTRY INPATIENT & HOME [facility] - 4 4 [facility] 51967 FLEISCHMA FLEISCHMA OUTPATIEN 4 4 N RONN N RONN T VISIT 15 MINUTES HOME NURSES HEALTH, 3 3 REGISTRY INPATIENT & HOME HE HOME NURSES HEALTH, 3 3 REGISTRY OUTPATIEN & HOME HE T HOME NURSES HEALTH, 3 3 REGISTRY OUTPATIEN & HOME HE T OFFICE 06600 FLEISCHMA FLEISCHMA OUTPATIEN 3 3 N RONN N RONN T NEW 45 MINUTES HOSPITAL UNIVERSIT - 3 3 [facility] T EMERGENCY 85444 VENKAT ROBLEDO 3 3 ANGELICA DOMINGUEZ DEPARTMEN T VISIT MODERATE SEVERITY EMERGENCY 61183 [facility], 3 3 ACQUISITION PROFESSIONAL DEPARTMEN [facility] T VISIT CO HOS HIGH/URGE NT SEVERITY CRITICAL [facility], ACCESS 3 3 ACQUISITION [facility]ICAL [facility], ACCESS 3 3 ACQUISITION [facility]PITAL UNIVERSIT - 3 3 [facility]GENCY 52153 [facility], 3 3 ACQUISITION PROFESSIONAL DEPARTMEN [facility] T VISIT CO HOS HIGH/URGE NT SEVERITY CRITICAL [facility], ACCESS 3 3 [facility] 29615 [facility], DEPT 3 3 ACQUISITION PROFESSIONAL V[facility]IT [facility] SEVERITY& THREAT FUNCJ CRITICAL [facility], ACCESS 3 3 [facility], ACCESS 3 3 [facility] HOME NURSES HEALTH, 3 3 REGISTRY OUTPATIEN & HOME HE T EMERGENCY 00024 [facility], 3 3 ACQUISITION PROFESSIONAL DEPARTMEN [facility] LOW/MODER SEVERITY CRITICAL [facility], ACCESS 3 3 [facility] 94503 RANDA RANDA 3 3 HEN HEN DEPARTMEN T VISIT MODERATE SEVERITY HOSPITAL [facility], - 3 3 ACQUISITION [facility]ESSIONAL INPATIENT [facility] CR[facility]ICAL [facility], ACCESS 3 3 [facility] 96482 [facility], 3 3 ACQUISITION PROFESSIONAL DEPARTMEN [facility] T V[facility] HOS HIGH/URGE NT SEVERITY HOME NURSES HEALTH, 2 2 REGISTRY OUTPATIEN & HOME HE T HOME NURSES HEALTH, 2 2 REGISTRY OUTPATIEN & HOME HE T OFFICE 14835 NO REBEKAH NO REBEKAH OUTPATIEN 2 2 T NEW 45 MINUTES CLINIC, [facility] 2 2 PENDING SALE TO [facility] HEALTH OFFICE 45207 [facility] 2 2 [facility] T VISIT [facility] 15 HEALTH MINUTES HOME NURSES HEALTH, 2 2 REGISTRY OUTPATIEN & HOME HE T HOME NURSES HEALTH, 2 2 REGISTRY OUTPATIEN & HOME HE T CRITICAL [facility], ACCESS 2 2 ACQUISITION [facility] CO HOS EMERGENCY 07141 [facility] INC, 2 2 ACQUISITION PROFESSIONAL DEPARTMEN [facility] T VISIT CO HOS HIGH/URGE NT SEVERITY OFFICE 24716 AHMED ADN AHMED ADN OUTPATIEN 2 2 T VISIT 15 MINUTES HOSPITAL [facility] INC, - 2 2 ACQUISITION PROFESSIONAL OUTPATIEN [facility] OFFICE 18276 AHMED ADN AHMED ADN OUTPATIEN 2 2 T VISIT 15 MINUTES OFFICE 09254 [facility] FED [facility] FED OUTPATIEN 2 2 T NEW 20 MINUTES OFFICE 18239 [facility] 2 2 [facility]URAL T VISIT HEALTH 25 CLINIC MINUTES CLINIC, [facility] RURAL 2 2 [facility] OFFICE 48473 [facility] OUTPATIEN 2 2 RURAL T VISIT HEALTH 25 CLINIC MINUTES CRITICAL [facility], ACCESS 2 2 ACQUISITION [facility] CO HOS OFFICE 27093 [facility] OUTPATIEN 2 2 RURAL T VISIT HEALTH 25 CLINIC MINUTES CLINIC, [facility]URAL 2 2 [facility] YUMI[facility] - 2 2 [facility] 66138 [facility]PATIEN 2 2 RURAL T VISIT HEALTH 25 CLINIC MINUTES CLINIC, [facility] RURAL 2 2 [facility] CL[facility] HOME NURSES HEALTH, 2 2 REGISTRY OUTPATIEN & HOME HE T OFFICE 87190 [facility] OUTPATIEN 2 2 T VISIT 15 MINUTES CLINIC, [facility] 2 2 [facility] OFFICE 50019 [facility] VISIT [facility] 25 HEALTH MINUTES [facility] 1 [facility] CLINIC, [place] [facility] 1 1 [facility] OFFICE 89831 [facility] 1 1 [facility] T VISIT RURAL 15 HEALTH MINUT[facility] HOME NURSES HEALTH, 1 1 REGISTRY OUTPATIEN & HOME HE T HOME NURSES HEALTH, 1 1 REGISTRY OUTPATIEN & HOME HE T OFFICE 09715 [facility] R[facility] T VISIT HEALTH 15 CLINIC MINUTES [facility]IC, [facility] R[facility] 1 1 [facility] OFFICE 90541 [facility] T V[facility] HEALTH 15 CLINIC MINUT[facility] CLINIC, [facility] R[facility] 1 1 [facility] OFFICE 41932 [facility] ANGELO FONG OUTPATIEN 1 1 RURAL T VISIT HEALTH 25 CLINIC MINUTES CR[facility]ICAL PEPE ACCESS 1 1 [facility] EMERGENCY 67740 [facility] WILLETT DEPT 1 1 [facility] VISIT HOSPITAL HIGH SEVERITY& THREAT [facility] [place] - [place] 1 [place] [facility] [place] 25229 PEPE 1 1 [facility] T VISIT LIMITED/M INOR PROB CRITICAL PEPE ACCESS 1 1 [facility] CRIT[facility] ACCESS 1 1 [facility] OFFICE 13144 [facility]IEN 1 1 [facility] OF [address] [place] [address] PEPE - 1 1 [facility] CRITICAL PEPE ACCESS 0 0 [facility] OFFICE 96308 C GEOVANNI STEVENS OUTPATIEN 0 0 HILDA Gay MD [facility] [place] 0 0 [place] [facility] [place] ACCESS 0 0 [facility] OFFICE 06106 [place] OUTPATIEN 0 [address] [place] [address] [facility] [address] [facility] CRITICAL PEPE [facility]ESS 0 0 [facility] YUMIKO - 0 0 [facility] - [facility] 57022 [place] [facility]PATI[facility] 0 0 [facility] T VISIT INTERNAL 15 MED MINUTES OFFICE 79551 [place] [facility] OUTPATIEN 0 0 [facility] VISIT INTERNAL 25 MED MINUTES CRITICAL PEPE ACCESS 0 0 [facility] OFFICE 80689 [place] [facility], OUTPATIEN 9 9 [facility] T VISIT INTERNAL 15 MED MINUTES OFFICE 13890 [facility] [facility], OUTPATIEN 9 9 [facility] VISIT INTERNAL 15 MED MINUTES CR[facility] [place] [facility] 9 9 [facility] 35344 [place] [facility], OUTPATIEN 9 9 [place] [facility] A T VISIT INTERNAL 25 MED MINUTES OFFICE 77806 [facility] [facility], OUTPATIEN 9 9 [facility] T VISIT INTERNAL 15 MED MINUTES OFFICE 48881 [facility], OUTPATIEN 9 9 [facility] [facility] T VISIT INTERNAL 25 MED MINUTES CRITICAL [place] [facility] 8 [facility] 92472 PEPE 8 8 [facility] T VISIT LOW/MODER SEVERITY EMERGENCY 23926 [facility] ROBLEDO, 8 8 [facility] VIS[facility] MODERATE SEVERITY OFFICE 67233 [place] [facility], OUTPATIEN 8 8 [place] [facility] VISIT INTERNAL 15 MED MINUTES OFFICE 01128 [place] [facility], OUTPATIEN 8 8 [place] [facility] VISIT INTERNAL 10 MED MINUTES OFFICE 49222 [place] [facility] OUTPATIEN 8 8 [place] [facility] T VISIT INTERNAL 15 MED MINUTES CRITICAL PEPE ARORA 8 8 [facility] OFFICE 15241 ERIN WILLSON 8 8 MEDICAL DARYN HERNANDEZ SERV E NEW/ESTAB FOUNDATIO PATIENT 40 MIN OFFICE 34445 [place] EUGENE 8 8 [place] T VISIT 5 HOSPITAL MINUTES OFFICE 73064 [place] OUTPATIEN 8 8 [place] [facility] T VISIT INTERNAL 15 MED MINUTES [facility] [place] - 8 8 [place] [facility] OFF[place] 72462 HAZEL HAZEL OUTPATIEN 8 8 MARIAA PLATA JR, JOHN T VISIT P P 15 MINUTES OFFICE 83281 [place] ANGELESKEMIPadma VALORIE 8 8 Cameron MARISCAL JR VISIT INTERNAL DARYN F 15 MED MINUTES EMERGENCY 36264 PEPE 8 8 [facility] T VISIT LIMITED/M INOR PROB CRITICAL PEPE ACCESS 8 8 [facility] OFFICE 49310 VALORIE VILLALTA 8 8 LO[place] Barnes VISIT INTERNAL 15 MED MINUTES OFFICE 60970 HAZEL EUGENE 8 8 MARIAA PLATA JR, JOHN T VISIT P P 10 MINUTES OFFICE 24042 NEGRITA EUGENE 8 8 Cameron MARISCAL JR VISIT INTERNAL DARYN F 25 MED MINUTES OFFICE 45202 HAZEL EUGENE 8 8 MARIAA PLATA JR, JOHN T VISIT P P 15 MINUTES
--- OUTSIDE RECORDS SUMMARY | 2016-12-13 19:16 | External Medical Summary Rpt ---
Demographics Preferred Language Swedish Marital Status Unknown Adventist Affiliation Unknown Race Unknown Ethnic Group Unknown Author Author , JESSICA LOPEZ Address Unknown Phone Immunization Unable to retrieve immunization data due to connection failure with Immunization Registry. Please try again later.
--- OUTSIDE RECORDS SUMMARY | 2016-12-13 19:16 | External Medical Summary Rpt ---
Demographics Preferred Language Croatian Marital Status Unknown Baptism Affiliation Unknown Race Unknown Ethnic Group Unknown Author Author , JESSICA LOPEZ Address Unknown Phone Immunization Unable to retrieve immunization data due to connection failure with Immunization Registry. Please try again later.
== END 2016-12-13 12:19 | disposition home or self-care (01) | DRG 191 ==
LOC: ER 19:32 → 2ND 22:16
PROVIDERS: Emergency Medicine
DX: J44.1 Chronic obstructive pulmonary disease with (acute) exacerbation (principal); N39.0 Urinary tract infection, site not specified; B96.1 Klebsiella pneumoniae [K. pneumoniae] as the cause of diseases classified elsewhere; I10 Essential (primary) hypertension